=== PATIENT | male | born 1960 | race Caucasian/White ===

== ENCOUNTER → 2016-09-07 | Outpatient (CLI) | payer OTHER ==
[~2016-09-07] MED LIST: /TAMS4CA PO; AMBI10TA PO; AMBIEN PO; ASPI1TAB PO; ATOR1TAB18 PO; BACT2CRE TOP; BUSP10TA PO; CETI10CH PO; CETI10TA PO; CIPR500T3 PO; CYMB60CA3 PO; EFFE150C PO; FLAG500T PO; FLOM5CAP PO; GABA300C3 PO; HYDR1TAB97 PO; LEVS0.123 PO; LIDO1DIS2 TD; LISI-538 PO; LISI20TA PO; LYRI200C PO; MELO7.5T3 PO; MORP15TA2 PO; MORP30SU PO; ONDA1TAB15 PO; ROPI3TAB PO; SYNT25TA PO; TRAZ10TA PO; ULTR50TA PO; VITA200015 PO; VITMTA PO; ZANA4CAP PO; ZOCO20TA PO; [UNRECOGNIZED DRUG - CODE] TOP; ropinirole PO
--- NOTE | 2016-09-07 15:10 | REP ---
CHEST, TWO VIEWS: HISTORY: Shortness of breath. COMPARISON: 04/28/2016 Curvilinear density is present in the left lower lobe consistent with scar. The right lung is clear. The heart is normal in size. The pulmonary vasculature is normal in appearance. Degenerative change is present in the thoracic spine. IMPRESSION: Left lower lobe scar. Signed by Konrad Baker MD 09/07/2016 03:17 P
== END ==
LOC: M WUC 14:17
PROVIDERS: ATTEND Nurse Practitioner Family
DX: R06.02 Shortness of breath (principal)

== ENCOUNTER → 2016-09-20 | Outpatient (CLI) | payer OTHER ==
[~2016-09-20] MED LIST changes: +HYDR-3713 PO; -HYDR1TAB97 PO
== END ==
LOC: M CARPUL 15:25
PROVIDERS: ATTEND Nurse Practitioner Family
DX: R06.09 Other forms of dyspnea (principal)

== ENCOUNTER → 2016-10-12 | Outpatient (CLI) | payer OTHER ==
--- NOTE | 2016-10-12 13:15 | REP ---
Clinical: Lung cancer screening. Technique: Axial low-dose noncontrast images from the thoracic inlet to the upper abdomen. Comparison: Chest CT dated 09/03/2012. Findings: Linear plate-like atelectasis in the lingula and left lower lobe are essentially unchanged when compared to 2013. The lung kauffman are otherwise well aerated and without further consolidation, nodule or mass lesion. No pleural effusion/reaction. Tracheobronchial tree appears patent. Mediastinum is grossly unremarkable. Impression: Linear plate-like atelectasis similar to 2013. No significant consolidation, nodule or mass lesion. Signed by Marvin Oliva MD 10/12/2016 01:06 P
== END ==
LOC: M RAD 12:43
PROVIDERS: ATTEND Nurse Practitioner Family
DX: Z13.83 Encounter for screening for respiratory disorder NEC (principal); Z87.891 Personal history of nicotine dependence; J98.11 Atelectasis

== ENCOUNTER → 2016-10-18 | Outpatient (CLI) | payer OTHER ==
--- NOTE | 2016-10-18 14:32 | REP ---
Clinical: Degenerative pain. Technique: AP, lateral, swimmers views of the cervical spine. Comparison: 04/08/2016. Findings: Alignment is maintained. Moderate multilevel degenerative disc osteophyte complexes are noted. Evidence for prior anterior fusion at the C3 - C5 and C6 - C7 levels. Findings remain stable compared to 04/08/2016. Impression: Evidence for prior anterior fusion and multilevel degenerative changes similar to prior examination. No acute fracture or subluxation. Signed by Marvin Oliva MD 10/18/2016 02:23 P
== END ==
LOC: M WUC 13:45
PROVIDERS: ATTEND Neurological Surgery
DX: M47.22 Other spondylosis with radiculopathy, cervical region (principal); Z98.1 Arthrodesis status

== ENCOUNTER → 2016-11-02 | Outpatient (CLI) | payer OTHER ==
--- NOTE | 2016-11-02 13:47 | REP ---
CT CERVICAL SPINE WITHOUT CONTRAST: HISTORY: Osteoarthritis. COMPARISON: 12/18/2012. The patient is status post C3-5 and C6-7 anterior spinal fusion. Fixation plates and bony graft material are present. There is no acute fracture or subluxation. Posterior osteophytes are present at the C3-4 level. There is minimal narrowing of the spinal canal. There is no disc bulge or herniation. Uncinate process hypertrophy is present at the C3-4 level. This produces mild narrowing of the C3 neural foramina. The remaining neural foramina are patent. The vertebral bodies are normal in height. IMPRESSION: 1. The patient is status post C3-5 and C6-7 anterior spinal fusion. There is anatomic alignment of the cervical spine. 2. There is cervical spondylosis at the C3-4 level. Signed by Konrad Baker MD 11/02/2016 01:50 P
== END ==
LOC: M RAD 13:04
PROVIDERS: ATTEND Neurological Surgery
DX: M47.812 Spondylosis without myelopathy or radiculopathy, cervical region (principal); Z98.1 Arthrodesis status

== ENCOUNTER → 2017-02-02 | Outpatient (CLI) | payer OTHER ==
[~2017-02-02] MED LIST changes: +GABA-282 PO; -GABA300C3 PO
--- NOTE | 2017-02-03 08:34 | REP ---
MRI CERVICAL SPINE WITHOUT CONTRAST: HISTORY: Osteoarthritis. COMPARISON: MRI 04/26/[address] 11/02/2016. The patient is status post C3-5 and C6-7 anterior spinal fusion. Fixation plates and bone graft material are present. Facet hypertrophy is present on the left at the C2-3 level. The C2 neural foramina are patent. Posterior osteophytes are present at the C3-4 level. There is minimal effacement of the thecal sac without spinal cord compression. Bilateral uncinate process hypertrophy is present. This produces mild and moderate narrowing of the right and left C3 neural foramina respectively. The spinal canal and neural foramina are patent at the C4-5 through C6-7 levels. Facet hypertrophy is present at the C7-T1 level. The C7 neural foramina are patent. There is no disc bulge or herniation. The spinal cord is normal in signal intensity. Normal signal intensity is present in the cervical vertebral bodies. There is no subluxation. IMPRESSION: 1. The patient is status post C3-5 and C6-7 anterior spinal fusion. There is anatomic alignment of the cervical spine. 2. There is cervical spondylosis at the C2-3 , C3-4 and C7-T1 levels without spinal cord compression. Signed by Konrad Baker MD 02/03/2017 08:42 A
== END ==
LOC: M RAD 16:48
PROVIDERS: ATTEND Neurological Surgery
DX: M47.812 Spondylosis without myelopathy or radiculopathy, cervical region (principal); Z98.1 Arthrodesis status

== ENCOUNTER 2017-02-23 09:34 | Emergency (ER) | payer OTHER ==
[~2017-02-23 09:34] MED LIST changes: -ATOR1TAB18 PO; +ATOR80TA59 PO; -ONDA1TAB15 PO; +ONDA4TAB5 PO
[2017-02-23] MEDS ORDERED: NS 1,000 ML IV SCH (10:26)
[2017-02-23 11:18] LABS: BASO # 0.1 K/mm3 (0.0-0.2); BASO % 1.1 % (0.0-1.0); EOS # 0.1 K/mm3 (0.0-0.50); EOS % 1.1 % (0.0-3.0); LARGE UNSTAINED CELL # 0.1 K/mm3 (0.0-0.4); LARGE UNSTAINED CELL % 1.6 % (0.0-4.0); LYMPH # 1.8 K/mm3 (1.5-4.5); LYMPH % 29.4 % (24.0-44.0); MEAN CORPUSCULAR HEMOGLOBIN 31.5 pg (27.0-33.0); MEAN CORPUSCULAR HGB CONC 33.9 g/dl (32.0-36.5); MEAN CORPUSCULAR VOLUME 93.1 fl (80.0-96.0); MONO # 0.3 K/mm3 (0.0-0.8); NEUTROPHILS # 3.5 K/mm3 (1.8-7.7); NEUTROPHILS % 60.7 % (36.0-66.0); PLATELET COUNT, AUTOMATED 202 k/mm3 (150-450); RED CELL DISTRIBUTION WIDTH 13.9 % (11.5-14.5); WHITE BLOOD COUNT 5.7 K/mm3 (4.0-10.0)
--- NOTE | 2017-02-23 11:18 | REP ---
Clinical: Left lower quadrant abdominal pain. Technique: Upright view of the chest with supine and upright views of the abdomen and pelvis. Findings: Frontal upright view of the chest demonstrates linear scarring in the left base and no acute cardiopulmonary process or free air below the diaphragm to suspect pneumoperitoneum. Supine and upright views of the abdomen and pelvis demonstrate nonspecific bowel gas pattern without obstruction or perforation. No organomegaly. Right renal calcifications are suggested up to 7 mm. Impression: Nonspecific bowel gas pattern. Nephrolithiasis. Signed by Marvin Oliva MD 02/23/2017 11:10 A
[2017-02-23] MEDS ORDERED: MORPHINE 2 MG/ML 1ML SYRINGE IV ONE (11:30)
[2017-02-23 11:45] LABS: ALBUMIN 3.9 GM/DL (3.2-5.2); ALBUMIN/GLOBULIN RATIO 1.22 (1.00-1.93); ALKALINE PHOSPHATASE 104 U/L (45-117); ALT/SGPT 34 U/L (12-78); ANION GAP 8 MEQ/L (8-16); AST/SGOT 10 U/L (15-37); BILIRUBIN,DIRECT < 0.1 MG/DL (0.0-0.2); BILIRUBIN,TOTAL 0.4 MG/DL (0.2-1.0); BLOOD UREA NITROGEN 13 MG/DL (7-18); CALCIUM LEVEL 8.7 MG/DL (8.5-10.1); CARBON DIOXIDE LEVEL 21 MEQ/L (21-32); CHLORIDE LEVEL 111 MEQ/L (98-107); CREATININE FOR GFR 0.95 MG/DL (0.70-1.30); GLOMERULAR FILTRATION RATE > 60.0 (>56); GLUCOSE, FASTING 100 MG/DL (70-105); POTASSIUM SERUM 4.4 MEQ/L (3.5-5.1); SODIUM LEVEL 140 MEQ/L (136-145); TOTAL PROTEIN 7.1 GM/DL (6.4-8.2)
[2017-02-23] MEDS ORDERED: ONDANSETRON 4MG/2ML VIAL (J2405) IV ONE (11:45)
[2017-02-23] MEDS ORDERED: ISOVUE-370 76% 100ML VIAL (Q9967) As Ordered ONE (11:52)
--- NOTE | 2017-02-23 12:30 | REP ---
Clinical: Lower abdominal pain. Diverticulitis. Technique: Axial contrast enhanced images from the lung bases to the pubic symphysis using 100 ml Isovue 370 intravenous contrast material with coronal and sagittal re-formations. Comparison: 07/27/2016. Findings: Lung bases demonstrate minimal left basilar and lingular fibroatelectatic changes. Visualized heart and pericardium normal. Fatty infiltration to the liver without focal hepatic lesion. Spleen, pancreas, gallbladder, bilateral adrenal glands are normal. Kidneys demonstrate few small subcentimeter hypodensities compatible with cysts with 1 mm and 13 mm nonobstructing right renal calculi. The enteric system is without obstruction or acute inflammatory process. Normal terminal ileum and appendix identified in the right lower quadrant. Colonic and sigmoid diverticula noted without acute diverticulitis. Pelvis demonstrates normal bladder and age appropriate prostate/seminal vesicles. No ascites. No free air. No obvious intraperitoneal or retroperitoneal adenopathy. Abdominal aorta and vasculature demonstrates minimal atherosclerotic changes without aneurysm or dissection. Surrounding musculoskeletal structures without focal osseous abnormality. Impression: 1. Small bilateral renal cysts and nonobstructing right renal calculi up to 13 mm. 2. Diverticulosis without evidence for acute diverticulitis. 3. Fatty infiltration to the liver without focal hepatic lesion identified. 4. No ascites, adenopathy or obvious acute abdominopelvic pathology appreciated. Signed by Marvin Oliva MD 02/23/2017 12:22 P
[2017-02-23 13:31] VITALS: BP 111/75
[2017-02-23] MEDS ORDERED: BENT10CA PO (13:34)
== END 2017-02-23 14:01 | disposition home or self-care (01) ==
LOC: EDBD 09:34 → M ED 09:34
DX: N20.0 Calculus of kidney (principal); K76.0 Fatty (change of) liver, not elsewhere classified; K57.90 Diverticulosis of intestine, part unspecified, without perforation or abscess without bleeding; N28.1 Cyst of kidney, acquired; G89.29 Other chronic pain; R10.9 Unspecified abdominal pain; M35.00 Sjogren syndrome, unspecified; I10 Essential (primary) hypertension; F32.9 Major depressive disorder, single episode, unspecified; F41.9 Anxiety disorder, unspecified; E03.9 Hypothyroidism, unspecified; F17.200 Nicotine dependence, unspecified, uncomplicated; Z79.82 Long term (current) use of aspirin; Z79.899 Other long term (current) drug therapy; Z88.6 Allergy status to analgesic agent

== ENCOUNTER → 2017-05-18 | Outpatient (CLI) | payer OTHER ==
[~2017-05-18] MED LIST changes: +BENT10CA PO
--- NOTE | 2017-06-14 01:38 | ECWPNPC ---
PATIENT NAME: JAKOB ARGUELLES : 1960 GENDER: MALE VISIT DATE: 05/18/2017 DISCHARGE DATE: 05/18/17 1318 VISIT LOCKED DATE TIME: PHYSICIAN: JAZZY MYERS RESOURCE: JAZZY MYERS REASON FOR APPOINTMENT 1. LOW BACK HISTORY OF PRESENT ILLNESS HISTORY OF PRESENT ILLNESS: PAIN THE PATIENT DESCRIBES THE PAIN... FALL RISK SCREENING: SCREENING :NO FALLS IN THE PAST YEAR TODAY'S VISIT: NOTES: REFERRED BY CASANDRA HIGH SEATING CAPTAIN FOR LOW BACK PAIN. REPORTS IS HAVING SIGNIFICANT PAIN IN NECK AND LEFT SHOULDER. IS S/P RECENT CERVICAL FUSION WITH DR VALARIE FALL 03/20/17. HE HAS HAS FOLLOWUP SCHEDULED IN THIS MONTH. PRIOR TO MOVE TO [place] WAS TREATED AT [facility] AND WAS ON MORPHINE FOR PAIN CONTROL. WHILE IN [place] WAS TREATED AT A PAIN CENTER AND WAS ALSO ON MORPHINE 60 MG BID AND 30 MG PRN AND LYRICA 250 BID. HE RETURNED TO THE [place] 2 YEARS AGO AND HAS HAD NO MORPHINE SINCE THEN. NOTES THAT THE LEFT SHOULDER IS THE WORST AND THAT THE BACK LEFT SIDE. NO INJECTION TREATMENT IN LAST 2 YEARS. IS ATTENDING PT AT [facility] FOR NECK AND BACK RIGHT NOW. . CURRENT MEDICATIONS TAKING ARNUITY ELLIPTA 100 MCG/ACT AEROSOL POWDER BREATH ACTIVATED 1 PUFF INHALATION ONCE A DAY TAKING VENTOLIN HFA 108 (90 BASE) MCG/ACT AEROSOL SOLUTION 2 PUFFS NEEDED INHALATION EVERY 4 HRS TAKING LIPITOR 80 MG TABLET 1 TABLET ORALLY ONCE A DAY TAKING SPACER/AERO CHAMBER MOUTHPIECE - MISCELLANEOUS DIRECTED - - TAKING ASPIR-81 81 MG TABLET DELAYED RELEASE 1 TABLET ORALLY ONCE A DAY TAKING BETAMETHASONE VALERATE 0.1 % OINTMENT 1 APPLICATION TO AFFECTED AREA EXTERNALLY BID TAKING LISINOPRIL 20 MG TABLET 1 TABLET ORALLY ONCE A DAY TAKING ROPINIROLE HCL 3 MG TABLET 1 TAB ORALLY TWICE DAILY, NOTES: NEUROLOGY TAKING PRIMIDONE 250 MG TABLET 1 TAB ORALLY DAILY NEEDED, NOTES: NEUROLOGY TAKING CLARITIN 10 MG TABLET 1 TABLET ORALLY ONCE A DAY TAKING GABAPENTIN 400 MG CAPSULE 1 CAPSULE ORALLY THREE TIMES A DAY TAKING TRAZODONE HCL 100 MG TABLET 2 TABLET AT BEDTIME ORALLY ONCE A DAY NOT-TAKING FLOMAX 0.4 MG CAPSULE 1 CAPSULE 30 MINUTES AFTER THE SAME MEAL EACH DAY ORALLY ONCE A DAY NOT-TAKING LEVOTHYROXINE SODIUM 25 MCG TABLET 1 TABLET ORALLY ONCE A DAY NOT-TAKING CENTRUM SILVER - TABLET ORALLY NOT-TAKING PROTONIX 40 MG TABLET DELAYED RELEASE 1 TABLET ORALLY ONCE A DAY NOT-TAKING SINGULAIR 10 MG TABLET 1 TABLET IN THE EVENING ORALLY ONCE A DAY NOT-TAKING METAXALONE 800 MG TABLET 1 TABLET ORALLY TWICE DAILY NEEDED NOT-TAKING ROBAXIN 500 MG TABLET 1 TAB ORALLY EVERY 4 HRS NOT-TAKING ELIMITE 5% CREAM DIRECTED TO AFFECTED AREAS APPLIED TOPICALLY ONCE NOT-TAKING [facility] FLUTICASONE PROPIONATE 50 MCG/ACT SUSPENSION 1 SPRAY IN EACH NOSTRIL NASALLY BID NOT-TAKING VITAMIN D 2000 UNIT TABLET 1 TABLET ORALLY ONCE A DAY NOT-TAKING CYCLOBENZAPRINE HCL 10 MG TABLET 1 TABLET NEEDED ORALLY THREE TIMES A DAY NOT-TAKING AUGMENTIN 875-125 MG TABLET 1 TABLET ORALLY EVERY 12 HRS NOT-TAKING EC-NAPROSYN 500 MG TABLET DELAYED RELEASE 1 TABLET ORALLY TWICE A DAY NOT-TAKING REQUIP 4 MG TABLET 1 TABLET 1 TO 3 HOURS BEFORE BEDTIME ORALLY ONCE A DAY NOT-TAKING ZYBAN 150 MG TABLET EXTENDED RELEASE 12 HOUR 1 TABLET ORALLY TWICE A DAY NOT-TAKING NICOTINE 21 MG/24HR PATCH 24 HOUR 1 PATCH TO SKIN TRANSDERMAL ONCE A DAY NOT-TAKING EFFEXOR XR 150 MG CAPSULE EXTENDED RELEASE 24 HOUR 1 CAPSULE WITH FOOD ORALLY ONCE A DAY NOT-TAKING FLOMAX 0.4 MG CAPSULE 1 CAPSULE ORALLY ONCE A DAY NOT-TAKING BUSPAR 10 MG TABLET 1 TABLET ORALLY TWICE A DAY, NOTES: FROM [place] NOT-TAKING VOLTAREN 1 % GEL DIRECTED TRANSDERMAL BID NOT-TAKING TRAMADOL HCL 50 MG TABLET 1 TAB ORALLY EVERY 8 HOURS NEEDED/MMD#4 NOT-TAKING FLAGYL 500 MG TABLET 1 TABLET ORALLY EVERY 8 HRS NOT-TAKING CIPRO 500 MG TABLET 1 TABLET ORALLY DIRECTED NOT-TAKING NEURONTIN 300 MG CAPSULE TAKE ONE CAPSULE BY MOUTH THREE TIMES A DAY DIRECTED NOT-TAKING KEFLEX 500 MG CAPSULE 1 CAPSULE ORALLY TWICE A DAY NOT-TAKING ZANAFLEX 4 MG TABLET 1 TABLET NEEDED ORALLY THREE TIMES A DAY NOT-TAKING ELIMITE 5 % CREAM 1 APPLICATION FROM THE NAPE OF THE NECK TO THE FEET EXTERNALLY ONCE, MAY REPEAT IN 7 DAYS NOT-TAKING NORCO 5-325 MG TABLET 1 TABLET NEEDED ORALLY EVERY 6 HRS NOT-TAKING VALIUM 2 MG TABLET 1 TABLET NEEDED ORALLY THREE TIMES DAILY NOT-TAKING LISINOPRIL/HCTZ 20/12.5MG TABLET DIRECTED ORAL DAILY NOT-TAKING MOBIC 7.5 MG TABLET 1 TABLET ORALLY ONCE A DAY NOT-TAKING MORPHINE SULFATE 30 MG TABLET 1 TABLET NEEDED ORALLY EVERY 4 HRS NOT-TAKING LOVAZA 2 GM CAPSULE 1 CAPSULES ORALLY TWICE A DAY NOT-TAKING ZOCOR 20 MG TABLET 1 TABLET IN THE EVENING ORALLY ONCE A DAY NOT-TAKING CLOBETASOL PROPIONATE 0.05 % CREAM 1 APPLICATION TO AFFECTED AREA EXTERNALLY TWICE A DAY NOT-TAKING SIMVASTATIN 20 20MG TABLET DIRECTED ORAL MEDICATION LIST REVIEWED AND RECONCILED WITH THE PATIENT PAST MEDICAL HISTORY HTN CERVICAL RADICULOPOTHY SHOULDER PAIN NEPHROLITHIASIS RESTLESS LEG SYNDROME HYPERCHOLESTEROLEMIA CHRONIC SINUSITIS ALLERGIES MOTRIN: HIVES, VOMIT: SIDE EFFECTS SURGICAL HISTORY HERNIA X4 SCHEDULED FOR HERNIA 12/16/2011 CERVICAL LAMINECTOMY CERVICAL NECK-[address] LEFT SEBACEOUS CYST REMOVAL DR. PUCKETT, ENT 03/2016 FUSION OF NECK 03/20/17 FAMILY HISTORY FATHER: , HTN,DM MOTHER: , HTN,DM SIBLINGS: ALIVE, 1 BROTHER HAS PROSTATE CA SON(S): ALIVE DAUGHTER(S): 31 YRS, AT AGE 31 YO DUE TO HEART FAILURE 4 BROTHER(S) , 2 SISTER(S) - HEALTHY. 1 SON(S) , 2 DAUGHTER(S) - HEALTHY. BROTHER AFTER RECENT REPAIR OF PUD AGE 53. SOCIAL HISTORY GENERAL: TOBACCO USE ARE YOU A:CURRENT SMOKER HOW MANY CIGARETTES A DAY DO YOU SMOKE?5 OR LESS HOW SOON AFTER YOU WAKE UP DO YOU SMOKE YOUR FIRST CIGARETTE?6-30 MIN HOW OFTEN DO YOU SMOKE CIGARETTES?EVERY DAY PATIENT COUNSELED ON THE DANGERS OF TOBACCO USE AND URGED TO QUIT:05/18/2017 ARE YOU INTERESTED IN QUITTING?THINKING ABOUT QUITTING PREVIOUS QUIT ATTEMPTS?YES, WITHIN THE LAST 6 MONTHS. COUNSELED THE PATIENT ON SMOKING CESSATION, EDUCATION [id number]/2017 LUNG CANCER SCREENING SMOKING STATUS:CURRENT SMOKER IS THE PATIENT BETWEEN THE AGE OF 55 AND 77?YES HAS THE PATIENT EVER BEEN DIAGNOSED WITH LUNG CANCER?NO PACK YEARS = NUMBER OF PACKS PER DAY SMOKED X NUMBER OF YEARS SMOKED:40 CREATE REFERRAL:CREATED REFERRAL TO ONCOLOGY NURSE NAVIGTOR FOR LDCT SCAN BMI CARE GOAL FOLLOW-UP ABOVE NORMAL BMI FOLLOW-UPLIFESTYLE EDUCATION REGARDING DIET ALCOHOL SCREENING DID YOU HAVE A DRINK CONTAINING ALCOHOL IN THE PAST YEAR?YES HOW OFTEN DID YOU HAVE SIX OR MORE DRINKS ON ONE OCCASION IN THE PAST YEAR?NEVER (0 POINTS) HOW MANY DRINKS DID YOU HAVE ON A TYPICAL DAY WHEN YOU WERE DRINKING IN THE PAST YEAR?1 OR 2 (0 POINTS) HOW OFTEN DID YOU HAVE A DRINK CONTAINING ALCOHOL IN THE PAST YEAR?MONTHLY OR LESS (1 POINT) POINTS1 INTERPRETATIONNEGATIVE RECREATIONAL DRUG USE DENIES. CAFFEINE CAFFEINE USE?YES HOW OFTEN AND HOW MUCH? 2-3/DAY SEXUAL HX HAD SEX IN THE LAST 12 MONTHS (VAGINAL, ORAL, OR ANAL)?: YES, WITH: WOMEN ONLY, USE PROTECTION?: NO, PREVENTION STRATEGIES DISCUSSED:: OTHER, HAVE YOU EVER HAD AN STD?: NO. HIV / HEP-C SCREENING HIV TEST OFFERED TO PATIENT:NO HEP-C TEST OFFERED TO PATIENT:NO OCCUPATION: DISABLED. DIET: REGULAR. EXERCISE: NO REGULAR EXERCISE. MARITAL STATUS: . ADVENTISM NO ORTHODOX BELIEFS THAT WOULD IMPACT HEALTH CARE. LANGUAGE PALAUAN. LEARNING BARRIERS / SPECIAL NEEDS CHANGE FROM LAST VISIT?NO PAIN CLINIC PFS, CLERGY, PUBLIC HEALTH REFERRALS HAS THE PATIENT BEEN EDUCATED REGARDING HIS/HER PLAN OF CARE?YES HAS THE PATIENT BEEN EDUCATED REGARDING PAIN, THE RISK FOR PAIN, THE IMPORTANCE OF EFFECTIVE PAIN MANAGEMENT, AND THE PAIN ASSESSMENT PROCESS?YES ADVANCE DIRECTIVES HEALTH CARE PROXY?YES NAME OF HCP RONY JIMENAPONCE DO YOU HAVE A DNR?NO WOULD YOU LIKE MORE INFORMATION?NO LIVING WILL?NO WOULD YOU LIKE MORE INFORMATION?NO POWER OF SALES DESIGNER?NO WOULD YOU LIKE MORE INFORMATION?NO TRAVEL OUTSIDE US: DENIES. DOMESTIC VIOLENCE NONE. HOSPITALIZATION/MAJOR DIAGNOSTIC PROCEDURE SURGERY RELATED CELLULITIS [facility] ER- STRAIN OF MUSCLE, FASCIA AND TENDON AT NECK LEVEL- LEFT RHOMBOID MUSCLE SPASM 04/08/2016 [facility]: INTRACTABLE BACK PAIN 03/2017 REVIEW OF SYSTEMS REVIEWED BY: PROVIDER: JAZZY MCWILLIAMS . CONSTITUTIONAL: ANY CHANGE IN YOUR MEDICAL CONDITION? NO . CHILLS NO . FEVER NO . INFECTION: DO YOU HAVE NEW INFECTIONS? NO . DO YOU HAVE HISTORY OF MRSA? NO . MUSCULOSKELETAL: ANY NEW PATTERNS OF PAIN OR NUMBNESS? N/T 3RD, 4TH FINGERS LEFT HAND . GASTROENTEROLOGY: ANY NEW CHANGE IN BOWEL CONTROL? NO . ACID REFLUX INTERMITTANT . GENITOURINARY: ANY NEW CHANGE IN BLADDER CONTROL? NO . IS THERE A CHANCE YOU COULD BE ? NO . HEMATOLOGY/LYMPH: DO YOU TAKE ANY BLOOD THINNERS? (FOR EXAMPLE- COUMADIN, PLAVIX, AGGRENOX, PLATEL, PRADAXA, OR XARELTO) NO . WHEN WAS YOUR LAST DOSE? DATE: TIME: . NEUROLOGY: HAVE YOU FALLEN IN THE PAST 6 MONTHS? NO . ANY NEW EXTREMITY NUMBNESS OR WEAKNESS? NO . BURNING PAIN IN FEET BILATERAL . BURNING PAIN IN HANDS LEFT . RESTLESS LEG SYMPTOMS SYMPTOMS OCCUR EVERY NIGHT . TREMOR DX WITH ESSENTIAL TREMOR . CARDIOLOGY: DO YOU HAVE A PACEMAKER OR DEFIBRILLATOR? NO . CHEST PAIN DULL, INTERMITTANT . RESPIRATORY: TROUBLE SLEEPING DUE TO PAIN . HAVE YOU BEEN SICK IN THE PAST WEEK? NO . FEVER NO . FLU LIKE SYMPTOMS? NO . ASTHMA USES RESCUE INHALER . DO YOU USE ANY TYPE OF TOBACCO (SMOKE, SMOKELESS, CHEW)? WORKING ON SMOKING CESSATION . COUGH NO . INTEGUMENTARY: DO YOU HAVE ANY RASHES OR OPEN SORES? NO . ALLERGIC/IMMUNO: ARE YOU ALLERGIC TO SHELLFISH OR IV DYE? NO . ANY NEW ALLERGIES? NO . PSYCHIATRIC: DO YOU HAVE THOUGHTS OF HURTING YOURSELF OR SOMEONE ELSE? NO . ARE YOU ABUSED, NEGLECTED, OR IN AN UNSAFE ENVIRONMENT? NO . ENDOCRINOLOGY: ARE YOU DIABETIC? NO . OTHER: DO YOU NEED ANY PRESCRIPTIONS? NO . IF YES, PLEASE LIST: ____ . ANY NEW PROBLEMS WITH YOUR MEDICATIONS? NO . WHEN DID YOU LAST EAT? ____ . WHEN DID YOU LAST DRINK? ____ . WHAT DID YOU LAST DRINK? ____ . NAME OF PERSON DRIVING YOU HOME? ____ . DO YOU HAVE ANY OTHER QUESTIONS OR CONCERNS NO . PSYCHOLOGY: ARE YOU RECEIVING COUNSELING? 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 BECKS DEPRESSION INVENTORY DID NOT COMPLETE. STATES IS QUITE DEPRESSED BUT DENIES SUICIDAL IDEATION . VITAL SIGNS WT 224.6 LBS, HT 6'2", BMI 28.83 INDEX, BP 147/99 MM HG, HR 94 /MIN, RR 18 /MIN, TEMP 98.1 F, OXYGEN SAT % 95%, NA INITIALS SC 11:53, REVIEWED BY: EM. EXAMINATION GENERAL EXAMINATION: GENERAL APPEARANCE:ANXIOUS AND FREQUENTLY WEEPY. PSYCHALERT , ORIENTED X 3 , SAD. HEENT:NORMOCEPHALIC, NO LYMPHADENOPATHY, NO THYROMEGLY. LUNGS:BILATERAL WHEEZES. HEART:HEART RATE REGULAR, NORMAL S1S2, NO MURMURS, CLICK OR RUBS. MUSCULOSKELETAL:MUSCLE STRENGTH TESTING 5/5 BILATERAL LOWER EXTREMITIES. POINT TENDERNESS OVER THE LUMBAR SPINOUS PROCESSES. , TRIGGER POINTS AND TIGHT FIBROUS BANDS OVER LUMBOSACRAL AXIS. POSITIVE EVELYN SIGN. LIMITS FLEXION AND EXTENSION NOTING PAIN. NEUROLOGIC EXAM:DTRS TRACE TO 1+ BILATERAL LOWER EXTREMITES. MIN SENSORY CHANGES NOTED OVER LOWER EXTREMITIES. ASSESSMENTS MYALGIA - M79.1 (PRIMARY) CERVICAL POST-LAMINECTOMY SYNDROME - M96.1 LUMBAR FACET ARTHROPATHY - M12.88 TREATMENT MYALGIA REFILL GABAPENTIN TABLET, 600 MG, 1 CAPSULE, ORALLY, THREE TIMES A DAY, 30 DAY(S), 90, REFILLS 2 START MELOXICAM TABLET, 15 MG, 1 TABLET, ORALLY, ONCE A DAY, 30 DAY(S), 30, REFILLS 1 TRIGGER POINT 3 + JAZZY ROBINS 05/18/2017 1:02:06 PM > LOW BACK - WILL NEED SEDATION NOTES: DISCUSSED WITH PATIENT THAT WE WOULD NOT BE LOOKING TO RESTART OPIAOD MEDICATIONS. PROCEDURE CODES FA211 ESTABILISHED PATIENT [facility] CHARGE DISPOSITION & COMMUNICATION FOLLOW UP AFTER INJECTION (REASON: [place] - NEED OFFICE REPORTS FROM [place] [facility] (I HAVE NUMBER) AND DR VALARIE URBINA FOR NEC) ELECTRONICALLY SIGNED BY PRISCILLA RAYO ON 06/13/2017 AT 09:59 PM EDT DISCLAIMER : THIS IS A VISIT SUMMARY EXTRACTED FROM THE [employer] CHART. IT IS NOT A COPY OF THE [employer] PROGRESS NOTE. DEISI
== END ==
LOC: M PAIN 11:15
PROVIDERS: ATTEND Nurse Practitioner Family
DX: M96.1 Postlaminectomy syndrome, not elsewhere classified (principal); M12.88 Other specific arthropathies, not elsewhere classified, other specified site; M79.1 Myalgia; I10 Essential (primary) hypertension; F41.8 Other specified anxiety disorders; E78.5 Hyperlipidemia, unspecified; F51.04 Psychophysiologic insomnia; F17.210 Nicotine dependence, cigarettes, uncomplicated; G25.81 Restless legs syndrome; G25.0 Essential tremor; J30.9 Allergic rhinitis, unspecified; K21.9 Gastro-esophageal reflux disease without esophagitis; Z88.6 Allergy status to analgesic agent; Z79.51 Long term (current) use of inhaled steroids; Z79.82 Long term (current) use of aspirin; Z79.899 Other long term (current) drug therapy

== ENCOUNTER → 2017-05-22 | Outpatient (CLI) | payer OTHER ==
--- NOTE | 2017-05-23 02:56 | REP ---
Clinical: Myelopathy. Technique: AP, lateral, swimmers views of the cervical spine. Comparison: 10/18/2016. Findings: The patient is status post anterior fusion at the C3 - C7 levels. Alignment is maintained. Prevertebral soft tissues are normal. There has been interval surgery at the C5-6 level. Prevertebral soft tissues are normal. Impression: Stable postsurgical changes. Normal alignment. Signed by Marvin Oliva MD 05/23/2017 02:47 A
== END ==
LOC: M RAD 09:43
PROVIDERS: ATTEND Neurological Surgery
DX: M47.12 Other spondylosis with myelopathy, cervical region (principal)

== ENCOUNTER → 2017-05-31 | Outpatient (CLI) | payer OTHER ==
[~2017-05-31] MED LIST changes: +BUPIVACAINE HCL 0.25% 10 ML VIAL As Ordered ONE; +BUPIVACAINE HCL 0.25% 30 ML VIAL As Ordered ONE; +TRIAMCINOLONE ACETONIDE SUSP 40 MG/ML VIAL (J3301) As Ordered ONE; +diazePAM 5 MG TAB As Ordered ONE; +oxyCODONE 5MG TAB As Ordered ONE
--- NOTE | 2017-06-06 00:06 | ECWPNPC ---
PATIENT NAME: JAKOB ARGUELLES : 1960 GENDER: MALE VISIT DATE: 05/31/2017 DISCHARGE DATE: 05/31/17 1304 VISIT LOCKED DATE TIME: PHYSICIAN: RUBY DECKER RESOURCE: RUBY DECKER REASON FOR APPOINTMENT 1. TPI WITH A HIGHER DOSE OF ORAL SED. HISTORY OF PRESENT ILLNESS HISTORY OF PRESENT ILLNESS: PAIN THE PATIENT DESCRIBES THE PAIN... FALL RISK SCREENING: SCREENING :NO FALLS IN THE PAST YEAR CURRENT MEDICATIONS TAKING ARNUITY ELLIPTA 100 MCG/ACT AEROSOL POWDER BREATH ACTIVATED 1 PUFF INHALATION ONCE A DAY, NOTES: 05/31/17 0700 TAKING VENTOLIN HFA 108 (90 BASE) MCG/ACT AEROSOL SOLUTION 2 PUFFS NEEDED INHALATION EVERY 4 HRS, NOTES: 05/31/17 0700 TAKING LIPITOR 80 MG TABLET 1 TABLET ORALLY ONCE A DAY, NOTES: 05/30/17 PM TAKING SPACER/AERO CHAMBER MOUTHPIECE - MISCELLANEOUS DIRECTED - -, NOTES: 05/31/17 TAKING ASPIR-81 81 MG TABLET DELAYED RELEASE 1 TABLET ORALLY ONCE A DAY, NOTES: NONE LATELY TAKING BETAMETHASONE VALERATE 0.1 % OINTMENT 1 APPLICATION TO AFFECTED AREA EXTERNALLY BID, NOTES: NONE LATELY TAKING LISINOPRIL 20 MG TABLET 1 TABLET ORALLY ONCE A DAY, NOTES: NONE LATELY TAKING ROPINIROLE HCL 3 MG TABLET 1 TAB ORALLY TWICE DAILY, NOTES: 05/30/17 PM TAKING PRIMIDONE 250 MG TABLET 1 TAB ORALLY DAILY NEEDED, NOTES: NONE LATELY TAKING CLARITIN 10 MG TABLET 1 TABLET ORALLY ONCE A DAY, NOTES: 05/30/17 AM TAKING TRAZODONE HCL 100 MG TABLET 2 TABLET AT BEDTIME ORALLY ONCE A DAY, NOTES: 05/30/172099 TAKING GABAPENTIN 600 MG TABLET 1 CAPSULE ORALLY THREE TIMES A DAY, NOTES: 05/30/172099 TAKING MELOXICAM 15 MG TABLET 1 TABLET ORALLY ONCE A DAY, NOTES: 05/30/172099 UNKNOWN FLOMAX 0.4 MG CAPSULE 1 CAPSULE 30 MINUTES AFTER THE SAME MEAL EACH DAY ORALLY ONCE A DAY UNKNOWN LEVOTHYROXINE SODIUM 25 MCG TABLET 1 TABLET ORALLY ONCE A DAY UNKNOWN CENTRUM SILVER - TABLET ORALLY UNKNOWN PROTONIX 40 MG TABLET DELAYED RELEASE 1 TABLET ORALLY ONCE A DAY UNKNOWN SINGULAIR 10 MG TABLET 1 TABLET IN THE EVENING ORALLY ONCE A DAY UNKNOWN METAXALONE 800 MG TABLET 1 TABLET ORALLY TWICE DAILY NEEDED UNKNOWN ROBAXIN 500 MG TABLET 1 TAB ORALLY EVERY 4 HRS UNKNOWN ELIMITE 5% CREAM DIRECTED TO AFFECTED AREAS APPLIED TOPICALLY ONCE UNKNOWN [facility] FLUTICASONE PROPIONATE 50 MCG/ACT SUSPENSION 1 SPRAY IN EACH NOSTRIL NASALLY BID UNKNOWN VITAMIN D 2000 UNIT TABLET 1 TABLET ORALLY ONCE A DAY UNKNOWN CYCLOBENZAPRINE HCL 10 MG TABLET 1 TABLET NEEDED ORALLY THREE TIMES A DAY UNKNOWN AUGMENTIN 875-125 MG TABLET 1 TABLET ORALLY EVERY 12 HRS UNKNOWN EC-NAPROSYN 500 MG TABLET DELAYED RELEASE 1 TABLET ORALLY TWICE A DAY UNKNOWN REQUIP 4 MG TABLET 1 TABLET 1 TO 3 HOURS BEFORE BEDTIME ORALLY ONCE A DAY UNKNOWN ZYBAN 150 MG TABLET EXTENDED RELEASE 12 HOUR 1 TABLET ORALLY TWICE A DAY UNKNOWN NICOTINE 21 MG/24HR PATCH 24 HOUR 1 PATCH TO SKIN TRANSDERMAL ONCE A DAY UNKNOWN EFFEXOR XR 150 MG CAPSULE EXTENDED RELEASE 24 HOUR 1 CAPSULE WITH FOOD ORALLY ONCE A DAY UNKNOWN FLOMAX 0.4 MG CAPSULE 1 CAPSULE ORALLY ONCE A DAY UNKNOWN BUSPAR 10 MG TABLET 1 TABLET ORALLY TWICE A DAY, NOTES: FROM [place] UNKNOWN VOLTAREN 1 % GEL DIRECTED TRANSDERMAL BID UNKNOWN TRAMADOL HCL 50 MG TABLET 1 TAB ORALLY EVERY 8 HOURS NEEDED/MMD#4 UNKNOWN FLAGYL 500 MG TABLET 1 TABLET ORALLY EVERY 8 HRS UNKNOWN CIPRO 500 MG TABLET 1 TABLET ORALLY DIRECTED UNKNOWN NEURONTIN 300 MG CAPSULE TAKE ONE CAPSULE BY MOUTH THREE TIMES A DAY DIRECTED UNKNOWN KEFLEX 500 MG CAPSULE 1 CAPSULE ORALLY TWICE A DAY UNKNOWN ZANAFLEX 4 MG TABLET 1 TABLET NEEDED ORALLY THREE TIMES A DAY UNKNOWN ELIMITE 5 % CREAM 1 APPLICATION FROM THE NAPE OF THE NECK TO THE FEET EXTERNALLY ONCE, MAY REPEAT IN 7 DAYS UNKNOWN NORCO 5-325 MG TABLET 1 TABLET NEEDED ORALLY EVERY 6 HRS UNKNOWN VALIUM 2 MG TABLET 1 TABLET NEEDED ORALLY THREE TIMES DAILY UNKNOWN LISINOPRIL/HCTZ 20/12.5MG TABLET DIRECTED ORAL DAILY UNKNOWN MOBIC 7.5 MG TABLET 1 TABLET ORALLY ONCE A DAY UNKNOWN MORPHINE SULFATE 30 MG TABLET 1 TABLET NEEDED ORALLY EVERY 4 HRS UNKNOWN LOVAZA 2 GM CAPSULE 1 CAPSULES ORALLY TWICE A DAY UNKNOWN ZOCOR 20 MG TABLET 1 TABLET IN THE EVENING ORALLY ONCE A DAY UNKNOWN CLOBETASOL PROPIONATE 0.05 % CREAM 1 APPLICATION TO AFFECTED AREA EXTERNALLY TWICE A DAY UNKNOWN SIMVASTATIN 20 20MG TABLET DIRECTED ORAL MEDICATION LIST REVIEWED AND RECONCILED WITH THE PATIENT PAST MEDICAL HISTORY HTN CERVICAL RADICULOPOTHY SHOULDER PAIN NEPHROLITHIASIS RESTLESS LEG SYNDROME HYPERCHOLESTEROLEMIA CHRONIC SINUSITIS ALLERGIES MOTRIN: HIVES, VOMIT: SIDE EFFECTS SURGICAL HISTORY HERNIA X4 SCHEDULED FOR HERNIA 12/16/2011 CERVICAL LAMINECTOMY CERVICAL NECK-[address] LEFT SEBACEOUS CYST REMOVAL DR. PUCKETT, ENT 03/2016 FUSION OF NECK 03/20/17 SOCIAL HISTORY GENERAL: TOBACCO USE ARE YOU A:CURRENT SMOKER HOW MANY CIGARETTES A DAY DO YOU SMOKE?5 OR LESS HOW SOON AFTER YOU WAKE UP DO YOU SMOKE YOUR FIRST CIGARETTE?6-30 MIN HOW OFTEN DO YOU SMOKE CIGARETTES?EVERY DAY PATIENT COUNSELED ON THE DANGERS OF TOBACCO USE AND URGED TO QUIT:05/18/2017 ARE YOU INTERESTED IN QUITTING?THINKING ABOUT QUITTING PREVIOUS QUIT ATTEMPTS?YES, WITHIN THE LAST 6 MONTHS. COUNSELED THE PATIENT ON SMOKING CESSATION, EDUCATION [id number]/21/2017 LUNG CANCER SCREENING SMOKING STATUS:CURRENT SMOKER IS THE PATIENT BETWEEN THE AGE OF 55 AND 77?YES HAS THE PATIENT EVER BEEN DIAGNOSED WITH LUNG CANCER?NO PACK YEARS = NUMBER OF PACKS PER DAY SMOKED X NUMBER OF YEARS SMOKED:40 CREATE REFERRAL:CREATED REFERRAL TO ONCOLOGY NURSE NAVIGTOR FOR LDCT SCAN BMI CARE GOAL FOLLOW-UP ABOVE NORMAL BMI FOLLOW-UPLIFESTYLE EDUCATION REGARDING DIET ALCOHOL SCREENING DID YOU HAVE A DRINK CONTAINING ALCOHOL IN THE PAST YEAR?YES HOW OFTEN DID YOU HAVE SIX OR MORE DRINKS ON ONE OCCASION IN THE PAST YEAR?NEVER (0 POINTS) HOW MANY DRINKS DID YOU HAVE ON A TYPICAL DAY WHEN YOU WERE DRINKING IN THE PAST YEAR?1 OR 2 (0 POINTS) HOW OFTEN DID YOU HAVE A DRINK CONTAINING ALCOHOL IN THE PAST YEAR?MONTHLY OR LESS (1 POINT) POINTS1 INTERPRETATIONNEGATIVE RECREATIONAL DRUG USE DENIES. CAFFEINE CAFFEINE USE?YES HOW OFTEN AND HOW MUCH? 2-3/DAY SEXUAL HX HAD SEX IN THE LAST 12 MONTHS (VAGINAL, ORAL, OR ANAL)?: YES, WITH: WOMEN ONLY, USE PROTECTION?: NO, PREVENTION STRATEGIES DISCUSSED:: OTHER, HAVE YOU EVER HAD AN STD?: NO. HIV / HEP-C SCREENING HIV TEST OFFERED TO PATIENT:NO HEP-C TEST OFFERED TO PATIENT:NO OCCUPATION: DISABLED. DIET: REGULAR. EXERCISE: NO REGULAR EXERCISE. MARITAL STATUS: . CHRISTIAN NO JAIN BELIEFS THAT WOULD IMPACT HEALTH CARE. LANGUAGE DUTCH. LEARNING BARRIERS / SPECIAL NEEDS CHANGE FROM LAST VISIT?NO PAIN CLINIC PFS, CLERGY, PUBLIC HEALTH REFERRALS HAS THE PATIENT BEEN EDUCATED REGARDING HIS/HER PLAN OF CARE?YES HAS THE PATIENT BEEN EDUCATED REGARDING PAIN, THE RISK FOR PAIN, THE IMPORTANCE OF EFFECTIVE PAIN MANAGEMENT, AND THE PAIN ASSESSMENT PROCESS?YES [facility] DIRECTIVES HEALTH CARE PROXY?YES NAME OF HCP RONY ARGUELLES DO YOU HAVE A DNR?NO WOULD YOU LIKE MORE INFORMATION?NO LIVING WILL?NO WOULD YOU LIKE MORE INFORMATION?NO POWER OF CRISIS INTERVENTION COUNSELOR?NO WOULD YOU LIKE MORE INFORMATION?NO TRAVEL OUTSIDE US: DENIES. DOMESTIC VIOLENCE NONE. HOSPITALIZATION/MAJOR DIAGNOSTIC PROCEDURE SURGERY RELATED CELLULITIS [facility]- STRAIN OF MUSCLE, FASCIA AND TENDON AT NECK LEVEL- LEFT RHOMBOID MUSCLE SPASM 04/08/2016 [facility]: INTRACTABLE BACK PAIN 03/2017 REVIEW OF SYSTEMS REVIEWED BY: PROVIDER: . CONSTITUTIONAL: ANY CHANGE IN YOUR MEDICAL CONDITION? NO . CHILLS NO . FEVER NO . INFECTION: DO YOU HAVE NEW INFECTIONS? NO . DO YOU HAVE HISTORY OF MRSA? NO . MUSCULOSKELETAL: ANY NEW PATTERNS OF PAIN OR NUMBNESS? NO . GASTROENTEROLOGY: ANY NEW CHANGE IN BOWEL CONTROL? NO . GENITOURINARY: ANY NEW CHANGE IN BLADDER CONTROL? NO . IS THERE A CHANCE YOU COULD BE ? NO . HEMATOLOGY/LYMPH: DO YOU TAKE ANY BLOOD THINNERS? (FOR EXAMPLE- COUMADIN, PLAVIX, AGGRENOX, PLATEL, PRADAXA, OR XARELTO) NO . WHEN WAS YOUR LAST DOSE? DATE: TIME: . NEUROLOGY: HAVE YOU FALLEN IN THE PAST 6 MONTHS? NO . ANY NEW EXTREMITY NUMBNESS OR WEAKNESS? NO . CARDIOLOGY: DO YOU HAVE A PACEMAKER OR DEFIBRILLATOR? NO . RESPIRATORY: HAVE YOU BEEN SICK IN THE PAST WEEK? NO . FEVER NO . FLU LIKE SYMPTOMS? NO . COUGH NO . INTEGUMENTARY: DO YOU HAVE ANY RASHES OR OPEN SORES? NO . ALLERGIC/IMMUNO: ARE YOU ALLERGIC TO SHELLFISH OR IV DYE? NO . ANY NEW ALLERGIES? NO . PSYCHIATRIC: DO YOU HAVE THOUGHTS OF HURTING YOURSELF OR SOMEONE ELSE? NO . ARE YOU ABUSED, NEGLECTED, OR IN AN UNSAFE ENVIRONMENT? NO . ENDOCRINOLOGY: ARE YOU DIABETIC? NO . OTHER: DO YOU NEED ANY PRESCRIPTIONS? NO . IF YES, PLEASE LIST: ____ . ANY NEW PROBLEMS WITH YOUR MEDICATIONS? NO . WHEN DID YOU LAST EAT? 05/30/17 . WHAT DID YOU LAST DRINK? WATER . NAME OF PERSON DRIVING YOU HOME? DARIAN . DO YOU HAVE ANY OTHER QUESTIONS OR CONCERNS NO . VITAL SIGNS WT 220 LBS, HT 6'2", BMI 28.24 INDEX, BP 148/94 MM HG, HR 83 /MIN, RR 18 /MIN, TEMP 98.3 F, OXYGEN SAT % 96%, NA INITIALS AW 1116. ASSESSMENTS MYALGIA - M79.1 (PRIMARY) PROCEDURES PN TRIGGER POINT INJECTION WITH STEROIDS PRE PROCEDURE DIAGNOSIS 1. MYALGIA 2. PAIN AT LEFT SHOULDER AREA AND BILATERAL LOWER BACK POST PROCEDURE DIAGNOSIS 1. MYALGIA 2. PAIN AT LEFT SHOULDER AREA AND BILATERAL LOWER BACK AREA PROCEDURE TRIGGER POINT INJECTION AT LEFT SHOULDER AREA AND BILATERAL LOWER BACK AREA SURGEON DR. RUBY DECKER LEAD NITRATE PROCESSOR NONE ANESTHESIA LOCAL PRE PROCEDURE NOTE THE PATIENT HAS A HISTORY OF CHRONIC PAIN AT THE LEFT SHOULDER AREA AND RIGHT AND LEFT LOWER BACK AREA. I EVALUATE THE PATIENT AND REVIEWED THE CHART. THERE IS EVIDENCE OF BANDS OF TISSUE WITH RESTRICTION OF MOVEMENT AND PRESENCE OF TRIGGER POINT AT THE AFFECTED AREA. I WENT OVER THE RISKS, ALTERNATIVES, AND BENEFITS ASSOCIATED WITH THIS PROCEDURE. THE PATIENT WOULD LIKE TO PROCEED AND GIVE CONSENT TO PERFORMED THE PROCEDURE. THE PATIENT DENIES UNEXPLAINABLE WEIGHT LOSS, FEVER, CHILLS, OR NEW CHANGES IN URINARY OR BOWEL CONTROL DESCRIPTION OF PROCEDURE THE PATIENT WAS BROUGHT TO THE PROCEDURE ROOM AND PLACED IN THE SITTING POSITION. THE AREA WAS CLEANED WITH ALCOHOL. THE PROCEDURE WAS DONE USING ASEPTIC STERILE TECHNIQUE. I CHECKED LATERALITY AND THE LEVEL WHERE THE PROCEDURE WAS GOING TO BE PERFORMED WITH THE PATIENT AND THE SUPPORTING STAFF AT THE MOMENT OF THE TIME OUT IN THE PROCEDURE ROOM. USING A 25-GAUGE NEEDLE, TRIGGER POINTS WERE INJECTED AT THE LEFT SHOULDER AREA AND RIGHT AND LEFT LOWER BACK AREA WITH A TOTAL OF 40 ML OF BUPIVACAINE 0.25% AND KENALOG 40 MG. THERE WAS NO EVIDENCE OF BLOOD, PARESTHESIA OR CEREBROSPINAL FLUID DURING THE PROCEDURE. THE PATIENT WAS SENT TO THE RECOVERY ROOM. THE PATIENT WAS MOVING THE EXTREMITIES AND DOING WELL. THERE WAS NO COMPLICATION DURING THE PROCEDURE POST PROCEDURE NOTE THE PATIENT WILL BE SEEN IN A FOLLOW UP IN THE NEXT FEW WEEKS. INSTRUCTIONS WERE GIVEN, QUESTIONS WERE ANSWERED, AND THE PATIENT EXPRESSED UNDERSTANDING AND AGREES WITH THE PLAN. I, [place] RUFFIN, DOCUMENTED THE ABOVE INFORMATION ACTING A SCRIBE FOR DR. DECKER. I HAVE REVIEWED THE ABOVE DOCUMENT, WRITTEN BY [place] OLEARY AND I VERIFY THAT IT IS ACCURATE PROCEDURE CODES 68300 INJECT TRIGGER POINTS 3/> DISPOSITION & COMMUNICATION FOLLOW UP 3 WEEKS ELECTRONICALLY SIGNED BY RUBY DECKER MD ON 06/05/2017 AT 03:38 PM EDT DISCLAIMER : THIS IS A VISIT SUMMARY EXTRACTED FROM THE [email or web address] CHART. IT IS NOT A COPY OF THE [email or web address] PROGRESS NOTE. DEISI
== END ==
LOC: M PAIN 11:30
PROVIDERS: ATTEND Anesthesiology
DX: G89.29 Other chronic pain (principal); M25.512 Pain in left shoulder; M54.5 Low back pain; M79.1 Myalgia; I10 Essential (primary) hypertension; G25.81 Restless legs syndrome; F41.8 Other specified anxiety disorders; E78.5 Hyperlipidemia, unspecified; E03.9 Hypothyroidism, unspecified; F51.04 Psychophysiologic insomnia; F17.210 Nicotine dependence, cigarettes, uncomplicated; Z88.6 Allergy status to analgesic agent; Z79.82 Long term (current) use of aspirin; Z79.899 Other long term (current) drug therapy
CPT/HCPCS: 20553; J3301

== ENCOUNTER → 2017-06-16 | Outpatient (CLI) | payer OTHER ==
[~2017-06-16] MED LIST changes: -BUPIVACAINE HCL 0.25% 10 ML VIAL As Ordered ONE; -BUPIVACAINE HCL 0.25% 30 ML VIAL As Ordered ONE; -TRIAMCINOLONE ACETONIDE SUSP 40 MG/ML VIAL (J3301) As Ordered ONE; -diazePAM 5 MG TAB As Ordered ONE; -oxyCODONE 5MG TAB As Ordered ONE
--- NOTE | 2017-06-16 12:19 | REP ---
Chest two views HISTORY: Preop Comparison: 02/23/2017 Linear density is present in the left lower lobe consistent with scar. The right lung is clear. The heart is normal in size. The pulmonary vasculature is normal in appearance. Degenerative change is present in the thoracic spine. IMPRESSION: Left lower lobe scar. Signed by Konrad Baker MD 06/16/2017 12:10 P
[2017-06-16 13:10] LABS: BASO # 0.1 10^3/uL (0.0-0.2); BASO % 1.3 % (0.0-1.0); EOS # 0.1 10^3/uL (0.0-0.50); EOS % 1.1 % (0.0-3.0); IMMATURE GRANULOCYTE % 0.8 % (0-0); LYMPH # 2.3 10^3/uL (1.5-4.5); LYMPH % 36.6 % (24.0-44.0); MEAN CORPUSCULAR HEMOGLOBIN 30.9 pg (27.0-33.0); MEAN CORPUSCULAR HGB CONC 33.3 g/dl (32.0-36.5); MEAN CORPUSCULAR VOLUME 92.7 fl (80.0-96.0); MONO # 0.5 10^3/uL (0.0-0.8); MONO % 7.4 % (0.0-5.0); NEUTROPHILS # 3.4 10^3/uL (1.8-7.7); NEUTROPHILS % 52.8 % (36.0-66.0); PLATELET COUNT, AUTOMATED 222 10^3/uL (150-450); RED CELL DISTRIBUTION WIDTH 15.3 % (11.5-14.5); WHITE BLOOD COUNT 6.4 10^3/uL (4.0-10.0)
[2017-06-16 13:19] LABS: INR 1.01
[2017-06-16 14:51] LABS: ALBUMIN/GLOBULIN RATIO 1.29 (1.00-1.93); ALKALINE PHOSPHATASE 112 U/L (45-117); ALT/SGPT 46 U/L (12-78); ANION GAP 12 MEQ/L (8-16); AST/SGOT 16 U/L (15-37); BLOOD UREA NITROGEN 15 MG/DL (7-18); CALCIUM LEVEL 8.8 MG/DL (8.5-10.1); CARBON DIOXIDE LEVEL 20 MEQ/L (21-32); CHLORIDE LEVEL 108 MEQ/L (98-107); CHOLESTEROL LEVEL 266 MG/DL (<200); CREATININE FOR GFR 0.96 MG/DL (0.70-1.30); GLOMERULAR FILTRATION RATE > 60.0 (>56); GLUCOSE, FASTING 85 MG/DL (70-105); POTASSIUM SERUM 4.3 MEQ/L (3.5-5.1); SODIUM LEVEL 140 MEQ/L (136-145); THYROXINE (T4) 9.2 UG/DL (4.5-12.0); TOTAL PROTEIN 7.1 GM/DL (6.4-8.2); TRIGLYCERIDES LEVEL 209 MG/DL (<150)
== END ==
LOC: M WUC 11:16
PROVIDERS: ATTEND Physician Assistant
DX: Z01.818 Encounter for other preprocedural examination (principal)

== ENCOUNTER → 2017-07-07 | Outpatient (REF) | payer OTHER | LOC: M SMT 16:50 | PROVIDERS: ATTEND Nurse Practitioner Family | DX: R31.0 Gross hematuria (principal); N20.0 Calculus of kidney ==

== ENCOUNTER → 2017-07-28 | Outpatient (CLI) | payer OTHER ==
[~2017-07-28] MED LIST changes: +CRES10TA32 PO; +GABA600T PO
--- NOTE | 2017-08-26 01:51 | ECWPNPC ---
PATIENT NAME: JAKOB ARGUELLES : 1960 GENDER: MALE VISIT DATE: 07/28/2017 DISCHARGE DATE: 07/28/17 1319 VISIT LOCKED DATE TIME: PHYSICIAN: JAZZY MYERS RESOURCE: JAZZY MYERS REASON FOR APPOINTMENT 1. MEDS HISTORY OF PRESENT ILLNESS HISTORY OF PRESENT ILLNESS: PAIN THE PATIENT DESCRIBES THE PAIN... FALL RISK SCREENING: SCREENING :NO FALLS IN THE PAST YEAR TODAY'S VISIT: NOTES: RATES PAIN TODAY 05/07. REPORTS HE HAS BEEN FOUND TO HAVE MULTIPLE VERY LARGE KIDNEY STONES AND IS SCHEDULED FOR SURGERY NEXT WEEK. HAS NOT YET MET THE SURGEON. STATES HAD 3 VERY UNCOMFORTABLE DAYS AND NOT SO MUCH RELIEF BUT THE KIDNEY STONE PAIN HAD MADE IT VERY UNCOMFORTABLE. HAD PAIN OVER THE LEFT SHOULDER BLADE AND ACROSS THE BACK. . CURRENT MEDICATIONS TAKING SPACER/AERO CHAMBER MOUTHPIECE - MISCELLANEOUS DIRECTED - - TAKING ASPIR-81 81 MG TABLET DELAYED RELEASE 1 TABLET ORALLY ONCE A DAY TAKING CLARITIN 10 MG TABLET 1 TABLET ORALLY ONCE A DAY TAKING REQUIP 4 MG TABLET 1 TABLET 1 TO 3 HOURS BEFORE BEDTIME ORALLY ONCE A DAY TAKING VOLTAREN 1 % GEL DIRECTED TRANSDERMAL BID TAKING NEURONTIN 300 MG CAPSULE TAKE ONE CAPSULE BY MOUTH THREE TIMES A DAY DIRECTED TAKING NORCO 5-325 MG TABLET 1 TABLET NEEDED ORALLY EVERY 6 HRS TAKING LISINOPRIL/HCTZ 20/12.5MG TABLET DIRECTED ORAL DAILY TAKING SIMVASTATIN 20 20MG TABLET DIRECTED ORAL TAKING GABAPENTIN 600 MG TABLET 1 CAPSULE ORALLY THREE TIMES A DAY, NOTES: 05/30/172099 TAKING MELOXICAM 15 MG TABLET 1 TABLET ORALLY ONCE A DAY, NOTES: 05/30/172099 TAKING TRAZODONE HCL 100 MG TABLET 2 TABLET AT BEDTIME ORALLY ONCE A DAY TAKING VENTOLIN HFA 108 (90 BASE) MCG/ACT AEROSOL SOLUTION 2 PUFFS NEEDED INHALATION EVERY 4 HRS TAKING PROTONIX 40 MG TABLET DELAYED RELEASE 1 TABLET ORALLY ONCE A DAY NOT-TAKING AUGMENTIN 875-125 MG TABLET 1 TABLET ORALLY EVERY 12 HRS NOT-TAKING EC-NAPROSYN 500 MG TABLET DELAYED RELEASE 1 TABLET ORALLY TWICE A DAY NOT-TAKING ZYBAN 150 MG TABLET EXTENDED RELEASE 12 HOUR 1 TABLET ORALLY TWICE A DAY NOT-TAKING NICOTINE 21 MG/24HR PATCH 24 HOUR 1 PATCH TO SKIN TRANSDERMAL ONCE A DAY NOT-TAKING EFFEXOR XR 150 MG CAPSULE EXTENDED RELEASE 24 HOUR 1 CAPSULE WITH FOOD ORALLY ONCE A DAY NOT-TAKING FLOMAX 0.4 MG CAPSULE 1 CAPSULE ORALLY ONCE A DAY NOT-TAKING BUSPAR 10 MG TABLET 1 TABLET ORALLY TWICE A DAY, NOTES: FROM [place] NOT-TAKING TRAMADOL HCL 50 MG TABLET 1 TAB ORALLY EVERY 8 HOURS NEEDED/MMD#4 NOT-TAKING FLAGYL 500 MG TABLET 1 TABLET ORALLY EVERY 8 HRS NOT-TAKING CIPRO 500 MG TABLET 1 TABLET ORALLY DIRECTED NOT-TAKING KEFLEX 500 MG CAPSULE 1 CAPSULE ORALLY TWICE A DAY NOT-TAKING ZANAFLEX 4 MG TABLET 1 TABLET NEEDED ORALLY THREE TIMES A DAY NOT-TAKING ELIMITE 5 % CREAM 1 APPLICATION FROM THE NAPE OF THE NECK TO THE FEET EXTERNALLY ONCE, MAY REPEAT IN 7 DAYS NOT-TAKING VALIUM 2 MG TABLET 1 TABLET NEEDED ORALLY THREE TIMES DAILY NOT-TAKING MOBIC 7.5 MG TABLET 1 TABLET ORALLY ONCE A DAY NOT-TAKING MORPHINE SULFATE 30 MG TABLET 1 TABLET NEEDED ORALLY EVERY 4 HRS NOT-TAKING LOVAZA 2 GM CAPSULE 1 CAPSULES ORALLY TWICE A DAY NOT-TAKING ZOCOR 20 MG TABLET 1 TABLET IN THE EVENING ORALLY ONCE A DAY NOT-TAKING CLOBETASOL PROPIONATE 0.05 % CREAM 1 APPLICATION TO AFFECTED AREA EXTERNALLY TWICE A DAY NOT-TAKING LISINOPRIL 20 MG TABLET 1 TABLET ORALLY ONCE A DAY, NOTES: NONE LATELY NOT-TAKING ROPINIROLE HCL 3 MG TABLET 1 TAB ORALLY ONCE A DAY, NOTES: 05/30/17 PM NOT-TAKING ARNUITY ELLIPTA 100 MCG/ACT AEROSOL POWDER BREATH ACTIVATED 1 PUFF INHALATION ONCE A DAY NOT-TAKING LORATADINE 10 MG TABLET 1 TABLET ORALLY ONCE A DAY NOT-TAKING LIPITOR 80 MG TABLET 1 TABLET ORALLY ONCE A DAY, NOTES: 05/30/17 PM NOT-TAKING BETAMETHASONE VALERATE 0.1 % OINTMENT 1 APPLICATION TO AFFECTED AREA EXTERNALLY BID, NOTES: NONE LATELY NOT-TAKING PRIMIDONE 250 MG TABLET 1 TAB ORALLY DAILY NEEDED, NOTES: NONE LATELY NOT-TAKING FLOMAX 0.4 MG CAPSULE 1 CAPSULE 30 MINUTES AFTER THE SAME MEAL EACH DAY ORALLY ONCE A DAY NOT-TAKING LEVOTHYROXINE SODIUM 25 MCG TABLET 1 TABLET ORALLY ONCE A DAY NOT-TAKING CENTRUM SILVER - TABLET ORALLY NOT-TAKING SINGULAIR 10 MG TABLET 1 TABLET IN THE EVENING ORALLY ONCE A DAY NOT-TAKING METAXALONE 800 MG TABLET 1 TABLET ORALLY TWICE DAILY NEEDED NOT-TAKING ROBAXIN 500 MG TABLET 1 TAB ORALLY EVERY 4 HRS NOT-TAKING ELIMITE 5% CREAM DIRECTED TO AFFECTED AREAS APPLIED TOPICALLY ONCE NOT-TAKING [facility] FLUTICASONE PROPIONATE 50 MCG/ACT SUSPENSION 1 SPRAY IN EACH NOSTRIL NASALLY BID NOT-TAKING VITAMIN D 2000 UNIT TABLET 1 TABLET ORALLY ONCE A DAY NOT-TAKING CYCLOBENZAPRINE HCL 10 MG TABLET 1 TABLET NEEDED ORALLY THREE TIMES A DAY MEDICATION LIST REVIEWED AND RECONCILED WITH THE PATIENT PAST MEDICAL HISTORY HTN CERVICAL RADICULOPOTHY SHOULDER PAIN NEPHROLITHIASIS RESTLESS LEG SYNDROME HYPERCHOLESTEROLEMIA CHRONIC SINUSITIS ALLERGIES MOTRIN: HIVES, VOMIT: SIDE EFFECTS REVIEW OF SYSTEMS REVIEWED BY: PROVIDER: . CONSTITUTIONAL: ANY CHANGE IN YOUR MEDICAL CONDITION? 6 KIDNEY STONES . CHILLS NO . FEVER NO . INFECTION: DO YOU HAVE NEW INFECTIONS? NO . DO YOU HAVE HISTORY OF MRSA? NO . MUSCULOSKELETAL: ANY NEW PATTERNS OF PAIN OR NUMBNESS? KIDNEYPAIN . GASTROENTEROLOGY: ANY NEW CHANGE IN BOWEL CONTROL? NO . GENITOURINARY: ANY NEW CHANGE IN BLADDER CONTROL? NO . IS THERE A CHANCE YOU COULD BE ? NO . HEMATOLOGY/LYMPH: DO YOU TAKE ANY BLOOD THINNERS? (FOR EXAMPLE- COUMADIN, PLAVIX, AGGRENOX, PLATEL, PRADAXA, OR XARELTO) NO . WHEN WAS YOUR LAST DOSE? DATE: TIME: . NEUROLOGY: HAVE YOU FALLEN IN THE PAST 6 MONTHS? NO . ANY NEW EXTREMITY NUMBNESS OR WEAKNESS? NO . CARDIOLOGY: DO YOU HAVE A PACEMAKER OR DEFIBRILLATOR? NO . RESPIRATORY: HAVE YOU BEEN SICK IN THE PAST WEEK? NO . FEVER NO . FLU LIKE SYMPTOMS? NO . COUGH NO . INTEGUMENTARY: DO YOU HAVE ANY RASHES OR OPEN SORES? NO . ALLERGIC/IMMUNO: ARE YOU ALLERGIC TO SHELLFISH OR IV DYE? NO . ANY NEW ALLERGIES? NO . PSYCHIATRIC: DO YOU HAVE THOUGHTS OF HURTING YOURSELF OR SOMEONE ELSE? NO . ARE YOU ABUSED, NEGLECTED, OR IN AN UNSAFE ENVIRONMENT? NO . ENDOCRINOLOGY: ARE YOU DIABETIC? NO . OTHER: DO YOU NEED ANY PRESCRIPTIONS? NO . IF YES, PLEASE LIST: ____ . ANY NEW PROBLEMS WITH YOUR MEDICATIONS? NO . WHEN DID YOU LAST EAT? ____ . WHEN DID YOU LAST DRINK? ____ . WHAT DID YOU LAST DRINK? ____ . NAME OF PERSON DRIVING YOU HOME? ____ . DO YOU HAVE ANY OTHER QUESTIONS OR CONCERNS NO . VITAL SIGNS WT 224.0 LBS, HT 6'2", BMI 28.76 INDEX, BP 141/96 MM HG, HR 85 /MIN, RR 18 /MIN, TEMP 96.1 F, OXYGEN SAT % 96%, NA INITIALS SC 12:48, REVIEWED BY: NL. EXAMINATION GENERAL EXAMINATION: GENERAL APPEARANCE:ANXIOUS AND FREQUENTLY WEEPY. PSYCHALERT , ORIENTED X 3 , SAD. HEENT:NORMOCEPHALIC, NO LYMPHADENOPATHY, NO THYROMEGLY. LUNGS:SCATTERED WHEEZES. HEART:HEART RATE REGULAR, NORMAL S1S2, NO MURMURS, CLICK OR RUBS. MUSCULOSKELETAL:MUSCLE STRENGTH TESTING 5/5 BILATERAL LOWER EXTREMITIES. POINT TENDERNESS OVER THE LUMBAR SPINOUS PROCESSES. , TRIGGER POINTS AND TIGHT FIBROUS BANDS OVER LUMBOSACRAL AXIS. . ASSESSMENTS MYALGIA - M79.1 (PRIMARY) CERVICAL POST-LAMINECTOMY SYNDROME - M96.1 LUMBAR FACET ARTHROPATHY - M12.88 TREATMENT MYALGIA START CARISOPRODOL TABLET, 350 MG, 1 TABLET NEEDED, ORALLY, BID, 30 DAY(S), 60 TABLET, REFILLS 1 NOTES: ASK MR FELIPE ABOUT THYRIOD MEDICATION - RECENTLY STOPPED MEDSOPIATES THROUGH PRIMARY [facility]ARE FOR KIDNEY STONES. PROCEDURE CODES FA211 ESTABILISHED PATIENT [facility] FACILITY CHARGE DISPOSITION & COMMUNICATION FOLLOW UP MID AUG (REASON: NECK/BACK PAIN) ELECTRONICALLY SIGNED BY PRISCILLA RAYO ON 08/24/2017 AT 08:43 AM EST DISCLAIMER : THIS IS A VISIT SUMMARY EXTRACTED FROM THE [employer] CHART. IT IS NOT A COPY OF THE [employer] PROGRESS NOTE. DEISI
== END ==
LOC: M PAIN 13:30
PROVIDERS: ATTEND Nurse Practitioner Family
DX: M79.1 Myalgia (principal); M96.1 Postlaminectomy syndrome, not elsewhere classified; M12.88 Other specific arthropathies, not elsewhere classified, other specified site; I10 Essential (primary) hypertension; G25.81 Restless legs syndrome; E87.5 Hyperkalemia; Z79.899 Other long term (current) drug therapy; Z79.82 Long term (current) use of aspirin; Z79.891 Long term (current) use of opiate analgesic; Z88.8 Allergy status to other drugs, medicaments and biological substances

== ENCOUNTER 2017-08-04 07:09 | Day surgery (SDC) | payer OTHER ==
[~2017-08-04] VITALS: Ht 188 cm; Wt 104.3 kg
[~2017-08-04 07:09] MED LIST changes: +LIDOCAINE 1% MDV 20ML VIAL SQ PRN; +LR 1,000 ML IV ONE
[2017-08-04] MEDS ORDERED: PROPOFOL 200 MG/20 ML VIAL As Ordered ONE (07:59)
[2017-08-04] MEDS ORDERED: ONDANSETRON 4MG/2ML VIAL (J2405) As Ordered ONE ×2 (07:59→10:48)
[2017-08-04] MEDS ORDERED: ROCURONIUM BROMIDE 50 MG/5 ML VIAL As Ordered ONE (07:59)
[2017-08-04] MEDS ORDERED: LIDOCAINE 2% INJ 100 MG/5 ML SDV (FOR ANES.) As Ordered ONE (07:59)
[2017-08-04] MEDS ORDERED: MIDAZOLAM INJ 2 MG/2 ML VIAL (J2250) As Ordered ONE (08:00)
[2017-08-04] MEDS ORDERED: fentaNYL 100 MCG/2 ML INJECTION (J3010) As Ordered ONE ×3 (08:00→10:48)
[2017-08-04] MEDS ORDERED: CONRAY-60 60% 50ML VIAL (Q9961) As Ordered ONE (08:51)
[2017-08-04] MEDS ORDERED: PHENYLephrine HCL 500 MCG/5 ML (100MCG/ML) SYRINGE (J2370) As Ordered ONE (09:05)
[2017-08-04] MEDS: fentaNYL 100 MCG/2 ML INJECTION (J3010) IV PRN ×8 (10:45→12:12)
[2017-08-04] MEDS ORDERED: PERCOCET 5MG/325MG TAB As Ordered ONE (10:48)
[2017-08-04] MEDS: PERCOCET 5MG/325MG TAB PO PRN ×2 (11:04→11:37)
[2017-08-04] MEDS: HYDROmorphone HCL 1 MG/ML SYRINGE (J1170) IV PRN ×10 (11:07→11:52)
--- NOTE | 2017-08-04 11:14 | REP ---
Retrograde pyelogram: 08/04/2017. Clinical history: Right nephrolithiasis. Comparison CT abdomen and pelvis 07/03/2017. Findings: Two images from C-arm fluoroscopy provided to Dr. Zuñiga of the urology division are reviewed. Initial image shows a catheter to the proximal ureter and a wire into an upper pole calyx on the right side through that ureter. The second image shows a double pigtail stent coiled proximally in the renal pelvis and distally in the bladder. Fluoroscopy time 25 seconds. Signed by Ace Aly MD 08/04/2017 06:46 P
[2017-08-04] MEDS ORDERED: ONDANSETRON 4MG/2ML VIAL (J2405) IV PRN (11:15)
[2017-08-04] MEDS ORDERED: LR 1,000 ML IV SCH (11:15)
[2017-08-04] MEDS ORDERED: PERCOCET 5MG/325MG TAB PO PRN ×2 (11:15)
[2017-08-04] MEDS ORDERED: oxyBUTYnin 5 MG TAB PO ONE (11:30)
[2017-08-04] MEDS ORDERED: PROMETHAZINE INJ 25 MG/ML VIAL (J2550) As Ordered ONE (12:38)
[2017-08-04] MEDS ORDERED: PROMETHAZINE INJ 25 MG/ML VIAL (J2550) IV PRN (13:45)
[2017-08-04 16:25] VITALS: BP 128/83
--- NOTE | 2017-08-05 12:07 | RO ---
DATE OF PROCEDURE: 08/04/2017 PREPROCEDURE DIAGNOSIS: Right kidney stone. POSTPROCEDURE DIAGNOSIS: Right kidney stone. PROCEDURE: Cystoscopy, right ureteroscopy with laser lithotripsy and basket extraction of stones, right retrograde pyelogram with intraoperative interpretation of images, right ureteral stent placement. SURGEON: Dr. Levon Zuñiga PUBLIC RELATIONS SUPERVISOR: None. ANESTHESIA: General. OPERATIVE INDICATIONS: This is a 56-year-old male who was found to have a 1.5 cm nonobstructing right kidney stone as well as a 3 mm stone. He was brought to the operating room today for treatment. DESCRIPTION OF PROCEDURE: The patient was brought to the operating room where general anesthesia was induced. Prophylactic antibiotics were infused. He was then placed in dorsal lithotomy position and prepped and draped in the usual sterile fashion. A rigid cystoscope was inserted into the urethral meatus and advanced to the bladder. Once within the bladder, a wire was advanced up the right collecting system. The wire was then utilized to advance a ureteral access sheath up the collecting system. The stylet was removed and the wire was secured to the drapes to serve as a safety wire. I then went up the access sheath with the flexible ureteroscope and within the right kidney the 3 mm stone as well as the 1.5 cm stone were seen. The 1.5 cm stone was lasered into smaller pieces using a 200 micron laser fiber. All of the larger fragments were removed with a basket. Once done, I examined the remainder of the kidney and no additional large stone fragments were seen. The only stone fragments seen were small enough to pass. At this point, a retrograde pyelogram was performed and notable for mild right hydronephrosis with no extravasation. I then withdrew the ureteral access sheath along with the scope and no additional stones were seen behind the access sheath. At this point, I utilized the wire to advance a 6 Maltese x 22-32 cm JJ ureteral stent up into the right collecting system. The wire was then removed and there were adequate curls of the stent in the right renal pelvis and in the bladder. The bladder was emptied of all fluid and this marked the conclusion of the procedure. The patient was then taken out of the dorsal lithotomy position, awakened from anesthesia and transported to the recovery room in stable condition. Estimated blood loss: Minimal. Complications: None. Specimen: Kidney stone fragments. Plan: The patient will followup in the clinic in a week or two for stent removal. NID
== END 2017-08-04 16:45 | disposition home or self-care (01) ==
LOC: M SDC 07:09
PROVIDERS: ATTEND Urology
DX: N20.0 Calculus of kidney (principal); I11.9 Hypertensive heart disease without heart failure; E78.5 Hyperlipidemia, unspecified; G25.81 Restless legs syndrome; M54.12 Radiculopathy, cervical region; F41.9 Anxiety disorder, unspecified; J44.9 Chronic obstructive pulmonary disease, unspecified; F32.9 Major depressive disorder, single episode, unspecified; R22.42 Localized swelling, mass and lump, left lower limb; I51.9 Heart disease, unspecified; G89.4 Chronic pain syndrome; M19.049 Primary osteoarthritis, unspecified hand; M25.519 Pain in unspecified shoulder; Z79.899 Other long term (current) drug therapy; Z79.51 Long term (current) use of inhaled steroids; J32.9 Chronic sinusitis, unspecified; N40.1 Benign prostatic hyperplasia with lower urinary tract symptoms; R39.12 Poor urinary stream; R31.0 Gross hematuria; F17.210 Nicotine dependence, cigarettes, uncomplicated; Z88.6 Allergy status to analgesic agent
CPT/HCPCS: 52356; 74420; 82360; 88300; C1769; C1894

== ENCOUNTER → 2017-08-05 | Outpatient (CLI) | payer OTHER ==
[~2017-08-05] MED LIST changes: -LIDOCAINE 1% MDV 20ML VIAL SQ PRN; -LR 1,000 ML IV ONE
--- NOTE | 2017-08-05 12:07 | REP ---
LEFT HAND: COMPARISON: Left hand 06/28/2016. REASON: Swelling. FINDINGS: The joint spaces are symmetric and relatively well maintained. There is no evidence of acute fracture or destructive osseous lesion. IMPRESSION: Negative hand. No change from the prior exam. See the report on the second digit. It appears the same. See the recommendations as per the prior report on the second digit made today. Signed by Landen Taveras DO 08/05/2017 11:18 A
--- NOTE | 2017-08-05 12:07 | REP ---
REASON: Swelling. COMPARISON: Left hand of 06/28/2006. Four views of the second digit of the left hand were obtained. There is no acute fracture or destructive osseous lesion. Soft tissue linear densities are again seen medially adjacent to the distal phalanx of the second digit, unchanged. There is slight swelling at the level of the distal aspect of the middle phalanx of the second digit laterally which appears to have developed since last plain film exam. Etiology is uncertain. IMPRESSION: Findings as described above. No acute fracture, however, other findings as described above. If a soft tissue mass is of clinical concern, then an MRI is recommended. Signed by Landen Taveras DO 08/05/2017 11:18 A
== END ==
LOC: M WUC 10:06
PROVIDERS: ATTEND Physician Assistant
DX: R22.42 Localized swelling, mass and lump, left lower limb (principal)

== ENCOUNTER → 2017-08-14 | Outpatient (CLI) | payer OTHER ==
[~2017-08-14] MED LIST changes: +PROHANCE 279.3MG/ML 15ML VIAL (A9576) As Ordered ONE; +PROHANCE 279.3MG/ML 5ML VIAL (A9576) As Ordered ONE
--- NOTE | 2017-08-15 09:19 | REP ---
MRI LEFT HAND WITH AND WITHOUT CONTRAST: TECHNIQUE: Multiple sequences obtained in the axial, coronal, and sagittal planes prior to and following the intravenous administration of 20 mL or ProHance. There is a palpable lump in the left second digit. There is a bilobed nodule in the soft tissues of the left second digit along the lateral margin of the distal aspect of the proximal phalanx. It measures approximately 12 x 8 x 9 mm. There is a larger component which is mildly hyperintense on T1 and is hypointense on T2, with a smaller adjacent more proximal purely cystic appearing component, hypointense on T1 and hyperintense on T2. There is a thin rim enhancement at the margin of the nodule. There is no internal enhancement. Findings are compatible with a complex cyst. The larger component probably contains blood produces or less likely proteinaceous contents. No other soft tissue nodule is seen. The adjacent phalanges of the second digit demonstrate no abnormal marrow signal or enhancement. IMPRESSION: The palpable lump corresponds to a bilobed cystic structure with a larger component demonstrating signal characteristics most consistent with hemorrhagic contents or less likely proteinaceous contents. There is a smaller more proximal purely cystic component. There is thin rim enhancement of this complex cyst. Signed by Jeremy Mcgraw MD 08/15/2017 05:21 P
== END ==
LOC: M RAD 17:27
PROVIDERS: ATTEND Physician Assistant
DX: R22.32 Localized swelling, mass and lump, left upper limb (principal)
CPT/HCPCS: 73220; A9576

== ENCOUNTER → 2017-08-30 | Outpatient (CLI) | payer OTHER ==
[2017-08-30 12:27] LABS: BASO # 0.1 10^3/uL (0.0-0.2); BASO % 0.8 % (0.0-1.0); EOS # 0.1 10^3/uL (0.0-0.50); EOS % 1.4 % (0.0-3.0); HEMATOCRIT 52.7 % (42.0-52.0); HEMOGLOBIN 17.8 g/dl (14.0-18.0); IMMATURE GRANULOCYTE # 0.1 10^3/uL (0-0); IMMATURE GRANULOCYTE % 0.9 % (0-0); LYMPH # 2.6 10^3/uL (1.5-4.5); LYMPH % 40.9 % (24.0-44.0); MEAN CORPUSCULAR HEMOGLOBIN 30.5 pg (27.0-33.0); MEAN CORPUSCULAR HGB CONC 33.8 g/dl (32.0-36.5); MEAN CORPUSCULAR VOLUME 90.4 fl (80.0-96.0); MONO # 0.6 10^3/uL (0.0-0.8); PLATELET COUNT, AUTOMATED 246 10^3/uL (150-450); RED BLOOD COUNT 5.83 10^6/uL (4.30-6.10); RED CELL DISTRIBUTION WIDTH 14.5 % (11.5-14.5); WHITE BLOOD COUNT 6.4 10^3/uL (4.0-10.0)
[2017-08-30 12:47] LABS: ALBUMIN 4.1 GM/DL (3.2-5.2); ALBUMIN/GLOBULIN RATIO 1.46 (1.00-1.93); ALKALINE PHOSPHATASE 107 U/L (45-117); ALT/SGPT 34 U/L (12-78); ANION GAP 7 MEQ/L (8-16); AST/SGOT 16 U/L (7-37); BILIRUBIN,TOTAL 0.5 MG/DL (0.2-1.0); BLOOD UREA NITROGEN 12 MG/DL (7-18); C REACTIVE PROTEIN QUANTITATIV < 0.30 MG/DL (0.00-0.30); CALCIUM LEVEL 8.8 MG/DL (8.5-10.1); CARBON DIOXIDE LEVEL 25 MEQ/L (21-32); CHLORIDE LEVEL 110 MEQ/L (98-107); CREATININE FOR GFR 0.94 MG/DL (0.70-1.30); GLOMERULAR FILTRATION RATE > 60.0 (>56); GLUCOSE, FASTING 82 MG/DL (70-105); POTASSIUM SERUM 4.1 MEQ/L (3.5-5.1); RHEUMATOID FACTOR QUANT < 10.0 IU/ML (0-15.0); SODIUM LEVEL 142 MEQ/L (136-145); TOTAL PROTEIN 6.9 GM/DL (6.4-8.2)
[2017-08-30 13:03] LABS: ERYTHROCYTE SEDIMENTATION RATE 2 mm/hr (0-20)
[2017-09-04 14:11] LABS: CYCLIC CITRULLINATED PEPTIDE 4 units (0-19)
[2017-09-04 14:11] LABS: ANTINUCLEAR ANTIBODIES DIRECT Negative (Negative); HLA-B27 Negative (.); Lyme Disease IgG/IgM Antibodie <0.91 ISR (0.00-0.90); Lyme Disease IgM Ab Quantitati <0.80 index (0.00-0.79)
== END ==
LOC: M LAB 10:50
DX: M54.5 Low back pain (principal)
CPT/HCPCS: 76870

== ENCOUNTER 2017-09-06 10:38 | Outpatient (CLI) | payer OTHER ==
[2017-09-06] MEDS ORDERED: METHACHOLINE KIT (J7674) INH (11:00)
[2017-09-12] MEDS ORDERED: METHACHOLINE KIT (J7674) INH (11:00)
== END 2017-09-12 ==
LOC: M CARPUL 10:38
DX: R06.00 Dyspnea, unspecified (principal)
CPT/HCPCS: J7674

== ENCOUNTER → 2017-09-14 | Outpatient (CLI) | payer OTHER | LOC: M RAD 16:06 | DX: R22.2 Localized swelling, mass and lump, trunk (principal); M48.061 Spinal stenosis, lumbar region without neurogenic claudication; M51.27 Other intervertebral disc displacement, lumbosacral region | CPT/HCPCS: 72148 ==

== ENCOUNTER → 2017-09-22 | Outpatient (CLI) | payer OTHER | LOC: M WUC 13:04 | DX: R05 Cough (principal); R06.02 Shortness of breath | CPT/HCPCS: 71046 ==

== ENCOUNTER → 2017-09-28 | Outpatient (CLI) | payer OTHER | LOC: M RAD 15:33 | DX: M47.22 Other spondylosis with radiculopathy, cervical region (principal) | CPT/HCPCS: 72040 ==

== ENCOUNTER → 2017-10-12 | Outpatient (CLI) | payer OTHER | LOC: M PAIN 13:30 | DX: M79.1 Myalgia (principal); M54.40 Lumbago with sciatica, unspecified side; M46.96 Unspecified inflammatory spondylopathy, lumbar region; M25.572 Pain in left ankle and joints of left foot; M25.571 Pain in right ankle and joints of right foot; I10 Essential (primary) hypertension; E03.9 Hypothyroidism, unspecified; N40.1 Benign prostatic hyperplasia with lower urinary tract symptoms; F17.210 Nicotine dependence, cigarettes, uncomplicated; Z79.899 Other long term (current) drug therapy; Z88.8 Allergy status to other drugs, medicaments and biological substances | CPT/HCPCS: G0463 ==

== ENCOUNTER → 2017-10-26 | Outpatient (CLI) | payer OTHER | LOC: M RAD 12:06 | DX: M79.1 Myalgia (principal); M25.572 Pain in left ankle and joints of left foot; M25.571 Pain in right ankle and joints of right foot | CPT/HCPCS: 73600 ==

== ENCOUNTER → 2017-10-26 | Outpatient (CLI) | payer OTHER | LOC: M SLEEP HO 11:36 | DX: G47.30 Sleep apnea, unspecified (principal) | CPT/HCPCS: G0399 ==

== ENCOUNTER → 2017-10-31 | Outpatient (CLI) | payer OTHER | LOC: M RAD 13:47 | DX: M75.42 Impingement syndrome of left shoulder (principal) | CPT/HCPCS: 73221 ==

== ENCOUNTER → 2017-11-13 | Outpatient (CLI) | payer OTHER | LOC: M RAD 11:02 | DX: N20.0 Calculus of kidney (principal) | CPT/HCPCS: 76775 ==

== ENCOUNTER → 2017-12-11 | Outpatient (CLI) | payer OTHER | LOC: M RAD 13:19 | DX: R42 Dizziness and giddiness (principal) | CPT/HCPCS: 70551 ==

== ENCOUNTER → 2017-12-13 | Outpatient (CLI) | payer OTHER | LOC: M SLEEP 19:39 | DX: G47.33 Obstructive sleep apnea (adult) (pediatric) (principal) | CPT/HCPCS: 95811 ==

== ENCOUNTER → 2017-12-27 | Outpatient (CLI) | payer OTHER | LOC: M PAIN 11:00 | DX: M79.1 Myalgia (principal); M54.40 Lumbago with sciatica, unspecified side; M46.96 Unspecified inflammatory spondylopathy, lumbar region; M25.572 Pain in left ankle and joints of left foot; M25.571 Pain in right ankle and joints of right foot; I10 Essential (primary) hypertension; G25.81 Restless legs syndrome; E78.00 Pure hypercholesterolemia, unspecified; F17.210 Nicotine dependence, cigarettes, uncomplicated; Z79.899 Other long term (current) drug therapy; Z88.6 Allergy status to analgesic agent | CPT/HCPCS: G0463 ==

== ENCOUNTER → 2018-01-16 | Outpatient (CLI) | payer OTHER ==
[2018-01-16 17:23] LABS: ALBUMIN 3.8 GM/DL (3.2-5.2); ALBUMIN/GLOBULIN RATIO 1.36 (1.00-1.93); ALKALINE PHOSPHATASE 105 U/L (45-117); ALT/SGPT 36 U/L (12-78); ANION GAP 8 MEQ/L (8-16); AST/SGOT 22 U/L (7-37); BILIRUBIN,TOTAL 0.5 MG/DL (0.2-1.0); BLOOD UREA NITROGEN 11 MG/DL (7-18); CALCIUM LEVEL 8.5 MG/DL (8.5-10.1); CARBON DIOXIDE LEVEL 24 MEQ/L (21-32); CHLORIDE LEVEL 114 MEQ/L (98-107); CREATININE FOR GFR 1.15 MG/DL (0.70-1.30); GLOMERULAR FILTRATION RATE > 60.0 (>56); GLUCOSE, FASTING 102 MG/DL (70-100); POTASSIUM SERUM 4.1 MEQ/L (3.5-5.1); SODIUM LEVEL 146 MEQ/L (136-145); TOTAL PROTEIN 6.6 GM/DL (6.4-8.2)
[2018-01-16 17:34] LABS: INR 1.07
[2018-01-16 17:35] LABS: PARTIAL THROMBOPLASTIN TIME 31.9 SECONDS (26.8-37.9)
[2018-01-16 17:41] LABS: APPEARANCE, URINE CLEAR (CLEAR); BACTERIA, URINE AUTO NEGATIVE (NEGATIVE); BILIRUBIN, URINE AUTO NEGATIVE (NEGATIVE); BLOOD, URINE BLOOD NEGATIVE (NEGATIVE); COLOR, URINE YELLOW (YELLOW); GLUCOSE, URINE (UA) AUTO 2+ mg/dL (NEGATIVE); KETONE, URINE AUTO NEGATIVE (NEGATIVE); LEUKOCYTE ESTERASE, URINE AUTO NEGATIVE (NEGATIVE); NITRITE, URINE AUTO NEGATIVE (NEGATIVE); PROTEIN, URINE AUTO NEGATIVE (NEGATIVE); RBC, URINE AUTO 3 /HPF (0-3); SPECIFIC GRAVITY URINE AUTO 1.012 (1.002-1.035); SQUAMOUS EPITHELIAL CELL UR AU 0 /HPF (0-6); UROBILINOGEN, URINE AUTO 0.2 mg/dL (0.0-2.0); WBC, URINE AUTO 0 /HPF (0-3)
[2018-01-16 18:17] LABS: BASO # 0.1 10^3/uL (0.0-0.2); BASO % 1.1 % (0.0-1.0); EOS # 0.1 10^3/uL (0.0-0.50); EOS % 2.4 % (0.0-3.0); HEMATOCRIT 54.6 % (42.0-52.0); IMMATURE GRANULOCYTE % 0.4 % (0-3.0); LYMPH # 2.1 10^3/uL (1.5-4.5); LYMPH % 38.2 % (24.0-44.0); MEAN CORPUSCULAR HEMOGLOBIN 30.5 pg (27.0-33.0); MEAN CORPUSCULAR VOLUME 92.5 fl (80.0-96.0); MONO # 0.5 10^3/uL (0.0-0.8); MONO % 9.2 % (0.0-5.0); NEUTROPHILS # 2.6 10^3/uL (1.8-7.7); NEUTROPHILS % 48.7 % (36.0-66.0); PLATELET COUNT, AUTOMATED 180 10^3/uL (150-450); RED CELL DISTRIBUTION WIDTH 14.4 % (11.5-14.5); WHITE BLOOD COUNT 5.4 10^3/uL (4.0-10.0)
== END ==
LOC: M WUC 13:59
DX: Z01.818 Encounter for other preprocedural examination (principal)
CPT/HCPCS: 80053

== ENCOUNTER → 2018-03-13 | Outpatient (CLI) | payer OTHER | LOC: M PAIN 13:15 | DX: M79.1 Myalgia (principal); M54.40 Lumbago with sciatica, unspecified side; G89.29 Other chronic pain; M25.512 Pain in left shoulder; I10 Essential (primary) hypertension; G25.81 Restless legs syndrome; E78.00 Pure hypercholesterolemia, unspecified; F17.210 Nicotine dependence, cigarettes, uncomplicated; Z79.899 Other long term (current) drug therapy; Z88.6 Allergy status to analgesic agent | CPT/HCPCS: G0463 ==

== ENCOUNTER 2018-04-18 14:22 | Emergency (ER) | payer OTHER ==
[2018-04-18] MEDS: NORCO, ANEXSIA 5/325MG TABLET (HYDROcodone/ACETAMINOPHEN) PO (17:15)
== END 2018-04-18 18:52 | disposition home or self-care (01) ==
LOC: M ED 14:22
DX: M51.36 Other intervertebral disc degeneration, lumbar region (principal); M51.26 Other intervertebral disc displacement, lumbar region; M54.16 Radiculopathy, lumbar region; I10 Essential (primary) hypertension; K27.9 Peptic ulcer, site unspecified, unspecified as acute or chronic, without hemorrhage or perforation; F41.9 Anxiety disorder, unspecified; F33.9 Major depressive disorder, recurrent, unspecified; N40.0 Benign prostatic hyperplasia without lower urinary tract symptoms; E03.9 Hypothyroidism, unspecified; Z79.899 Other long term (current) drug therapy; Z88.8 Allergy status to other drugs, medicaments and biological substances; F17.210 Nicotine dependence, cigarettes, uncomplicated
CPT/HCPCS: 93971

== ENCOUNTER → 2018-04-18 | Outpatient (CLI) | payer OTHER | LOC: M PAIN 13:15 | DX: M79.652 Pain in left thigh (principal); M79.1 Myalgia; M54.40 Lumbago with sciatica, unspecified side; M25.512 Pain in left shoulder; I10 Essential (primary) hypertension; G25.81 Restless legs syndrome; E78.00 Pure hypercholesterolemia, unspecified; F17.210 Nicotine dependence, cigarettes, uncomplicated; Z79.51 Long term (current) use of inhaled steroids; Z79.899 Other long term (current) drug therapy; Z88.6 Allergy status to analgesic agent | CPT/HCPCS: G0463 ==

== ENCOUNTER → 2018-05-01 | Outpatient (CLI) | payer OTHER | LOC: M PAIN 11:45 | DX: M79.652 Pain in left thigh (principal); M79.1 Myalgia; M54.40 Lumbago with sciatica, unspecified side; M25.512 Pain in left shoulder; I10 Essential (primary) hypertension; G25.81 Restless legs syndrome; E78.00 Pure hypercholesterolemia, unspecified; F17.210 Nicotine dependence, cigarettes, uncomplicated; Z79.51 Long term (current) use of inhaled steroids; Z79.899 Other long term (current) drug therapy; Z88.6 Allergy status to analgesic agent | CPT/HCPCS: G0463 ==

== ENCOUNTER → 2018-06-13 | Outpatient (CLI) | payer OTHER | LOC: M PAIN 11:00 | DX: M79.652 Pain in left thigh (principal); M79.18 Myalgia, other site; M54.40 Lumbago with sciatica, unspecified side; M25.512 Pain in left shoulder; I10 Essential (primary) hypertension; G25.81 Restless legs syndrome; E78.00 Pure hypercholesterolemia, unspecified; F17.210 Nicotine dependence, cigarettes, uncomplicated; Z79.51 Long term (current) use of inhaled steroids; Z79.891 Long term (current) use of opiate analgesic; Z79.899 Other long term (current) drug therapy; Z88.6 Allergy status to analgesic agent | CPT/HCPCS: G0463 ==

== ENCOUNTER → 2018-07-11 | Outpatient (CLI) | payer OTHER ==
[2018-07-16 09:28] LABS: JAK2 MUTATIONS FOR PATH SENDOU See Pathology Report
== END ==
LOC: M WUC 10:13
DX: D45 Polycythemia vera (principal)
CPT/HCPCS: 88300

== ENCOUNTER → 2018-07-23 | Outpatient (CLI) | payer OTHER | LOC: M RAD 12:06 | DX: R91.8 Other nonspecific abnormal finding of lung field (principal) | CPT/HCPCS: 71046 ==

== ENCOUNTER → 2018-09-13 | Outpatient (CLI) | payer OTHER ==
[~2018-09-13] MED LIST changes: +ALL10TAB28 PO; +AMOX500C PO; +ASPI81TA85 PO; +CARI1TAB7 PO; +DULO1CAP3 PO; -EFFE150C PO; +EFFE150C2 PO; +FLOM0.4C39 PO; -FLOM5CAP PO; -GABA-282 PO; +GABA-843 PO; -GABA600T PO; +GABA600T4 PO; +HYDR12.55 PO; +LOSA50TA88 PO; +PERC7.5T11 PO; -PROHANCE 279.3MG/ML 15ML VIAL (A9576) As Ordered ONE; -PROHANCE 279.3MG/ML 5ML VIAL (A9576) As Ordered ONE; -ROPI3TAB PO; +ROPI3TAB3 PO; +ROSU10TA5 PO; +TIZANIDINE PO; +TRAZ-189 PO; +[UNRECOGNIZED DRUG - CODE] PO
--- NOTE | 2018-09-28 01:45 | ECWPNPC ---
PATIENT NAME: JAKOB ARGUELLES : 1960 GENDER: MALE VISIT DATE: 09/13/2018 DISCHARGE DATE: 09/13/18 1501 VISIT LOCKED DATE TIME: PHYSICIAN: SEAMUS PARKER RESOURCE: SEAMUS PARKER REASON FOR APPOINTMENT 1. SW PT,LEG PAIN HISTORY OF PRESENT ILLNESS HISTORY OF PRESENT ILLNESS: HERE FOR F/U AND MEDICINE MANAGEMENT OF CHRONIC LOW BACK PAIN.RATING PAIN VAS 7/10.DESCRIBES PAIN CONSTANT,STABBING AND BURNING. PAIN THE PATIENT DESCRIBES THE PAIN... FALL RISK SCREENING: SCREENING :NO FALLS IN THE PAST YEAR CURRENT MEDICATIONS TAKING SPACER/AERO CHAMBER MOUTHPIECE - MISCELLANEOUS DIRECTED - - TAKING TRAZODONE HCL 100 MG TABLET 2 TABLET AT BEDTIME ORALLY ONCE A DAY TAKING VENTOLIN HFA 108 (90 BASE) MCG/ACT AEROSOL SOLUTION 2 PUFFS NEEDED INHALATION EVERY 4 HRS TAKING ROPINIROLE HCL 3 MG TABLET 1 TAB ORALLY ONCE A DAY TAKING ARNUITY ELLIPTA 100 MCG/ACT AEROSOL POWDER BREATH ACTIVATED 1 PUFF INHALATION ONCE A DAY TAKING LORATADINE 10 MG TABLET 1 TABLET ORALLY ONCE A DAY TAKING HYDROXYZINE HCL 25 MG TABLET 1-2 TABLET ORALLY EVERY 8 HRS PRN TAKING ROSUVASTATIN CALCIUM 10 MG TABLET 1 TABLET ORALLY ONCE A DAY TAKING NYSTATIN 761408 UNIT/ML SUSPENSION 4 ML MOUTH/THROAT FOUR TIMES A DAY TAKING MELOXICAM 7.5 MG TABLET 1 TABLET ORALLY ONCE A DAY TAKING LISINOPRIL 20 MG TABLET 1 TABLET ORALLY ONCE A DAY TAKING CARISOPRODOL 350 MG TABLET 1 TABLET NEEDED ORALLY THREE TIMES DAILY PRN SPASM MDD=3 TAKING TIZANIDINE HCL 4 MG TABLET 1/2-1 TABLET ORALLY THREE TIMES DAILY TAKING GABAPENTIN 600 MG TABLET 1 CAPSULE ORALLY THREE TIMES A DAY TAKING DULOXETINE HCL 60 MG CAPSULE DELAYED RELEASE PARTICLES 1 CAPSULE ORALLY DAILY TAKING OXYCODONE-ACETAMINOPHEN 7.5-325 MG TABLET 1 TABLET NEEDED ORALLY Q 8 HRS PRN PAIN MDD=3 TAKING HYDROCHLOROTHIAZIDE 12.5 MG CAPSULE 1 CAP ORALLY DAILY TAKING LOSARTAN POTASSIUM 50 MG TABLET 1 CAP ORALLY DAILY TAKING FLOMAX 0.4 MG CAPSULE 1 CAP ORALLY DAILY TAKING CETIRIZINE HCL 10 MG TABLET 1 TABLET ORALLY DAILY TAKING ASPIR-81 MEDICATION LIST REVIEWED AND RECONCILED WITH THE PATIENT PAST MEDICAL HISTORY HTN CERVICAL RADICULOPOTHY SHOULDER PAIN NEPHROLITHIASIS RESTLESS LEG SYNDROME HYPERCHOLESTEROLEMIA CHRONIC SINUSITIS KIDNEY STONES BULGING DISC LOW BACK ALLERGIES MOTRIN: HIVES, VOMIT: SIDE EFFECTS SURGICAL HISTORY HERNIA X4 SCHEDULED FOR HERNIA 12/16/2011 CERVICAL LAMINECTOMY CERVICAL NECK-[address] LEFT SEBACEOUS CYST REMOVAL DR. PUCKETT, ENT 03/2016 FUSION OF NECK 03/20/17 LEFT SHOULDER SURGERY 01/2018 HERNIA SURGERY 2017 FAMILY HISTORY FATHER: , HTN,DM MOTHER: , HTN,DM SIBLINGS: ALIVE, 1 BROTHER HAS PROSTATE CA SON(S): ALIVE DAUGHTER(S): 31 YRS, AT AGE 31 YO DUE TO HEART FAILURE 4 BROTHER(S) , 2 SISTER(S) - HEALTHY. 1 SON(S) , 2 DAUGHTER(S) - HEALTHY. BROTHER AFTER RECENT REPAIR OF PUD AGE 53. SOCIAL HISTORY GENERAL: TOBACCO USE ARE YOU A:CURRENT SMOKER ARE YOU INTERESTED IN QUITTING?NOT READY TO QUIT COUNSELED THE PATIENT ON SMOKING EFFECTS, EDUCATION [id number]/2019 HOW MANY CIGARETTES A DAY DO YOU SMOKE?6-10 HOW SOON AFTER YOU WAKE UP DO YOU SMOKE YOUR FIRST CIGARETTE?6-30 MIN HOW OFTEN DO YOU SMOKE CIGARETTES?EVERY DAY PATIENT COUNSELED ON THE DANGERS OF TOBACCO USE AND URGED TO QUIT:09/13/2018 SMOKING CESSATION INFORMATION GIVEN DECLINED LUNG CANCER SCREENING SMOKING STATUS:CURRENT SMOKER IS THE PATIENT BETWEEN THE AGE OF 55 AND 77?YES HAS THE PATIENT EVER BEEN DIAGNOSED WITH LUNG CANCER?NO PACK YEARS = NUMBER OF PACKS PER DAY SMOKED X NUMBER OF YEARS SMOKED:40 CREATE REFERRAL:CREATED REFERRAL TO ONCOLOGY NURSE [employer] FOR LDCT SCAN BMI CARE GOAL FOLLOW-UP ABOVE NORMAL BMI FOLLOW-UPLIFESTYLE EDUCATION REGARDING DIET ALCOHOL SCREENING DID YOU HAVE A DRINK CONTAINING ALCOHOL IN THE PAST YEAR?YES HOW OFTEN DID YOU HAVE A DRINK CONTAINING ALCOHOL IN THE PAST YEAR?MONTHLY OR LESS (1 POINT) HOW MANY DRINKS DID YOU HAVE ON A TYPICAL DAY WHEN YOU WERE DRINKING IN THE PAST YEAR?1 OR 2 (0 POINTS) HOW OFTEN DID YOU HAVE SIX OR MORE DRINKS ON ONE OCCASION IN THE PAST YEAR?NEVER (0 POINTS) POINTS1 INTERPRETATIONNEGATIVE RECREATIONAL DRUG USE DRUG USE?NO CAFFEINE CAFFEINE USE?YES HOW OFTEN AND HOW MUCH? 2-3/DAY SEXUAL HX HAD SEX IN THE LAST 12 MONTHS (VAGINAL, ORAL, OR ANAL)?: YES, WITH: WOMEN ONLY, USE PROTECTION?: NO, PREVENTION STRATEGIES DISCUSSED:: OTHER, HAVE YOU EVER HAD AN STD?: NO. HIV / HEP-C SCREENING HIV TEST OFFERED TO PATIENT:NO HEP-C TEST OFFERED TO PATIENT:NO CAODAISM [id number] OTHER LANGUAGE [place]IAN. EDUCATION LEVEL OF EDUCATION:HIGH SCHOOL LEARNING BARRIERS / SPECIAL NEEDS CHANGE FROM LAST VISIT?NO BARRIERS TO LEARNING?YES COMMENTS STATES HE CAN'T READ WELL HEARING IMPAIRED?YES : NO HEARING AIDS VISION IMPAIRED?YES : NEEDS TO GET NEW GLASSES--LOST HIS 3 YRS AGO COGNITIVELY IMPAIRED?YES STATES SOMETIMES HE DOESN'T COMPREHEND WHAT PEOPLE ARE TELLING HIM READINESS TO LEARN?YES LEARNING PREFERENCES?YES :DEMONSTRATION/VERBAL INSTRUCTION LEARNING CAPABILITIES PRESENT?YES EMOTIONAL BARRIERS?NO SPECIAL DEVICES?YES :[employer] INS[employer] MARKETING REP NEEDED?NO DOMESTIC VIOLENCE DO YOU FEEL SAFE IN YOUR ENVIRONMENT?YES OCCUPATION: DISABLED. DIET: REGULAR. EXERCISE: NO REGULAR EXERCISE. MARITAL STATUS: . PAIN CLINIC PFS, CLERGY, PUBLIC HEALTH REFERRALS PFS REFERRAL NEEDED?NO CLERGY REFERRAL NEEDED?NO PUBLIC HEALTH REFERRAL NEEDED?NO HAS THE PATIENT BEEN EDUCATED REGARDING HIS/HER PLAN OF CARE?YES HAS THE PATIENT BEEN EDUCATED REGARDING PAIN, THE RISK FOR PAIN, THE IMPORTANCE OF EFFECTIVE PAIN MANAGEMENT, AND THE PAIN ASSESSMENT PROCESS?YES ADVANCE DIRECTIVE ADVANCE DIRECTIVE DISCUSSED WITH PATIENT:YES HCP - RONY () REVIEWED WITH PATIENT 06/13/18 1135 JS. HOSPITALIZATION/MAJOR DIAGNOSTIC PROCEDURE SURGERY RELATED CELLULITIS [facility]- STRAIN OF MUSCLE, FASCIA AND TENDON AT NECK LEVEL- LEFT RHOMBOID MUSCLE SPASM 04/08/2016 [facility]: INTRACTABLE BACK PAIN 03/2017 REVIEW OF SYSTEMS REVIEWED BY: PROVIDER: SEAMUS MCWILLIAMS . CONSTITUTIONAL: ANY CHANGE IN YOUR MEDICAL CONDITION? NO . CHILLS NO . FEVER NO . INFECTION: DO YOU HAVE NEW INFECTIONS? NO . DO YOU HAVE HISTORY OF MRSA? NO . MUSCULOSKELETAL: ANY NEW PATTERNS OF PAIN OR NUMBNESS? YES, LEFT SHOULDER PAIN AND NUMBNESS S/P SURGERY, GOING TO SEE SURGEON IN [place] 09/23/18 . GASTROENTEROLOGY: ANY NEW CHANGE IN BOWEL CONTROL? NO . GENITOURINARY: ANY NEW CHANGE IN BLADDER CONTROL? NO . IS THERE A CHANCE YOU COULD BE ? NO . HEMATOLOGY/LYMPH: DO YOU TAKE ANY BLOOD THINNERS? (FOR EXAMPLE- COUMADIN, PLAVIX, AGGRENOX, PLATEL, PRADAXA, OR XARELTO) NO . WHEN WAS YOUR LAST DOSE? DATE: TIME: . NEUROLOGY: HAVE YOU FALLEN IN THE PAST 12 MONTHS? NO . ANY NEW EXTREMITY NUMBNESS OR WEAKNESS? YES, LEFT SHOULDER . CARDIOLOGY: DO YOU HAVE A PACEMAKER OR DEFIBRILLATOR? NO . RESPIRATORY: HAVE YOU BEEN SICK IN THE PAST WEEK? NO . FEVER NO . FLU LIKE SYMPTOMS? NO . COUGH NO . INTEGUMENTARY: DO YOU HAVE ANY RASHES OR OPEN SORES? NO . ALLERGIC/IMMUNO: ARE YOU ALLERGIC TO IV DYE? NO . ANY NEW ALLERGIES? NO . PSYCHIATRIC: DO YOU HAVE THOUGHTS OF HURTING YOURSELF OR SOMEONE ELSE? NO . ARE YOU ABUSED, NEGLECTED, OR IN AN UNSAFE ENVIRONMENT? NO . ENDOCRINOLOGY: ARE YOU DIABETIC? NO . OTHER: DO YOU NEED ANY PRESCRIPTIONS? NO . IF YES, PLEASE LIST: ____ . ANY NEW PROBLEMS WITH YOUR MEDICATIONS? NO . WHEN DID YOU LAST EAT? ____ . WHEN DID YOU LAST DRINK? ____ . WHAT DID YOU LAST DRINK? ____ . NAME OF PERSON DRIVING YOU HOME? ____ . DO YOU HAVE ANY OTHER QUESTIONS OR CONCERNS NO . VITAL SIGNS WT 233.4 LBS, HT 6'2", BMI 29.96 INDEX, BP 145/94 MM HG, HR 83 /MIN, RR 16 /MIN, TEMP 97.8 F, OXYGEN SAT % 96%, NA INITIALS SC 14:20, REVIEWED BY: RIOS. EXAMINATION GENERAL EXAMINATION: GENERAL APPEARANCE:AWAKE,ALERT ,PLEAASANT . PSYCHAFFECT NORMAL . LUNGS:LUNG DARBY ARE CLEAR TO AUSCULTATION BILATERALLY. GOOD MOVEMENT OF AIR . HEART:S1, S2 IN A REGULAR RATE AND RHYTHM. NO SIGNIFICANT MURMURS, RUBS OR GALLOPS NOTED . ASSESSMENTS CHRONIC PAIN ASSOCIATED WITH SIGNIFICANT PSYCHOSOCIAL DYSFUNCTION - G89.4 CERVICAL POST-LAMINECTOMY SYNDROME - M96.1 TREATMENT CHRONIC PAIN ASSOCIATED WITH SIGNIFICANT PSYCHOSOCIAL DYSFUNCTION CONTINUE MELOXICAM TABLET, 7.5 MG, 1 TABLET, ORALLY, ONCE A DAY CONTINUE CARISOPRODOL TABLET, 350 MG, 1 TABLET NEEDED, ORALLY, THREE TIMES DAILY PRN SPASM MDD=3, 28 DAY(S), 84, REFILLS 4 CONTINUE TIZANIDINE HCL TABLET, 4 MG, 1/2-1 TABLET, ORALLY, THREE TIMES DAILY CONTINUE GABAPENTIN TABLET, 600 MG, 1 CAPSULE, ORALLY, THREE TIMES A DAY CONTINUE DULOXETINE HCL CAPSULE DELAYED RELEASE PARTICLES, 60 MG, 1 CAPSULE, ORALLY, DAILY REFILL OXYCODONE-ACETAMINOPHEN TABLET, 7.5-325 MG, 1 TABLET NEEDED, ORALLY, Q 8 HRS PRN PAIN MDD=3, 30 DAY(S), 70, REFILLS 0 NOTES: ISTOP REGISTRY REVIEWED AND DEMONSTRATES COMPLLIANCE. (REF #[id number] ) BRINGS IN MEDICATIONS WHICH IS APPROPRIATE FOR WHAT WAS DISPENSED. RECENT URINE TOXICOLOGY REVIEWED. NO UNAUTHORIZED MEDICATIONS. NO ILLICIT SUBSTANCES AND PRESCRIBED MEDICATIONS WERE PRESENT. , RISKS AND BENEFITS OF NARCOTIC/OPIOD MEDICATIONS WERE REVIEWED WITH PATIENT - THIS INCLUDES BUT IS NOT LIMITED TO RISK OF DEPENDANCE/DEVELOPMENT OF ADDICTION, MOOD DISTURBANCE AND DEPRESSION, OSTEOPOROSIS, HORMONAL AND LABIDAL CHANGES, RESPIRATORY DEPRESSION AND . PATIENT IS ADVISED NOT TO DRIVE OR DRINK ALCOHOL WHILE ON THESE MEDICATIONS. PROCEDURE CODES FA211 ESTABILISHED PATIENT [facility] CHARGE DISPOSITION & COMMUNICATION FOLLOW UP 2 MONTHS ELECTRONICALLY SIGNED BY OJ BHAT ON 09/27/2018 AT 03:54 PM EST DISCLAIMER : THIS IS A VISIT SUMMARY EXTRACTED FROM THE [employer] CHART. IT IS NOT A COPY OF THE [employer] PROGRESS NOTE. DEISI
== END ==
LOC: M PAIN 14:30
PROVIDERS: ATTEND Nurse Practitioner Family
DX: G89.4 Chronic pain syndrome (principal); M96.1 Postlaminectomy syndrome, not elsewhere classified; I10 Essential (primary) hypertension; G25.81 Restless legs syndrome; E78.00 Pure hypercholesterolemia, unspecified; F17.210 Nicotine dependence, cigarettes, uncomplicated; Z79.51 Long term (current) use of inhaled steroids; Z79.82 Long term (current) use of aspirin; Z79.899 Other long term (current) drug therapy; Z88.6 Allergy status to analgesic agent

== ENCOUNTER → 2018-11-13 | Outpatient (CLI) | payer OTHER ==
[~2018-11-13] MED LIST changes: +BACT800T5 PO; +FOLBTAB3 PO
--- NOTE | 2018-11-28 01:58 | ECWPNPC ---
PATIENT NAME: JAKOB ARGUELLES : 1960 GENDER: MALE VISIT DATE: 11/13/2018 DISCHARGE DATE: 11/13/18 1415 VISIT LOCKED DATE TIME: PHYSICIAN: SEAMUS PARKER RESOURCE: SEAMUS PARKER REASON FOR APPOINTMENT 1. 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 PAIN THE PATIENT DESCRIBES THE PAIN... FALL RISK SCREENING: SCREENING : NO FALLS IN THE PAST YEAR. CURRENT MEDICATIONS TAKING SPACER/AERO CHAMBER MOUTHPIECE - MISCELLANEOUS DIRECTED - - TAKING TRAZODONE HCL 100 MG TABLET 2 TABLET AT BEDTIME ORALLY ONCE A DAY TAKING VENTOLIN HFA 108 (90 BASE) MCG/ACT AEROSOL SOLUTION 2 PUFFS NEEDED INHALATION EVERY 4 HRS TAKING ROPINIROLE HCL 3 MG TABLET 1 TAB ORALLY ONCE A DAY TAKING ARNUITY ELLIPTA 100 MCG/ACT AEROSOL POWDER BREATH ACTIVATED 1 PUFF INHALATION ONCE A DAY TAKING LORATADINE 10 MG TABLET 1 TABLET ORALLY ONCE A DAY TAKING HYDROXYZINE HCL 25 MG TABLET 1-2 TABLET ORALLY EVERY 8 HRS PRN TAKING ROSUVASTATIN CALCIUM 10 MG TABLET 1 TABLET ORALLY ONCE A DAY TAKING NYSTATIN 807938 UNIT/ML SUSPENSION 4 ML MOUTH/THROAT FOUR TIMES A DAY TAKING LISINOPRIL 20 MG TABLET 1 TABLET ORALLY ONCE A DAY TAKING HYDROCHLOROTHIAZIDE 12.5 MG CAPSULE 1 CAP ORALLY DAILY TAKING LOSARTAN POTASSIUM 50 MG TABLET 1 CAP ORALLY DAILY TAKING FLOMAX 0.4 MG CAPSULE 1 CAP ORALLY DAILY TAKING CETIRIZINE HCL 10 MG TABLET 1 TABLET ORALLY DAILY TAKING ASPIR-81 TAKING MELOXICAM 7.5 MG TABLET 1 TABLET ORALLY ONCE A DAY TAKING CARISOPRODOL 350 MG TABLET 1 TABLET NEEDED ORALLY THREE TIMES DAILY PRN SPASM MDD=3 TAKING GABAPENTIN 600 MG TABLET 1 CAPSULE ORALLY THREE TIMES A DAY TAKING DULOXETINE HCL 60 MG CAPSULE DELAYED RELEASE PARTICLES 1 CAPSULE ORALLY DAILY TAKING OXYCODONE-ACETAMINOPHEN 7.5-325 MG TABLET 1 TABLET NEEDED ORALLY Q 8 HRS PRN PAIN MDD=3 TAKING TIZANIDINE HCL 4 MG TABLET 1/2-1 TABLET ORALLY THREE TIMES DAILY MEDICATION LIST REVIEWED AND RECONCILED WITH THE PATIENT PAST MEDICAL HISTORY HTN CERVICAL RADICULOPOTHY SHOULDER PAIN NEPHROLITHIASIS RESTLESS LEG SYNDROME HYPERCHOLESTEROLEMIA CHRONIC SINUSITIS KIDNEY STONES BULGING DISC LOW BACK ALLERGIES MOTRIN: HIVES, VOMIT - SIDE EFFECTS SURGICAL HISTORY HERNIA X4 SCHEDULED FOR HERNIA 12/16/2011 CERVICAL LAMINECTOMY CERVICAL NECK-[address] LEFT SEBACEOUS CYST REMOVAL DR. PUCKETT, ENT 03/2016 FUSION OF NECK 03/20/17 LEFT SHOULDER SURGERY 01/2018 HERNIA SURGERY 2017 FAMILY HISTORY FATHER: , HTN,DM MOTHER: , HTN,DM SIBLINGS: ALIVE, 1 BROTHER HAS PROSTATE CA SON(S): ALIVE DAUGHTER(S): 31 YRS, AT AGE 31 YO DUE TO HEART FAILURE 4 BROTHER(S) , 2 SISTER(S) - HEALTHY. 1 SON(S) , 2 DAUGHTER(S) - HEALTHY. BROTHER AFTER RECENT REPAIR OF PUD AGE 53. SOCIAL HISTORY GENERAL: TOBACCO USE ARE YOU A:CURRENT SMOKER ARE YOU INTERESTED IN QUITTING?NOT READY TO QUIT COUNSELED THE PATIENT ON SMOKING EFFECTS, EDUCATION [id number]/17/2019 HOW MANY CIGARETTES A DAY DO YOU SMOKE?6-10 HOW SOON AFTER YOU WAKE UP DO YOU SMOKE YOUR FIRST CIGARETTE?6-30 MIN HOW OFTEN DO YOU SMOKE CIGARETTES?EVERY DAY PATIENT COUNSELED ON THE DANGERS OF TOBACCO USE AND URGED TO QUIT:09/13/2018 SMOKING CESSATION INFORMATION GIVEN DECLINED LUNG CANCER SCREENING SMOKING STATUS:CURRENT SMOKER IS THE PATIENT BETWEEN THE AGE OF 55 AND 77?YES HAS THE PATIENT EVER BEEN DIAGNOSED WITH LUNG CANCER?NO PACK YEARS = NUMBER OF PACKS PER DAY SMOKED X NUMBER OF YEARS SMOKED:40 CREATE REFERRAL:CREATED REFERRAL TO ONCOLOGY NURSE NAVIGTOR FOR LDCT SCAN BMI CARE GOAL FOLLOW-UP ABOVE NORMAL BMI FOLLOW-UPLIFESTYLE EDUCATION REGARDING DIET ALCOHOL SCREENING DID YOU HAVE A DRINK CONTAINING ALCOHOL IN THE PAST YEAR?YES HOW OFTEN DID YOU HAVE A DRINK CONTAINING ALCOHOL IN THE PAST YEAR?MONTHLY OR LESS (1 POINT) HOW MANY DRINKS DID YOU HAVE ON A TYPICAL DAY WHEN YOU WERE DRINKING IN THE PAST YEAR?1 OR 2 (0 POINTS) HOW OFTEN DID YOU HAVE SIX OR MORE DRINKS ON ONE OCCASION IN THE PAST YEAR?NEVER (0 POINTS) POINTS1 INTERPRETATIONNEGATIVE RECREATIONAL DRUG USE DRUG USE?NO CAFFEINE CAFFEINE USE?YES HOW OFTEN AND HOW MUCH? 2-3/DAY SEXUAL HX HAD SEX IN THE LAST 12 MONTHS (VAGINAL, ORAL, OR ANAL)?: YES, WITH: WOMEN ONLY, USE PROTECTION?: NO, PREVENTION STRATEGIES DISCUSSED:: OTHER, HAVE YOU EVER HAD AN STD?: NO. HIV / HEP-C SCREENING HIV TEST OFFERED TO PATIENT:NO HEP-C TEST OFFERED TO PATIENT:NO RESTORATION [id number] OTHER LANGUAGE MACANESE. EDUCATION LEVEL OF EDUCATION:HIGH SCHOOL LEARNING BARRIERS / SPECIAL NEEDS CHANGE FROM LAST VISIT?NO BARRIERS TO LEARNING?YES COMMENTS STATES HE CAN'T READ WELL HEARING IMPAIRED?YES : NO HEARING AIDS VISION IMPAIRED?YES : NEEDS TO GET NEW GLASSES--LOST HIS 3 YRS AGO COGNITIVELY IMPAIRED?YES STATES SOMETIMES HE DOESN'T COMPREHEND WHAT PEOPLE ARE TELLING HIM READINESS TO LEARN?YES LEARNING PREFERENCES?YES :DEMONSTRATION/VERBAL INSTRUCTION LEARNING CAPABILITIES PRESENT?YES EMOTIONAL BARRIERS?NO SPECIAL DEVICES?YES :CANE MEDICAL LAB DIRECTOR NEEDED?NO DOMESTIC VIOLENCE DO YOU FEEL SAFE IN YOUR ENVIRONMENT?YES OCCUPATION: DISABLED. DIET: REGULAR. EXERCISE: NO REGULAR EXERCISE. MARITAL STATUS: . PAIN CLINIC PFS, CLERGY, PUBLIC HEALTH REFERRALS PFS REFERRAL NEEDED?NO CLERGY REFERRAL NEEDED?NO PUBLIC HEALTH REFERRAL NEEDED?NO HAS THE PATIENT BEEN EDUCATED REGARDING HIS/HER PLAN OF CARE?YES HAS THE PATIENT BEEN EDUCATED REGARDING PAIN, THE RISK FOR PAIN, THE IMPORTANCE OF EFFECTIVE PAIN MANAGEMENT, AND THE PAIN ASSESSMENT PROCESS?YES ADVANCE DIRECTIVE ADVANCE DIRECTIVE DISCUSSED WITH PATIENT:YES HCP - RONY () REVIEWED WITH PATIENT 06/13/18 1135 JS. HOSPITALIZATION/MAJOR DIAGNOSTIC PROCEDURE SURGERY RELATED CELLULITIS [facility] ER- STRAIN OF MUSCLE, FASCIA AND TENDON AT NECK LEVEL- LEFT RHOMBOID MUSCLE SPASM 04/08/2016 [facility]: INTRACTABLE BACK PAIN 03/2017 REVIEW OF SYSTEMS REVIEWED BY: PROVIDER: SEAMUS MCWILLIAMS . CONSTITUTIONAL: ANY CHANGE IN YOUR MEDICAL CONDITION? NO . CHILLS NO . FEVER NO . INFECTION: DO YOU HAVE NEW INFECTIONS? NO . DO YOU HAVE HISTORY OF MRSA? NO . MUSCULOSKELETAL: ANY NEW PATTERNS OF PAIN OR NUMBNESS? INCREASED PAIN IN BOTH LEGS . GASTROENTEROLOGY: ANY NEW CHANGE IN BOWEL CONTROL? NO . GENITOURINARY: ANY NEW CHANGE IN BLADDER CONTROL? NO . IS THERE A CHANCE YOU COULD BE ? NO . HEMATOLOGY/LYMPH: DO YOU TAKE ANY BLOOD THINNERS? (FOR EXAMPLE- COUMADIN, PLAVIX, AGGRENOX, PLATEL, PRADAXA, OR XARELTO) NO . WHEN WAS YOUR LAST DOSE? DATE: TIME: . NEUROLOGY: HAVE YOU FALLEN IN THE PAST 12 MONTHS? HAD A FALL AND FELL HARD ON ICE DID NOYT GO TO [facility] . ANY NEW EXTREMITY NUMBNESS OR WEAKNESS? NO . CARDIOLOGY: DO YOU HAVE A PACEMAKER OR DEFIBRILLATOR? NO . RESPIRATORY: HAVE YOU BEEN SICK IN THE PAST WEEK? NO . FEVER NO . FLU LIKE SYMPTOMS? NO . COUGH NO . INTEGUMENTARY: DO YOU HAVE ANY RASHES OR OPEN SORES? NO . ALLERGIC/IMMUNO: ARE YOU ALLERGIC TO IV DYE? NO . ANY NEW ALLERGIES? NO . PSYCHIATRIC: DO YOU HAVE THOUGHTS OF HURTING YOURSELF OR SOMEONE ELSE? NO . ARE YOU ABUSED, NEGLECTED, OR IN AN UNSAFE ENVIRONMENT? NO . ENDOCRINOLOGY: ARE YOU DIABETIC? NO . OTHER: DO YOU NEED ANY PRESCRIPTIONS? NO . IF YES, PLEASE LIST: ____ . ANY NEW PROBLEMS WITH YOUR MEDICATIONS? NO . WHEN DID YOU LAST EAT? ____ . WHEN DID YOU LAST DRINK? ____ . WHAT DID YOU LAST DRINK? ____ . NAME OF PERSON DRIVING YOU HOME? ____ . DO YOU HAVE ANY OTHER QUESTIONS OR CONCERNS NO . VITAL SIGNS WT 234.0 LBS, HT 6'2", BMI 30.04 INDEX, BP 141/93 MM HG, HR 98 /MIN, RR 16 /MIN, TEMP 98.6 F, OXYGEN SAT % 94%, NA INITIALS AW 1312, REVIEWED BY: KG. EXAMINATION GENERAL EXAMINATION: GENERAL APPEARANCE:AWAKE,ALERT ,PLEAASANT . PSYCHAFFECT NORMAL . LUNGS:LUNG DARBY ARE CLEAR TO AUSCULTATION BILATERALLY. GOOD MOVEMENT OF AIR . HEART:S1, S2 IN A REGULAR RATE AND RHYTHM. NO SIGNIFICANT MURMURS, RUBS OR GALLOPS NOTED . ASSESSMENTS CHRONIC PAIN ASSOCIATED WITH SIGNIFICANT PSYCHOSOCIAL DYSFUNCTION - G89.4 (PRIMARY) CERVICAL POST-LAMINECTOMY SYNDROME - M96.1 TREATMENT CHRONIC PAIN ASSOCIATED WITH SIGNIFICANT PSYCHOSOCIAL DYSFUNCTION CONTINUE MELOXICAM TABLET, 7.5 MG, 1 TABLET, ORALLY, ONCE A DAY, 30 DAY(S), 30 TABLET, REFILLS 5 CONTINUE CARISOPRODOL TABLET, 350 MG, 1 TABLET NEEDED, ORALLY, THREE TIMES DAILY PRN SPASM MDD=3, 28 DAY(S), 84, REFILLS 1 REFILL GABAPENTIN TABLET, 600 MG, 1 CAPSULE, ORALLY, THREE TIMES A DAY, 30 DAY(S), 90 CAPSULE, REFILLS 5 REFILL DULOXETINE HCL CAPSULE DELAYED RELEASE PARTICLES, 60 MG, 1 CAPSULE, ORALLY, DAILY, 30 DAY(S), 30 CAPSULE, REFILLS 5 REFILL OXYCODONE-ACETAMINOPHEN TABLET, 7.5-325 MG, 1 TABLET NEEDED, ORALLY, Q 8 HRS PRN PAIN MDD=3, 30 DAY(S), 70, REFILLS 0 REFILL TIZANIDINE HCL TABLET, 4 MG, 1/2-1 TABLET, ORALLY, THREE TIMES DAILY, 30 DAY(S), 45, REFILLS 5 NOTES: HAVE EVALUATION AT [facility], ISTOP REGISTRY REVIEWED AND DEMONSTRATES COMPLLIANCE. (REF #[id number] ) BRINGS IN MEDICATIONS WHICH IS APPROPRIATE FOR WHAT WAS DISPENSED. FORMAL PILL COUNT AND IDENTIFICATION WAS DONE., RISKS AND BENEFITS OF NARCOTIC/OPIOD MEDICATIONS WERE REVIEWED WITH PATIENT - THIS INCLUDES BUT IS NOT LIMITED TO RISK OF DEPENDANCE/DEVELOPMENT OF ADDICTION, MOOD DISTURBANCE AND DEPRESSION, OSTEOPOROSIS, HORMONAL AND LABIDAL CHANGES, RESPIRATORY DEPRESSION AND . PATIENT IS ADVISED NOT TO DRIVE OR DRINK ALCOHOL WHILE ON THESE MEDICATIONS. PROCEDURE CODES FA211 ESTABILISHED PATIENT [facility] CHARGE DISPOSITION & COMMUNICATION FOLLOW UP 2 MONTHS ELECTRONICALLY SIGNED BY OJ BHAT ON 11/27/2018 AT 01:56 PM EDT DISCLAIMER : THIS IS A VISIT SUMMARY EXTRACTED FROM THE [employer] CHART. IT IS NOT A COPY OF THE [facility]ICAL [facility] PROGRESS NOTE. NID
== END ==
LOC: M PAIN 13:15
PROVIDERS: ATTEND Nurse Practitioner Family
DX: G89.4 Chronic pain syndrome (principal); M96.1 Postlaminectomy syndrome, not elsewhere classified; I10 Essential (primary) hypertension; G25.81 Restless legs syndrome; E78.00 Pure hypercholesterolemia, unspecified; F17.210 Nicotine dependence, cigarettes, uncomplicated; Z79.51 Long term (current) use of inhaled steroids; Z79.82 Long term (current) use of aspirin; Z79.899 Other long term (current) drug therapy; Z88.6 Allergy status to analgesic agent

== ENCOUNTER 2018-11-20 10:33 | Emergency (ER) | payer OTHER ==
[~2018-11-20] VITALS: Ht 185.4 cm; Wt 105.6 kg
[~2018-11-20 10:33] MED LIST changes: -/TAMS4CA PO; -ASPI1TAB PO; +ASPI81TA26 PO; -BACT800T5 PO; +CRES10TA PO; -CRES10TA32 PO
[2018-11-20 10:34] VITALS: BP 128/82
[2018-11-20] MEDS ORDERED: BACT800T5 PO (12:10)
== END 2018-11-20 12:14 | disposition home or self-care (01) ==
LOC: M ED 10:33
DX: L03.311 Cellulitis of abdominal wall (principal); I10 Essential (primary) hypertension; E78.00 Pure hypercholesterolemia, unspecified; F32.9 Major depressive disorder, single episode, unspecified; F41.9 Anxiety disorder, unspecified; F17.210 Nicotine dependence, cigarettes, uncomplicated; Z79.899 Other long term (current) drug therapy; Z79.82 Long term (current) use of aspirin; Z88.8 Allergy status to other drugs, medicaments and biological substances

== ENCOUNTER → 2019-01-11 | Outpatient (CLI) | payer OTHER ==
[~2019-01-11] MED LIST changes: +BACT800T5 PO
--- NOTE | 2019-01-30 01:55 | ECWPNPC ---
PATIENT NAME: JAKOB ARGUELLES : 1960 GENDER: MALE VISIT DATE: 01/11/2019 DISCHARGE DATE: 01/11/19 1324 VISIT LOCKED DATE TIME: PHYSICIAN: SEAMUS PARKER RESOURCE: SEAMUS PARKER REASON FOR APPOINTMENT 1. 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 PAIN THE PATIENT DESCRIBES THE PAIN... THE PATIENT DESCRIBES THE PAIN... FALL RISK SCREENING: SCREENING :NO FALLS REPORTED IN THE LAST YEAR CURRENT MEDICATIONS TAKING SPACER/AERO CHAMBER MOUTHPIECE - MISCELLANEOUS DIRECTED - - TAKING TRAZODONE HCL 100 MG TABLET 2 TABLET AT BEDTIME ORALLY ONCE A DAY TAKING VENTOLIN HFA 108 (90 BASE) MCG/ACT AEROSOL SOLUTION 2 PUFFS NEEDED INHALATION EVERY 4 HRS TAKING ROPINIROLE HCL 3 MG TABLET 1 TAB ORALLY ONCE A DAY TAKING ARNUITY ELLIPTA 100 MCG/ACT AEROSOL POWDER BREATH ACTIVATED 1 PUFF INHALATION ONCE A DAY TAKING ROSUVASTATIN CALCIUM 10 MG TABLET 1 TABLET ORALLY ONCE A DAY TAKING NYSTATIN [id number] UNIT/ML SUSPENSION 4 ML MOUTH/THROAT FOUR TIMES A DAY TAKING LISINOPRIL 20 MG TABLET 1 TABLET ORALLY ONCE A DAY TAKING HYDROCHLOROTHIAZIDE 12.5 MG CAPSULE 1 CAP ORALLY DAILY TAKING LOSARTAN POTASSIUM 50 MG TABLET 1 CAP ORALLY DAILY TAKING FLOMAX 0.4 MG CAPSULE 1 CAP ORALLY DAILY TAKING CETIRIZINE HCL 10 MG TABLET 1 TABLET ORALLY DAILY TAKING ASPIR-81 TAKING GABAPENTIN 600 MG TABLET 1 CAPSULE ORALLY THREE TIMES A DAY TAKING DULOXETINE HCL 60 MG CAPSULE DELAYED RELEASE PARTICLES 1 CAPSULE ORALLY DAILY TAKING TIZANIDINE HCL 4 MG TABLET 1/2-1 TABLET ORALLY THREE TIMES DAILY TAKING OXYCODONE-ACETAMINOPHEN 7.5-325 MG TABLET 1 TABLET NEEDED ORALLY Q 8 HRS PRN PAIN MDD=3 TAKING CARISOPRODOL 350 MG TABLET 1 TABLET NEEDED ORALLY THREE TIMES DAILY PRN SPASM MDD=3 UNKNOWN LORATADINE 10 MG TABLET 1 TABLET ORALLY ONCE A DAY UNKNOWN HYDROXYZINE HCL 25 MG TABLET 1-2 TABLET ORALLY EVERY 8 HRS PRN, NOTES: NOT SURE IF HE IS TAKING UNKNOWN MELOXICAM 7.5 MG TABLET 1 TABLET ORALLY ONCE A DAY MEDICATION LIST REVIEWED AND RECONCILED WITH THE PATIENT PAST MEDICAL HISTORY CERVICAL RADICULOPOTHY SHOULDER PAIN NEPHROLITHIASIS RESTLESS LEG SYNDROME HYPERCHOLESTEROLEMIA CHRONIC SINUSITIS KIDNEY STONES HTN BULGING DISC LOW BACK ALLERGIES MOTRIN: HIVES, VOMIT - SIDE EFFECTS SURGICAL HISTORY HERNIA X4 SCHEDULED FOR HERNIA 12/16/2011 CERVICAL LAMINECTOMY CERVICAL NECK-[address] LEFT SEBACEOUS CYST REMOVAL DR. PUCKETT, ENT 03/2016 FUSION OF NECK 03/20/17 LEFT SHOULDER SURGERY 01/2018 HERNIA SURGERY 2017 FAMILY HISTORY FATHER: , HTN,DM MOTHER: , HTN,DM SIBLINGS: ALIVE, 1 BROTHER HAS PROSTATE CA SON(S): ALIVE DAUGHTER(S): 31 YRS, AT AGE 31 YO DUE TO HEART FAILURE 4 BROTHER(S) , 2 SISTER(S) - HEALTHY. 1 SON(S) , 2 DAUGHTER(S) - HEALTHY. BROTHER AFTER RECENT REPAIR OF PUD AGE 53. SOCIAL HISTORY GENERAL: TOBACCO USE ARE YOU A:CURRENT SMOKER ARE YOU INTERESTED IN QUITTING?NOT READY TO QUIT COUNSELED THE PATIENT ON SMOKING EFFECTS, EDUCATION [id number]/17/2019 HOW MANY CIGARETTES A DAY DO YOU SMOKE?6-10 HOW SOON AFTER YOU WAKE UP DO YOU SMOKE YOUR FIRST CIGARETTE?6-30 MIN HOW OFTEN DO YOU SMOKE CIGARETTES?EVERY DAY PATIENT COUNSELED ON THE DANGERS OF TOBACCO USE AND URGED TO QUIT:01/11/2019 SMOKING CESSATION INFORMATION GIVEN DECLINED HIV / HEP-C SCREENING HIV TEST OFFERED TO PATIENT:NO HEP-C TEST OFFERED TO PATIENT:NO EDUCATION LEVEL OF EDUCATION:HIGH SCHOOL DIET: REGULAR. LANGUAGE TURKS AND [place]ER. DOMESTIC VIOLENCE DO YOU FEEL SAFE IN YOUR ENVIRONMENT?YES BMI CARE GOAL FOLLOW-UP ABOVE NORMAL BMI FOLLOW-UPLIFESTYLE EDUCATION REGARDING DIET RECREATIONAL DRUG USE DRUG USE?NO EXERCISE: NO REGULAR EXERCISE. LEARNING BARRIERS / SPECIAL NEEDS CHANGE FROM LAST VISIT?NO BARRIERS TO LEARNING?YES COMMENTS STATES HE CAN'T READ WELL HEARING IMPAIRED?YES : NO HEARING AIDS VISION IMPAIRED?YES : NEEDS TO GET NEW GLASSES--LOST HIS 3 YRS AGO COGNITIVELY IMPAIRED?YES STATES SOMETIMES HE DOESN'T COMPREHEND WHAT PEOPLE ARE TELLING HIM READINESS TO LEARN?YES LEARNING PREFERENCES?YES :DEMONSTRATION/VERBAL INSTRUCTION LEARNING CAPABILITIES PRESENT?YES EMOTIONAL BARRIERS?NO SPECIAL DEVICES?YES :CANE NATIONAL BUSINESS DIRECTOR NEEDED?NO LUNG CANCER SCREENING SMOKING STATUS:CURRENT SMOKER IS THE PATIENT BETWEEN THE AGE OF 55 AND 77?YES HAS THE PATIENT EVER BEEN DIAGNOSED WITH LUNG CANCER?NO PACK YEARS = NUMBER OF PACKS PER DAY SMOKED X NUMBER OF YEARS SMOKED:40 CREATE REFERRAL:CREATED REFERRAL TO ONCOLOGY NURSE NAVIGTOR FOR LDCT SCAN PAIN CLINIC PFS, CLERGY, PUBLIC HEALTH REFERRALS PFS REFERRAL NEEDED?NO CLERGY REFERRAL NEEDED?NO PUBLIC HEALTH REFERRAL NEEDED?NO HAS THE PATIENT BEEN EDUCATED REGARDING HIS/HER PLAN OF CARE?YES HAS THE PATIENT BEEN EDUCATED REGARDING PAIN, THE RISK FOR PAIN, THE IMPORTANCE OF EFFECTIVE PAIN MANAGEMENT, AND THE PAIN ASSESSMENT PROCESS?YES CAFFEINE CAFFEINE USE?YES HOW OFTEN AND HOW MUCH? 2-3/DAY ADVANCE DIRECTIVE ADVANCE DIRECTIVE DISCUSSED WITH PATIENT:YES HCP - RONY () CONFUCIANISM [id number] OTHER MARITAL STATUS: . ALCOHOL SCREENING DID YOU HAVE A DRINK CONTAINING ALCOHOL IN THE PAST YEAR?YES HOW OFTEN DID YOU HAVE A DRINK CONTAINING ALCOHOL IN THE PAST YEAR?MONTHLY OR LESS (1 POINT) HOW MANY DRINKS DID YOU HAVE ON A TYPICAL DAY WHEN YOU WERE DRINKING IN THE PAST YEAR?1 OR 2 (0 POINTS) HOW OFTEN DID YOU HAVE SIX OR MORE DRINKS ON ONE OCCASION IN THE PAST YEAR?NEVER (0 POINTS) POINTS1 INTERPRETATIONNEGATIVE OCCUPATION: DISABLED. SEXUAL HX HAD SEX IN THE LAST 12 MONTHS (VAGINAL, ORAL, OR ANAL)?: YES, WITH: WOMEN ONLY, USE PROTECTION?: NO, PREVENTION STRATEGIES DISCUSSED:: OTHER, HAVE YOU EVER HAD AN STD?: NO. REVIEWED WITH PATIENT 06/13/18 1135 JS. HOSPITALIZATION/MAJOR DIAGNOSTIC PROCEDURE SURGERY RELATED CELLULITIS [facility] ER- STRAIN OF MUSCLE, FASCIA AND TENDON AT NECK LEVEL- LEFT RHOMBOID MUSCLE SPASM 04/08/2016 [facility]: INTRACTABLE BACK PAIN 03/2017 REVIEW OF SYSTEMS REVIEWED BY: PROVIDER: SEAMUS MCWILLIAMS . CONSTITUTIONAL: ANY CHANGE IN YOUR MEDICAL CONDITION? NO . CHILLS NO . FEVER NO . INFECTION: DO YOU HAVE NEW INFECTIONS? YES . DO YOU HAVE HISTORY OF MRSA? YES HAD A BOWHICH AN I & D IN [place] IN NOVEMBER . MUSCULOSKELETAL: ANY NEW PATTERNS OF PAIN OR NUMBNESS? YES LEFT SHOULDER WHICH HE IS HAVING SURGERY DONE ON 01-25-19 . GASTROENTEROLOGY: ANY NEW CHANGE IN BOWEL CONTROL? NO . GENITOURINARY: ANY NEW CHANGE IN BLADDER CONTROL? URGENCY AND GOING OFTEN AND NOT GETTING MUCH WILL BE HAVING EXPLORATORY DONE ON 02-01 . IS THERE A CHANCE YOU COULD BE ? NO . HEMATOLOGY/LYMPH: DO YOU TAKE ANY BLOOD THINNERS? (FOR EXAMPLE- COUMADIN, PLAVIX, AGGRENOX, PLATEL, PRADAXA, OR XARELTO) NO . WHEN WAS YOUR LAST DOSE? DATE: TIME: . NEUROLOGY: HAVE YOU FALLEN IN THE PAST 12 MONTHS? NO . ANY NEW EXTREMITY NUMBNESS OR WEAKNESS? NO . CARDIOLOGY: DO YOU HAVE A PACEMAKER OR DEFIBRILLATOR? NO . RESPIRATORY: HAVE YOU BEEN SICK IN THE PAST WEEK? NO . FEVER NO . FLU LIKE SYMPTOMS? NO . COUGH NO . INTEGUMENTARY: DO YOU HAVE ANY RASHES OR OPEN SORES? NO . ALLERGIC/IMMUNO: ARE YOU ALLERGIC TO IV DYE? NO . ANY NEW ALLERGIES? NO . PSYCHIATRIC: DO YOU HAVE THOUGHTS OF HURTING YOURSELF OR SOMEONE ELSE? NO . ARE YOU ABUSED, NEGLECTED, OR IN AN UNSAFE ENVIRONMENT? NO . ENDOCRINOLOGY: ARE YOU DIABETIC? NO . OTHER: DO YOU NEED ANY PRESCRIPTIONS? NO . IF YES, PLEASE LIST: ____ . ANY NEW PROBLEMS WITH YOUR MEDICATIONS? NO . WHEN DID YOU LAST EAT? ____ . WHEN DID YOU LAST DRINK? ____ . WHAT DID YOU LAST DRINK? ____ . NAME OF PERSON DRIVING YOU HOME? ____ . DO YOU HAVE ANY OTHER QUESTIONS OR CONCERNS NO . VITAL SIGNS WT 233.2 LBS, HT 6'2", BMI 29.94 INDEX, BP 140/87 MM HG, HR 76 /MIN, RR 18 /MIN, TEMP 98.5 F, OXYGEN SAT % 96%, NA INITIALS SC 12:18. EXAMINATION GENERAL EXAMINATION: GENERAL APPEARANCE:AWAKE,ALERT ,PLEAASANT . PSYCHAFFECT NORMAL . LUNGS:LUNG DARBY ARE CLEAR TO AUSCULTATION BILATERALLY. GOOD MOVEMENT OF AIR . HEART:S1, S2 IN A REGULAR RATE AND RHYTHM. NO SIGNIFICANT MURMURS, RUBS OR GALLOPS NOTED . ASSESSMENTS LUMBAR FACET ARTHROPATHY - M12.88 (PRIMARY) TREATMENT LUMBAR FACET ARTHROPATHY REFILL OXYCODONE-ACETAMINOPHEN TABLET, 7.5-325 MG, 1 TABLET NEEDED, ORALLY, Q 8 HRS PRN PAIN MDD=3, 30 DAY(S), 70, REFILLS 0 CONTINUE TIZANIDINE HCL TABLET, 4 MG, 1/2-1 TABLET, ORALLY, THREE TIMES DAILY REFILL CARISOPRODOL TABLET, 350 MG, 1 TABLET NEEDED, ORALLY, THREE TIMES DAILY PRN SPASM MDD=3, 28 DAYS, 84 CONTINUE GABAPENTIN TABLET, 600 MG, 1 CAPSULE, ORALLY, THREE TIMES A DAY CONTINUE DULOXETINE HCL CAPSULE DELAYED RELEASE PARTICLES, 60 MG, 1 CAPSULE, ORALLY, DAILY NOTES: ISTOP REGISTRY REVIEWED AND DEMONSTRATES COMPLLIANCE. (REF # ) BRINGS IN MEDICATIONS WHICH IS APPROPRIATE FOR WHAT WAS DISPENSED. RECENT URINE TOXICOLOGY REVIEWED. NO UNAUTHORIZED MEDICATIONS. NO ILLICIT SUBSTANCES AND PRESCRIBED MEDICATIONS WERE PRESENT. URINE TOX TODAY, RISKS AND BENEFITS OF NARCOTIC/OPIOD MEDICATIONS WERE REVIEWED WITH PATIENT - THIS INCLUDES BUT IS NOT LIMITED TO RISK OF DEPENDANCE/DEVELOPMENT OF ADDICTION, MOOD DISTURBANCE AND DEPRESSION, OSTEOPOROSIS, HORMONAL AND LABIDAL CHANGES, RESPIRATORY DEPRESSION AND . PATIENT IS ADVISED NOT TO DRIVE OR DRINK ALCOHOL WHILE ON THESE MEDICATIONS. PROCEDURE CODES FA211 ESTABILISHED PATIENT [facility] CHARGE DISPOSITION & COMMUNICATION FOLLOW UP 2 MONTHS ELECTRONICALLY SIGNED BY OJ BHAT ON 01/29/2019 AT 01:14 PM EDT DISCLAIMER : THIS IS A VISIT SUMMARY EXTRACTED FROM THE [employer] CHART. IT IS NOT A COPY OF THE [employer] PROGRESS NOTE. DEISI
== END ==
LOC: M PAIN 11:30
PROVIDERS: ATTEND Nurse Practitioner Family
DX: M12.88 Other specific arthropathies, not elsewhere classified, other specified site (principal); G89.29 Other chronic pain; I10 Essential (primary) hypertension; E78.00 Pure hypercholesterolemia, unspecified; G25.81 Restless legs syndrome; F17.210 Nicotine dependence, cigarettes, uncomplicated; Z79.51 Long term (current) use of inhaled steroids; Z79.82 Long term (current) use of aspirin; Z79.899 Other long term (current) drug therapy; Z88.6 Allergy status to analgesic agent

== ENCOUNTER → 2019-04-09 | Outpatient (CLI) | payer OTHER ==
[~2019-04-09] MED LIST changes: -ALL10TAB28 PO; +ALL10TAB29 PO; +AMLO5TAB6 PO; +ARNU1INH; +BUPR150T5 PO; -DULO1CAP3 PO; +DULO1CAP6 PO; +METO1TAB87 PO; +NORC1TAB7 PO; +ONDA-83 PO; -ONDA4TAB5 PO; +ONDA4TAB6 PO; +OXYC10TA3 OR; -ROSU10TA5 PO; +ROSU10TA6 PO; +TIZA4CAP PO; +TIZA4TAB4 PO; -TRAZ10TA PO; +TRAZ1TAB12 PO
--- NOTE | 2019-04-26 00:34 | ECWPNPC ---
PATIENT NAME: JAKOB ARGUELLES : 1960 GENDER: MALE VISIT DATE: 04/09/2019 DISCHARGE DATE: 04/09/19 1354 VISIT LOCKED DATE TIME: PHYSICIAN: SEAMUS PARKER RESOURCE: SEAMUS PARKER REASON FOR APPOINTMENT 1. LEGS/BACK HISTORY OF PRESENT ILLNESS HISTORY OF PRESENT ILLNESS: HERE FOR F/U OF CHRONIC LBP AND GENERALIZED PAIN .RATING PAIN VAS 8/10.HAD RIGHT SCROTAL SURGERY ON 03/20/19.FINDING CURRENT MEDICATION:PERCOCET 7.5/325 #84 FOR 1 MONTH SUPPLY AND SOMA 350MG #84 SOMEWHAT EFFECTIVE.DENIES SIDE EFFECTS.HE IS ASKING FOR STRONGER MEDICATION. PAIN THE PATIENT DESCRIBES THE PAIN... FALL RISK SCREENING: SCREENING :NO FALLS REPORTED IN THE LAST YEAR CURRENT MEDICATIONS TAKING SPACER/AERO CHAMBER MOUTHPIECE - MISCELLANEOUS DIRECTED - - TAKING TRAZODONE HCL 100 MG TABLET 2 TABLET AT BEDTIME ORALLY ONCE A DAY TAKING VENTOLIN HFA 108 (90 BASE) MCG/ACT AEROSOL SOLUTION 2 PUFFS NEEDED INHALATION EVERY 4 HRS TAKING ROPINIROLE HCL 3 MG TABLET 1 TAB ORALLY ONCE A DAY TAKING ARNUITY ELLIPTA 100 MCG/ACT AEROSOL POWDER BREATH ACTIVATED 1 PUFF INHALATION ONCE A DAY TAKING ROSUVASTATIN CALCIUM 10 MG TABLET 1 TABLET ORALLY ONCE A DAY TAKING LISINOPRIL 20 MG TABLET 1 TABLET ORALLY ONCE A DAY TAKING HYDROCHLOROTHIAZIDE 12.5 MG CAPSULE 1 CAP ORALLY DAILY TAKING LOSARTAN POTASSIUM 50 MG TABLET 1 CAP ORALLY DAILY TAKING FLOMAX 0.4 MG CAPSULE 1 CAP ORALLY DAILY TAKING CETIRIZINE HCL 10 MG TABLET 1 TABLET ORALLY DAILY TAKING ASPIR-81 TAKING TIZANIDINE HCL 4 MG TABLET 1/2-1 TABLET ORALLY THREE TIMES DAILY TAKING GABAPENTIN 600 MG TABLET 1 CAPSULE ORALLY THREE TIMES A DAY TAKING DULOXETINE HCL 60 MG CAPSULE DELAYED RELEASE PARTICLES 1 CAPSULE ORALLY DAILY TAKING CARISOPRODOL 350 MG TABLET 1 TABLET NEEDED ORALLY THREE TIMES DAILY PRN SPASM MDD=3 TAKING OXYCODONE-ACETAMINOPHEN 7.5-325 MG TABLET 1 TABLET NEEDED ORALLY Q 8 HRS PRN PAIN MDD=3 NOT-TAKING LORATADINE 10 MG TABLET 1 TABLET ORALLY ONCE A DAY NOT-TAKING HYDROXYZINE HCL 25 MG TABLET 1-2 TABLET ORALLY EVERY 8 HRS PRN, NOTES: NOT SURE IF HE IS TAKING NOT-TAKING MELOXICAM 7.5 MG TABLET 1 TABLET ORALLY ONCE A DAY DISCONTINUED NYSTATIN 296266 UNIT/ML SUSPENSION 4 ML MOUTH/THROAT FOUR TIMES A DAY MEDICATION LIST REVIEWED AND RECONCILED WITH THE PATIENT PAST MEDICAL HISTORY CERVICAL RADICULOPOTHY SHOULDER PAIN NEPHROLITHIASIS RESTLESS LEG SYNDROME HYPERCHOLESTEROLEMIA CHRONIC SINUSITIS KIDNEY STONES HTN BULGING DISC LOW BACK ALLERGIES MOTRIN: HIVES, VOMIT - SIDE EFFECTS SURGICAL HISTORY HERNIA X4 SCHEDULED FOR HERNIA 12/16/2011 CERVICAL LAMINECTOMY CERVICAL NECK-[address] LEFT SEBACEOUS CYST REMOVAL DR. PUCKETT, ENT 03/2016 FUSION OF NECK 03/20/17 LEFT SHOULDER SURGERY 01/2018 HERNIA SURGERY 2017 RIGHT TESTICULAR CYST REMOVED 02/2019 FAMILY HISTORY FATHER: , HTN,DM MOTHER: , HTN,DM SIBLINGS: ALIVE, 1 BROTHER HAS PROSTATE CA SON(S): ALIVE DAUGHTER(S): 31 YRS, AT AGE 31 YO DUE TO HEART FAILURE 4 BROTHER(S) , 2 SISTER(S) - HEALTHY. 1 SON(S) , 2 DAUGHTER(S) - HEALTHY. BROTHER AFTER RECENT REPAIR OF PUD AGE 53. SOCIAL HISTORY GENERAL: TOBACCO USE ARE YOU A:CURRENT SMOKER ARE YOU INTERESTED IN QUITTING?NOT READY TO QUIT COUNSELED THE PATIENT ON SMOKING EFFECTS, EDUCATION [id number]/13/2019 HOW MANY CIGARETTES A DAY DO YOU SMOKE?6-10 HOW SOON AFTER YOU WAKE UP DO YOU SMOKE YOUR FIRST CIGARETTE?6-30 MIN HOW OFTEN DO YOU SMOKE CIGARETTES?EVERY DAY PATIENT COUNSELED ON THE DANGERS OF TOBACCO USE AND URGED TO QUIT:01/11/2019 SMOKING CESSATION INFORMATION GIVEN DECLINED HIV / HEP-C SCREENING HIV TEST OFFERED TO PATIENT:NO HEP-C TEST OFFERED TO PATIENT:NO EDUCATION LEVEL OF EDUCATION:HIGH SCHOOL DIET: REGULAR. LANGUAGE ZAMBIAN. DOMESTIC VIOLENCE DO YOU FEEL SAFE IN YOUR ENVIRONMENT?YES BMI CARE GOAL FOLLOW-UP ABOVE NORMAL BMI FOLLOW-UPLIFESTYLE EDUCATION REGARDING DIET RECREATIONAL DRUG USE DRUG USE?NO EXERCISE: NO REGULAR EXERCISE. 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?NO LUNG CANCER SCREENING SMOKING STATUS:CURRENT SMOKER IS THE PATIENT BETWEEN THE AGE OF 55 AND 77?YES HAS THE PATIENT EVER BEEN DIAGNOSED WITH LUNG CANCER?NO PACK YEARS = NUMBER OF PACKS PER DAY SMOKED X NUMBER OF YEARS SMOKED:40 CREATE REFERRAL:CREATED REFERRAL TO ONCOLOGY NURSE NAVIGTOR FOR LDCT SCAN PAIN CLINIC PFS, CLERGY, PUBLIC HEALTH REFERRALS PFS REFERRAL NEEDED?NO CLERGY REFERRAL NEEDED?NO PUBLIC HEALTH REFERRAL NEEDED?NO HAS THE PATIENT BEEN EDUCATED REGARDING HIS/HER PLAN OF CARE?YES HAS THE PATIENT BEEN EDUCATED REGARDING PAIN, THE RISK FOR PAIN, THE IMPORTANCE OF EFFECTIVE PAIN MANAGEMENT, AND THE PAIN ASSESSMENT PROCESS?YES CAFFEINE CAFFEINE USE?YES HOW OFTEN AND HOW MUCH? 2-3/DAY ADVANCE DIRECTIVE ADVANCE DIRECTIVE DISCUSSED WITH PATIENT:YES HCP - RONY () BUDDHIST [id number] OTHER MARITAL STATUS: . ALCOHOL SCREENING DID YOU HAVE A DRINK CONTAINING ALCOHOL IN THE PAST YEAR?YES HOW OFTEN DID YOU HAVE A DRINK CONTAINING ALCOHOL IN THE PAST YEAR?MONTHLY OR LESS (1 POINT) HOW MANY DRINKS DID YOU HAVE ON A TYPICAL DAY WHEN YOU WERE DRINKING IN THE PAST YEAR?1 OR 2 (0 POINTS) HOW OFTEN DID YOU HAVE SIX OR MORE DRINKS ON ONE OCCASION IN THE PAST YEAR?NEVER (0 POINTS) POINTS1 INTERPRETATIONNEGATIVE OCCUPATION: DISABLED. SEXUAL HX HAD SEX IN THE LAST 12 MONTHS (VAGINAL, ORAL, OR ANAL)?: YES, WITH: WOMEN ONLY, USE PROTECTION?: NO, PREVENTION STRATEGIES DISCUSSED:: OTHER, HAVE YOU EVER HAD AN STD?: NO. REVIEWED WITH PATIENT 06/13/18 1135 JS. HOSPITALIZATION/MAJOR DIAGNOSTIC PROCEDURE SURGERY RELATED CELLULITIS [facility]- STRAIN OF MUSCLE, FASCIA AND TENDON AT NECK LEVEL- LEFT RHOMBOID MUSCLE SPASM 04/08/2016 [facility]: INTRACTABLE BACK PAIN 03/2017 REVIEW OF SYSTEMS REVIEWED BY: PROVIDER: SEAMUS MCWILLIAMS . CONSTITUTIONAL: ANY CHANGE IN YOUR MEDICAL CONDITION? NO . CHILLS NO . FEVER NO . INFECTION: DO YOU HAVE NEW INFECTIONS? YES, RIGHT TESTICULAR INCISION GOT INFECTED, PT WAS TX'D W ABX . DO YOU HAVE HISTORY OF MRSA? YES, UMBILICUS AND RIGHT ABD . MUSCULOSKELETAL: ANY NEW PATTERNS OF PAIN OR NUMBNESS? YES, BILAT LEG WEAKNESS AND PAIN HIPS AND LOW BACK . GASTROENTEROLOGY: ANY NEW CHANGE IN BOWEL CONTROL? NO . GENITOURINARY: ANY NEW CHANGE IN BLADDER CONTROL? NO . IS THERE A CHANCE YOU COULD BE ? NO . HEMATOLOGY/LYMPH: DO YOU TAKE ANY BLOOD THINNERS? (FOR EXAMPLE- COUMADIN, PLAVIX, AGGRENOX, PLATEL, PRADAXA, OR XARELTO) NO . WHEN WAS YOUR LAST DOSE? DATE: TIME: . NEUROLOGY: HAVE YOU FALLEN IN THE PAST 12 MONTHS? NO . ANY NEW EXTREMITY NUMBNESS OR WEAKNESS? YES, BILAT LEG WEAKNESS AND PAIN . CARDIOLOGY: DO YOU HAVE A PACEMAKER OR DEFIBRILLATOR? NO . RESPIRATORY: HAVE YOU BEEN SICK IN THE PAST WEEK? NO . FEVER NO . FLU LIKE SYMPTOMS? NO . COUGH NO . INTEGUMENTARY: DO YOU HAVE ANY RASHES OR OPEN SORES? YES, RIGHT TESTICLE LACERATION . ALLERGIC/IMMUNO: ARE YOU ALLERGIC TO IV DYE? NO . ANY NEW ALLERGIES? NO . PSYCHIATRIC: DO YOU HAVE THOUGHTS OF HURTING YOURSELF OR SOMEONE ELSE? NO . ARE YOU ABUSED, NEGLECTED, OR IN AN UNSAFE ENVIRONMENT? NO . ENDOCRINOLOGY: ARE YOU DIABETIC? NO . OTHER: DO YOU NEED ANY PRESCRIPTIONS? NO . IF YES, PLEASE LIST: ____ . ANY NEW PROBLEMS WITH YOUR MEDICATIONS? NO . WHEN DID YOU LAST EAT? ____ . WHEN DID YOU LAST DRINK? ____ . WHAT DID YOU LAST DRINK? ____ . NAME OF PERSON DRIVING YOU HOME? ____ . DO YOU HAVE ANY OTHER QUESTIONS OR CONCERNS NO . VITAL SIGNS WT 222 LBS, HT 6'2", BMI 28.50 INDEX, BP 113/78 MM HG, HR 74 /MIN, RR 16 /MIN, TEMP 98.3 F, OXYGEN SAT % 96, REVIEWED BY: EM. EXAMINATION GENERAL EXAMINATION: GENERAL AWAKE,ALERT ,PLEAASANT AFFECT IS CONSTRICTED AND SOMEWHAT ANXIOUS. PSYCH AFFECT NORMAL . LUNGS: LUNG DARBY ARE CLEAR TO AUSCULTATION BILATERALLY. GOOD MOVEMENT OF AIR . HEART: S1, S2 IN A REGULAR RATE AND RHYTHM. NO SIGNIFICANT MURMURS, RUBS OR GALLOPS NOTED . MUSCULOSKELETAL: MUSCLE STRENGTH TESTING 5/5 BILATERAL LOWER EXTREMITIES. NEUROLOGIC EXAM: NORMAL SENSATION TO LIGHT TOUCH LOWER EXTREMITIES. ASSESSMENTS LUMBAR FACET ARTHROPATHY - M12.88 (PRIMARY) TREATMENT LUMBAR FACET ARTHROPATHY CONTINUE TIZANIDINE HCL TABLET, 4 MG, 1/2-1 TABLET, ORALLY, THREE TIMES DAILY CONTINUE GABAPENTIN TABLET, 600 MG, 1 CAPSULE, ORALLY, THREE TIMES A DAY CONTINUE DULOXETINE HCL CAPSULE DELAYED RELEASE PARTICLES, 60 MG, 1 CAPSULE, ORALLY, DAILY REFILL CARISOPRODOL TABLET, 350 MG, 1 TABLET NEEDED, ORALLY, THREE TIMES DAILY PRN SPASM MDD=3, 28 DAYS, 84 INCREASE OXYCODONE-ACETAMINOPHEN TABLET, 10-325 MG, 1 TABLET NEEDED, ORALLY, Q 8 HRS PRN PAIN MDD=3, 30 DAYS, 90, REFILLS 0 NOTES: ISTOP REGISTRY REVIEWED AND DEMONSTRATES COMPLLIANCE. (REF # ) BRINGS IN MEDICATIONS WHICH IS APPROPRIATE FOR WHAT WAS DISPENSED. RECENT URINE TOXICOLOGY REVIEWED. NO UNAUTHORIZED MEDICATIONS. NO ILLICIT SUBSTANCES AND PRESCRIBED MEDICATIONS WERE PRESENT. , RISKS AND BENEFITS OF NARCOTIC/OPIOD MEDICATIONS WERE REVIEWED WITH PATIENT - THIS INCLUDES BUT IS NOT LIMITED TO RISK OF DEPENDANCE/DEVELOPMENT OF ADDICTION, MOOD DISTURBANCE AND DEPRESSION, OSTEOPOROSIS, HORMONAL AND LABIDAL CHANGES, RESPIRATORY DEPRESSION AND . PATIENT IS ADVISED NOT TO DRIVE OR DRINK ALCOHOL WHILE ON THESE MEDICATIONS. REFERRAL TO:[facility] REASON:NIGHTTIME LEG JERKING/PAIN WEAKNESS LOWER EXTREMITIES PROCEDURE CODES FA211 ESTABILISHED PATIENT [facility] CHARGE DISPOSITION & COMMUNICATION FOLLOW UP 2 MONTHS (REASON: MED MDMNT) ELECTRONICALLY SIGNED BY OJ BHAT ON 04/25/2019 AT 09:02 AM EDT DISCLAIMER : THIS IS A VISIT SUMMARY EXTRACTED FROM THE ECLINICALWORKS CHART. IT IS NOT A COPY OF THE ECL[employer]ICALWORKS PROGRESS NOTE. DEISI
== END ==
LOC: M PAIN 13:15
PROVIDERS: ATTEND Nurse Practitioner Family
DX: M12.88 Other specific arthropathies, not elsewhere classified, other specified site (principal); Z79.82 Long term (current) use of aspirin; Z79.891 Long term (current) use of opiate analgesic; Z79.899 Other long term (current) drug therapy; F17.210 Nicotine dependence, cigarettes, uncomplicated; Z88.8 Allergy status to other drugs, medicaments and biological substances

== ENCOUNTER 2019-04-14 11:22 | Emergency (ER) | payer OTHER ==
[~2019-04-14] VITALS: Ht 193 cm; Wt 107.7 kg
[~2019-04-14 11:22] MED LIST changes: -AMLO5TAB6 PO; -ARNU1INH; -BUPR150T5 PO; -METO1TAB87 PO; -NORC1TAB7 PO; -ONDA4TAB6 PO; -OXYC10TA3 OR; -TIZA4CAP PO; -TIZA4TAB4 PO
[2019-04-14] MEDS ORDERED: TIZA4CAP PO (11:34)
[2019-04-14] MEDS ORDERED: METO1TAB87 PO (11:34)
[2019-04-14] MEDS ORDERED: FOLBTAB3 PO (11:34)
[2019-04-14] MEDS ORDERED: ONDANSETRON 4MG/2ML VIAL (J2405) IV ONE (13:30)
[2019-04-14] MEDS ORDERED: NS 1,000 ML IV ONE (13:30)
[2019-04-14] MEDS ORDERED: MORPHINE 4 MG/ML 1ML VIAL/SYRINGE (J2270) IV ONE (13:30)
[2019-04-14 13:36] LABS: BASO # 0.1 10^3/uL (0.0-0.2); BASO % 0.7 % (0.0-1.0); EOS # 0.1 10^3/uL (0.0-0.50); HEMATOCRIT 48.5 % (42.0-52.0); HEMOGLOBIN 16.7 g/dl (13.5-17.5); LYMPH # 2.6 10^3/uL (1.5-4.5); LYMPH % 25.2 % (24.0-44.0); MEAN CORPUSCULAR HEMOGLOBIN 31.3 pg (27.0-33.0); MEAN CORPUSCULAR HGB CONC 34.4 g/dl (32.0-36.5); MEAN CORPUSCULAR VOLUME 90.8 fl (80.0-96.0); MONO # 0.9 10^3/uL (0.0-0.8); NEUTROPHILS # 6.5 10^3/uL (1.8-7.7); NEUTROPHILS % 63.6 % (36.0-66.0); PLATELET COUNT, AUTOMATED 151 10^3/uL (150-450); RED BLOOD COUNT 5.34 10^6/uL (4.30-6.10); WHITE BLOOD COUNT 10.2 10^3/uL (4.0-10.0)
--- NOTE | 2019-04-14 13:36 | REP ---
RIGHT LOWER EXTREMITY DOPPLER VENOUS ULTRASOUND: 04/14/2019. Clinical history: Right calf pain and swelling, evaluate for DVT. Technique: The deep venous system of the right lower extremity is evaluated with bobby scale imaging, compression ultrasound, color imaging and duplex Doppler interrogation. Examination from the groin through the popliteal fossa into the proximal calf. Findings: No prior study. There is full compressibility from the common femoral vein in the inguinal region through the popliteal vein. Color imaging confirms patency throughout the course of the deep venous system. There is respiratory variation and augmented flow at all levels. In the zone of erythema and swelling in the proximal right calf. There is a 1.9 x 1.2 x 0.2 cm hypoechoic curvilinear hypoechoic focus. May be a small fluid collection. It is about 4 mm deep to the skin. Impression: 1. No Doppler venous ultrasound evidence of DVT in the right lower extremity. 2. In the subcutaneous proximal right lateral calf posteriorly where erythema and swelling noted, subcutaneous curvilinear 1.9 x 1.2 x 0.2 cm hypoechoic possible small fluid collection noted. This has a different appearance than the infiltrating edema in the skin in this region. Electronically Signed by Ace Aly MD 04/14/2019 01:27 P
[2019-04-14 13:47] LABS: INR 1.1; PROTHROMBIN TIME 13.9 SECONDS (11.8-14.0)
[2019-04-14 14:01] LABS: ERYTHROCYTE SEDIMENTATION RATE 2 mm/hr (0-20)
[2019-04-14 14:08] LABS: ALBUMIN 3.7 GM/DL (3.2-5.2); ALT/SGPT 31 U/L (12-78); BILIRUBIN,TOTAL 0.9 MG/DL (0.2-1.0); BLOOD UREA NITROGEN 13 MG/DL (7-18); C REACTIVE PROTEIN QUANTITATIV 4.15 MG/DL (0.00-0.30); CALCIUM LEVEL 8.6 MG/DL (8.5-10.1); CARBON DIOXIDE LEVEL 24 MEQ/L (21-32); CHLORIDE LEVEL 110 MEQ/L (98-107); CREATININE FOR GFR 0.97 MG/DL (0.70-1.30); GLOMERULAR FILTRATION RATE > 60.0 (>56); GLUCOSE, FASTING 90 MG/DL (70-100); POTASSIUM SERUM 3.8 MEQ/L (3.5-5.1); SODIUM LEVEL 142 MEQ/L (136-145); TOTAL PROTEIN 6.4 GM/DL (6.4-8.2)
[2019-04-14] MEDS ORDERED: BACTRIM 160MG/800MG DS TAB PO ONE (15:00)
[2019-04-14] MEDS ORDERED: BACT800T5 PO (15:01)
[2019-04-14 15:24] VITALS: BP 156/94
--- NOTE | 2019-04-14 21:38 | ED PDOC ---
Post-Departure Follow-Up dr mcdonald faxed formal report of us of lower extremity for fu Chase Jade MD Apr 14, 2019 21:38
[2019-07-08] MEDS ORDERED: BUPR150T5 PO (14:16)
[2019-07-08] MEDS ORDERED: ARNU1INH (14:16)
== END 2019-04-14 15:37 | disposition home or self-care (01) ==
LOC: M ED 11:22
DX: L03.115 Cellulitis of right lower limb (principal); I10 Essential (primary) hypertension; J44.9 Chronic obstructive pulmonary disease, unspecified; E78.00 Pure hypercholesterolemia, unspecified; N40.0 Benign prostatic hyperplasia without lower urinary tract symptoms; E03.9 Hypothyroidism, unspecified; F33.9 Major depressive disorder, recurrent, unspecified; F41.9 Anxiety disorder, unspecified; Z79.899 Other long term (current) drug therapy; Z79.82 Long term (current) use of aspirin; Z88.8 Allergy status to other drugs, medicaments and biological substances; F17.210 Nicotine dependence, cigarettes, uncomplicated
CPT/HCPCS: 36415; 80053; 85025; 85610; 85652; 85730; 86140; 87040; 93971; 96361; 96374; 96375; 99284; J2270; J2405

== ENCOUNTER → 2019-05-29 | Outpatient (REF) | payer OTHER ==
[~2019-05-29] MED LIST changes: +METO1TAB87 PO; -ONDA-83 PO; +ONDA4TAB5 PO; +TIZA4CAP PO; +TRAZ10TA PO; -TRAZ1TAB12 PO
[2019-05-29 13:17] LABS: HEMOGLOBIN 18.9 g/dl (13.5-17.5); MEAN CORPUSCULAR HGB CONC 33.2 g/dl (32.0-36.5); MEAN CORPUSCULAR VOLUME 93.6 fl (80.0-96.0); PLATELET COUNT, AUTOMATED 186 10^3/uL (150-450); RED BLOOD COUNT 6.09 10^6/uL (4.30-6.10); WHITE BLOOD COUNT 6.8 10^3/uL (4.0-10.0)
[2019-05-29 13:21] LABS: ALBUMIN 4.2 GM/DL (3.2-5.2); ALT/SGPT 38 U/L (12-78); BILIRUBIN,TOTAL 0.7 MG/DL (0.2-1.0); BLOOD UREA NITROGEN 16 MG/DL (7-18); CALCIUM LEVEL 9.6 MG/DL (8.5-10.1); CARBON DIOXIDE LEVEL 25 MEQ/L (21-32); CHLORIDE LEVEL 110 MEQ/L (98-107); CREATININE FOR GFR 1.17 MG/DL (0.70-1.30); GLOMERULAR FILTRATION RATE > 60.0 (>56); GLUCOSE, FASTING 106 MG/DL (70-100); POTASSIUM SERUM 4.1 MEQ/L (3.5-5.1); SODIUM LEVEL 143 MEQ/L (136-145); TOTAL PROTEIN 7.6 GM/DL (6.4-8.2)
[2019-05-29 13:23] LABS: VITAMIN B12 LEVEL 727 PG/ML
[2019-06-04 08:06] LABS: CERULOPLASMIN 19.3 mg/dL (16.0-31.0); VITAMIN B1 LEVEL WHOLE BLOOD 168.9 nmol/L (66.5-200.0); VITAMIN B6,PYRIDOXAL PHOSPHATE 5.8 ug/L (5.3-46.7); VITAMIN E(ALPHA TOCOPHEROL) 14.9 mg/L (7.0-25.1); VITAMIN E(GAMMA TOCOPHEROL) 2.8 mg/L (0.5-5.5)
== END ==
LOC: M LABNEURO 10:32
PROVIDERS: ATTEND Psychiatry & Neurology Neurology
DX: R25.1 Tremor, unspecified (principal)

== ENCOUNTER 2019-06-27 21:30 | Inpatient (IN) | payer OTHER ==
[~2019-06-27] VITALS: Ht 185.4 cm; Wt 104.6 kg
[2019-06-27 22:06] LABS: VENOUS BASE EXCESS -4.3 (-2.0-2.0); VENOUS HCO3 21.1 MEQ/L (23.0-27.0); VENOUS O2 SATURATION 84.1 % (60.0-80.0); VENOUS PARTIAL PRESSURE CO2 40.1 mmHg (38.0-50.0); VENOUS PARTIAL PRESSURE O2 48.9 mmHg (30.0-50.0); VENOUS PH 7.339 UNITS (7.330-7.430); VENOUS STANDARD HCO3 20.6 MEQ/L; VENOUS TOTAL CO2 22.3 MEQ/L (24.0-28.0)
[2019-06-27 22:10] LABS: BASO # 0.1 10^3/uL (0.0-0.2); BASO % 1.2 % (0.0-1.0); EOS # 0.1 10^3/uL (0.0-0.5); EOS % 2.1 % (0.0-3.0); HEMOGLOBIN 16.7 g/dl (13.5-17.5); LYMPH # 2.9 10^3/uL (1.5-5.0); LYMPH % 47.2 % (24.0-44.0); MEAN CORPUSCULAR HEMOGLOBIN 30.4 pg (27.0-33.0); MEAN CORPUSCULAR HGB CONC 32.7 g/dl (32.0-36.5); MEAN CORPUSCULAR VOLUME 92.9 fl (80.0-96.0); MONO # 0.5 10^3/uL (0.0-0.8); MONO % 7.9 % (0.0-5.0); NEUTROPHILS # 2.5 10^3/uL (1.5-8.5); NEUTROPHILS % 41.3 % (36.0-66.0); PLATELET COUNT, AUTOMATED 163 10^3/uL (150-450); RED BLOOD COUNT 5.49 10^6/uL (4.30-6.10); WHITE BLOOD COUNT 6.1 10^3/uL (4.0-10.0)
[2019-06-27] MEDS ORDERED: NS 1,000 ML IV ONE ×2 (22:15→23:45)
[2019-06-27] MEDS ORDERED: TIZA4TAB4 PO (22:25)
[2019-06-27] MEDS ORDERED: AMLO5TAB6 PO (22:25)
[2019-06-27 22:37] LABS: ALT/SGPT 27 U/L (12-78); BILIRUBIN,DIRECT < 0.1 MG/DL (0.0-0.2); BILIRUBIN,TOTAL 0.3 MG/DL (0.2-1.0); BLOOD UREA NITROGEN 20 MG/DL (7-18); CALCIUM LEVEL 8.6 MG/DL (8.5-10.1); CARBON DIOXIDE LEVEL 26 MEQ/L (21-32); CHLORIDE LEVEL 108 MEQ/L (98-107); CK-MB VALUE MASS < 1.0 NG/ML (<3.6); CPK CREATINE PHOSPHOKINASE 60 U/L (39-308); FREE T4 1.11 NG/DL (0.76-1.46); GLOMERULAR FILTRATION RATE > 60.0 (>56); GLUCOSE, FASTING 105 MG/DL (70-100); LIPASE 430 U/L (73-393); MB/CK RELATIVE INDEX 1.67 (< OR =4); POTASSIUM SERUM 3.7 MEQ/L (3.5-5.1); SODIUM LEVEL 140 MEQ/L (136-145); TOTAL PROTEIN 6.7 GM/DL (6.4-8.2); TROPONIN I < 0.02 NG/ML (< 0.10)
[2019-06-27] MEDS ORDERED: ISOVUE-370 76% 100ML VIAL (Q9967) As Ordered ONE (22:53)
--- NOTE | 2019-06-27 23:30 | REPVR ---
PROCEDURE INFORMATION: Exam: CT Head Without Contrast Exam date and time: 06/27/2019 10:43 PM Clinical history: 58 years old, male; Dizziness; Additional info: Syncope TECHNIQUE: Imaging protocol: Computed tomography of the head without contrast. Radiation optimization: All CT scans at this facility use at least one of these dose optimization techniques: automated exposure control; mA and/or kV adjustment per patient size (includes targeted exams where dose is matched to clinical indication); or iterative reconstruction. COMPARISON: MRI-Brain without Contrast 12/11/2017 3:52 PM FINDINGS: Brain: Normal. No hemorrhage. Unremarkable white matter. No mass effect. Ventricles: Normal. No ventriculomegaly. Bones/joints: Unremarkable. No acute fracture. Sinuses: Visualized sinuses are unremarkable. No fluid levels. Mastoid air cells: Visualized mastoid air cells are well aerated. Soft tissues: Unremarkable. IMPRESSION: No acute intracranial abnormality. Electronically signed by: Jean Claude Arambula On 06/27/2019 23:29:43 PM
--- NOTE | 2019-06-27 23:37 | REPVR ---
PROCEDURE INFORMATION: Exam: CT Abdomen And Pelvis With Contrast Exam date and time: 06/27/2019 10:43 PM Clinical history: 58 years old, male; Abdominal pain; Localized; Left upper quadrant (luq); Additional info: Luq pain, elev lipase, eval for pancreatitis, syncope TECHNIQUE: Imaging protocol: Computed tomography of the abdomen and pelvis with intravenous contrast. Radiation optimization: All CT scans at this facility use at least one of these dose optimization techniques: automated exposure control; mA and/or kV adjustment per patient size (includes targeted exams where dose is matched to clinical indication); or iterative reconstruction. Contrast material: ISO; Contrast volume: 100 ml; Contrast route: AC; COMPARISON: CT ABD PELVIS WITH CONTRAST 07/03/2017 4:51 PM FINDINGS: Lungs: There are bibasilar dependent changes. Liver: Hepatic steatosis. Gallbladder and bile ducts: Normal. No calcified stones. No ductal dilation. Pancreas: Normal. No ductal dilation. Spleen: Normal. No splenomegaly. Adrenals: Normal. No mass. Kidneys and ureters: 1.3 cm right renal cyst. 2 mm nonobstructing right renal calculus. Small left renal hypodensity is too small to characterize. There is symmetric bilateral perinephric infiltration, nonspecific however typically chronic. The appearance is similar from prior examination. Stomach and bowel: Mild diverticulosis without diverticulitis. Appendix: Normal appendix. Intraperitoneal space: Unremarkable. No free air. No significant fluid collection. Vasculature: Vascular calcification. Lymph nodes: Unremarkable. No enlarged lymph nodes. Bladder: Unremarkable as visualized. Reproductive: Unremarkable as visualized. Bones/joints: There are degenerative changes involving the spine. Soft tissues: Previous pelvic hernia repair. IMPRESSION: No acute abnormality. The pancreas appears within normal limits. COMMENT: Consistent with the [employer]'s Incidental Findings Committee Report (J Am Naresh Radiol 2010): Unless the patient's specific circumstances suggest otherwise, any liver lesion 0.5 cm or less, any cystic kidney lesion less than 1.0 cm, and/or any adrenal lesion 1.0 cm or less not otherwise characterized in this report as possessing suspicious or indeterminate imaging features is/are highly likely to be benign and do not require follow-up imaging or biopsy. Electronically signed by: Jean Claude Arambula On 06/27/2019 23:37:08 PM
[2019-06-28] MEDS: NS 1,000 ML IV SCH ×2 (00:39→13:33)
[2019-06-28] MEDS ORDERED: KETOROLAC 30 MG/ML VIAL (J1885) IV ONE (00:45)
[2019-06-28] MEDS ORDERED: tiZANidine 4 MG TAB PO PRN (00:45)
[2019-06-28] MEDS ORDERED: LIDOCAINE 5% (LIDODERM) PATCH TD ONE ×2 (00:45)
[2019-06-28] MEDS ORDERED: oxyCODONE 5MG TAB PO ONE (00:45)
[2019-06-28] MEDS ORDERED: ACETAMINOPHEN 500 MG TAB PO ONE (00:45)
[2019-06-28] MEDS ORDERED: CARISOPRODOL 350 MG TAB PO PRN (00:45)
--- NOTE | 2019-06-28 01:16 | REPVR ---
PROCEDURE INFORMATION: Exam: CT Cervical Spine Without Contrast Exam date and time: 06/28/2019 12:34 AM Clinical history: 58 years old, male; Neck pain; Prior surgery; Surgery date: 6+ months; Additional info: Syncope collapse from standing pain TECHNIQUE: Imaging protocol: Computed tomography images of the cervical spine without contrast. Radiation optimization: All CT scans at this facility use at least one of these dose optimization techniques: automated exposure control; mA and/or kV adjustment per patient size (includes targeted exams where dose is matched to clinical indication); or iterative reconstruction. COMPARISON: CT Spine,cervical w/o contrast 11/02/2016 1:14 PM FINDINGS: Vertebrae: Nonspecific straightening of the cervical lordosis. Vertebral body height and AP alignment is preserved. Previous fusion involving C3-C7. Moderate degenerative change about the dens. No acute cervical spine fracture. Discs/Spinal canal/Neural foramina: No definite significant central canal stenosis. Multilevel cervical foraminal stenoses. Soft tissues: Unremarkable. Lungs: Lung apices are normal. Pleural space: No visible pneumothorax. IMPRESSION: No acute osseous abnormality. Electronically signed by: Jean Claude Arambula On 06/28/2019 01:16:34 AM
[2019-06-28] MEDS: GABAPENTIN 300 MG CAP PO SCH ×4 (01:19→20:39)
--- NOTE | 2019-06-28 01:19 | REPVR ---
PROCEDURE INFORMATION: Exam: CT Lumbar Spine Without Contrast Exam date and time: 06/28/2019 12:34 AM Clinical history: 58 years old, male; Injury or trauma; Fall; Initial encounter; Blunt trauma (contusions or hematomas); Additional info: Syncope collapse from standing pain TECHNIQUE: Imaging protocol: Computed tomography images of the lumbar spine without contrast. Radiation optimization: All CT scans at this facility use at least one of these dose optimization techniques: automated exposure control; mA and/or kV adjustment per patient size (includes targeted exams where dose is matched to clinical indication); or iterative reconstruction. COMPARISON: CT Spine, lumbar w/o contrast 04/18/2018 5:24 PM FINDINGS: Vertebrae: Vertebral body height and AP alignment is preserved. Mild prevertebral osteophytosis. No acute lumbar spine fracture. 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 Kidneys and ureters: There is bilateral renal excretion of contrast. Soft tissues: See Vertebrae Finding. IMPRESSION: No acute osseous abnormality. Electronically signed by: Jean Claude Arambual On 06/28/2019 01:18:44 AM
[2019-06-28 01:56] VITALS: BP 130/79
[2019-06-28] MEDS: rOPINIRole 1MG TAB PO SCH ×3 (03:02→20:39)
[2019-06-28 03:51] LABS: AMPHETAMINES LEVEL URINE NEGATIVE (NEGATIVE); BARBITURATES URINE NEGATIVE (NEGATIVE); BENZODIAZEPINES URINE NEGATIVE (NEGATIVE); CANNABINOIDS URINE NEGATIVE (NEGATIVE); COCAINE METABOLITE URINE NEGATIVE (NEGATIVE); METHADONE URINE NEGATIVE (NEGATIVE); OPIATES URINE POSITIVE (NEGATIVE); PHENCYCLIDINE URINE NEGATIVE (NEGATIVE)
[2019-06-28 05:38] LABS: HEMATOCRIT 48.3 % (42.0-52.0); HEMOGLOBIN 15.3 g/dl (13.5-17.5); MEAN CORPUSCULAR HEMOGLOBIN 29.8 pg (27.0-33.0); MEAN CORPUSCULAR HGB CONC 31.7 g/dl (32.0-36.5); MEAN CORPUSCULAR VOLUME 94.2 fl (80.0-96.0); PLATELET COUNT, AUTOMATED 148 10^3/uL (150-450); RED BLOOD COUNT 5.13 10^6/uL (4.30-6.10); WHITE BLOOD COUNT 6.8 10^3/uL (4.0-10.0)
--- NOTE | 2019-06-28 05:52 | ECGEPIP ---
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
[2019-06-28 05:58] LABS: BLOOD UREA NITROGEN 18 MG/DL (7-18); CALCIUM LEVEL 7.7 MG/DL (8.5-10.1); CARBON DIOXIDE LEVEL 25 MEQ/L (21-32); CHLORIDE LEVEL 110 MEQ/L (98-107); CREATININE FOR GFR 1.04 MG/DL (0.70-1.30); GLOMERULAR FILTRATION RATE > 60.0 (>56); GLUCOSE, FASTING 95 MG/DL (70-100); SODIUM LEVEL 140 MEQ/L (136-145)
[2019-06-28 06:00] VITALS: BP 137/81
--- NOTE | 2019-06-28 07:56 | REP ---
Clinical: Syncope/near-syncopal episode . Comparison: 07/23/2018 . Findings: The mediastinum and cardiac silhouette are stable and within normal limits for portable technique. Chronic changes at the left base including linear fibroatelectatic change noted. No focal consolidation, effusion, or pneumothorax. Skeletal structures are intact. Impression: No acute cardiopulmonary process appreciated. Electronically Signed by Marvin Oliva MD 06/28/2019 07:48 A
--- NOTE | 2019-06-28 08:32 | HPE ---
DATE OF ADMISSION: 06/27/2019 PRIMARY CARE PHYSICIAN: melissa Riggins. CHIEF COMPLAINT: Passed out. HISTORY OF PRESENT ILLNESS: This is a 58-year-old male past medical history significant for hypertension, chronic back and neck pain followed by the pain clinic, depression, hyperlipidemia, hypothyroidism, anxiety, season allergies, and obesity, body mass index (BMI) of 32.4, presents to the emergency room with acute onset of a syncopal episode at home. The patient took his medications as usual this morning, went to the kitchen to get [place] muffins, ate them with his with coffee in the living room and then "got dizzy and fell," got up to the kitchen to get something and passed out from a standing position, collapsed on the ground, heard by the in the living room with a large thump. The patient was down for a few minutes. When he came to he recognized his , knew where he was, there was no tonic-clonic activity, urine or bowel incontinence. The said that he looked pale. EMS was called. Glucose was 105, blood pressure ws 96/63 with a heart rate of 52. According to the patient, he had a similar episode on [birth year]2019 during his 's birthday when he was vacuuming the floor to remove the birdseed. He fell forward and landed on his face on the carpet. At the time, 3-4 days later, his left arm felt like it was numb and tingly. It felt like it was swollen, like it was very big, did not having any feeling to it for a few minutes, about 5-6 minutes, he had to wake it up and returned back to normal without intervention. The patient did not seek any medical attention in April. He also complains of increasing intentional tremors with his right hand, difficulty with fine motor activities, especially with holding his coffee, often uses his left hand to steady the right hand. This has worsened over the past few years and he has been referred to a neurologist in [place] with an appointment on July 14. In the ER, the patient was not hypoglycemic with glucose level of 107, blood pressure was low at 98 systolic, was given an IV bolus of normal saline with resultant improvement in blood pressure to 127 systolic. He did complain of significant dizziness, lightheadedness without shortness of breath, pressure or tightness, chest pressure. He did not have any diaphoresis, changes in vision or headache. He continues to complain of significant pain in the cervical spine and lumbar spine, which is chronic worsened after the fall today. The patient was afebrile. He otherwise denies any dysuria, urgency or frequency, fever, chills, flank pain. Denied any shortness of breath or cough, diarrhea, nausea or vomiting, bright red blood per rectum, melena or black tarry stools. The patient's medications have recently been changed in the past 4-5 months due to uncontrolled blood pressure with increased dose of metoprolol to 25 mg twice a day as well as starting on a new medication, Norvasc, hydrochlorothiazide, and chronically on losartan 50 mg daily. He does not check his blood pressure or pulse prior to taking his medications and says that he was running high at the doctors office when medications were titrated to a higher dose. He does use Flomax 0.4 mg for benign prostatic hypertrophy (BPH), did not want to be moved in the ER to check for orthostatics due to severe pain in his neck and back. CT of the head showed no acute intracranial pathology. Due to complaints of pain in the left flank, CT of the abdomen and pelvis was obtained, which was negative. The hospitalist was called to admit for syncopal episode. PAST MEDICAL HISTORY: Hypertension. Hypothyroidism. Obesity. Hyperlipidemia. Depression. Anxiety. Seasonal allergies. Chronic neck and back pain. Hernia. Left shoulder surgeries in the past. Restless leg syndrome. PAST SURGICAL HISTORY: Inguinal umbilical hernia repair. Sees an orthopedic surgeon in [place] with cervical neck spine surgeries and left shoulder surgery with Dr. Parham in 2014 and 2016. ALLERGIES: 1. IBUPROFEN. HOME MEDICATIONS: - Norvasc 5 mg daily - hydrochlorothiazide 12.5 mg daily - losartan 50 mg daily - metoprolol 25 mg twice a day - Flomax 0.4 mg daily - trazodone 200 mg at bedtime - multivitamin one tablet daily - Percocet 7.5-325 one tablet three times a day as needed for pain - aspirin 81 mg daily - carisoprodol 350 mg three times a day as needed for spasms - cetirizine 10 mg daily - duloxetine 50 mg daily - gabapentin 600 mg three times a day - ropinirole 3 mg by mouth twice a day - rosuvastatin 10 mg daily - tizanidine 4 mg three times a day as needed for spasms FAMILY HISTORY: Diabetes in his brothers and sisters. Mother age 70 with coronary artery disease (CAD), coronary artery bypass grafting (CABG) times four vessels. The patient's brother had prostate cancer, older brother. Father with Parkinson's disease, age 70. SOCIAL HISTORY: : Patient previously smoked less than half a pack a day since the age of 18. 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 The patient used to be a heavy drinker and has stopped drinking since his brother . He currently lives with his at home, has five steps into the home. REVIEW OF SYSTEMS: Per HPI. 12 point system is otherwise negative. PHYSICAL EXAMINATION: Temperature 96.4, pulse 53, respiratory rate 20, blood pressure 98/63, 90% on room air. Generally, patient is awake, alert and oriented times three, able to answer questions appropriately. He is anicteric with no jaundice. No pallor. No icterus. No cyanosis. No use of respiratory accessory muscles. Speaks in full sentences. Face is symmetric. Tongue is midline. Trachea is midline. The patient has no stridor. No cervical lymphadenopathy, thyromegaly or jugular venous distention (JVD). The patient has an old well healed surgical in the cervical spine from C2 to C4 with point tenderness. Lungs are clear to auscultation. There is no wheezing, rales or rhonchi. Air entry is equal bilaterally. No other adventitious breath sounds. Heart S1, S2, sinus bradycardia. No murmurs, rubs or gallops. Abdomen is obese, soft, nontender, nondistended. Positive bowel sounds. No rebound or guarding. No hepatosplenomegaly. No abdominal bruits noted. The patient does have point tenderness around the paraspinal area around the L3 region with no pitting edema in the bilateral lower extremities. EKG is sinus rhythm, ventricular rate of 53, bradycardia. Nonspecific STT wave changes. LABORATORY DATA: White count 6.1, hemoglobin 16, hematocrit 51, platelet count 163, sodium 140, potassium 3.7, chloride 108, bicarb 26, BUN 20, creatinine 1.3, glucose of 105, lactic acid 1.8, calcium 8.6, total bilirubin 0.3, direct bilirubin less than 0.1, AST 11, ALT 27, alkaline phosphatase 96, total CK 60, MB fraction less than 1, relative index1.67, troponin less than 0.02, total protein 6.7, albumin 4, lipase 430, TSH 2.72, free T4 1.11. D-Dimer is less than 270. Venous blood gas pH of 7.339, venous pO2 40, 02 48.9. Urinalysis is pending. IMAGING STUDIES: CT of the head 06/27/2019 no acute intracranial pathology. Chest x-ray has no official reading. CT abdomen and pelvis shows no acute abnormalities. Pancreas appears to be within normal limits. ASSESSMENT/PLAN: This is a 58-year-old male with history of hypothyroidism, depression, obesity, hyperlipidemia, anxiety, season allergies, chronic neck and back pain, prior surgery on the left shoulder, cervical spine, sees Josh Nguyen at the pain management clinic at [facility], who presents to the emergency room with a syncopal episode this morning. The patient's blood pressure medications have recently been titrated with additional medications given in the past six months. He also takes Flomax as an outpatient, does not check his blood pressure prior to taking his medications. He was found to be hypotensive, systolic pressure of 98 and with sinus bradycardia, ventricular rate of 47-51 on the monitor in the emergency room. The patient will be admitted as an inpatient for two midnights for evaluation of the patient's syncopal episode. IMPRESSION: 1. Syncope. Differential diagnosis includes vasovagal syncope due to recent worsening for the past 3-4 days of neck and back pain, as well as medication induced from metoprolol, hydrochlorothiazide, Norvasc and losartan use without check his blood pressure. Exacerbated most likely by orthostasis from taking Flomax. At this time the patient's blood pressure medications will be held until systolic pressure is greater than 120. He has been given 1 liter of IV fluids and will be maintained on maintenance therapy of 150 mL per hour. There appears to be no signs of acute infection. Denies any dysuria, urgency or frequency. Urinalysis has been ordered but has no sample available as yet. Denies any diarrhea or any kind of GI bleed. Patient admitted to telemetry rule out possible cause of his syncopal episode. No immediate need to give glucagon as his heart rate has improved from 47 to 51 and currently asymptomatic. At this time there is no need for a pacer lead as he appears to not have any heart blocks and blood pressure is improved significantly. 2. Cervical neck pain and chronic low back pain. Due to recent fall from a standing position will obtain x-rays of both cervical and lumbar spine to see if there better definition since this is significantly different from his chronic pain. 3. Hypertension. Due to low blood pressure all blood pressure medications will be held at this time. 4. Sinus bradycardia. His metoprolol has been held temporarily for now. 5. Anxiety/depression. May resume his home medications. 6. Seasonal allergies. May be resumed on his home Zyrtec. 7. Depression. Continue on Cymbalta. 8. Dyslipidemia. Continue on Crestor. 9. Restless leg syndrome. Continue Requip. 10. Deep vein thrombosis (DVT) prophylaxis with compression stockings. 11. Cervical neck pain due to recent history of prior surgery and recent complaints of paresthesias. May benefit from MRI of the cervical spine in the morning. The patient is a FULL CODE. MTDD
[2019-06-28] MEDS ORDERED: FLUBLOK(EGG FREE)(QUAD)INFLUENZA VACC 0.5ML SYRINGE (90682)18YRS&OLDER IM ONE (09:00)
[2019-06-28] MEDS: **NOTE PATIENT COMMENT** MISC XX SCH (09:00)
[2019-06-28] MEDS ORDERED: KETOROLAC 30 MG/ML VIAL (J1885) IV PRN (10:15)
[2019-06-28] MEDS: ASPIRIN 81 MG ENTERIC TAB PO SCH (10:44)
[2019-06-28] MEDS: CETIRIZINE (ZyrTEC) 10 MG TAB PO SCH (10:45)
[2019-06-28] MEDS: DULoxetine 30 MG CAP (CYMBALTA) PO SCH (10:45)
[2019-06-28] MEDS: ROSUVASTATIN 10 MG TAB (CRESTOR) PO SCH (10:45)
[2019-06-28 14:00] VITALS: BP 132/66
[2019-06-28] MEDS: oxyCODONE 5MG TAB PO PRN ×2 (16:04→21:59)
--- NOTE | 2019-06-28 16:09 | CR ---
DATE OF CONSULTATION: 06/28/2019 REFERRING PHYSICIAN: Dr. Naif Marcus CHIEF COMPLAINT: Neck pain, low back pain. HISTORY OF PRESENT ILLNESS: Yosef is a 58-year-old gentleman known to the pain center and followed on a regular basis for chronic neck and low back pain. He has been at the pain center for a few years and proves to be very compliant with regimen and urine toxicologies as of recent are normal. Admitted yesterday for syncopal episode. Syncopal episode ended in a fall. Reporting increase in low back pain since fall. Attending has been holding pain medications except for Toradol since admission due to hypotension. He has since become normotensive. History of recent blood pressure medication increases as well as initiation of Flomax. He admits that he does not drink a lot of water on a regular basis and drinks a lot of Pepsi product. Yosef mentions today that they are also concerned with possible carotid artery occlusion. He is weeping during our visit. States his pain is not well controlled with current Toradol IV. PAST MEDICAL HISTORY: Hypertension, hypothyroidism, obesity, hyperlipidemia, depression, anxiety, seasonal allergies, chronic neck and back pain, hernia, left shoulder surgery, restless leg syndrome. SURGICAL HISTORY: Inguinal, umbilical hernia repair. Cervical neck spine surgery. Left shoulder surgery. ALLERGIES: IBUPROFEN. FAMILY HISTORY: Noncontributory. SOCIAL HISTORY: He lives with his . Previous smoker. A remote history of heavy ethyl alcohol (EtOH) use. Denies illicit drug use and has not drank alcohol in several years. PHYSICAL EXAMINATION: Awake, alert. Affect is flat and weepy. Cooperative. Cardiac: S1, S2, normal rate and rhythm. Respiratory: Lung sounds are clear. Respirations are nonlabored. Inspection of spine: Tenderness in the lumbar paraspinals. Trigger points elicited lumbar paraspinal region. Extremities: Able to move freely in bed. Normal sensation upper and lower extremities. Muscle strength testing 5/5 upper and lower extremities. Normal sensation to light touch. ASSESSMENT: Acute on chronic low back pain. PLAN: Recommend starting oxycodone 10 mg every 6 hours as needed for pain. Recommend starting Soma 350 mg one to three times daily or every 8 hours. It should be noted that these are his current chronic pain medication he has been receiving over the past year from the pain center. He should have these at home according to I-STOP for discharge already.
[2019-06-28] MEDS: CARISOPRODOL 350 MG TAB PO SCH ×2 (18:20→20:39)
--- NOTE | 2019-06-28 18:26 | IPNPDOC ---
Date Seen The patient was seen on 06/28/19. Progress Note SUBJECTIVE: Patient seen and examined at the bedside this morning. He is very tearful stating that his lower back is in excruciating pain. He cannot get into a comfortable position. He recounts a story of how he fell at home and states that he is very fearful that it will happen again. He has no other complaints at this time. He denies any abdominal pain, shortness of breath, nausea, vomiting or diarrhea. OBJECTIVE PHYSICAL EXAMINATION: VITAL SIGNS: Please see below. GENERAL APPEARANCE: Laying in bed, appears stated age, tearful, anxious HEENT: EOMI, PERRLA, neck is supple with no thyromegaly or lymphadenopathy RESPIRATORY: Lungs are clear to auscultation bilaterally with no adventitious breath sounds appreciated CARDIOVASCULAR: no JVD, RRR,no murmurs/rubs/gallops ABDOMEN: Soft, nontender to palpation in all four quadrants, no masses/organomegaly EXTREMITIES: no clubbing, cyanosis or edema noted NEUROLOGICAL: No obvious focal deficits PSYCHIATRIC: normal mood/affect Skin: No rashes or ulcers. LN: No significant cervical or inguinal lymphadenopathy LABORATORY DATA, IMAGING STUDIES, MICROBIOLOGY: Please see below. Echocardiogram: Ordered and pending DVT prophylaxis ordered?: None ordered ASSESSMENT AND PLAN: This is a 88-year-old male with history of chronic neck and back pain, currently being seen by pain clinic, who presented after syncope and collapse at home, likely secondary to medication, oversedation. PROBLEMS: 1. Syncope: The patient reports having just taken his nighttime doses of all his medication including new pain medications prior to his fall. On arrival in the ED he was found to be bradycardic at 47. He had stents responded to fluid therapy. Blood pressure and heart rate are within normal limits. -Echocardiogram ordered for further workup of valvular disease -Continuous telemetry -Orthostatic vital signs -Patient does not appear to be hypovolemic and is not anemic 2. Chronic neck and back pain acutely worsened: The patient sees the pain [facility] and reportedly has been taking his pain medications as prescribed -Pain management consult in place. Recommend oxycodone 10 mg every 6 hours as needed for pain. Also Soma 350 mg one to 3 times daily or every 8 hours. -Continue gabapentin 600 mg 3 times a day -Patient is currently wearing 2 lidocaine patches, which he reports only gives him minimal pain relief. 3. History of hypertension: -All blood pressure medications are being held at this time. Due to bradycardia - 4. History of depression: -Continue home dose of Cymbalta 5. Restless leg syndrome: -Continue ropinirole 6. , Hypercholesterolemia -Continue rosuvastatin DISPOSITION: Pending improvement of pain and syncope workup I saw and evaluated the patient. I agree with the findings and plan of care as documented in the above note VS, I&O, 24H, Fishbone Vital Signs/I&O Vital Signs Date Time Temp Pulse Resp B/P (MAP) Pulse Ox O2 Delivery O2 Flow Rate FiO2 06/28/19 16:04 20 06/28/19 14:00 97.8 76 132/66 (88) 97 Room Air 06/28/19 02:51 1.0 I&O- Last 24 Hours up to 6 AM 06/28/19 06:00 Intake Total 1480 ml Output Total 700 ml Balance 780 ml Laboratory Data 24H LABS Laboratory Tests 2 06/27/19 21:58: Immature Granulocyte % (Auto) 0.3, Neutrophils (%) (Auto) 41.3, Lymphocytes (%) (Auto) 47.2H, Monocytes (%) (Auto) 7.9H, Eosinophils (%) (Auto) 2.1, Basophils (%) (Auto) 1.2H, Neutrophils # (Auto) 2.5, Lymphocytes # (Auto) 2.9, Monocytes # (Auto) 0.5, Eosinophils # (Auto) 0.1, Basophils # (Auto) 0.1, Nucleated Red Blood Cells % (auto) 0.0, D-Dimer, Quantitative < 270, Blood Gas Bicarbonate Standard 20.6, Venous Blood pH 7.339, Venous Blood Partial Pressure CO2 40.1, Venous Blood Partial Pressure O2 48.9, Venous Blood Total Carbon Dioxide 22.3L, Venous Blood HCO3 21.1L, Venous Blood Oxygen Saturation 84.1H, Venous Blood Base Excess -4.3L, Anion Gap 6L, Glomerular Filtration Rate > 60.0, Lactic Acid Level 1.8, Calcium Level 8.6, Total Bilirubin 0.3, Direct Bilirubin < 0.1, Aspartate Amino Transf (AST/SGOT) 11, Alanine Aminotransferase (ALT/SGPT) 27, Alkaline Phosphatase 96, Total Creatine Kinase 60, Creatine Kinase MB < 1.0, Creatine Kinase MB Relative Index 1.67, Troponin I < 0.02, Total Protein 6.7, Albumin 4.0, Albumin/Globulin Ratio 1.48, Lipase 430H, Thyroid Stimulating Hormone (TSH) 2.720, Free Thyroxine 1.11 06/28/19 03:11: Urine Color YELLOW, Urine Appearance CLEAR, Urine pH 6.0, Urine Specific Stewart 1.038, Urine Protein NEGATIVE, Urine Glucose (UA) NEGATIVE, Urine Ketones NEGATIVE, Urine Blood NEGATIVE, Urine Nitrite NEGATIVE, Urine Bilirubin NEGATIVE, Urine Urobilinogen 0.2, Urine Leukocyte Esterase NEGATIVE, Urine WBC (Auto) 1, Urine RBC (Auto) 1, Urine Hyaline Casts (Auto) 0, Urine Bacteria (Auto) NEGATIVE, Urine Squamous Epithelial Cells 0, Urine Sperm (Auto) , Urine Opiates Screen POSITIVEH, Urine Methadone Screen NEGATIVE, Urine Barbiturates Screen NEGATIVE, Urine Phencyclidine Screen NEGATIVE, Urine Amphetamines Screen NEGATIVE, Urine Benzodiazepines Screen NEGATIVE, Urine Cocaine Metabolite Screen NEGATIVE, Urine Cannabinoids Screen NEGATIVE 06/28/19 05:21: Nucleated Red Blood Cells % (auto) 0.0, Anion Gap 5L, Glomerular Filtration Rate > 60.0, Lactic Acid Level 1.3, Calcium Level 7.7L CBC/BMP Laboratory Tests 06/27/19 21:58 06/28/19 05:21 BINTA GORMAN MD Jun 28, 2019 18:26 AFUA ROSARIO MD Jun 29, 2019 10:55
[2019-06-28] MEDS: KETOROLAC 30 MG/ML VIAL (J1885) IV SCH (19:38)
[2019-06-28] MEDS ORDERED: traZODone 100 MG TAB PO SCH (21:00)
[2019-06-28] MEDS ORDERED: LIDOCAINE 5% (LIDODERM) PATCH TD SCH ×2 (21:00)
[2019-06-28] MEDS ORDERED: **NOTE PATIENT COMMENT** MISC XX SCH (21:00)
[2019-06-28 22:00] VITALS: BP 131/79
[2019-06-29] MEDS: KETOROLAC 30 MG/ML VIAL (J1885) IV SCH ×2 (01:00→06:38)
[2019-06-29] MEDS: oxyCODONE 5MG TAB PO PRN ×2 (03:43→11:18)
[2019-06-29 05:59] LABS: HEMATOCRIT 49.4 % (42.0-52.0); HEMOGLOBIN 16.3 g/dl (13.5-17.5); MEAN CORPUSCULAR HEMOGLOBIN 30.4 pg (27.0-33.0); PLATELET COUNT, AUTOMATED 159 10^3/uL (150-450); RED BLOOD COUNT 5.37 10^6/uL (4.30-6.10); WHITE BLOOD COUNT 5.5 10^3/uL (4.0-10.0)
[2019-06-29 06:00] VITALS: BP 130/81
[2019-06-29 06:27] LABS: BLOOD UREA NITROGEN 13 MG/DL (7-18); CALCIUM LEVEL 8.1 MG/DL (8.5-10.1); CARBON DIOXIDE LEVEL 24 MEQ/L (21-32); CHLORIDE LEVEL 114 MEQ/L (98-107); CHOLESTEROL LEVEL 177 MG/DL (<200); CHOLESTEROL RISK RATIO 4.916 (<5); GLOMERULAR FILTRATION RATE > 60.0 (>56); GLUCOSE, FASTING 99 MG/DL (70-100); HDL CHOLESTEROL 36 MG/DL (>40); LDL CHOLESTEROL 96 MG/DL (<100); NON-HDL-C 141 MG/DL; SODIUM LEVEL 142 MEQ/L (136-145); TRIGLYCERIDES LEVEL 223 MG/DL (<150)
[2019-06-29] MEDS: CARISOPRODOL 350 MG TAB PO SCH (06:38)
[2019-06-29] MEDS: ASPIRIN 81 MG ENTERIC TAB PO SCH (08:34)
[2019-06-29] MEDS: CETIRIZINE (ZyrTEC) 10 MG TAB PO SCH (08:34)
[2019-06-29] MEDS: DULoxetine 30 MG CAP (CYMBALTA) PO SCH (08:34)
[2019-06-29] MEDS: rOPINIRole 1MG TAB PO SCH (08:34)
[2019-06-29] MEDS: GABAPENTIN 300 MG CAP PO SCH (08:34)
[2019-06-29] MEDS: ROSUVASTATIN 10 MG TAB (CRESTOR) PO SCH (08:34)
[2019-06-29] MEDS: **NOTE PATIENT COMMENT** MISC XX SCH (08:35)
--- NOTE | 2019-06-29 10:51 | DS.PDOC ---
Discharge Summary General Date of Admission Jun 27, 2019 at 23:33 Date of Discharge 06/29/2019 Primary Care Physician: Charity Melton PA-C ER Attending Physician: AFUA ROSARIO MD Specialist/Consultants Involve: Lilli Londono Discharge Summary PROCEDURES PERFORMED DURING STAY: None. ADMITTING DIAGNOSES: 1.. Syncope and collapse. 2. Bradycardia. 3. Intractable back pain DISCHARGE DIAGNOSES: 1. Intractable back pain. 2. Medication-induced bradycardia COMPLICATIONS/CHIEF COMPLAINT: Syncope And Collapse. HISTORY OF PRESENT ILLNESS: This is a 58-year-old male past medical history significant for hypertension, chronic back and neck pain followed by the pain clinic, depression, hyperlipidemia, hypothyroidism, anxiety, season allergies, and obesity, body mass index (BMI) of 32.4, presents to the emergency room with acute onset of a syncopal episode at home. The patient took his medications as usual this morning, went to the kitchen to get Urdu muffins, ate them with his with coffee in the living room and then "got dizzy and fell," got up to the kitchen to get something and passed out from a standing position, collapsed on the ground, heard by the in the living room with a large thump. The patient was down for a few minutes. When he came to he recognized his , knew where he was, there was no tonic-clonic activity, urine or bowel incontinence. The said that he looked pale. EMS was called. Glucose was 105, blood pressure ws 96/63 with a heart rate of 52. According to the patient, he had a similar episode on [birth year]2019 during his 's birthday when he was vacuuming the floor to remove the birdseed. He fell forward and landed on his face on the carpet. At the time, 3-4 days later, his left arm felt like it was numb and tingly. It felt like it was swollen, like it was very big, did not having any feeling to it for a few minutes, about 5-6 minutes, he had to wake it up and returned back to normal without intervention. The patient did not seek any medical attention in April. He also complains of increasing intentional tremors with his right hand, difficulty with fine motor activities, especially with holding his coffee, often uses his left hand to steady the right hand. This has worsened over the past few years and he has been referred to a neurologist in [place] with an appointment on July 14. In the ER, the patient was not hypoglycemic with glucose level of 107, blood pressure was low at 98 systolic, was given an IV bolus of normal saline with resultant improvement in blood pressure to 127 systolic. He did complain of significant dizziness, lightheadedness without shortness of breath, pressure or tightness, chest pressure. He did not have any diaphoresis, changes in vision or headache. He continues to complain of significant pain in the cervical spine a nd lumbar spine, which is chronic worsened after the fall today. The patient was afebrile. He otherwise denies any dysuria, urgency or frequency, fever, chills, flank pain. Denied any shortness of breath or cough, diarrhea, nausea or vomiting, bright red blood per rectum, melena or black tarry stools. The patient's medications have recently been changed in the past 4-5 months due to uncontrolled blood pressure with increased dose of metoprolol to 25 mg twice a day as well as starting on a new medication, Norvasc, hydrochlorothiazide, and chronically on losartan 50 mg daily. He does not check his blood pressure or pulse prior to taking his medications and says that he was running high at the doctors office when medications were titrated to a higher dose. He does use Flomax 0.4 mg for benign prostatic hypertrophy (BPH), did not want to be moved in the ER to check for orthostatics due to severe pain in his neck and back. CT of the head showed no acute intracranial pathology. Due to complaints of pain in the left flank, CT of the abdomen and pelvis was obtained, which was negati ve. HOSPITAL COURSE: Patient was admitted with and was monitored on continuous telemetry. All of his blood pressure medications were held as he was found to be bradycardic with hypertension. He was reporting at 10 lower back pain and was given Toradol for pain management. He was started on IV fluids. He was complaining of left upper quadrant pain and was found to have mildly elevated lipase, concerning for pancreatitis. There was no clear history for etiology of pancreatitis. Nonetheless, he was treated with IV fluid resuscitation and pain management. On hospital day 2, the patient complained of continued back pain with minimal left upper quadrant pain, however, he was tolerating meals. A pain management consult was placed and it was recommended that his home pain management regimen was continued. On hospital day 3, the patient's blood pressure was appropriately high. He was cleared by physical therapy and a home safety evaluation was ordered. He was discharged home without restarting blood pressure medications at this time. He was told to follow-up with his PCP within 7 days for blood pressure check and determination whether one of those blood pressure medication should be continued. It is advised that if only one is continued that losartan would be the most appropriate. DISCHARGE MEDICATIONS: Please see below. ALLERGIES: Please see below. PHYSICAL EXAMINATION ON DISCHARGE: VITAL SIGNS: Please see below. GENERAL APPEARANCE: Laying in bed, appears stated age, tearful, anxious HEENT: EOMI, PERRLA, neck is supple with no thyromegaly or lymphadenopathy RESPIRATORY: Lungs are clear to auscultation bilaterally with no adventitious breath sounds appreciated CARDIOVASCULAR: no JVD, RRR,no murmurs/rubs/gallops ABDOMEN: Soft, nontender to palpation in all four quadrants, no masses/organomegaly MUSCULOSKELETAL: Point tenderness in lower lumbar region. EXTREMITIES: no clubbing, cyanosis or edema noted NEUROLOGICAL: No obvious focal deficits PSYCHIATRIC: normal mood/affect Skin: No rashes or ulcers. LN: No significant cervical or inguinal lymphadenopathy LABORATORY DATA: Please see below. IMAGING: LUMBAR SPINE CT: FINDINGS: Vertebrae: Vertebral body height and AP alignment is preserved. Mild prevertebral osteophytosis. No acute lumbar spine fracture. 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 Kidneys and ureters: There is bilateral renal excretion of contrast. Soft tissues: See Vertebrae Finding. IMPRESSION: No acute osseous abnormality. CERVICAL SPINE CT: FINDINGS: Vertebrae: Nonspecific straightening of the cervical lordosis. Vertebral body height and AP alignment is preserved. Previous fusion involving C3-C7. Moderate degenerative change about the dens. No acute cervical spine fracture. Discs/Spinal canal/Neural foramina: No definite significant central canal stenosis. Multilevel cervical foraminal stenoses. Soft tissues: Unremarkable. Lungs: Lung apices are normal. Pleural space: No visible pneumothorax. IMPRESSION: No acute osseous abnormality. CT ABDOMEN/PELVIS: FINDINGS: Lungs: There are bibasilar dependent changes. Liver: Hepatic steatosis. Gallbladder and bile ducts: Normal. No calcified stones. No ductal dilation. Pancreas: Normal. No ductal dilation. Spleen: Normal. No splenomegaly. Adrenals: Normal. No mass. Kidneys and ureters: 1.3 cm right renal cyst. 2 mm nonobstructing right renal calculus. Small left renal hypodensity is too small to characterize. There is symmetric bilateral perinephric infiltration, nonspecific however typically chronic. The appearance is similar from prior examination. Stomach and bowel: Mild diverticulosis without diverticulitis. Appendix: Normal appendix. Intraperitoneal space: Unremarkable. No free air. No significant fluid collection. Vasculature: Vascular calcification. Lymph nodes: Unremarkable. No enlarged lymph nodes. Bladder: Unremarkable as visualized. Reproductive: Unremarkable as visualized. Bones/joints: There are degenerative changes involving the spine. Soft tissues: Previous pelvic hernia repair. IMPRESSION: No acute abnormality. The pancreas appears within normal limits. PROGNOSIS: Fair ACTIVITY: As tolerated. DIET: As tolerated DISCHARGE PLAN: Home DISPOSITION: . DISCHARGE INSTRUCTIONS: 1. Please follow-up with your primary care physician within 7 days for blood pressure check. 2. Please follow-up with pain management clinic within 7 days. ITEMS TO FOLLOWUP ON ON OUTPATIENT: 1. None DISCHARGE CONDITION: Stable. Vital Signs/I&Os Vital Signs Date Time Temp Pulse Resp B/P (MAP) Pulse Ox O2 Delivery O2 Flow Rate FiO2 06/29/19 06:00 97.9 62 18 130/81 (97) 95 Room Air 06/28/19 02:51 1.0 I&O- Last 24 Hours up to 6 AM 06/29/19 06:00 Intake Total 1560 ml Output Total 1175 ml Balance 385 ml Laboratory Data Labs 24H Laboratory Tests 2 06/29/19 05:36: Nucleated Red Blood Cells % (auto) 0.0, Anion Gap 4L, Glomerular Filtration Rate > 60.0, Calcium Level 8.1L, Triglycerides Level 223H, Total Cholesterol 177, LDL Cholesterol 96, Non-HDL Cholesterol (LDL + VLDL) 141, Total HDL Cholesterol 36L, Cholesterol/HDL Ratio 4.916 CBC/BMP Laboratory Tests 06/29/19 05:36 Discharge Medications Scheduled Aspirin (Aspir 81) 81 Mg Tab, 81 MG PO DAILY, (Reported) Cetirizine HCl (Cetirizine HCl) 10 Mg Tab, 10 MG PO DAILY, (Reported) Cyanocobalamin/Folic AC/Vit B6 (Folbic Tablet) 1 Each Tablet, 1 TAB PO DAILY, (Reported) Duloxetine Hcl (Duloxetine HCl) 60 Mg Cap, 60 MG PO DAILY, (Reported) Gabapentin (Gabapentin) 600 Mg Tab, 600 MG PO TID, (Reported) Ropinirole HCl (Ropinirole HCl) 3 Mg Tab, 3 MG PO BID, (Reported) Rosuvastatin Calcium (Rosuvastatin Calcium) 10 Mg Tab, 10 MG PO DAILY, (Reported) Tamsulosin HCl (Flomax) 0.4 Mg Cap, 0.4 CAP PO DAILY, (Reported) Trazodone HCl (Trazodone HCl) 100 Mg Tab, 200 MG PO QHS, (Reported) Scheduled PRN Carisoprodol (Carisoprodol) 350 Mg Tab, 350 MG PO TID PRN for SPASMS, (Reported) Oxycodone HCl/Acetaminophen (Percocet 7.5-325 mg Tablet) 1 Tab Tab, 1 TAB PO TID PRN for PAIN, (Reported) Tizanidine HCl (Tizanidine HCl) 4 Mg Tablet, 4 MG PO TID PRN for SPASMS, (Reported) Allergies Coded Allergies: ibuprofen (Verified Allergy, Intermediate, hives, 06/27/19) GME ATTESTATION GME ATTESTATION I saw and evaluated the patient. I agree with the findings and plan of care as documented in the documenters note. I spent 45 minutes coordinating this patient's discharge. BINTA GORMAN MD Jun 29, 2019 10:51 AFUA ROSARIO MD Jun 29, 2019 10:58
--- NOTE | 2019-06-29 14:23 | ECHO ---
DATE OF PROCEDURE: 06/28/2019 REFERRING PHYSICIAN: Dr. Nazia Liao. REASON FOR THE STUDY: Syncope. 2D MEASUREMENT: IVS - 1.2 cm LV - 4.2 cm LVPW - 1.2 cm LA - 3.8 cm Aorta - 3.1 cm IVC - 1.74 cm DOPPLER MEASUREMENTS: Peak velocity across the aortic valve - 1.3 meters per second. Peak velocity across the LVOT - 0.98 meters per second. Mitral E - 0.84, Mitral A - 0.53 with a ratio of 1.4 2D COMMENTS: 1. Normal left ventricular size, wall thickness, and normal global left ventricular systolic function. The estimated left ventricular systolic ejection fraction is 65-70%. 2. Normal left atrium. The right atrium appeared to be mildly enlarged as well as the right ventricle in limited views but may be off axis. 3. The atrial septum appeared to be normal without evidence of defect or shunt. 4. Normal aortic root. 5. Trace pericardial effusion noted, no evidence of cardiac tamponade. 6. Aortic valve, the tricuspid valve appeared to be normal. The proximal pulmonary artery branches were not well visualized. Mildly calcified mitral annulus was noted with normal anterior mitral valve leaflet motion. 7. The inferior vena cava was normal in size, central venous pressure is most likely normal. Doppler detects trace mitral regurgitation, trace tricuspid regurgitation in limited views. Abnormal relaxation pattern was noted across the mitral valve annulus consistent with features of grade 2 left ventricular diastolic dysfunction, left ventricular end-diastolic pressure might be elevated. IMPRESSION: 1. Normal global left ventricular systolic function. There are some features of left ventricular diastolic dysfunction, grade 2. 2. Trace mitral regurgitation with mitral annulus calcification. 3. Trace pericardial effusion was noted, no evidence or cardiac tamponade. 4. The right heart chambers appeared to be mildly enlarged in limited views but was thought to be artifactual related to be off axis. 5. Not mentioned above, the study was technically limited due to poor acoustic window.
== END 2019-06-29 11:53 | disposition home or self-care (01) | DRG 201 ==
LOC: M ED 21:30 → M ED INP 23:33 → M MSPAV 06-28 01:57
PROVIDERS: ADMIT General Practice; ATTEND Internal Medicine
DX: R00.1 Bradycardia, unspecified (principal); Z68.42 Body mass index [BMI] 45.0-49.9, adult; I10 Essential (primary) hypertension; R55 Syncope and collapse; E03.9 Hypothyroidism, unspecified; M54.2 Cervicalgia; M54.5 Low back pain; E78.5 Hyperlipidemia, unspecified; F41.9 Anxiety disorder, unspecified; E66.9 Obesity, unspecified; G25.81 Restless legs syndrome; F32.9 Major depressive disorder, single episode, unspecified

== ENCOUNTER 2019-07-24 11:32 | Emergency (ER) | payer OTHER ==
[~2019-07-24] VITALS: Ht 185.4 cm; Wt 103.8 kg
[~2019-07-24 11:32] MED LIST changes: +AMLO5TAB6 PO; +ARNU1INH; +BUPR150T5 PO; +TIZA4TAB4 PO
[2019-07-24] MEDS ORDERED: OXYC10TA3 OR (12:04)
[2019-07-24] MEDS ORDERED: MORPHINE 4 MG/ML 1ML VIAL/SYRINGE (J2270) IV ONE (12:15)
[2019-07-24] MEDS ORDERED: NS 1,000 ML IV ONE (12:15)
[2019-07-24 12:25] LABS: BASO % 0.8 % (0.0-1.0); EOS # 0.1 10^3/uL (0.0-0.5); EOS % 1.4 % (0.0-3.0); HEMATOCRIT 58.6 % (42.0-52.0); LYMPH % 39.5 % (24.0-44.0); MEAN CORPUSCULAR HEMOGLOBIN 30.8 pg (27.0-33.0); MEAN CORPUSCULAR HGB CONC 32.4 g/dl (32.0-36.5); MONO # 0.4 10^3/uL (0.0-0.8); MONO % 7.4 % (0.0-5.0); NEUTROPHILS # 2.5 10^3/uL (1.5-8.5); NEUTROPHILS % 50.5 % (36.0-66.0); PLATELET COUNT, AUTOMATED 165 10^3/uL (150-450); RED BLOOD COUNT 6.17 10^6/uL (4.30-6.10)
[2019-07-24 12:48] LABS: ALBUMIN 4.4 GM/DL (3.2-5.2); ALT/SGPT 36 U/L (12-78); BILIRUBIN,DIRECT 0.1 MG/DL (0.0-0.2); BILIRUBIN,TOTAL 0.6 MG/DL (0.2-1.0); BLOOD UREA NITROGEN 13 MG/DL (7-18); CALCIUM LEVEL 9.1 MG/DL (8.5-10.1); CARBON DIOXIDE LEVEL 26 MEQ/L (21-32); CHLORIDE LEVEL 109 MEQ/L (98-107); GLOMERULAR FILTRATION RATE > 60.0 (>56); GLUCOSE, FASTING 92 MG/DL (70-100); LIPASE 748 U/L (73-393); POTASSIUM SERUM 4.5 MEQ/L (3.5-5.1); SODIUM LEVEL 140 MEQ/L (136-145); TOTAL PROTEIN 7.5 GM/DL (6.4-8.2)
[2019-07-24] MEDS ORDERED: ISOVUE-370 76% 100ML VIAL (Q9967) As Ordered ONE (12:53)
--- NOTE | 2019-07-24 13:48 | REP ---
CT ABDOMEN AND PELVIS WITH IV CONTRAST: TECHNIQUE: Axial contrast enhanced images from the lung bases to the pubic symphysis using 100 mL Isovue 370 intravenous contrast material with multiplanar reformations. COMPARISON: 06/27/2019 Visualized lung bases demonstrate stable fibroatelectatic change. There is diffuse fatty infiltration of the liver. No liver mass is seen. The spleen is normal in size with no intrinsic abnormality. The adrenal glands are normal. The pancreas demonstrates no mass or pancreatic duct dilatation. Once again, there is a small cyst and two tiny calculi in the lower pole of the right kidney. A couple of tiny subcentimeter cysts are seen in the anterior left kidney. There is no hydroureteronephrosis bilaterally. There is atherosclerotic calcification of the abdominal aorta without aneurysm. There is no adenopathy. There is no free air or free fluid. The appendix is normal. Along the anterior abdominal wall and region of umbilicus, there is ill-defined soft tissue density at the site of the previously noted small umbilical hernia on the exam of 07/03/2017. This could represent focal postsurgical scarring. It measures 3.1 x 4.0 cm. No pelvic mass is seen. Urinary bladder is mildly distended and grossly unremarkable. There are degenerative changes of the spine. IMPRESSION: No acute abnormality. No evidence of appendicitis, free air or free fluid. No bowel wall insulation. Diffuse fatty infiltration of the liver. Ill-defined soft tissue in the region of the umbilicus, at the site of the previously noted small umbilical hernia, which was surgically repaired. This could represent focal postsurgical scarring. However, there is somewhat mass-like appearance. I would recommend either ultrasound guided biopsy or followup CT in 3-6 months. Electronically Signed by Jeremy Mcgraw MD 07/24/2019 02:06 P
[2019-07-24] MEDS ORDERED: fentaNYL 100 MCG/2 ML INJECTION (J3010) IV ONE (14:15)
[2019-07-24] MEDS ORDERED: NORC1TAB7 PO (15:42)
[2019-07-24] MEDS ORDERED: ONDA4TAB6 PO (15:42)
[2019-07-24 15:57] VITALS: BP 138/97
--- NOTE | 2019-07-25 00:02 | ECGEPIP ---
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
--- NOTE | 2019-07-29 13:27 | ED PDOC ---
Post-Departure Follow-Up john lott faxed formal report of ct abd/p for fu Chase Jade MD Jul 29, 2019 13:27
== END 2019-07-24 16:05 | disposition home or self-care (01) ==
LOC: M ED 11:32
DX: K85.90 Acute pancreatitis without necrosis or infection, unspecified (principal); G89.29 Other chronic pain; M54.5 Low back pain; G25.81 Restless legs syndrome; J30.2 Other seasonal allergic rhinitis; N39.9 Disorder of urinary system, unspecified; F17.210 Nicotine dependence, cigarettes, uncomplicated; Z88.6 Allergy status to analgesic agent; Z88.8 Allergy status to other drugs, medicaments and biological substances; Z79.82 Long term (current) use of aspirin; Z79.83 Long term (current) use of bisphosphonates; Z79.891 Long term (current) use of opiate analgesic; Z79.899 Other long term (current) drug therapy
CPT/HCPCS: 36415; 74177; 80048; 80076; 81001; 83690; 85025; 93005; 96361; 96374; 99284; J2270; J3010; Q9967

== ENCOUNTER 2019-07-30 09:31 | Emergency (ER) | payer OTHER ==
[~2019-07-30] VITALS: Ht 185.4 cm; Wt 105.5 kg
[~2019-07-30 09:31] MED LIST changes: +NORC1TAB7 PO; +ONDA4TAB6 PO; +OXYC10TA3 OR
[2019-07-30] MEDS ORDERED: NS 1,000 ML IV ONE (10:15)
[2019-07-30] MEDS ORDERED: MORPHINE 4 MG/ML 1ML VIAL/SYRINGE (J2270) IV ONE (10:15)
[2019-07-30] MEDS ORDERED: ONDANSETRON 4MG/2ML VIAL (J2405) IV ONE (10:15)
[2019-07-30 11:18] LABS: ALBUMIN 4.2 GM/DL (3.2-5.2); ALT/SGPT 41 U/L (12-78); BILIRUBIN,DIRECT < 0.1 MG/DL (0.0-0.2); BILIRUBIN,TOTAL 0.4 MG/DL (0.2-1.0); BLOOD UREA NITROGEN 12 MG/DL (7-18); CALCIUM LEVEL 9.1 MG/DL (8.5-10.1); CARBON DIOXIDE LEVEL 22 MEQ/L (21-32); CHLORIDE LEVEL 111 MEQ/L (98-107); CREATININE FOR GFR 1.01 MG/DL (0.70-1.30); GLOMERULAR FILTRATION RATE > 60.0 (>56); GLUCOSE, FASTING 97 MG/DL (70-100); LIPASE 19 U/L (73-393); POTASSIUM SERUM 5.9 MEQ/L (3.5-5.1); SODIUM LEVEL 138 MEQ/L (136-145); TOTAL PROTEIN 7.2 GM/DL (6.4-8.2)
[2019-07-30 11:26] LABS: BASO # 0.1 10^3/uL (0.0-0.2); BASO % 1.2 % (0.0-1.0); EOS # 0.1 10^3/uL (0.0-0.5); EOS % 1.4 % (0.0-3.0); HEMATOCRIT 57.9 % (42.0-52.0); HEMOGLOBIN 18.9 g/dl (13.5-17.5); LYMPH # 2.3 10^3/uL (1.5-5.0); LYMPH % 38.9 % (24.0-44.0); MEAN CORPUSCULAR HEMOGLOBIN 30.3 pg (27.0-33.0); MEAN CORPUSCULAR HGB CONC 32.6 g/dl (32.0-36.5); MEAN CORPUSCULAR VOLUME 92.8 fl (80.0-96.0); MONO # 0.5 10^3/uL (0.0-0.8); MONO % 7.7 % (0.0-5.0); NEUTROPHILS % 50.3 % (36.0-66.0); PLATELET COUNT, AUTOMATED 163 10^3/uL (150-450); RED BLOOD COUNT 6.24 10^6/uL (4.30-6.10); WHITE BLOOD COUNT 5.9 10^3/uL (4.0-10.0)
[2019-07-30] MEDS ORDERED: HYDROMORPHONE HCL 0.5 MG/ 0.5 ML SYRINGE (J1170 PER 1) IV ONE (11:30)
[2019-07-30 12:18] LABS: BLOOD UREA NITROGEN 11 MG/DL (7-18); CARBON DIOXIDE LEVEL 24 MEQ/L (21-32); CHLORIDE LEVEL 111 MEQ/L (98-107); CREATININE FOR GFR 0.84 MG/DL (0.70-1.30); GLOMERULAR FILTRATION RATE > 60.0 (>56); GLUCOSE, FASTING 88 MG/DL (70-100); LIPASE 489 U/L (73-393); POTASSIUM SERUM 4.4 MEQ/L (3.5-5.1); SODIUM LEVEL 142 MEQ/L (136-145)
[2019-07-30] MEDS ORDERED: NORC1TAB7 PO (15:05)
[2019-07-30 15:19] VITALS: BP 138/93
--- NOTE | 2019-07-30 17:17 | ECGEPIP ---
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
== END 2019-07-30 15:28 | disposition home or self-care (01) ==
LOC: M ED 09:31
DX: R10.9 Unspecified abdominal pain (principal); G25.81 Restless legs syndrome; G89.29 Other chronic pain; F17.210 Nicotine dependence, cigarettes, uncomplicated; Z88.6 Allergy status to analgesic agent; Z88.8 Allergy status to other drugs, medicaments and biological substances; Z79.891 Long term (current) use of opiate analgesic; Z79.82 Long term (current) use of aspirin; Z79.83 Long term (current) use of bisphosphonates; Z79.899 Other long term (current) drug therapy
CPT/HCPCS: 80048; 80076; 83690; 85025; 93005; 96361; 96374; 96375; 99284; J1170; J2270; J2405

== ENCOUNTER → 2019-09-06 | Outpatient (CLI) | payer OTHER ==
[~2019-09-06] MED LIST changes: +ONDA-83 PO; -ONDA4TAB5 PO; -TRAZ10TA PO; +TRAZ1TAB12 PO
--- NOTE | 2019-09-06 14:31 | REP ---
LEFT 2ND DIGIT: Four views left 2nd digit performed. No fracture or dislocation is seen of the visualized osseous structures. Soft tissue nodule lateral to the distal interphalangeal joint measures approximately 1.1 cm in maximum diameter. This could represent a ganglion cyst. Further evaluation could be made with ultrasound or MRI if desired. There are multiple tiny metallic densities in or on the soft tissues of the distal 2nd digit medially. There is one also seen in the distal aspect of the 1st digit. Electronically Signed by Jeremy Mcgraw MD 09/07/2019 03:22 P
== END ==
LOC: M LAB 12:21
PROVIDERS: ATTEND Physician Assistant
DX: R22.32 Localized swelling, mass and lump, left upper limb (principal)

== ENCOUNTER → 2019-09-06 | Outpatient (CLI) | payer OTHER ==
--- NOTE | 2019-09-10 03:59 | ECWPNPC ---
PATIENT NAME: JAKOB ARGUELLES : 1960 GENDER: MALE VISIT DATE: 09/06/2019 DISCHARGE DATE: 09/06/19 1209 VISIT LOCKED DATE TIME: PHYSICIAN: KIKE BRITO RESOURCE: KIKE BRITO REASON FOR APPOINTMENT 1. BACK/LEGS HISTORY OF PRESENT ILLNESS HISTORY OF PRESENT ILLNESS: PAIN THE PATIENT DESCRIBES THE PAIN... 59-YEAR-OLD MALE IN FOR CHRONIC PAIN FOLLOW-UP. HE RATES HIS PAIN CURRENTLY AT AN 8 OUT OF 10 AND DESCRIBES IT SHARP, BURNING, STABBING, AND TENDER. HE FEELS MEDICATIONS ARE WORKING WELL AND DENIES MED SIDE EFFECTS AT THIS TIME. HE DOES ADMIT TO A RECENT FALL AND INCREASED SHOULDER PAIN A RESULT. HE DOES REPORT THAT HE HAS NOT BEEN SEEN BY URGENT CARE FOR THIS. FALL RISK SCREENING: SCREENING :NO FALLS REPORTED IN THE LAST YEAR CURRENT MEDICATIONS TAKING SPACER/AERO CHAMBER MOUTHPIECE - MISCELLANEOUS DIRECTED - - TAKING TRAZODONE HCL 100 MG TABLET 2 TABLET AT BEDTIME ORALLY ONCE A DAY TAKING ROPINIROLE HCL 3 MG TABLET 1 TAB ORALLY ONCE A DAY TAKING FLOMAX 0.4 MG CAPSULE 1 CAP ORALLY DAILY TAKING CETIRIZINE HCL 10 MG TABLET 1 TABLET ORALLY DAILY TAKING ASPIR-81 1 TABLET ORAL DAILY TAKING TIZANIDINE HCL 4 MG TABLET 1/2-1 TABLET ORALLY THREE TIMES DAILY TAKING DULOXETINE HCL 60 MG CAPSULE DELAYED RELEASE PARTICLES 1 CAPSULE ORALLY DAILY TAKING CYANOCOBALAMIN 100 MCG TABLET DIRECTED ORALLY TAKING VENTOLIN HFA 108 (90 BASE) MCG/ACT AEROSOL SOLUTION 2 PUFFS NEEDED INHALATION EVERY 4 HRS TAKING ARNUITY ELLIPTA 100 MCG/ACT AEROSOL POWDER BREATH ACTIVATED 1 PUFF INHALATION ONCE A DAY TAKING NICODERM CQ 7 MG/24HR PATCH 24 HOUR 1 PATCH TO SKIN TRANSDERMAL ONCE A DAY TAKING NYSTATIN [id number] UNIT/ML SUSPENSION 4 ML MOUTH/THROAT FOUR TIMES A DAY TAKING GABAPENTIN 600 MG TABLET 1 CAPSULE ORALLY THREE TIMES A DAY TAKING WELLBUTRIN SR 150 MG TABLET EXTENDED RELEASE 12 HOUR 1 TABLET IN THE MORNING ORALLY ONCE A DAY TAKING DRISDOL 1.25 MG (11762 UT) CAPSULE 1 CAPSULE ORALLY WEEKLY TAKING ROSUVASTATIN CALCIUM 20 MG TABLET 1 TABLET ORALLY ONCE A DAY TAKING CARISOPRODOL 350 MG TABLET 1 TABLET NEEDED ORALLY THREE TIMES DAILY PRN SPASM MDD=3 TAKING OXYCODONE-ACETAMINOPHEN 10-325 MG TABLET 1 TABLET NEEDED ORALLY Q6H PRN MDD4 TAKING TRAZODONE HCL 100 MG TABLET TAKE TWO TABLETS BY MOUTH @8PM TAKING BACTRIM DS 800-160 MG TABLET 1 TABLET ORALLY TWICE A DAY TAKING NAPROXEN 500 MG TABLET 1 TABLET WITH FOOD OR MILK NEEDED; PT IS NOT ALLERGIC HE TAKES THIS PERIODICALLY. ORALLY EVERY 12 HRS TAKING TAMSULOSIN HCL 0.4 MG CAPSULE 1 CAPSULE ORALLY ONCE A DAY TAKING BUPROPION HCL ER (SMOKING DET) 150 MG TABLET EXTENDED RELEASE 12 HOUR 1 TABLET IN THE MORNING ORALLY ONCE A DAY MEDICATION LIST REVIEWED AND RECONCILED WITH THE PATIENT PAST MEDICAL HISTORY CERVICAL RADICULOPOTHY SHOULDER PAIN NEPHROLITHIASIS RESTLESS LEG SYNDROME HYPERCHOLESTEROLEMIA CHRONIC SINUSITIS KIDNEY STONES HTN BULGING DISC LOW BACK ALLERGIES MOTRIN: HIVES, VOMIT - SIDE EFFECTS PREDNISONE: SYNCOPE, ARM NUMBNESS - SIDE EFFECTS SURGICAL HISTORY HERNIA X4 SCHEDULED FOR HERNIA 12/16/2011 CERVICAL LAMINECTOMY CERVICAL NECK-[address] LEFT SEBACEOUS CYST REMOVAL DR. PUCKETT, ENT 03/2016 FUSION OF NECK 03/20/17 LEFT SHOULDER SURGERY 01/2018 HERNIA SURGERY 2017 RIGHT TESTICULAR CYST REMOVED 02/2019 FAMILY HISTORY FATHER: , HTN,DM MOTHER: , HTN,DM SIBLINGS: ALIVE, 1 BROTHER HAS PROSTATE CA SON(S): ALIVE DAUGHTER(S): 31 YRS, AT AGE 31 YO DUE TO HEART FAILURE 4 BROTHER(S) , 2 SISTER(S) - HEALTHY. 1 SON(S) , 2 DAUGHTER(S) - HEALTHY. BROTHER AFTER RECENT REPAIR OF PUD AGE 53MOTHER/BROTHER/2 SISTERS DIABETIESBROTHER HAS PROSTATE CANCER. SOCIAL HISTORY GENERAL: TOBACCO USE ARE YOU A:CURRENT SMOKER ARE YOU INTERESTED IN QUITTING?READY TO QUIT PREVIOUS QUIT ATTEMPTS?YES, WITHIN THE LAST 6 MONTHS. COUNSELED THE PATIENT ON TOBACCO USE, CESSATION [id number]/10/2020 HOW MANY CIGARETTES A DAY DO YOU SMOKE?6-10 HOW SOON AFTER YOU WAKE UP DO YOU SMOKE YOUR FIRST CIGARETTE?6-30 MIN HOW OFTEN DO YOU SMOKE CIGARETTES?EVERY DAY PATIENT COUNSELED ON THE DANGERS OF TOBACCO USE AND URGED TO QUIT:01/11/2019 SMOKING CESSATION INFORMATION GIVEN DECLINED HIV / HEP-C SCREENING HIV TEST OFFERED TO PATIENT:NO HEP-C TEST OFFERED TO PATIENT:NO EDUCATION LEVEL OF EDUCATION:HIGH SCHOOL DIET: REGULAR. LANGUAGE ZAMBIAN. DOMESTIC VIOLENCE DO YOU FEEL SAFE IN YOUR ENVIRONMENT?YES BMI CARE GOAL FOLLOW-UP ABOVE NORMAL BMI FOLLOW-UPLIFESTYLE EDUCATION REGARDING DIET RECREATIONAL DRUG USE DRUG USE?NO EXERCISE: NO REGULAR EXERCISE. LEARNING BARRIERS / SPECIAL NEEDS CHANGE FROM LAST VISIT?NO BARRIERS TO LEARNING?YES COMMENTS STATES HE CAN'T READ WELL HEARING IMPAIRED?YES VISION IMPAIRED?YES COGNITIVELY IMPAIRED?YES STATES SOMETIMES HE DOESN'T COMPREHEND WHAT PEOPLE ARE TELLING HIM : NO HEARING AIDS : NEEDS TO GET NEW GLASSES--LOST HIS 3 YRS AGO READINESS TO LEARN?YES LEARNING PREFERENCES?YES :DEMONSTRATION/VERBAL INSTRUCTION LEARNING CAPABILITIES PRESENT?YES EMOTIONAL BARRIERS?NO SPECIAL DEVICES?YES :CANE ERP PROJECT MANAGER NEEDED?NO LUNG CANCER SCREENING SMOKING STATUS:CURRENT SMOKER IS THE PATIENT BETWEEN THE AGE OF 55 AND 77?YES HAS THE PATIENT EVER BEEN DIAGNOSED WITH LUNG CANCER?NO PACK YEARS = NUMBER OF PACKS PER DAY SMOKED X NUMBER OF YEARS SMOKED:40 CREATE REFERRAL:CREATED REFERRAL TO ONCOLOGY NURSE NAVIGTOR FOR LDCT SCAN PAIN CLINIC PFS, CLERGY, PUBLIC HEALTH REFERRALS PFS REFERRAL NEEDED?NO CLERGY REFERRAL NEEDED?NO PUBLIC HEALTH REFERRAL NEEDED?NO HAS THE PATIENT BEEN EDUCATED REGARDING HIS/HER PLAN OF CARE?YES HAS THE PATIENT BEEN EDUCATED REGARDING PAIN, THE RISK FOR PAIN, THE IMPORTANCE OF EFFECTIVE PAIN MANAGEMENT, AND THE PAIN ASSESSMENT PROCESS?YES LATEX QUESTIONNAIRE LATEX ALLERGY : HAVE YOU EVER DEVELOPED ANY TYPE OF REACTION AFTER HANDLING LATEX PRODUCTS SUCH RUBBER GLOVES, CONDOMS, DIAPHRAGMS, BALLOONS, SOCKS, OR UNDERWEAR?NO LATEX ALLERGY : HAVE YOU EVER DEVELOPED ANY TYPE OF REACTION DURING OR AFTER DENTAL APPOINTMENT, VAGINAL/RECTAL EXAMINATION, SURGICAL PROCEDURE, OR ANY OTHER EXPOSURE?NO DATE ASKED : 07/05/2019 LATEX RISK : HAVE YOU EVER HAD ANY DIFFICULTY BREATHING OR HIVES AFTER EATING OR HANDLING ANY FRUITS, OR VEGETABLES; SUCH KIWI, BANANAS, STONE FRUITS, OR CHESTNUTSNO LATEX RISK : DO YOU HAVE A PREVIOUS PERSONAL HISTORY OF MORE THAN NINE SURGERIES, SPINA BIFIDA, OR REPEATED CATHERIZATIONS? NO LATEX RISK : ARE YOU FREQUENTLY EXPOSED TO LATEX PRODUCTS IN YOUR OCCUPATION?NO CAFFEINE CAFFEINE USE?YES HOW OFTEN AND HOW MUCH? 2-3/DAY OCCASIONALLY ADVANCE DIRECTIVE ADVANCE DIRECTIVE DISCUSSED WITH PATIENT:YES HCP - RONY () AMISH [id number] OTHER NAZARENE MARITAL STATUS: . ALCOHOL SCREENING DID YOU HAVE A DRINK CONTAINING ALCOHOL IN THE PAST YEAR?YES HOW OFTEN DID YOU HAVE SIX OR MORE DRINKS ON ONE OCCASION IN THE PAST YEAR?NEVER (0 POINTS) HOW MANY DRINKS DID YOU HAVE ON A TYPICAL DAY WHEN YOU WERE DRINKING IN THE PAST YEAR?1 OR 2 (0 POINTS) HOW OFTEN DID YOU HAVE A DRINK CONTAINING ALCOHOL IN THE PAST YEAR?MONTHLY OR LESS (1 POINT) POINTS1 INTERPRETATIONNEGATIVE OCCUPATION: DISABLED. SEXUAL HX HAD SEX IN THE LAST 12 MONTHS (VAGINAL, ORAL, OR ANAL)?YES WITHWOMEN ONLY USE PROTECTION?NO LMP:N/A HAVE YOU EVER HAD AN STD?NO REVIEWED WITH PATIENT 06/13/18 1135 JS. HOSPITALIZATION/MAJOR DIAGNOSTIC PROCEDURE SURGERY RELATED CELLULITIS [facility] ER- STRAIN OF MUSCLE, FASCIA AND TENDON AT NECK LEVEL- LEFT RHOMBOID MUSCLE SPASM 04/08/2016 [facility]: INTRACTABLE BACK PAIN 03/2017 LOSS OF CONCIOUSNESS X 2 2019 REVIEW OF SYSTEMS REVIEWED BY: PROVIDER: MARIELY WELLS . CONSTITUTIONAL: ANY CHANGE IN YOUR MEDICAL CONDITION? YES, BILAT OTITIS MEDIA AND SINUSITIS . CHILLS NO . FEVER NO . INFECTION: DO YOU HAVE NEW INFECTIONS? NO . DO YOU HAVE HISTORY OF MRSA? YES . MUSCULOSKELETAL: ANY NEW PATTERNS OF PAIN OR NUMBNESS? NO . GASTROENTEROLOGY: ANY NEW CHANGE IN BOWEL CONTROL? NO . GENITOURINARY: ANY NEW CHANGE IN BLADDER CONTROL? NO . IS THERE A CHANCE YOU COULD BE ? NO . HEMATOLOGY/LYMPH: DO YOU TAKE ANY BLOOD THINNERS? (FOR EXAMPLE- COUMADIN, PLAVIX, AGGRENOX, PLATEL, PRADAXA, OR XARELTO) NO . WHEN WAS YOUR LAST DOSE? DATE: TIME: . NEUROLOGY: HAVE YOU FALLEN IN THE PAST 12 MONTHS? YES, FELL 5 DAYS AGO ON THE ICE PT DENIES INJURIES . ANY NEW EXTREMITY NUMBNESS OR WEAKNESS? NO . CARDIOLOGY: DO YOU HAVE A PACEMAKER OR DEFIBRILLATOR? NO . RESPIRATORY: HAVE YOU BEEN SICK IN THE PAST WEEK? YES . FEVER NO . FLU LIKE SYMPTOMS? NO . COUGH YES, PRODUCTIVE YELLOW MUCOUS . INTEGUMENTARY: DO YOU HAVE ANY RASHES OR OPEN SORES? NO . ALLERGIC/IMMUNO: ARE YOU ALLERGIC TO IV DYE? NO . ANY NEW ALLERGIES? NO . PSYCHIATRIC: DO YOU HAVE THOUGHTS OF HURTING YOURSELF OR SOMEONE ELSE? NO . ARE YOU ABUSED, NEGLECTED, OR IN AN UNSAFE ENVIRONMENT? NO . ENDOCRINOLOGY: ARE YOU DIABETIC? NO . OTHER: DO YOU NEED ANY PRESCRIPTIONS? NO . IF YES, PLEASE LIST: ____ . ANY NEW PROBLEMS WITH YOUR MEDICATIONS? NO . WHEN DID YOU LAST EAT? ____ . WHEN DID YOU LAST DRINK? ____ . WHAT DID YOU LAST DRINK? ____ . NAME OF PERSON DRIVING YOU HOME? ____ . DO YOU HAVE ANY OTHER QUESTIONS OR CONCERNS NO . VITAL SIGNS WT 229.8 LBS, HT 6'2", BMI 29.50 INDEX, BP 153/94 MM HG, HR 83 /MIN, RR 18 /MIN, TEMP 98.4 F, OXYGEN SAT % 96%, NA INITIALS SC 11:44. EXAMINATION GENERAL EXAMINATION: GENERALNO ACUTE DISTRESS, WELL NOURISHED AND HYDRATED. PSYCHAPPROPRIATE MOOD AND AFFECT . LUNGS:CLEAR TO AUSCULTATION BILATERALLY, NO WHEEZES, RHONCHI, RALES. HEART:NO MURMURS, REGULAR RATE AND RHYTHM. ASSESSMENTS LUMBAR FACET ARTHROPATHY - M12.88 (PRIMARY) TREATMENT LUMBAR FACET ARTHROPATHY REFILL OXYCODONE-ACETAMINOPHEN TABLET, 10-325 MG, 1 TABLET NEEDED, ORALLY, Q6H PRN MDD4, 30 DAYS, 120, REFILLS 0 CLINICAL NOTES: 59-YEAR-OLD MALE IN FOR CHRONIC PAIN FOLLOW-UP. GIVEN PRESENTING SYMPTOMS AND RESULTS OF PHYSICAL EXAMINATION RECOMMENDED CONTINUATION OF CURRENT MEDICATION REGIMEN WITH FOLLOW-UP IN 3 MONTHS. DISCUSSED SHOULDER INJURY WITH PATIENT AND ENCOURAGED HIM TO SEEK TREATMENT AT URGENT CARE. PATIENT HAS EXPRESSED UNDERSTANDING OF AND WAS IN AGREEMENT WITH TREATMENT PLAN. GIVEN TIME TO ASK QUESTIONS AND EXPRESS CONCERNS., ISTOP REGISTRY REVIEWED AND DEMONSTRATES COMPLLIANCE. (REF # [id number] ) BRINGS IN MEDICATIONS WHICH IS APPROPRIATE FOR WHAT WAS DISPENSED. RECENT URINE TOXICOLOGY REVIEWED. NO UNAUTHORIZED MEDICATIONS. NO ILLICIT SUBSTANCES AND PRESCRIBED MEDICATIONS WERE PRESENT. PROCEDURE CODES FA211 ESTABILISHED PATIENT [facility] CHARGE DISPOSITION & COMMUNICATION FOLLOW UP 3 MONTHS (REASON: BACK PAIN) ELECTRONICALLY SIGNED BY OJ CEJA ON 09/09/2019 AT 01:13 PM EST DISCLAIMER : THIS IS A VISIT SUMMARY EXTRACTED FROM THE [employer] CHART. IT IS NOT A COPY OF THE [employer] PROGRESS NOTE. DEISI
== END ==
LOC: M PAIN 11:30
PROVIDERS: ATTEND Family Medicine
DX: M12.88 Other specific arthropathies, not elsewhere classified, other specified site (principal)

== ENCOUNTER → 2019-09-18 | Outpatient (CLI) | payer OTHER ==
[2019-09-18 11:46] LABS: BASO # 0.1 10^3/uL (0.0-0.2); BASO % 0.9 % (0.0-1.0); EOS # 0.1 10^3/uL (0.0-0.5); EOS % 1.3 % (0.0-3.0); HEMATOCRIT 61.6 % (42.0-52.0); HEMOGLOBIN 19.6 g/dl (13.5-17.5); LYMPH # 2.2 10^3/uL (1.5-5.0); LYMPH % 40.6 % (24.0-44.0); MEAN CORPUSCULAR HEMOGLOBIN 30.2 pg (27.0-33.0); MEAN CORPUSCULAR HGB CONC 31.8 g/dl (32.0-36.5); MEAN CORPUSCULAR VOLUME 94.8 fl (80.0-96.0); MONO # 0.4 10^3/uL (0.0-0.8); MONO % 6.4 % (0.0-5.0); NEUTROPHILS # 2.8 10^3/uL (1.5-8.5); NEUTROPHILS % 50.4 % (36.0-66.0); PLATELET COUNT, AUTOMATED 171 10^3/uL (150-450); WHITE BLOOD COUNT 5.5 10^3/uL (4.0-10.0)
[2019-09-18 12:16] LABS: ALBUMIN 4.2 GM/DL (3.2-5.2); ALT/SGPT 35 U/L (12-78); BILIRUBIN,DIRECT 0.2 MG/DL (0.0-0.2); BILIRUBIN,TOTAL 0.7 MG/DL (0.2-1.0); FERRITIN 104 NG/ML (26-388); IRON (FE) 187 UG/DL (65-175); TOTAL IRON BINDING CAPACITY 398 UG/DL (250-450); TOTAL PROTEIN 7.4 GM/DL (6.4-8.2)
[2019-09-19 08:30] LABS: H PYLORI QUALITATIVE IgG NEGATIVE (NEGATIVE)
[2019-09-20 00:07] LABS: IGASUB2 145.1 mg/dL (73.2-301.2); IgA SERUM (part of Subclasses) 190 mg/dL (90-386); TISSUE TRANSGLUTAMINASE IgA <2 U/mL (0-3)
== END ==
LOC: M LAB 11:05
PROVIDERS: ATTEND Internal Medicine Gastroenterology
DX: R10.12 Left upper quadrant pain (principal)

== ENCOUNTER 2019-10-21 09:52 | Emergency (ER) | payer OTHER ==
[~2019-10-21] VITALS: Ht 185.4 cm; Wt 110.0 kg
[2019-10-21 09:52] VITALS: BP 150/105
[2019-10-21] MEDS ORDERED: MORPHINE 4 MG/ML 1ML VIAL/SYRINGE (J2270) IM ONE (12:00)
[2019-10-21] MEDS ORDERED: diazePAM 5 MG TAB PO ONE (12:00)
== END 2019-10-21 14:16 | disposition home or self-care (01) ==
LOC: M ED 09:52
DX: G89.29 Other chronic pain (principal); M54.2 Cervicalgia; M54.5 Low back pain; I10 Essential (primary) hypertension; E78.5 Hyperlipidemia, unspecified; E03.9 Hypothyroidism, unspecified; J44.1 Chronic obstructive pulmonary disease with (acute) exacerbation; G47.33 Obstructive sleep apnea (adult) (pediatric); N40.1 Benign prostatic hyperplasia with lower urinary tract symptoms; F17.210 Nicotine dependence, cigarettes, uncomplicated; Z88.6 Allergy status to analgesic agent; Z88.8 Allergy status to other drugs, medicaments and biological substances; Z79.51 Long term (current) use of inhaled steroids; Z79.82 Long term (current) use of aspirin; Z79.899 Other long term (current) drug therapy
CPT/HCPCS: 96372; 99282; J2270

== ENCOUNTER → 2019-10-21 | Outpatient (CLI) | payer OTHER ==
[~2019-10-21] MED LIST changes: +ALBU8.5H INH; -OXYC10TA3 OR; +OXYC10TA3 PO; +VITA50005 PO
[2019-10-21 08:47] LABS: BASO # 0.1 10^3/uL (0.0-0.2); EOS # 0.1 10^3/uL (0.0-0.5); EOS % 1.9 % (0.0-3.0); HEMATOCRIT 58.8 % (42.0-52.0); HEMOGLOBIN 19.1 g/dl (13.5-17.5); LYMPH % 41.5 % (24.0-44.0); MEAN CORPUSCULAR HEMOGLOBIN 29.6 pg (27.0-33.0); MEAN CORPUSCULAR HGB CONC 32.5 g/dl (32.0-36.5); MEAN CORPUSCULAR VOLUME 91.2 fl (80.0-96.0); MONO # 0.3 10^3/uL (0.0-0.8); MONO % 6.7 % (0.0-5.0); NEUTROPHILS # 2.3 10^3/uL (1.5-8.5); NEUTROPHILS % 48.5 % (36.0-66.0); PLATELET COUNT, AUTOMATED 169 10^3/uL (150-450); RED BLOOD COUNT 6.45 10^6/uL (4.30-6.10); WHITE BLOOD COUNT 4.8 10^3/uL (4.0-10.0)
[2019-10-21 09:13] LABS: PERCENT SATURATION 41.4 % (19.7-50.0)
[2019-10-21 09:37] LABS: FOLATE 11.8 NG/ML
== END ==
LOC: M LAB 07:28
PROVIDERS: ATTEND Internal Medicine Gastroenterology
DX: D75.1 Secondary polycythemia (principal)

== ENCOUNTER → 2019-10-21 | Outpatient (CLI) | payer OTHER ==
[2019-10-21 08:46] LABS: BASO # 0.1 10^3/uL (0.0-0.2); EOS # 0.1 10^3/uL (0.0-0.5); EOS % 2.2 % (0.0-3.0); HEMATOCRIT 57.1 % (42.0-52.0); LYMPH % 40.9 % (24.0-44.0); MEAN CORPUSCULAR HEMOGLOBIN 30.5 pg (27.0-33.0); MEAN CORPUSCULAR HGB CONC 33.3 g/dl (32.0-36.5); MEAN CORPUSCULAR VOLUME 91.8 fl (80.0-96.0); MONO # 0.3 10^3/uL (0.0-0.8); MONO % 6.7 % (0.0-5.0); NEUTROPHILS # 2.4 10^3/uL (1.5-8.5); PLATELET COUNT, AUTOMATED 161 10^3/uL (150-450); RED BLOOD COUNT 6.22 10^6/uL (4.30-6.10); WHITE BLOOD COUNT 4.9 10^3/uL (4.0-10.0)
[2019-10-21 09:18] LABS: ALBUMIN 4.2 GM/DL (3.2-5.2); ALT/SGPT 34 U/L (12-78); AMYLASE 108 U/L (25-115); BILIRUBIN,TOTAL 0.4 MG/DL (0.2-1.0); BLOOD UREA NITROGEN 12 MG/DL (7-18); CALCIUM LEVEL 8.9 MG/DL (8.5-10.1); CARBON DIOXIDE LEVEL 24 MEQ/L (21-32); CHLORIDE LEVEL 113 MEQ/L (98-107); CHOLESTEROL LEVEL 215 MG/DL (<200); CHOLESTEROL RISK RATIO 4.673 (<5); FREE T4 0.93 NG/DL (0.76-1.46); GLOMERULAR FILTRATION RATE > 60.0 (>56); GLUCOSE, FASTING 112 MG/DL (70-100); HDL CHOLESTEROL 46 MG/DL (>40); LDL CHOLESTEROL 135 MG/DL (<100); LIPASE 451 U/L (73-393); NON-HDL-C 169 MG/DL; POTASSIUM SERUM 4.4 MEQ/L (3.5-5.1); SODIUM LEVEL 143 MEQ/L (136-145); TOTAL PROTEIN 7.1 GM/DL (6.4-8.2); TRIGLYCERIDES LEVEL 172 MG/DL (<150)
[2019-10-21 09:23] LABS: TOTAL 25(OH) VITAMIN D 54.4 NG/ML (30.0-100.0)
== END ==
LOC: M LAB 07:31
PROVIDERS: ATTEND Physician Assistant
DX: K85.90 Acute pancreatitis without necrosis or infection, unspecified (principal); E78.2 Mixed hyperlipidemia; E03.9 Hypothyroidism, unspecified; E55.9 Vitamin D deficiency, unspecified

== ENCOUNTER → 2019-10-21 | Outpatient (CLI) | payer OTHER ==
--- NOTE | 2019-10-21 09:54 | REP ---
CERVICAL SPINE SERIES: Four views. HISTORY: Neck pain. Comparison cervical spine radiographs September 28, 2017. FINDINGS: The patient is status post ventral discectomy and fusion plating across the C3 through C5 level. There is a separate fusion device in place across the C5-6 level. There is a ventral discectomy fusion plate across the C6-7 disc. Minimal narrowing of the C2-3 disc space is seen anteriorly. There is straightening of the normal cervical lordosis. No malalignment. There is minimal osteoarthritic facet hypertrophy in the cervical spine on the AP radiograph. Open-mouth odontoid view is unremarkable. IMPRESSION: Status post cervical spine fusion hardware C3-C7. Straightening. Osteoarthritic facet changes as noted on October 17, 2017. Electronically Signed by Fausto Yeung MD 10/21/2019 03:49 P
--- NOTE | 2019-10-21 11:37 | REP ---
MRI LUMBAR SPINE WITHOUT CONTRAST: HISTORY: Low back pain. Comparison CT study lumbar spine April 18, 2018. Comparison MRI study of the lumbar spine is from September 14, 2017. TECHNIQUE: Sagittal and axial T1- and T2-weighted scans are acquired in the usual fashion with and without fat saturation. Sequences include spin echo, turbo spin echo, and STIR imaging sequences. MRI FINDINGS: There is some straightening. Lumbar vertebral body heights are preserved. The tip of the conus medullaris is normal in position and appearance at L1. There are degenerative disc changes as before. Axial and sagittal images at the L1-L2 level demonstrate diffuse disc bulging. The canal is mildly narrowed developmentally at this level. Disc bulging is unchanged from the September 14, 2017 study. L2-L3, there is mild central canal stenosis as well again noted due to developmentally short pedicles in combination with mild ligamentum flavum hypertrophy. At L3-4, there is central canal narrowing due to developmentally short pedicles along with mild ligamentum flavum hypertrophy. There is a right foraminal disc protrusion at L3-4 which is a new finding compared to the September 16, 2017 prior study. At L4-L5, there is mild diffuse disc bulging. There is mild central canal stenosis due to developmentally short pedicles with ligamentum flavum and facet hypertrophy. The L4-5 disc level is unchanged. At L5-S1, there is a left foraminal disc protrusion which is felt to be unchanged from the comparison study September 14, 2017. There is facet hypertrophy and mild ligamentum flavum hypertrophy bilaterally. IMPRESSION: 1. Left foraminal disc protrusion at L5-S1 unchanged from September 14, 2017.2. Right foraminal focal disc protrusion L3-4, new since the prior study. 3. Mild developmental central canal stenosis at the each level in the lumbar spine L1-2 through L4-5. This is unchanged. Electronically Signed by Fausto Yeung MD 10/21/2019 03:52 P
== END ==
LOC: M RAD 08:00
PROVIDERS: ATTEND Physician Assistant
DX: M51.27 Other intervertebral disc displacement, lumbosacral region (principal); M51.26 Other intervertebral disc displacement, lumbar region; M48.061 Spinal stenosis, lumbar region without neurogenic claudication; M43.22 Fusion of spine, cervical region

== ENCOUNTER 2019-10-29 09:29 | Day surgery (SDC) | payer OTHER ==
[~2019-10-29] VITALS: Ht 185.4 cm; Wt 100.7 kg
[~2019-10-29 09:29] MED LIST changes: +LIDOCAINE 2% INJ 100 MG/5 ML SDV (FOR ANES.) As Ordered ONE; +NS 1,000 ML IV ONE; +propofoL 200 MG/20 ML VIAL As Ordered ONE
[2019-10-29] MEDS ORDERED: fentaNYL 100 MCG/2 ML INJECTION (J3010) As Ordered ONE (10:57)
[2019-10-29] MEDS ORDERED: propofoL 200 MG/20 ML VIAL As Ordered ONE (11:23)
--- NOTE | 2019-10-29 11:46 | ROOR ---
Patient Name: Yosef Murray Procedure Date: 10/29/2019 10:52 AM Date of : 1960 Age: 59 Room: [facility] Gender: Male Note Status: Finalized Procedure: Upper GI endoscopy Indications: Abdominal pain in the left upper quadrant, Dyspepsia Providers: Adrian Rodriguez MD Referring MD: BENNY Mckeon Pa-c Requesting Provider: Medicines: Monitored Anesthesia Care Complications: No immediate complications. Procedure: Pre-Anesthesia Assessment: - Prior to the procedure, a History and Physical was performed, and patient medications and allergies were reviewed. The patient is competent. The risks and benefits of the procedure and the sedation options and risks were discussed with the patient. All questions were answered and informed consent was obtained. Patient identification and proposed procedure were verified by the physician, the nurse and the anesthesiologist in the procedure room. Mental Status Examination: alert and oriented. Airway Examination: normal oropharyngeal airway and neck mobility. Respiratory Examination: clear to auscultation. CV Examination: normal. Prophylactic Antibiotics: The patient does not require prophylactic antibiotics. Prior Anticoagulants: The patient has taken no previous anticoagulant or antiplatelet agents. ASA Grade Assessment: II - A patient with mild systemic disease. After reviewing the risks and benefits, the patient was deemed in satisfactory condition to undergo the procedure. The anesthesia plan was to use monitored anesthesia care (MAC). Immediately prior to administration of medications, the patient was re-assessed for adequacy to receive sedatives. The heart rate, respiratory rate, oxygen saturations, blood pressure, adequacy of pulmonary ventilation, and response to care were monitored throughout the procedure. The physical status of the patient was re-assessed after the procedure. The Endoscope was introduced through the mouth, and advanced to the second part of duodenum. The upper GI endoscopy was accomplished without difficulty. The patient tolerated the procedure well. Findings: The Z-line was irregular and was found in the distal esophagus. The examined esophagus was normal. Scattered moderate inflammation characterized by erosions, erythema, friability and granularity was found in the gastric antrum. Biopsies were taken with a cold forceps for Helicobacter pylori testing. Verification of patient identification for the specimen was done by the physician and nurse using the patient's name, date and medical record number. Estimated blood loss was minimal. One 12 mm sessile polyp with no stigmata of recent bleeding was found in the gastric body. Biopsies were taken with a cold forceps for histology. For hemostasis, one hemostatic clip was successfully placed. There was no bleeding at the end of the procedure. Scattered moderate inflammation characterized by congestion (edema), erosions and erythema was found in the duodenal bulb and in the second portion of the duodenum. Biopsies for histology were taken with a cold forceps for evaluation of celiac disease. Impression: - Z-line irregular, in the distal esophagus. - Normal esophagus. - Gastritis. Biopsied. - One gastric polyp. Biopsied. Clip was placed. - Duodenitis. Biopsied. Recommendation: - Patient has a contact number available for emergencies. The signs and symptoms of potential delayed complications were discussed with the patient. Return to normal activities tomorrow. Written discharge instructions were provided to the patient. - Resume previous diet. - Continue present medications. - Use Protonix (pantoprazole) 40 mg PO twice daily - to be taken in morning (1/2 hour before breakfast) and at bedtime ( atleast 3 hours after last meal) for 8 weeks. - Await pathology results. - Telephone GI clinic for pathology results in 1 week. - Return to primary care physician. Adrian Rodriguez MD Adrian Rodriguez MD 10/29/2019 11:46:30 AM Electronically signed by Adrian Rodriguez MD Number of Addenda: 0 Note Initiated On: 10/29/2019 10:52 AM Estimated Blood Loss: Estimated blood loss: none.
[2019-10-29 11:50] VITALS: BP 160/106
--- NOTE | 2019-10-29 12:06 | ROOR ---
Patient Name: Yosef Murray Procedure Date: 10/29/2019 10:53 AM Date of : 1960 Age: 59 Room: [facility] Gender: Male Note Status: Finalized Procedure: Colonoscopy Indications: Screening for colorectal malignant neoplasm Providers: Adrian Rodriguez MD Referring MD: BENNY Mckeon Pa-c Requesting Provider: Medicines: Monitored Anesthesia Care Complications: No immediate complications. Procedure: Pre-Anesthesia Assessment: - Prior to the procedure, a History and Physical was performed, and patient medications and allergies were reviewed. The patient is competent. The risks and benefits of the procedure and the sedation options and risks were discussed with the patient. All questions were answered and informed consent was obtained. Patient identification and proposed procedure were verified by the physician, the nurse and the anesthesiologist in the procedure room. Mental Status Examination: alert and oriented. Airway Examination: normal oropharyngeal airway and neck mobility. Respiratory Examination: clear to auscultation. CV Examination: normal. Prophylactic Antibiotics: The patient does not require prophylactic antibiotics. Prior Anticoagulants: The patient has taken no previous anticoagulant or antiplatelet agents. ASA Grade Assessment: III - A patient with severe systemic disease. After reviewing the risks and benefits, the patient was deemed in satisfactory condition to undergo the procedure. The anesthesia plan was to use monitored anesthesia care (MAC). Immediately prior to administration of medications, the patient was re-assessed for adequacy to receive sedatives. The heart rate, respiratory rate, oxygen saturations, blood pressure, adequacy of pulmonary ventilation, and response to care were monitored throughout the procedure. The physical status of the patient was re-assessed after the procedure. The Colonoscope was introduced through the anus and advanced to the terminal ileum, with identification of the appendiceal orifice and IC valve. The colonoscopy was performed without difficulty. The patient tolerated the procedure well. The quality of the bowel preparation was good. The terminal ileum, ileocecal valve, appendiceal orifice, and rectum were photographed. Scope insertion time was 3 minutes. Scope withdrawal time was 9 minutes. The total duration of the procedure was 12 minutes. Findings: The perianal and digital rectal examinations were normal. The terminal ileum appeared normal. Two sessile polyps were found in the transverse colon and cecum. The polyps were 3 to 4 mm in size. These polyps were removed with a cold biopsy forceps. Resection and retrieval were complete. Verification of patient identification for the specimen was done by the physician and nurse using the patient's name, date and medical record number. Estimated blood loss was minimal. A 8 mm polyp was found in the rectum. The polyp was sessile. The polyp was removed with a cold snare. Resection and retrieval were complete. Multiple small and large-mouthed diverticula were found from sigmoid to descending colon. There was no evidence of diverticular bleeding. Non-bleeding external and internal hemorrhoids were found during retroflexion. The hemorrhoids were medium-sized. Impression: - The examined portion of the ileum was normal. - Two 3 to 4 mm polyps in the transverse colon and in the cecum, removed with a cold biopsy forceps. Resected and retrieved. - One 8 mm polyp in the rectum, removed with a cold snare. Resected and retrieved. - Moderate diverticulosis from sigmoid to descending colon. There was no evidence of diverticular bleeding. - Non-bleeding external and internal hemorrhoids. Recommendation: - Patient has a contact number available for emergencies. The signs and symptoms of potential delayed complications were discussed with the patient. Return to normal activities tomorrow. Written discharge instructions were provided to the patient. - High fiber diet. - Continue present medications. - Recommend an analgesic - resume home medications -Oxycodone, Soma and gabapentin. - Recommend an analgesic - topical capsiacin cream for pain. - Await pathology results. - Repeat colonoscopy in 3 - 5 years for surveillance based on pathology results. - Return to GI clinic 1 - 2 weeks if persistent symptoms. Please call GI clinic @ [phone] for apppointment date and time. - Return to primary care physician. Adrian Rodriguez MD Adrian Rodriguez MD 10/29/2019 12:06:34 PM Electronically signed by Adrian Rodriguez MD Number of Addenda: 0 Note Initiated On: 10/29/2019 10:53 AM Estimated Blood Loss: Estimated blood loss was minimal.
== END 2019-10-29 12:30 | disposition home or self-care (01) ==
LOC: M OPP 09:29
PROVIDERS: ATTEND Internal Medicine Gastroenterology
DX: Z12.11 Encounter for screening for malignant neoplasm of colon (principal); K64.8 Other hemorrhoids; K62.1 Rectal polyp; K57.30 Diverticulosis of large intestine without perforation or abscess without bleeding; D12.3 Benign neoplasm of transverse colon; D12.0 Benign neoplasm of cecum; K22.8 Other specified diseases of esophagus; K29.70 Gastritis, unspecified, without bleeding; K31.7 Polyp of stomach and duodenum; K29.80 Duodenitis without bleeding; R10.12 Left upper quadrant pain; F17.210 Nicotine dependence, cigarettes, uncomplicated; Z79.82 Long term (current) use of aspirin; Z79.891 Long term (current) use of opiate analgesic; Z79.899 Other long term (current) drug therapy; Z88.6 Allergy status to analgesic agent; Z88.8 Allergy status to other drugs, medicaments and biological substances
CPT/HCPCS: 43239; 45380; 45385; 88305; J3010

== ENCOUNTER → 2019-12-27 | Outpatient (CLI) | payer OTHER ==
[~2019-12-27] MED LIST changes: -LIDOCAINE 2% INJ 100 MG/5 ML SDV (FOR ANES.) As Ordered ONE; -NS 1,000 ML IV ONE; -propofoL 200 MG/20 ML VIAL As Ordered ONE
--- NOTE | 2019-12-31 03:44 | ECWPNPC ---
PATIENT NAME: JAKOB ARGUELLES : 1960 GENDER: MALE VISIT DATE: 12/27/2019 DISCHARGE DATE: 12/27/19 1128 VISIT LOCKED DATE TIME: PHYSICIAN: KIKE BRITO RESOURCE: KIKE BRITO REASON FOR APPOINTMENT 1. BACK PAIN HISTORY OF PRESENT ILLNESS HISTORY OF PRESENT ILLNESS: PAIN THE PATIENT DESCRIBES THE PAIN... PERMISSION REQUESTED AND RECEIVED FROM PATIENT TO PERFORM TELEPHONE VISIT. 59-YEAR-OLD MALE PATIENT IN FOR CHRONIC PAIN FOLLOW-UP. HE RATES HIS PAIN CURRENTLY AT AN 8 OUT OF 10 AND DESCRIBES IT THROBBING AND SHOOTING. HE FEELS THE MEDICATIONS ARE HELPFUL AND DENIES MED SIDE EFFECTS AT THIS TIME. HE DOES ADMIT TO INCREASED PAIN AND STATES THE GABAPENTIN HAS BEEN HELPFUL IN DECREASING SYMPTOMS AND IS QUESTIONING IF AN INCREASE IN GABAPENTIN WOULD BE BENEFICIAL. HE ADMITS TO A RECENT MRI AND STATES THEY DISCOVERED PROBLEMS WITH L3 AND L4. PATIENT IS BEING FOLLOWED BY A SPINAL SURGEON IN [place] HOWEVER HE HAS NOT BEEN ABLE TO SEE THIS PERSON FOR A FOLLOW-UP APPOINTMENT GIVEN THE RECENT COVID CRISIS. FALL RISK SCREENING: SCREENING :NO FALLS REPORTED IN THE LAST YEAR CURRENT MEDICATIONS TAKING ROSUVASTATIN CALCIUM 40 MG TABLET 1 TABLET ORALLY ONCE A DAY TAKING SPACER/AERO CHAMBER MOUTHPIECE - MISCELLANEOUS DIRECTED - - TAKING FLOMAX 0.4 MG CAPSULE 1 CAP ORALLY DAILY TAKING ASPIR-81 1 TABLET ORAL DAILY TAKING WELLBUTRIN SR 150 MG TABLET EXTENDED RELEASE 12 HOUR 1 TABLET IN THE MORNING ORALLY ONCE A DAY TAKING DRISDOL 1.25 MG (90390 UT) CAPSULE 1 CAPSULE ORALLY WEEKLY TAKING TRAZODONE HCL 100 MG TABLET TAKE TWO TABLETS BY MOUTH @8PM TAKING CETIRIZINE HCL 10 MG TABLET TAKE ONE TABLET BY MOUTH ONCE DAILY ORALLY DAILY TAKING DULOXETINE HCL 60 MG CAPSULE DELAYED RELEASE PARTICLES 1 BY MOUTH EVERY DAY TAKING GABAPENTIN 600 MG TABLET 1 CAPSULE ORALLY THREE TIMES A DAY TAKING ROPINIROLE HCL 3 MG TABLET TAKE ONE TABLET BY MOUTH @8AM AND TAKE ONE TABLET BY MOUTH @8PM , NOTES: FOR RLS TAKING NAPROXEN 500 MG TABLET 1 TABLET WITH FOOD OR MILK NEEDED; PT IS NOT ALLERGIC HE TAKES THIS PERIODICALLY. ORALLY EVERY 12 HRS TAKING ARNUITY ELLIPTA 100 MCG/ACT AEROSOL POWDER BREATH ACTIVATED 1 PUFF INHALATION ONCE A DAY TAKING NICODERM CQ 14 MG/24HR PATCH 24 HOUR 1 PATCH TO SKIN TRANSDERMAL ONCE A DAY TAKING VENTOLIN HFA 108 (90 BASE) MCG/ACT AEROSOL SOLUTION 2 PUFFS NEEDED INHALATION EVERY 4 HRS TAKING FLUTICASONE PROPIONATE 50 MCG/ACT SUSPENSION 1 SPRAY IN EACH NOSTRIL NASALLY ONCE A DAY TAKING NYSTATIN 455785 UNIT/ML SUSPENSION 4 ML MOUTH/THROAT FOUR TIMES A DAY TAKING OXYCODONE-ACETAMINOPHEN 10-325 MG TABLET 1 TABLET NEEDED ORALLY EVERY 6 HRS MDD 4 TAKING CARISOPRODOL 350 MG TABLET 1 TABLET NEEDED ORALLY THREE TIMES DAILY PRN SPASM MDD=3 NOT-TAKING TIZANIDINE HCL 4 MG TABLET 1/2-1 TABLET ORALLY THREE TIMES DAILY MEDICATION LIST REVIEWED AND RECONCILED WITH THE PATIENT PAST MEDICAL HISTORY CERVICAL RADICULOPOTHY SHOULDER PAIN NEPHROLITHIASIS RESTLESS LEG SYNDROME MIXED HYPERLIPIDEMIA CHRONIC SINUSITIS KIDNEY STONES HTN BULGING DISC LOW BACK RLS ESSENTIAL HYPERTENSION VITAMIN D DEFICIENCY COPD ALLERGIES MOTRIN: HIVES, VOMIT - SIDE EFFECTS PREDNISONE: SYNCOPE, ARM NUMBNESS - SIDE EFFECTS SURGICAL HISTORY HERNIA X4 SCHEDULED FOR HERNIA 12/16/2011 CERVICAL LAMINECTOMY CERVICAL NECK-[address] LEFT SEBACEOUS CYST REMOVAL DR. PUCKETT, ENT 03/2016 FUSION OF NECK 03/20/17 LEFT SHOULDER SURGERY 01/2018 HERNIA SURGERY 2017 RIGHT TESTICULAR CYST REMOVED 02/2019 FAMILY HISTORY FATHER: , HTN,DM MOTHER: , HTN,DM SIBLINGS: ALIVE, 1 BROTHER HAS PROSTATE CA SON(S): ALIVE DAUGHTER(S): 31 YRS, AT AGE 31 YO DUE TO HEART FAILURE 4 BROTHER(S) , 2 SISTER(S) - HEALTHY. 1 SON(S) , 2 DAUGHTER(S) - HEALTHY. BROTHER AFTER RECENT REPAIR OF PUD AGE 53MOTHER/BROTHER/2 SISTERS DIABETIESBROTHER HAS PROSTATE CANCER. SOCIAL HISTORY GENERAL: TOBACCO USE ARE YOU A:CURRENT SMOKER ARE YOU INTERESTED IN QUITTING?READY TO QUIT PREVIOUS QUIT ATTEMPTS?YES, WITHIN THE LAST 6 MONTHS. COUNSELED THE PATIENT ON TOBACCO USE, CESSATION [id number]/30/2020 HOW MANY CIGARETTES A DAY DO YOU SMOKE?6-10 HOW SOON AFTER YOU WAKE UP DO YOU SMOKE YOUR FIRST CIGARETTE?6-30 MIN HOW OFTEN DO YOU SMOKE CIGARETTES?EVERY DAY PATIENT COUNSELED ON THE DANGERS OF TOBACCO USE AND URGED TO QUIT:11/04/2019 SMOKING CESSATION INFORMATION GIVEN DECLINED LATEX QUESTIONNAIRE LATEX ALLERGY : HAVE YOU EVER DEVELOPED ANY TYPE OF REACTION AFTER HANDLING LATEX PRODUCTS SUCH RUBBER GLOVES, CONDOMS, DIAPHRAGMS, BALLOONS, SOCKS, OR UNDERWEAR?NO LATEX ALLERGY : HAVE YOU EVER DEVELOPED ANY TYPE OF REACTION DURING OR AFTER DENTAL APPOINTMENT, VAGINAL/RECTAL EXAMINATION, SURGICAL PROCEDURE, OR ANY OTHER EXPOSURE?NO DATE ASKED : 07/05/2019 LATEX RISK : HAVE YOU EVER HAD ANY DIFFICULTY BREATHING OR HIVES AFTER EATING OR HANDLING ANY FRUITS, OR VEGETABLES; SUCH KIWI, BANANAS, STONE FRUITS, OR CHESTNUTSNO LATEX RISK : DO YOU HAVE A PREVIOUS PERSONAL HISTORY OF MORE THAN NINE SURGERIES, SPINA BIFIDA, OR REPEATED CATHERIZATIONS? NO LATEX RISK : ARE YOU FREQUENTLY EXPOSED TO LATEX PRODUCTS IN YOUR OCCUPATION?NO LUNG CANCER SCREENING SMOKING STATUS:CURRENT SMOKER IS THE PATIENT BETWEEN THE AGE OF 55 AND 77?YES HAS THE PATIENT EVER BEEN DIAGNOSED WITH LUNG CANCER?NO PACK YEARS = NUMBER OF PACKS PER DAY SMOKED X NUMBER OF YEARS SMOKED:40 CREATE REFERRAL:CREATED REFERRAL TO ONCOLOGY NURSE NAVIGTOR FOR LDCT SCAN BMI CARE GOAL FOLLOW-UP ABOVE NORMAL BMI FOLLOW-UPLIFESTYLE EDUCATION REGARDING DIET ALCOHOL SCREENING DID YOU HAVE A DRINK CONTAINING ALCOHOL IN THE PAST YEAR?YES HOW OFTEN DID YOU HAVE SIX OR MORE DRINKS ON ONE OCCASION IN THE PAST YEAR?NEVER (0 POINTS) HOW MANY DRINKS DID YOU HAVE ON A TYPICAL DAY WHEN YOU WERE DRINKING IN THE PAST YEAR?1 OR 2 (0 POINTS) HOW OFTEN DID YOU HAVE A DRINK CONTAINING ALCOHOL IN THE PAST YEAR?MONTHLY OR LESS (1 POINT) POINTS1 INTERPRETATIONNEGATIVE RECREATIONAL DRUG USE DRUG USE?NO CAFFEINE CAFFEINE USE?YES HOW OFTEN AND HOW MUCH? 2-3/DAY OCCASIONALLY SEXUAL HX HAD SEX IN THE LAST 12 MONTHS (VAGINAL, ORAL, OR ANAL)?YES WITHWOMEN ONLY USE PROTECTION?NO LMP:N/A HAVE YOU EVER HAD AN STD?NO HIV / HEP-C SCREENING HIV TEST OFFERED TO PATIENT:NO HEP-C TEST OFFERED TO PATIENT:NO LATTER DAY [id number] OTHER NAZARENE LANGUAGE HUNGARIAN. EDUCATION LEVEL OF EDUCATION:HIGH SCHOOL LEARNING BARRIERS / SPECIAL NEEDS CHANGE FROM LAST VISIT?NO BARRIERS TO LEARNING?YES COMMENTS STATES HE CAN'T READ WELL HEARING IMPAIRED?YES VISION IMPAIRED?YES COGNITIVELY IMPAIRED?YES STATES SOMETIMES HE DOESN'T COMPREHEND WHAT PEOPLE ARE TELLING HIM : NO HEARING AIDS : NEEDS TO GET NEW GLASSES--LOST HIS 3 YRS AGO READINESS TO LEARN?YES LEARNING PREFERENCES?YES :DEMONSTRATION/VERBAL INSTRUCTION LEARNING CAPABILITIES PRESENT?YES EMOTIONAL BARRIERS?NO SPECIAL DEVICES?YES :CANE BIOFUELS TECHNOLOGY MANAGER NEEDED?NO DOMESTIC VIOLENCE DO YOU FEEL SAFE IN YOUR ENVIRONMENT?YES OCCUPATION: DISABLED. DIET: REGULAR. EXERCISE: NO REGULAR EXERCISE. MARITAL STATUS: . NEW PATIENT PAIN DIARY TODAY'S VISIT 12/26/19 PATIENT DESCRIBES PAIN :HAVE IT ALL THE TIME, SHARP, STABBING FROM 0-10, WHAT LEVEL IS YOUR PAIN TODAY?8 PRECIPITATING FACTORS ACTIVITY ALLEVIATING FACTORS MEDS IMPACT ON FUNCTION YES PAIN CLINIC PFS, CLERGY, PUBLIC HEALTH REFERRALS PFS REFERRAL NEEDED?NO CLERGY REFERRAL NEEDED?NO PUBLIC HEALTH REFERRAL NEEDED?NO HAS THE PATIENT BEEN EDUCATED REGARDING HIS/HER PLAN OF CARE?YES HAS THE PATIENT BEEN EDUCATED REGARDING PAIN, THE RISK FOR PAIN, THE IMPORTANCE OF EFFECTIVE PAIN MANAGEMENT, AND THE PAIN ASSESSMENT PROCESS?YES ADVANCE DIRECTIVE ADVANCE DIRECTIVE DISCUSSED WITH PATIENT:YES HCP - RONY () REVIEWED WITH PATIENT 06/13/18 8175 JS. HOSPITALIZATION/MAJOR DIAGNOSTIC PROCEDURE SURGERY RELATED CELLULITIS [facility]- STRAIN OF MUSCLE, FASCIA AND TENDON AT NECK LEVEL- LEFT RHOMBOID MUSCLE SPASM 04/08/2016 [facility]: INTRACTABLE BACK PAIN 03/2017 LOSS OF CONCIOUSNESS X 2 2019 REVIEW OF SYSTEMS REVIEWED BY: PROVIDER: MARIELY MCWILLIAMS-Jai . CONSTITUTIONAL: ANY CHANGE IN YOUR MEDICAL CONDITION? NO . CHILLS NO . FEVER NO . INFECTION: DO YOU HAVE NEW INFECTIONS? NO . DO YOU HAVE HISTORY OF MRSA? NO . MUSCULOSKELETAL: ANY NEW PATTERNS OF PAIN OR NUMBNESS? YES, PT HELPED SON HOLD BOAT ENGINE FOR REPAIR LAST WEEK AND SINCE THEN BACK PAIN IS WORSE . GASTROENTEROLOGY: ANY NEW CHANGE IN BOWEL CONTROL? NO . GENITOURINARY: ANY NEW CHANGE IN BLADDER CONTROL? NO . IS THERE A CHANCE YOU COULD BE ? NO . HEMATOLOGY/LYMPH: DO YOU TAKE ANY BLOOD THINNERS? (FOR EXAMPLE- COUMADIN, PLAVIX, AGGRENOX, PLATEL, PRADAXA, OR XARELTO) NO . WHEN WAS YOUR LAST DOSE? DATE: TIME: . NEUROLOGY: HAVE YOU FALLEN IN THE PAST 12 MONTHS? NO . ANY NEW EXTREMITY NUMBNESS OR WEAKNESS? NO . CARDIOLOGY: DO YOU HAVE A PACEMAKER OR DEFIBRILLATOR? NO . RESPIRATORY: HAVE YOU BEEN SICK IN THE PAST WEEK? YES, PT FELT LIKE HE HAD PNEUMONIA X 2 DAYS, RESOLVED 12/18/19 . FEVER NO . FLU LIKE SYMPTOMS? NO . COUGH NO . INTEGUMENTARY: DO YOU HAVE ANY RASHES OR OPEN SORES? NO . ALLERGIC/IMMUNO: ARE YOU ALLERGIC TO IV DYE? NO . ANY NEW ALLERGIES? NO . PSYCHIATRIC: DO YOU HAVE THOUGHTS OF HURTING YOURSELF OR SOMEONE ELSE? NO . ARE YOU ABUSED, NEGLECTED, OR IN AN UNSAFE ENVIRONMENT? NO . ENDOCRINOLOGY: ARE YOU DIABETIC? NO . OTHER: DO YOU NEED ANY PRESCRIPTIONS? NO . IF YES, PLEASE LIST: ____ . ANY NEW PROBLEMS WITH YOUR MEDICATIONS? NO . WHEN DID YOU LAST EAT? ____ . WHEN DID YOU LAST DRINK? ____ . WHAT DID YOU LAST DRINK? ____ . NAME OF PERSON DRIVING YOU HOME? ____ . DO YOU HAVE ANY OTHER QUESTIONS OR CONCERNS NO . EXAMINATION GENERAL EXAMINATION: PSYCHAPPROPRIATE MOOD AND AFFECT , ORIENTED TO PERSON. ASSESSMENTS LUMBAR FACET ARTHROPATHY - M12.88 (PRIMARY) TREATMENT LUMBAR FACET ARTHROPATHY REFILL CARISOPRODOL TABLET, 350 MG, 1 TABLET NEEDED, ORALLY, THREE TIMES DAILY PRN SPASM MDD=3, 28 DAYS, 84, REFILLS 1 CLINICAL NOTES: 59-YEAR-OLD MALE IN FOR CHRONIC PAIN FOLLOW-UP. GIVEN PRESENTING SYMPTOMS RECOMMEND INCREASING GABAPENTIN TO 800 MG 3 TIMES A DAY. MESSAGE WAS SENT TO PATIENT'S PCP WITH REGARDS TO INCREASING GABAPENTIN AND THEIR THOUGHTS ON IT. PATIENT WAS ENCOURAGED TO CALL THE SPINAL SURGEONS OFFICE TO SEE WHEN HE CAN GET IN GIVEN HIS PAIN EXACERBATION AND RECENT MRI RESULTS. PATIENT HAS EXPRESSED UNDERSTANDING OF AND WAS IN AGREEMENT WITH TREATMENT PLAN. GIVEN TIME TO ASK QUESTIONS AND EXPRESS CONCERNS. ISTOP REGISTRY REVIEWED AND DEMONSTRATES COMPLLIANCE. (REF #[id number] ) BRINGS IN MEDICATIONS WHICH IS APPROPRIATE FOR WHAT WAS DISPENSED. RECENT URINE TOXICOLOGY REVIEWED. NO UNAUTHORIZED MEDICATIONS. NO ILLICIT SUBSTANCES AND PRESCRIBED MEDICATIONS WERE PRESENT. , VISIT TO BE BILLED BASED ON TIME SPENT WITH PATIENT. TIME SPENT WITH PATIENT 11 MINUTES. DISPOSITION & COMMUNICATION FOLLOW UP 3 MONTHS (REASON: BACK PAIN) ELECTRONICALLY SIGNED BY OJ CEJA ON 12/30/2019 AT 02:21 PM EDT DISCLAIMER : THIS IS A VISIT SUMMARY EXTRACTED FROM THE [employer] CHART. IT IS NOT A COPY OF THE [employer] PROGRESS NOTE. DEISI
== END ==
LOC: M PAIN 10:15
PROVIDERS: ATTEND Family Medicine
DX: M12.88 Other specific arthropathies, not elsewhere classified, other specified site (principal); G89.29 Other chronic pain; G25.81 Restless legs syndrome; I10 Essential (primary) hypertension; E55.9 Vitamin D deficiency, unspecified; J44.9 Chronic obstructive pulmonary disease, unspecified; F17.210 Nicotine dependence, cigarettes, uncomplicated; Z88.6 Allergy status to analgesic agent; Z88.8 Allergy status to other drugs, medicaments and biological substances; Z79.82 Long term (current) use of aspirin; Z79.51 Long term (current) use of inhaled steroids; Z79.899 Other long term (current) drug therapy

== ENCOUNTER → 2020-01-09 | Outpatient (CLI) | payer OTHER | LOC: M LAB 12:41 | PROVIDERS: ATTEND Physician Assistant | DX: N40.1 Benign prostatic hyperplasia with lower urinary tract symptoms (principal) ==

== ENCOUNTER → 2020-03-30 | Outpatient (CLI) | payer OTHER ==
[~2020-03-30] MED LIST changes: -ALL10TAB29 PO; +AMLO1TAB24 PO; -AMLO5TAB6 PO; +ASPI81CH33 PO; -ASPI81TA85 PO; +ASPI81TA86 PO; +CETI-24 PO
== END ==
LOC: M PAIN 08:30
PROVIDERS: ATTEND Family Medicine
DX: M12.88 Other specific arthropathies, not elsewhere classified, other specified site (principal)

== ENCOUNTER → 2020-06-02 | Outpatient (CLI) | payer OTHER ==
[2020-06-02 13:44] LABS: ALBUMIN 3.9 GM/DL (3.2-5.2); ALT/SGPT 24 U/L (12-78); BILIRUBIN,TOTAL 0.4 MG/DL (0.2-1.0); BLOOD UREA NITROGEN 11 MG/DL (7-18); CALCIUM LEVEL 9.2 MG/DL (8.5-10.1); CARBON DIOXIDE LEVEL 25 MEQ/L (21-32); CHLORIDE LEVEL 108 MEQ/L (98-107); CHOLESTEROL LEVEL 168 MG/DL (<200); CREATININE FOR GFR 0.87 MG/DL (0.70-1.30); GLOMERULAR FILTRATION RATE > 60.0 (>56); GLUCOSE, FASTING 89 MG/DL (70-100); HDL CHOLESTEROL 50 MG/DL (>40); LDL CHOLESTEROL 92 MG/DL (<100); NON-HDL-C 118 MG/DL; POTASSIUM SERUM 4.8 MEQ/L (3.5-5.1); SODIUM LEVEL 140 MEQ/L (136-145); TOTAL PROTEIN 7.2 GM/DL (6.4-8.2); TRIGLYCERIDES LEVEL 132 MG/DL (<150); URIC ACID 2.9 MG/DL (3.5-7.2)
--- NOTE | 2020-06-08 14:19 | REP ---
RIGHT GREAT TOE SERIES HISTORY: Mixed hyperlipidemia. Soreness right great toe. Remote prior history of trauma. COMPARISON IMAGING: None. FINDINGS: There is mild joint space narrowing and osteophyte formation along the medial aspect of the first metatarsophalangeal (MTP) joint, consistent with osteoarthritis. No erosive change is seen. Overlying soft tissues are radiographically unremarkable. Joint spaces are otherwise preserved. IMPRESSION: [id number] osteoarthritis of the right first metatarsophalangeal (MTP) joint. MTDD
== END ==
LOC: M LAB 09:58
PROVIDERS: ATTEND Physician Assistant Medical
DX: E78.2 Mixed hyperlipidemia (principal); M19.071 Primary osteoarthritis, right ankle and foot

== ENCOUNTER → 2020-06-17 | Outpatient (CLI) | payer OTHER ==
[~2020-06-17] MED LIST changes: -ASPI81CH33 PO
--- NOTE | 2020-06-17 10:41 | REP ---
INDICATION: SMOKER COMPARISON: 10/12/2016 TECHNIQUE: Axial noncontrast images from the thoracic inlet to the upper abdomen using low-dose lung screening technique (LDCT). FINDINGS: Moderate emphysematous changes are again noted along with linear scarring at the lingula which appears more pronounced than prior examination. No consolidation, suspicious nodule or mass lesion. No effusion. No pneumothorax. Tracheobronchial tree is patent. The mediastinum demonstrates atherosclerotic changes to the thoracic aorta and coronary arteries. No cardiomegaly. IMPRESSION: 1. Lung rads category 1. Management recommendations include annual low-dose surveillance. 2. Chronic linear scarring in the lingula along with moderate emphysematous changes. <Electronically signed by Marvin Oliva > 06/17/20 1037
== END ==
LOC: M RAD 10:00
PROVIDERS: ATTEND Internal Medicine Hematology & Oncology
DX: F17.200 Nicotine dependence, unspecified, uncomplicated (principal); Z12.2 Encounter for screening for malignant neoplasm of respiratory organs; R91.8 Other nonspecific abnormal finding of lung field

== ENCOUNTER → 2020-09-01 | Outpatient (CLI) | payer OTHER ==
[~2020-09-01] MED LIST changes: +ASPI81CH33 PO
--- NOTE | 2020-09-03 01:54 | ECWPNPC ---
PATIENT NAME: JAKOB ARGUELLES : 1960 GENDER: MALE VISIT DATE: 09/01/2020 DISCHARGE DATE: 09/01/20 1250 VISIT LOCKED DATE TIME: PHYSICIAN: KIKE BRITO RESOURCE: KIKE BRITO REASON FOR APPOINTMENT 1. BACK PAIN-FEW MINS LATE HISTORY OF PRESENT ILLNESS DEPRESSION SCREENIN-YEAR-OLD MALE IN FOR CHRONIC PAIN FOLLOW-UP. HE RATES HIS PAIN CURRENTLY AT AN 8 OUT OF 10 AND DESCRIBES IT ACHING, CONTINUOUS, SHARP, TENDER, THROBBING, SORE, AND SHOOTING. HE FEELS MEDICATIONS ARE HELPFUL AND DENIES MED SIDE EFFECTS AT THIS TIME. PHQ-2 (2015 EDITION) LITTLE INTEREST OR PLEASURE IN DOING THINGS?NOT AT ALL FEELING DOWN, DEPRESSED, OR HOPELESS?NOT AT ALL TOTAL SCORE0 GENERAL: -. FALL RISK SCREENING: SCREENING :ONE FALL WITH INJURY IN THE PAST YEAR SLIPPED ON ICE ON 08/21 WRENCHING HIS BACK PAIN SCREENING: PATIENT HAS A COMPLAINT OF ACUTE OR CHRONIC PAIN :YES LOCATION OF PAIN:LEFT SHOULDER, LOW BACK INTENSITY OF PAIN (SCALE OF 1 TO 10):8 WHAT DOES YOUR PAIN FEEL LIKE:ACHING, CONTINOUS, SHARP, TENDER, THROBBING, SORE, SHOOTING SHOOTING WHEN HE DOES CERTAIN THINGS DURATION:CONTINOUS, CONSTANT, AWAKENS FROM SLEEP PAIN IS INCREASED BY:ACTIVITIES, PROLONGED STANDING PAIN IS DECREASED BY:USE OF PAIN MEDICATIONS NURSING NOTE: IS BEING TREATED FOR DEPRESSION. PAIN CENTER INTAKE QUESTIONS: DO YOU HAVE A HISTORY OF MRSA? :YES IN RIGHT LEG, ON ABDOMEN AND BELLY BUTTON -AFTER AN UMBILICAL HERNIA REPAIR DO YOU TAKE A BLOOD THINNERS? :NO DO YOU HAVE ANY BLEEDING DISORDERS? :NO ANY NEW NUMBNESS OR WEAKNESS IN YOUR LEGS OR ARMS? :NO ANY PACEMAKER,DEFIBRILLATOR, OR DORSAL COLUMN STIMULATOR? :NO DO YOU HAVE ANY RASHES OR OPEN SORES? :NO ARE YOU ALLERGIC TO IV DYE? :NO ARE YOU DIABETIC? :NO ANY NEW PROBLEMS WITH YOUR MEDICATIONS? :NO HAVE YOU RECEIVED A VACCINE IN THE PAST 30 DAYS? :YES IF SO WHAT VACCINE AND WHEN? FLU SHOT 08/31/20 DO YOU PLAN TO RECEIVE A VACCINE IN THE NEXT 21 DAYS? :NO DO YOU NEED ANY PRESCRIPTION? :NO DO YOU TAKE ANY IMMUNOSUPPRESSIVE MEDICATIONS? :NO IS THERE A CHANCE YOU COULD BE ? :NO ARE YOU BREAST FEEDING? :NO CURRENT MEDICATIONS TAKING ROSUVASTATIN CALCIUM 40 MG TABLET 1 TABLET ORALLY ONCE A DAY TAKING SPACER/AERO CHAMBER MOUTHPIECE - MISCELLANEOUS DIRECTED - - TAKING FLOMAX 0.4 MG CAPSULE 1 CAP ORALLY DAILY TAKING ARNUITY ELLIPTA 100 MCG/ACT AEROSOL POWDER BREATH ACTIVATED 1 PUFF INHALATION ONCE A DAY TAKING VENTOLIN HFA 108 (90 BASE) MCG/ACT AEROSOL SOLUTION 2 PUFFS NEEDED INHALATION EVERY 4 HRS TAKING TRAZODONE HCL 100 MG TABLET 2 TABLETS ORALLY AT 8 PM TAKING ROPINIROLE HCL 3 MG TABLET 1 TABLET 1 TO 3 HOURS BEFORE BEDTIME , NOTES: FOR RLS TAKING DULOXETINE HCL 60 MG CAPSULE DELAYED RELEASE PARTICLES 1 BY MOUTH EVERY DAY ORALLY DAILY TAKING GABAPENTIN 800 MG TABLET 1 CAPSULE ORALLY THREE TIMES A DAY TAKING DRISDOL 1.25 MG (02161 UT) CAPSULE 1 CAPSULE ORALLY WEEKLY TAKING ASPIRIN 81 81 MG TABLET DELAYED RELEASE 1 TABLET ORALLY ONCE A DAY TAKING CARISOPRODOL 350 MG TABLET 1 TABLET NEEDED ORALLY THREE TIMES DAILY PRN SPASM MDD=3 TAKING OXYCODONE-ACETAMINOPHEN 10-325 MG TABLET 1 TABLET NEEDED ORALLY EVERY 6 HRS MDD 4 TAKING BUPROPION HCL ER (XL) 300 MG TABLET EXTENDED RELEASE 24 HOUR 1 TABLET IN THE MORNING ORALLY ONCE A DAY TAKING SERTRALINE HCL 50 MG TABLET 1 TABLET ORALLY ONCE A DAY TAKING OMEPRAZOLE 40 MG CAPSULE DELAYED RELEASE 1 CAPSULE 30 MINUTES BEFORE MORNING MEAL ORALLY ONCE A DAY NOT-TAKING WELLBUTRIN SR 150 MG TABLET EXTENDED RELEASE 12 HOUR 1 TABLET IN THE MORNING ORALLY ONCE A DAY NOT-TAKING CETIRIZINE HCL 10 MG TABLET TAKE ONE TABLET BY MOUTH ONCE DAILY ORALLY DAILY NOT-TAKING NAPROXEN 500 MG TABLET 1 TABLET WITH FOOD OR MILK NEEDED; PT IS NOT ALLERGIC HE TAKES THIS PERIODICALLY. ORALLY EVERY 12 HRS NOT-TAKING NICODERM CQ 14 MG/24HR PATCH 24 HOUR 1 PATCH TO SKIN TRANSDERMAL ONCE A DAY NOT-TAKING FLUTICASONE PROPIONATE 50 MCG/ACT SUSPENSION 1 SPRAY IN EACH NOSTRIL NASALLY ONCE A DAY NOT-TAKING NYSTATIN [id number] UNIT/ML SUSPENSION 4 ML MOUTH/THROAT FOUR TIMES A DAY NOT-TAKING TIZANIDINE HCL 4 MG TABLET 1/2-1 TABLET ORALLY THREE TIMES DAILY NOT-TAKING ASPIRIN 81 MG TABLET DELAYED RELEASE 1 TABLET ORALLY ONCE A DAY NOT-TAKING BUPROPION HCL ER (XL) 300 MG TABLET EXTENDED RELEASE 24 HOUR ORAL , NOTES: HAS NOT STARTED YET MEDICATION LIST REVIEWED AND RECONCILED WITH THE PATIENT PAST MEDICAL HISTORY CERVICAL RADICULOPOTHY SHOULDER PAIN NEPHROLITHIASIS RESTLESS LEG SYNDROME MIXED HYPERLIPIDEMIA CHRONIC SINUSITIS KIDNEY STONES HTN BULGING DISC LOW BACK ESSENTIAL HYPERTENSION VITAMIN D DEFICIENCY COPD ALLERGIES MOTRIN: HIVES, VOMIT - SIDE EFFECTS PREDNISONE: SYNCOPE, ARM NUMBNESS - SIDE EFFECTS SURGICAL HISTORY HERNIA X4 SCHEDULED FOR HERNIA 12/16/2011 CERVICAL LAMINECTOMY CERVICAL NECK-[address] LEFT SEBACEOUS CYST REMOVAL DR. PUCKETT, ENT 03/2016 FUSION OF NECK 03/20/17 LEFT SHOULDER SURGERY 01/2018 HERNIA SURGERY 2017 RIGHT TESTICULAR CYST REMOVED 02/2019 FAMILY HISTORY FATHER: , HTN,DM MOTHER: , HTN,DM SIBLINGS: ALIVE, 1 BROTHER HAS PROSTATE CA SON(S): ALIVE DAUGHTER(S): 31 YRS, AT AGE 31 YO DUE TO HEART FAILURE 4 BROTHER(S) , 2 SISTER(S) - HEALTHY. 1 SON(S) , 2 DAUGHTER(S) - HEALTHY. DENIES FAMILY HX OF MELANOMA AND PANCREATIC CANCERBROTHER AFTER RECENT REPAIR OF PUD AGE 53MOTHER/BROTHER/2 SISTERS DIABETIESBROTHER HAS PROSTATE CANCER. SOCIAL HISTORY GENERAL: TOBACCO USE ARE YOU A:CURRENT SMOKER ARE YOU INTERESTED IN QUITTING?NOT READY TO QUIT HOW MANY CIGARETTES A DAY DO YOU SMOKE?6-10 HOW SOON AFTER YOU WAKE UP DO YOU SMOKE YOUR FIRST CIGARETTE?6-30 MIN HOW OFTEN DO YOU SMOKE CIGARETTES?EVERY DAY PATIENT COUNSELED ON THE DANGERS OF TOBACCO USE AND URGED TO QUIT:09/01/2020 SMOKING CESSATION INFORMATION GIVEN DECLINED LATEX QUESTIONNAIRE LATEX ALLERGY : HAVE YOU EVER DEVELOPED ANY TYPE OF REACTION AFTER HANDLING LATEX PRODUCTS SUCH RUBBER GLOVES, CONDOMS, DIAPHRAGMS, BALLOONS, SOCKS, OR UNDERWEAR?NO LATEX ALLERGY : HAVE YOU EVER DEVELOPED ANY TYPE OF REACTION DURING OR AFTER DENTAL APPOINTMENT, VAGINAL/RECTAL EXAMINATION, SURGICAL PROCEDURE, OR ANY OTHER EXPOSURE?NO LATEX RISK : HAVE YOU EVER HAD ANY DIFFICULTY BREATHING OR HIVES AFTER EATING OR HANDLING ANY FRUITS, OR VEGETABLES; SUCH KIWI, BANANAS, STONE FRUITS, OR CHESTNUTSNO LATEX RISK : DO YOU HAVE A PREVIOUS PERSONAL HISTORY OF MORE THAN NINE SURGERIES, SPINA BIFIDA, OR REPEATED CATHERIZATIONS? NO LATEX RISK : ARE YOU FREQUENTLY EXPOSED TO LATEX PRODUCTS IN YOUR OCCUPATION?NO DATE ASKED : 09/01/2020 LUNG CANCER SCREENING SMOKING STATUS:CURRENT SMOKER IS THE PATIENT BETWEEN THE AGE OF 55 AND 77?YES HAS THE PATIENT EVER BEEN DIAGNOSED WITH LUNG CANCER?NO PACK YEARS = NUMBER OF PACKS PER DAY SMOKED X NUMBER OF YEARS SMOKED:40 CREATE REFERRAL:CREATED REFERRAL TO ONCOLOGY NURSE NAVIGTOR FOR LDCT SCAN BMI CARE GOAL FOLLOW-UP ABOVE NORMAL BMI FOLLOW-UPLIFESTYLE EDUCATION REGARDING DIET ALCOHOL SCREENING DID YOU HAVE A DRINK CONTAINING ALCOHOL IN THE PAST YEAR?NO POINTS0 INTERPRETATIONNEGATIVE RECREATIONAL DRUG USE DRUG USE?NO CAFFEINE CAFFEINE USE?YES 1-2 DAILY SEXUAL HX HAD SEX IN THE LAST 12 MONTHS (VAGINAL, ORAL, OR ANAL)?YES WITHWOMEN ONLY USE PROTECTION?NO LMP:N/A HAVE YOU EVER HAD AN STD?NO HIV / HEP-C SCREENING HIV TEST OFFERED TO PATIENT:NO HEP-C TEST OFFERED TO PATIENT:NO SABIANISM [id number] OTHER NAZARENE LANGUAGE KOREAN. 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 DIET: REGULAR. EXERCISE: NO REGULAR EXERCISE. MARITAL STATUS: . PAIN CLINIC PFS, CLERGY, PUBLIC HEALTH REFERRALS PFS REFERRAL NEEDED?NO CLERGY REFERRAL NEEDED?NO PUBLIC HEALTH REFERRAL NEEDED?NO HAS THE PATIENT BEEN EDUCATED REGARDING HIS/HER PLAN OF CARE?YES HAS THE PATIENT BEEN EDUCATED REGARDING PAIN, THE RISK FOR PAIN, THE IMPORTANCE OF EFFECTIVE PAIN MANAGEMENT, AND THE PAIN ASSESSMENT PROCESS?YES ADVANCE DIRECTIVE ADVANCE DIRECTIVE DISCUSSED WITH PATIENT:YES HCP - RONY () REVIEWED WITH PATIENT 06/13/18 2942 JS. HOSPITALIZATION/MAJOR DIAGNOSTIC PROCEDURE SURGERY RELATED CELLULITIS [facility]- STRAIN OF MUSCLE, FASCIA AND TENDON AT NECK LEVEL- LEFT RHOMBOID MUSCLE SPASM 04/08/2016 [facility]: INTRACTABLE BACK PAIN 03/2017 LOSS OF CONCIOUSNESS X 2 2019 REVIEW OF SYSTEMS CONSTITUTIONAL: ANY RECENT FEVER NO . CHILLS NO . WEIGHT CHANGE OF UNKNOWN REASONS NO . GASTROENTEROLOGY: NEW UNEXPLAINABLE CHANGES IN BOWEL CONTROL NO . CONSTIPATION NO . GENITOURINARY: ANY NEW CHANGE IN BLADDER CONTROL? NO . NEUROLOGY: NEW ONSET DIZZINESS OR NEUROLOGICAL CHANGES NOT MENTIONED NO . NEW NUMBNESS OR PAIN PATTERNS NOT MENTIONED AND PERTINENT TO TODAY'S VISIT NO . CARDIOLOGY: NEW CHEST PRESSURE NO . NEW CHEST PAIN NO . RESPIRATORY: UNEXPLAINABLE COUGH NO . NEW SHORTNESS OF BREATH NO . VITAL SIGNS WT 220.0 LBS, HT 74 IN, BMI 28.24 INDEX, BP 137/93 MM HG, HR 85 /MIN, RR 18 /MIN, TEMP 99.0 F, OXYGEN SAT % 97%, SAFE IN ENV? (Y/N) Y, NA INITIALS AW 1135, REVIEWED BY: Michelle ADAMSON RN. EXAMINATION GENERAL EXAMINATION: GENERALNO ACUTE DISTRESS, WELL NOURISHED AND HYDRATED. PSYCHAPPROPRIATE MOOD AND AFFECT . LUNGS:CLEAR TO AUSCULTATION BILATERALLY, NO WHEEZES, RHONCHI, RALES. HEART:NO MURMURS, REGULAR RATE AND RHYTHM. ASSESSMENTS LUMBAR FACET ARTHROPATHY - M46.96 (PRIMARY) TREATMENT LUMBAR FACET ARTHROPATHY NOTES: 60-YEAR-OLD MALE IN FOR CHRONIC PAIN FOLLOW-UP. GIVEN PRESENTING SYMPTOMS RECOMMENDED CONTINUATION OF CURRENT MEDICATION REGIMEN WITH FOLLOW-UP IN 3 MONTHS. PATIENT HAS EXPRESSED UNDERSTANDING OF AND WAS IN AGREEMENT WITH TREATMENT PLAN. GIVEN TIME TO ASK QUESTIONS AND EXPRESS CONCERNS. , [employer] REGISTRY REVIEWED AND DEMONSTRATES COMPLLIANCE. (REF # [id number] ) BRINGS IN MEDICATIONS WHICH IS APPROPRIATE FOR WHAT WAS DISPENSED. RECENT URINE TOXICOLOGY REVIEWED. NO UNAUTHORIZED MEDICATIONS. NO ILLICIT SUBSTANCES AND PRESCRIBED MEDICATIONS WERE PRESENT. PROCEDURE CODES [id number] ESTABILISHED PATIENT [facility] CHARGE DISPOSITION & COMMUNICATION FOLLOW UP 3 MONTHS (REASON: BACK PAIN) ELECTRONICALLY SIGNED BY OJ CEJA ON 09/02/2020 AT 10:41 AM EST DISCLAIMER : THIS IS A VISIT SUMMARY EXTRACTED FROM THE [employer] CHART. IT IS NOT A COPY OF THE [employer] PROGRESS NOTE. DEISI
== END ==
LOC: M PAIN 11:15
PROVIDERS: ATTEND Family Medicine
DX: M46.96 Unspecified inflammatory spondylopathy, lumbar region (principal); G89.29 Other chronic pain; G25.81 Restless legs syndrome; E55.9 Vitamin D deficiency, unspecified; J44.9 Chronic obstructive pulmonary disease, unspecified; F17.210 Nicotine dependence, cigarettes, uncomplicated; Z88.6 Allergy status to analgesic agent; Z88.8 Allergy status to other drugs, medicaments and biological substances; Z79.51 Long term (current) use of inhaled steroids; Z79.82 Long term (current) use of aspirin; Z79.899 Other long term (current) drug therapy

== ENCOUNTER → 2020-11-30 | Outpatient (CLI) | payer OTHER ==
[~2020-11-30] MED LIST changes: +GABA-282 PO; -GABA-843 PO; -LISI-538 PO; +LISI20TA33 PO
--- NOTE | 2020-12-02 11:55 | ECWPNPC ---
PATIENT NAME: JAKOB ARGUELLES : 1960 GENDER: MALE VISIT DATE: 11/30/2020 DISCHARGE DATE: 11/30/20 1152 VISIT LOCKED DATE TIME: PHYSICIAN: KIKE BRITO RESOURCE: KIKE BRITO REASON FOR APPOINTMENT 1. 3 MONTH BACK PAIN HISTORY OF PRESENT ILLNESS DEPRESSION SCREENING: PHQ-9 LITTLE INTEREST OR PLEASURE IN DOING THINGSMORE THAN HALF THE DAYS FEELING DOWN, DEPRESSED, OR HOPELESSMORE THAN HALF THE DAYS TROUBLE FALLING OR STAYING ASLEEP, OR SLEEPING TOO MUCHNEARLY EVERY DAY FEELING TIRED OR HAVING LITTLE ENERGYSEVERAL DAYS POOR APPETITE OR OVEREATING NOT AT ALL FEELING BAD ABOUT YOURSELF-OR THAT YOU ARE A FAILURE OR HAVE LET YOURSELF OR YOUR FAMILY DOWN NOT AT ALL TROUBLE CONCENTRATING ON THINGS, SUCH READING THE NEWSPAPER OR WATCHING TELEVISION NOT AT ALL MOVING OR SPEAKING SO SLOWLY THAT OTHER PEOPLE COULD HAVE NOTICED. OR THE OPPOSITE- BEING SO FIDGETY OR RESTLESS THAT YOU HAVE BEEN MOVING AROUND A LOT MORE THAN USUALNOT AT ALL THOUGHTS THAT YOU WOULD BE BETTER OFF , OR OF HURTING YOURSELF IN SOME WAY?NOT AT ALL TOTAL SCORE:8 INTERPRETATIONMILD DEPRESSION PHQ-2 (2015 EDITION) LITTLE INTEREST OR PLEASURE IN DOING THINGS?MORE THAN HALF THE DAYS FEELING DOWN, DEPRESSED, OR HOPELESS?MORE THAN HALF THE DAYS TOTAL SCORE4 60-YEAR-OLD MALE IN FOR CHRONIC PAIN FOLLOW-UP. PATIENT DOES ADMITS TO INCREASED PAIN STATUS POST RECENT SHOULDER INJURY THAT HE IS BEING TREATED FOR. HE STATES HE WILL TALK TO HIS PCP THIS AFTERNOON ABOUT MANAGEMENT FOR HIS SYMPTOMS. HE FEELS THE MEDICATIONS ARE HELPFUL AND DENIES MED SIDE EFFECTS AT THIS TIME. GENERAL: -. FALL RISK SCREENING: SCREENING : NO FALLS REPORTED IN THE LAST YEAR. PAIN SCREENING: PATIENT HAS A COMPLAINT OF ACUTE OR CHRONIC PAIN :YES LOCATION OF PAIN:NECK, LEFT SHOULDER, LOW BACK INTENSITY OF PAIN (SCALE OF 1 TO 10):8 WHAT DOES YOUR PAIN FEEL LIKE:CONTINOUS, SHARP, STABBING, THROBBING DURATION:CONTINOUS, CONSTANT, AWAKENS FROM SLEEP PAIN IS INCREASED BY:ACTIVITIES, PROLONGED STANDING PAIN IS DECREASED BY:USE OF PAIN MEDICATIONS, SITTING, OTHERS LAYING DOWN NURSING NOTE: -. PAIN CENTER INTAKE QUESTIONS: DO YOU HAVE A HISTORY OF MRSA? :YES DO YOU TAKE A BLOOD THINNERS? :NO ASPIRIN DO YOU HAVE ANY BLEEDING DISORDERS? :NO ANY NEW NUMBNESS OR WEAKNESS IN YOUR LEGS OR ARMS? :YES NUMBNESS AND WEAKNESS IN LEGS ANY PACEMAKER,DEFIBRILLATOR, OR DORSAL COLUMN STIMULATOR? :NO DO YOU HAVE ANY RASHES OR OPEN SORES? :NO ARE YOU ALLERGIC TO IV DYE? :NO ARE YOU DIABETIC? :NO ANY NEW PROBLEMS WITH YOUR MEDICATIONS? :NO HAVE YOU RECEIVED A VACCINE IN THE PAST 30 DAYS? :NO DO YOU PLAN TO RECEIVE A VACCINE IN THE NEXT 21 DAYS? :NO DO YOU NEED ANY PRESCRIPTION? :NO DO YOU TAKE ANY IMMUNOSUPPRESSIVE MEDICATIONS? :NO DO YOU HAVE ANY KIDNEY OR LIVER DISEASE? :NO IS THERE A CHANCE YOU COULD BE ? :NO ARE YOU BREAST FEEDING? :NO CURRENT MEDICATIONS TAKING ROSUVASTATIN CALCIUM 40 MG TABLET 1 TABLET ORALLY ONCE A DAY TAKING SPACER/AERO CHAMBER MOUTHPIECE - MISCELLANEOUS DIRECTED - - TAKING FLOMAX 0.4 MG CAPSULE 1 CAP ORALLY DAILY TAKING ARNUITY ELLIPTA 100 MCG/ACT AEROSOL POWDER BREATH ACTIVATED 1 PUFF INHALATION ONCE A DAY TAKING VENTOLIN HFA 108 (90 BASE) MCG/ACT AEROSOL SOLUTION 2 PUFFS NEEDED INHALATION EVERY 4 HRS TAKING TRAZODONE HCL 100 MG TABLET 2 TABLETS ORALLY AT 8 PM TAKING ROPINIROLE HCL 3 MG TABLET 1 TABLET 1 TO 3 HOURS BEFORE BEDTIME , NOTES: FOR RLS TAKING DULOXETINE HCL 60 MG CAPSULE DELAYED RELEASE PARTICLES 1 BY MOUTH EVERY DAY ORALLY DAILY TAKING GABAPENTIN 800 MG TABLET 1 CAPSULE ORALLY THREE TIMES A DAY TAKING DRISDOL 1.25 MG (91990 UT) CAPSULE 1 CAPSULE ORALLY WEEKLY TAKING ASPIRIN 81 81 MG TABLET DELAYED RELEASE 1 TABLET ORALLY ONCE A DAY TAKING BUPROPION HCL ER (XL) 300 MG TABLET EXTENDED RELEASE 24 HOUR 1 TABLET IN THE MORNING ORALLY ONCE A DAY TAKING SERTRALINE HCL 50 MG TABLET 1 TABLET ORALLY ONCE A DAY TAKING OMEPRAZOLE 40 MG CAPSULE DELAYED RELEASE 1 CAPSULE 30 MINUTES BEFORE MORNING MEAL ORALLY ONCE A DAY TAKING OXYCODONE-ACETAMINOPHEN 10-325 MG TABLET 1 TABLET NEEDED ORALLY EVERY 6 HRS MDD 4 TAKING CARISOPRODOL 350 MG TABLET 1 TABLET NEEDED ORALLY THREE TIMES DAILY PRN SPASM MDD=3 NOT-TAKING ASPIRIN 81 MG TABLET DELAYED RELEASE TAKE ONE TABLET BY MOUTH @8AM , NOTES: DUPLICATE UNKNOWN WELLBUTRIN SR 150 MG TABLET EXTENDED RELEASE 12 HOUR 1 TABLET IN THE MORNING ORALLY ONCE A DAY UNKNOWN CETIRIZINE HCL 10 MG TABLET TAKE ONE TABLET BY MOUTH ONCE DAILY ORALLY DAILY UNKNOWN NAPROXEN 500 MG TABLET 1 TABLET WITH FOOD OR MILK NEEDED; PT IS NOT ALLERGIC HE TAKES THIS PERIODICALLY. ORALLY EVERY 12 HRS UNKNOWN NICODERM CQ 14 MG/24HR PATCH 24 HOUR 1 PATCH TO SKIN TRANSDERMAL ONCE A DAY UNKNOWN FLUTICASONE PROPIONATE 50 MCG/ACT SUSPENSION 1 SPRAY IN EACH NOSTRIL NASALLY ONCE A DAY UNKNOWN NYSTATIN [id number] UNIT/ML SUSPENSION 4 ML MOUTH/THROAT FOUR TIMES A DAY UNKNOWN TIZANIDINE HCL 4 MG TABLET 1/2-1 TABLET ORALLY THREE TIMES DAILY UNKNOWN BUPROPION HCL ER (XL) 300 MG TABLET EXTENDED RELEASE 24 HOUR ORAL , NOTES: HAS NOT STARTED YET MEDICATION LIST REVIEWED AND RECONCILED WITH THE PATIENT PAST MEDICAL HISTORY CERVICAL RADICULOPOTHY SHOULDER PAIN NEPHROLITHIASIS RESTLESS LEG SYNDROME MIXED HYPERLIPIDEMIA CHRONIC SINUSITIS KIDNEY STONES HTN BULGING DISC LOW BACK ESSENTIAL HYPERTENSION VITAMIN D DEFICIENCY COPD SHOULDER INJURY ALLERGIES MOTRIN: HIVES, VOMIT - SIDE EFFECTS PREDNISONE: SYNCOPE, ARM NUMBNESS - SIDE EFFECTS SOCIAL HISTORY GENERAL: TOBACCO USE ARE YOU A:CURRENT SMOKER HOW OFTEN DO YOU SMOKE CIGARETTES?EVERY DAY HOW SOON AFTER YOU WAKE UP DO YOU SMOKE YOUR FIRST CIGARETTE?6-30 MIN HOW MANY CIGARETTES A DAY DO YOU SMOKE?6-10 ARE YOU INTERESTED IN QUITTING?NOT READY TO QUIT PATIENT COUNSELED ON THE DANGERS OF TOBACCO USE AND URGED TO QUIT:09/01/2020 SMOKING CESSATION INFORMATION GIVEN DECLINED LATEX QUESTIONNAIRE LATEX ALLERGY : HAVE YOU EVER DEVELOPED ANY TYPE OF REACTION AFTER HANDLING LATEX PRODUCTS SUCH RUBBER GLOVES, CONDOMS, DIAPHRAGMS, BALLOONS, SOCKS, OR UNDERWEAR?NO LATEX ALLERGY : HAVE YOU EVER DEVELOPED ANY TYPE OF REACTION DURING OR AFTER DENTAL APPOINTMENT, VAGINAL/RECTAL EXAMINATION, SURGICAL PROCEDURE, OR ANY OTHER EXPOSURE?NO LATEX RISK : HAVE YOU EVER HAD ANY DIFFICULTY BREATHING OR HIVES AFTER EATING OR HANDLING ANY FRUITS, OR VEGETABLES; SUCH KIWI, BANANAS, STONE FRUITS, OR CHESTNUTSNO LATEX RISK : DO YOU HAVE A PREVIOUS PERSONAL HISTORY OF MORE THAN NINE SURGERIES, SPINA BIFIDA, OR REPEATED CATHERIZATIONS? NO LATEX RISK : ARE YOU FREQUENTLY EXPOSED TO LATEX PRODUCTS IN YOUR OCCUPATION?NO DATE ASKED : 11/30/2020 ALCOHOL USE: NO. LUNG CANCER SCREENING SMOKING STATUS:CURRENT SMOKER IS THE PATIENT BETWEEN THE AGE OF 55 AND 77?YES HAS THE PATIENT EVER BEEN DIAGNOSED WITH LUNG CANCER?NO PACK YEARS = NUMBER OF PACKS PER DAY SMOKED X NUMBER OF YEARS SMOKED:40 CREATE REFERRAL:CREATED REFERRAL TO ONCOLOGY NURSE NAVIGTOR FOR LDCT SCAN BMI CARE GOAL FOLLOW-UP ABOVE NORMAL BMI FOLLOW-UPLIFESTYLE EDUCATION REGARDING DIET ALCOHOL SCREENING DID YOU HAVE A DRINK CONTAINING ALCOHOL IN THE PAST YEAR?NO POINTS0 INTERPRETATIONNEGATIVE RECREATIONAL DRUG USE DRUG USE?NO CAFFEINE CAFFEINE USE?YES 1-2 DAILY SEXUAL HX HAD SEX IN THE LAST 12 MONTHS (VAGINAL, ORAL, OR ANAL)?YES WITHWOMEN ONLY USE PROTECTION?NO LMP:N/A HAVE YOU EVER HAD AN STD?NO HIV / HEP-C SCREENING HIV TEST OFFERED TO PATIENT:NO HEP-C TEST OFFERED TO PATIENT:NO DRUZE [id number] OTHER NAZARENE LANGUAGE LAO. EDUCATION LEVEL OF EDUCATION:HIGH SCHOOL LEARNING BARRIERS / SPECIAL NEEDS CHANGE FROM LAST VISIT?NO BARRIERS TO LEARNING?YES COMMENTS STATES HE CAN'T READ WELL HEARING IMPAIRED?YES : NO HEARING AIDS VISION IMPAIRED?YES : NEEDS TO GET NEW GLASSES--LOST HIS 3 YRS AGO COGNITIVELY IMPAIRED?YES STATES SOMETIMES HE DOESN'T COMPREHEND WHAT PEOPLE ARE TELLING HIM LEARNING PREFERENCES?YES :DEMONSTRATION/VERBAL INSTRUCTION LEARNING CAPABILITIES PRESENT?YES EMOTIONAL BARRIERS?NO SPECIAL DEVICES?YES :CANE CHIEF CRUISER NEEDED?NO DOMESTIC VIOLENCE DO YOU FEEL SAFE IN YOUR ENVIRONMENT?YES OCCUPATION: DISABLED. DIET: REGULAR. EXERCISE: NO REGULAR EXERCISE. MARITAL STATUS: . - PFS REFERRAL NEEDED?NO CLERGY REFERRAL NEEDED?NO PUBLIC HEALTH REFERRAL NEEDED?NO HAS THE PATIENT BEEN EDUCATED REGARDING HIS/HER PLAN OF CARE?YES HAS THE PATIENT BEEN EDUCATED REGARDING PAIN, THE RISK FOR PAIN, THE IMPORTANCE OF EFFECTIVE PAIN MANAGEMENT, AND THE PAIN ASSESSMENT PROCESS?YES ADVANCE DIRECTIVE ADVANCE DIRECTIVE DISCUSSED WITH PATIENT:YES HCP - RONY () REVIEWED WITH PATIENT 06/13/18 1135 JS. REVIEW OF SYSTEMS CONSTITUTIONAL: ANY RECENT FEVER NO . CHILLS NO . WEIGHT CHANGE OF UNKNOWN REASONS NO . GASTROENTEROLOGY: NEW UNEXPLAINABLE CHANGES IN BOWEL CONTROL NO . CONSTIPATION NO . GENITOURINARY: ANY NEW CHANGE IN BLADDER CONTROL? NO . NEUROLOGY: NEW ONSET DIZZINESS OR NEUROLOGICAL CHANGES NOT MENTIONED NO . NEW NUMBNESS OR PAIN PATTERNS NOT MENTIONED AND PERTINENT TO TODAY'S VISIT NO . CARDIOLOGY: NEW CHEST PRESSURE NO . PATIENT DENIES NO . RESPIRATORY: UNEXPLAINABLE COUGH NO . NEW SHORTNESS OF BREATH NO . VITAL SIGNS WT 223.6 LBS, HT 74 IN, BMI 28.71 INDEX, HR 74 /MIN, RR 18 /MIN, TEMP 98.6 F, OXYGEN SAT % 95%, SAFE IN ENV? (Y/N) YES, REVIEWED BY: SHEILA PULLIAM MA. EXAMINATION GENERAL EXAMINATION: GENERALNO ACUTE DISTRESS, WELL NOURISHED AND HYDRATED. PSYCHAPPROPRIATE MOOD AND AFFECT . LUNGS:CLEAR TO AUSCULTATION BILATERALLY, NO WHEEZES, RHONCHI, RALES. HEART:NO MURMURS, REGULAR RATE AND RHYTHM. ASSESSMENTS LUMBAR FACET ARTHROPATHY - M12.88 (PRIMARY), RISK: (NULL) TREATMENT LUMBAR FACET ARTHROPATHY NOTES: 60-YEAR-OLD MALE IN FOR CHRONIC PAIN FOLLOW-UP. GIVEN PRESENTING SYMPTOMS RECOMMEND CONTINUATION OF CURRENT MEDICATION REGIMEN WITH FOLLOW-UP IN 3 MONTHS ENCOURAGED PATIENT TO DISCUSS CURRENT SYMPTOMS WITH HIS PCP. PATIENT HAS EXPRESSED UNDERSTANDING OF AND WAS IN AGREEMENT WITH TREATMENT PLAN. GIVEN TIME TO ASK QUESTIONS AND EXPRESS CONCERNS. , ISTOP REGISTRY REVIEWED AND DEMONSTRATES COMPLLIANCE. (REF # [id number] ) BRINGS IN MEDICATIONS WHICH IS APPROPRIATE FOR WHAT WAS DISPENSED. RECENT URINE TOXICOLOGY REVIEWED. NO UNAUTHORIZED MEDICATIONS. NO ILLICIT SUBSTANCES AND PRESCRIBED MEDICATIONS WERE PRESENT. CLINICAL NOTES: PRINTED INFORMATION AND GIVEN TO PROVIDER. PROVIDER NOTIFIED OF PHQ9. SHERRI PULLIAM MA. PROCEDURE CODES FA211 ESTABILISHED PATIENT [facility] CHARGE DISPOSITION & COMMUNICATION FOLLOW UP 3 MONTHS (REASON: BACK PAIN ) ELECTRONICALLY SIGNED BY OJ CEJA ON 12/01/2020 AT 08:53 AM EDT DISCLAIMER : THIS IS A VISIT SUMMARY EXTRACTED FROM THE [employer] software CHART. IT IS NOT A COPY OF THE [employer] software PROGRESS NOTE. DEISI
== END ==
LOC: M PAIN 11:15
PROVIDERS: ATTEND Family Medicine
DX: M12.88 Other specific arthropathies, not elsewhere classified, other specified site (principal); G89.29 Other chronic pain; G25.81 Restless legs syndrome; E55.9 Vitamin D deficiency, unspecified; J44.9 Chronic obstructive pulmonary disease, unspecified; F17.210 Nicotine dependence, cigarettes, uncomplicated; Z86.14 Personal history of Methicillin resistant Staphylococcus aureus infection; Z88.6 Allergy status to analgesic agent; Z88.8 Allergy status to other drugs, medicaments and biological substances; Z79.51 Long term (current) use of inhaled steroids; Z79.82 Long term (current) use of aspirin; Z79.899 Other long term (current) drug therapy

== ENCOUNTER → 2020-12-15 | Outpatient (CLI) | payer OTHER ==
[2020-12-15 13:24] LABS: BASO # 0.1 10^3/uL (0.0-0.2); BASO % 1.5 % (0.0-1.0); EOS # 0.1 10^3/uL (0.0-0.5); EOS % 2.8 % (0.0-3.0); HEMATOCRIT 55.8 % (42.0-52.0); HEMOGLOBIN 18.1 g/dl (13.5-17.5); LYMPH % 43.2 % (24.0-44.0); MEAN CORPUSCULAR HGB CONC 32.4 g/dl (32.0-36.5); MEAN CORPUSCULAR VOLUME 92.4 fl (80.0-96.0); MONO # 0.4 10^3/uL (0.0-0.8); NEUTROPHILS % 43.9 % (36.0-66.0); PLATELET COUNT, AUTOMATED 183 10^3/uL (150-450); RED BLOOD COUNT 6.04 10^6/uL (4.30-6.10); WHITE BLOOD COUNT 4.7 10^3/uL (4.0-10.0)
[2020-12-15 14:01] LABS: ALT/SGPT 25 U/L (12-78); BILIRUBIN,TOTAL 0.5 MG/DL (0.2-1.0); BLOOD UREA NITROGEN 10 MG/DL (7-18); CARBON DIOXIDE LEVEL 29 MEQ/L (21-32); CHLORIDE LEVEL 109 MEQ/L (98-107); CHOLESTEROL LEVEL 180 MG/DL (<200); CREATININE FOR GFR 0.91 MG/DL (0.70-1.30); FREE T4 1.05 NG/DL (0.76-1.46); GLOMERULAR FILTRATION RATE > 60.0 (>49); GLUCOSE, FASTING 92 MG/DL (70-100); HDL CHOLESTEROL 50 MG/DL (>40); LDL CHOLESTEROL 98 MG/DL (<100); NON-HDL-C 130 MG/DL; POTASSIUM SERUM 4.5 MEQ/L (3.5-5.1); SODIUM LEVEL 142 MEQ/L (136-145); TOTAL PROTEIN 7.2 GM/DL (6.4-8.2); TRIGLYCERIDES LEVEL 162 MG/DL (<150)
== END ==
LOC: M LAB 12:54
PROVIDERS: ATTEND Physician Assistant Medical
DX: R53.83 Other fatigue (principal)

== ENCOUNTER 2021-01-06 18:13 | Emergency (ER) | payer OTHER ==
[~2021-01-06] VITALS: Ht 185.4 cm; Wt 100.9 kg
--- NOTE | 2021-01-06 18:47 | REP ---
INDICATION: chicken bone. COMPARISON: Cervical spine radiographs 10/21/2019. TECHNIQUE: AP and lateral views soft tissues neck. FINDINGS: There is evidence of prior anterior cervical discectomy and fusion of C3 through C7. Metallic hardware is unchanged in position and there is good alignment of the cervical spine. The adenoids are not enlarged. There is no prevertebral soft tissue swelling. The epiglottis is normal in size. [place] tonsils do not appear to be significantly enlarged. The airway is widely patent. No radiopaque foreign body is seen. IMPRESSION: Unremarkable exam of the soft tissues of the neck. <Electronically signed by Jeremy Mcgraw > 01/06/21 [id number]
[2021-01-06] MEDS ORDERED: MORPHINE 2 MG/ML 1ML VIAL (J2270) IV ONE (18:50)
[2021-01-06 19:19] LABS: BASO # 0.1 10^3/uL (0.0-0.2); EOS # 0.1 10^3/uL (0.0-0.5); HEMATOCRIT 55.4 % (42.0-52.0); HEMOGLOBIN 18.1 g/dl (13.5-17.5); LYMPH # 2.3 10^3/uL (1.5-5.0); LYMPH % 31.8 % (24.0-44.0); MEAN CORPUSCULAR HEMOGLOBIN 29.9 pg (27.0-33.0); MEAN CORPUSCULAR HGB CONC 32.7 g/dl (32.0-36.5); MEAN CORPUSCULAR VOLUME 91.4 fl (80.0-96.0); MONO # 0.6 10^3/uL (0.0-0.8); NEUTROPHILS # 4.3 10^3/uL (1.5-8.5); NEUTROPHILS % 57.8 % (36.0-66.0); PLATELET COUNT, AUTOMATED 189 10^3/uL (150-450); RED BLOOD COUNT 6.06 10^6/uL (4.30-6.10); WHITE BLOOD COUNT 7.4 10^3/uL (4.0-10.0)
--- NOTE | 2021-01-06 19:36 | REPVR ---
PROCEDURE INFORMATION: Exam: CT Neck Without Contrast Exam date and time: 01/06/2021 7:14 PM Age: 60 years old Clinical indication: Painful swallowing; Additional info: Chicken bone; Right lateral neck/parotid region TECHNIQUE: Imaging protocol: Computed tomography images of the neck without contrast. Radiation optimization: All CT scans at this facility use at least one of these dose optimization techniques: automated exposure control; mA and/or kV adjustment per patient size (includes targeted exams where dose is matched to clinical indication); or iterative reconstruction. COMPARISON: CO Soft Tissue Neck 01/06/2021 6:22 PM FINDINGS: Nasopharynx: Unremarkable. Oropharynx: Unremarkable. No significant tonsillar enlargement. Hypopharynx: Unremarkable. Larynx: Unremarkable. Normal epiglottis. Retropharyngeal space: Unremarkable. Submandibular/Parotid glands: Normal. Glands are normal in size. Thyroid: Normal. No enlarged or calcified nodules. Lymph nodes: Unremarkable. No lymphadenopathy. Trachea: Visualized trachea is unremarkable. Lungs: Unremarkable as visualized. Bones/joints: Status post anterior interbody fusion of C2 through C6. There are degenerative changes demonstrated in the atlantoaxial joint at C1-C2 with osteophytes and joint space narrowing. Moderate degenerative spondylosis cervical spine. Soft tissues: No radiopaque foreign body demonstrated. IMPRESSION: 1. No radiopaque foreign body demonstrated. 2. Status post anterior interbody fusion of C2 through C6. 3. Moderate degenerative spondylosis cervical spine. Electronically signed by: Brant Gold On 01/06/2021 19:35:36 PM
[2021-01-06 19:42] LABS: BLOOD UREA NITROGEN 12 MG/DL (7-18); CALCIUM LEVEL 9.2 MG/DL (8.8-10.2); CARBON DIOXIDE LEVEL 22 MEQ/L (21-32); CHLORIDE LEVEL 110 MEQ/L (98-107); CREATININE FOR GFR 1.07 MG/DL (0.70-1.30); GLOMERULAR FILTRATION RATE > 60.0 (>49); GLUCOSE, FASTING 87 MG/DL (70-100); POTASSIUM SERUM 5.1 MEQ/L (3.5-5.1); SODIUM LEVEL 138 MEQ/L (136-145)
[2021-01-06] MEDS ORDERED: LIDOCAINE VISCOUS 2% SOLN 15ML UDC PO ONE (19:45)
[2021-01-06 21:30] VITALS: BP 157/98
== END 2021-01-06 21:42 | disposition home or self-care (01) ==
LOC: M ED 18:13
DX: R09.89 Other specified symptoms and signs involving the circulatory and respiratory systems (principal); M47.812 Spondylosis without myelopathy or radiculopathy, cervical region; I10 Essential (primary) hypertension; E78.5 Hyperlipidemia, unspecified; G47.33 Obstructive sleep apnea (adult) (pediatric); E03.9 Hypothyroidism, unspecified; J44.1 Chronic obstructive pulmonary disease with (acute) exacerbation; F17.200 Nicotine dependence, unspecified, uncomplicated; Z88.6 Allergy status to analgesic agent; Z79.899 Other long term (current) drug therapy; Z88.2 Allergy status to sulfonamides
CPT/HCPCS: 70360; 70490; 80048; 85025; 96374; 99284; J2270

== ENCOUNTER → 2021-01-13 | Outpatient (CLI) | payer OTHER ==
[~2021-01-13] MED LIST changes: +E-Z-GAS II EFFERVESCENT PACKET (SODIUM BICARB./CITRIC ACID/SIMETHICONE) As Ordered ONE; +E-Z-HD 98% w/w 340GM SUSP BTL As Ordered ONE; +E-Z-PAQUE 96% w/w SUSP 176GM BTL As Ordered ONE
--- NOTE | 2021-01-13 17:57 | REP ---
INDICATION: FOREIGN BODY IN THROAT. COMPARISON: Chest x-ray dated 07/23/2018 TECHNIQUE: This procedure was performed by Briana Abdullahi [facility], under the direct supervision of Dr. Mcgraw. Images were reviewed with Dr. Mcgraw prior to dictation. Liquid barium and gas producing crystals were given in the erect position, as well as liquid barium in the prone oblique position in order to perform a double contrast esophagram examination. FINDINGS: A single view PA chest x-ray is submitted as a boiler coverer helper film. The superior mediastinal structures are midline. The heart size is within normal limits. Again visualized is linear scarring of the left lower lung zone, there is no change when compared to the previous chest x-ray dated 07/23/2018. there are fusion plates extending from C3 to C5, C5 and C6, and C6 and 7. The oral and pharyngeal stages of deglutition were unremarkable. Esophageal transport is prompt and efficient and there is no evidence of esophagitis, stricture, or mucosal ring. There is no evidence of a hiatal hernia. There was no gastroesophageal reflux noted . No radiopaque foreign body was visualized. IMPRESSION: Unremarkable esophagram. No radiopaque foreign body is visualized. 0.3 minutes of fluoroscopy time was utilized for this procedure. Some fluoroscopic images are performed with last image hold technology. These images require no additional radiation. <Electronically signed by Briana Abdullahi > 01/13/21 [id number] <Electronically signed by Jeremy Mcgraw > 01/13/21 [id number]
== END ==
LOC: M RAD 08:22
PROVIDERS: ATTEND Specialist
DX: S10.1 Other and unspecified superficial injuries of throat (principal); X58.XXXD Exposure to other specified factors, subsequent encounter

== ENCOUNTER → 2021-03-16 | Outpatient (CLI) | payer OTHER ==
[~2021-03-16] MED LIST changes: -E-Z-GAS II EFFERVESCENT PACKET (SODIUM BICARB./CITRIC ACID/SIMETHICONE) As Ordered ONE; -E-Z-HD 98% w/w 340GM SUSP BTL As Ordered ONE; -E-Z-PAQUE 96% w/w SUSP 176GM BTL As Ordered ONE; +ERGO500029 PO; -VITA50005 PO
--- NOTE | 2021-03-18 01:22 | ECWPNPC ---
PATIENT NAME: JAKOB ARGUELLES : 1960 GENDER: MALE VISIT DATE: 03/16/2021 DISCHARGE DATE: 03/16/21 1447 VISIT LOCKED DATE TIME: PHYSICIAN: KIKE BRITO RESOURCE: KIKE BRITO REASON FOR APPOINTMENT 1. BACK PAIN HISTORY OF PRESENT ILLNESS GENERAL: HPI 60-YEAR-OLD MALE IN FOR CHRONIC PAIN FOLLOW-UP. HE RATES HIS PAIN CURRENTLY AT AN 8 OUT OF 10 AND DESCRIBES IT ACHING, CONTINUOUS, AND STABBING. PATIENT DOES NOT FEEL HIS MEDICATIONS ARE COMPLETELY COVERING HIS PAIN. HE DENIES MED SIDE EFFECTS AT THIS TIME.. -. FALL RISK SCREENING: SCREENING : NO FALLS REPORTED IN THE LAST YEAR. PAIN SCREENING: PATIENT HAS A COMPLAINT OF ACUTE OR CHRONIC PAIN :YES LOCATION OF PAIN:LEFT SHOULDER, LOW BACK INTENSITY OF PAIN (SCALE OF 1 TO 10):8 WHAT DOES YOUR PAIN FEEL LIKE:ACHING, CONTINOUS, STABBING DURATION:CONTINOUS, CONSTANT, AWAKENS FROM SLEEP PAIN IS INCREASED BY:ACTIVITIES, PROLONGED STANDING PAIN IS DECREASED BY:USE OF PAIN MEDICATIONS, SITTING NURSING NOTE: -. PAIN CENTER INTAKE QUESTIONS: DO YOU HAVE A HISTORY OF MRSA? :YES DO YOU TAKE A BLOOD THINNERS? :NO ASPIRIN DO YOU HAVE ANY BLEEDING DISORDERS? :NO ANY NEW NUMBNESS OR WEAKNESS IN YOUR LEGS OR ARMS? :NO ANY PACEMAKER,DEFIBRILLATOR, OR DORSAL COLUMN STIMULATOR? :NO DO YOU HAVE ANY RASHES OR OPEN SORES? :NO ARE YOU ALLERGIC TO IV DYE? :NO ARE YOU DIABETIC? :NO ANY NEW PROBLEMS WITH YOUR MEDICATIONS? :NO HAVE YOU RECEIVED A VACCINE IN THE PAST 30 DAYS? :NO DO YOU PLAN TO RECEIVE A VACCINE IN THE NEXT 21 DAYS? :NO DO YOU NEED ANY PRESCRIPTION? :YES SOMA DO YOU TAKE ANY IMMUNOSUPPRESSIVE MEDICATIONS? :NO DO YOU HAVE ANY KIDNEY OR LIVER DISEASE? :NO IS THERE A CHANCE YOU COULD BE ? :NO ARE YOU BREAST FEEDING? :NO CURRENT MEDICATIONS TAKING ROSUVASTATIN CALCIUM 40 MG TABLET 1 TABLET ORALLY ONCE A DAY TAKING SPACER/AERO CHAMBER MOUTHPIECE - MISCELLANEOUS DIRECTED - - TAKING FLOMAX 0.4 MG CAPSULE 1 CAP ORALLY DAILY TAKING ARNUITY ELLIPTA 100 MCG/ACT AEROSOL POWDER BREATH ACTIVATED 1 PUFF INHALATION ONCE A DAY TAKING VENTOLIN HFA 108 (90 BASE) MCG/ACT AEROSOL SOLUTION 2 PUFFS NEEDED INHALATION EVERY 4 HRS TAKING TRAZODONE HCL 100 MG TABLET 2 TABLETS ORALLY AT 8 PM TAKING ROPINIROLE HCL 3 MG TABLET 1 TABLET 1 TO 3 HOURS BEFORE BEDTIME , NOTES: FOR RLS TAKING GABAPENTIN 800 MG TABLET 1 CAPSULE ORALLY THREE TIMES A DAY TAKING ASPIRIN 81 81 MG TABLET DELAYED RELEASE 1 TABLET ORALLY ONCE A DAY TAKING BUPROPION HCL ER (XL) 300 MG TABLET EXTENDED RELEASE 24 HOUR 1 TABLET IN THE MORNING ORALLY ONCE A DAY TAKING SERTRALINE HCL 50 MG TABLET 1 TABLET ORALLY ONCE A DAY TAKING OMEPRAZOLE 40 MG CAPSULE DELAYED RELEASE 1 CAPSULE 30 MINUTES BEFORE MORNING MEAL ORALLY ONCE A DAY TAKING OXYCODONE-ACETAMINOPHEN 10-325 MG TABLET 1 TABLET NEEDED ORALLY EVERY 6 HRS MDD 4 TAKING ALLERGY 24-HR 180 MG TABLET 1 TABLET ORALLY ONCE A DAY TAKING LEVOCETIRIZINE DIHYDROCHLORIDE 5 MG TABLET 1 TABLET IN THE EVENING ORALLY ONCE A DAY NOT-TAKING DULOXETINE HCL 60 MG CAPSULE DELAYED RELEASE PARTICLES 1 BY MOUTH EVERY DAY ORALLY DAILY NOT-TAKING DRISDOL 1.25 MG (92784 UT) CAPSULE 1 CAPSULE ORALLY WEEKLY NOT-TAKING CARISOPRODOL 350 MG TABLET 1 TABLET NEEDED ORALLY THREE TIMES DAILY PRN SPASM MDD=3 NOT-TAKING ASPIRIN 81 MG TABLET DELAYED RELEASE TAKE ONE TABLET BY MOUTH @8AM , NOTES: DUPLICATE UNKNOWN WELLBUTRIN SR 150 MG TABLET EXTENDED RELEASE 12 HOUR 1 TABLET IN THE MORNING ORALLY ONCE A DAY UNKNOWN CETIRIZINE HCL 10 MG TABLET TAKE ONE TABLET BY MOUTH ONCE DAILY ORALLY DAILY UNKNOWN NAPROXEN 500 MG TABLET 1 TABLET WITH FOOD OR MILK NEEDED; PT IS NOT ALLERGIC HE TAKES THIS PERIODICALLY. ORALLY EVERY 12 HRS UNKNOWN NICODERM CQ 14 MG/24HR PATCH 24 HOUR 1 PATCH TO SKIN TRANSDERMAL ONCE A DAY UNKNOWN FLUTICASONE PROPIONATE 50 MCG/ACT SUSPENSION 1 SPRAY IN EACH NOSTRIL NASALLY ONCE A DAY UNKNOWN NYSTATIN 135742 UNIT/ML SUSPENSION 4 ML MOUTH/THROAT FOUR TIMES A DAY UNKNOWN TIZANIDINE HCL 4 MG TABLET 1/2-1 TABLET ORALLY THREE TIMES DAILY UNKNOWN BUPROPION HCL ER (XL) 300 MG TABLET EXTENDED RELEASE 24 HOUR ORAL , NOTES: HAS NOT STARTED YET MEDICATION LIST REVIEWED AND RECONCILED WITH THE PATIENT PAST MEDICAL HISTORY CERVICAL RADICULOPOTHY SHOULDER PAIN NEPHROLITHIASIS RESTLESS LEG SYNDROME MIXED HYPERLIPIDEMIA CHRONIC SINUSITIS KIDNEY STONES HTN BULGING DISC LOW BACK ESSENTIAL HYPERTENSION VITAMIN D DEFICIENCY COPD SHOULDER INJURY ALLERGIES MOTRIN: HIVES, VOMIT - SIDE EFFECTS PREDNISONE: SYNCOPE, ARM NUMBNESS - SIDE EFFECTS SOCIAL HISTORY GENERAL: TOBACCO USE ARE YOU A:CURRENT SMOKER ARE YOU INTERESTED IN QUITTING?NOT READY TO QUIT COUNSELED THE PATIENT ON SMOKING EFFECTS, EDUCATION DDEAIAVQ19/20/2021 HOW MANY CIGARETTES A DAY DO YOU SMOKE?6-10 HOW SOON AFTER YOU WAKE UP DO YOU SMOKE YOUR FIRST CIGARETTE?6-30 MIN HOW OFTEN DO YOU SMOKE CIGARETTES?EVERY DAY PATIENT COUNSELED ON THE DANGERS OF TOBACCO USE AND URGED TO QUIT:03/16/2021 SMOKING CESSATION INFORMATION GIVEN DECLINED LATEX QUESTIONNAIRE LATEX ALLERGY : HAVE YOU EVER DEVELOPED ANY TYPE OF REACTION AFTER HANDLING LATEX PRODUCTS SUCH RUBBER GLOVES, CONDOMS, DIAPHRAGMS, BALLOONS, SOCKS, OR UNDERWEAR?NO LATEX ALLERGY : HAVE YOU EVER DEVELOPED ANY TYPE OF REACTION DURING OR AFTER DENTAL APPOINTMENT, VAGINAL/RECTAL EXAMINATION, SURGICAL PROCEDURE, OR ANY OTHER EXPOSURE?NO LATEX RISK : HAVE YOU EVER HAD ANY DIFFICULTY BREATHING OR HIVES AFTER EATING OR HANDLING ANY FRUITS, OR VEGETABLES; SUCH KIWI, BANANAS, STONE FRUITS, OR CHESTNUTSNO LATEX RISK : DO YOU HAVE A PREVIOUS PERSONAL HISTORY OF MORE THAN NINE SURGERIES, SPINA BIFIDA, OR REPEATED CATHERIZATIONS? NO LATEX RISK : ARE YOU FREQUENTLY EXPOSED TO LATEX PRODUCTS IN YOUR OCCUPATION?NO DATE ASKED : 03/16/2021 ALCOHOL USE: NO. LUNG CANCER SCREENING SMOKING STATUS:CURRENT SMOKER IS THE PATIENT BETWEEN THE AGE OF 55 AND 77?YES HAS THE PATIENT EVER BEEN DIAGNOSED WITH LUNG CANCER?NO PACK YEARS = NUMBER OF PACKS PER DAY SMOKED X NUMBER OF YEARS SMOKED:40 CREATE REFERRAL:CREATED REFERRAL TO ONCOLOGY NURSE NAVIGTOR FOR LDCT SCAN BMI CARE GOAL FOLLOW-UP ABOVE NORMAL [facility] DIET ALCOHOL SCREENING DID YOU HAVE A DRINK CONTAINING ALCOHOL IN THE PAST YEAR?NO POINTS0 INTERPRETATIONNEGATIVE RECREATIONAL DRUG USE DRUG USE?NO CAFFEINE CAFFEINE USE?YES 1-2 DAILY SEXUAL HX HAD SEX IN THE LAST 12 MONTHS (VAGINAL, ORAL, OR ANAL)?YES WITHWOMEN ONLY USE PROTECTION?NO LMP:N/A HAVE YOU EVER HAD AN STD?NO HIV / HEP-C SCREENING HIV TEST OFFERED TO PATIENT:NO HEP-C TEST OFFERED TO PATIENT:NO VOODOO [id number] OTHER NAZARENE LANGUAGE GREEK. 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 DIET: REGULAR. EXERCISE: NO REGULAR EXERCISE. MARITAL STATUS: . - PFS REFERRAL NEEDED?NO CLERGY REFERRAL NEEDED?NO PUBLIC HEALTH REFERRAL NEEDED?NO HAS THE PATIENT BEEN EDUCATED REGARDING HIS/HER PLAN OF CARE?YES HAS THE PATIENT BEEN EDUCATED REGARDING PAIN, THE RISK FOR PAIN, THE IMPORTANCE OF EFFECTIVE PAIN MANAGEMENT, AND THE PAIN ASSESSMENT PROCESS?YES ADVANCE DIRECTIVE ADVANCE DIRECTIVE DISCUSSED WITH PATIENT:YES HCP - RONY () REVIEWED WITH PATIENT 06/13/18 1135 JS. REVIEW OF SYSTEMS CONSTITUTIONAL: ANY RECENT FEVER NO . CHILLS NO . WEIGHT CHANGE OF UNKNOWN REASONS NO . GASTROENTEROLOGY: NEW UNEXPLAINABLE CHANGES IN BOWEL CONTROL NO . CONSTIPATION NO . GENITOURINARY: ANY NEW CHANGE IN BLADDER CONTROL? NO . NEUROLOGY: NEW ONSET DIZZINESS OR NEUROLOGICAL CHANGES NOT MENTIONED NO . NEW NUMBNESS OR PAIN PATTERNS NOT MENTIONED AND PERTINENT TO TODAY'S VISIT NO . CARDIOLOGY: NEW CHEST PRESSURE NO . PATIENT DENIES NO . RESPIRATORY: UNEXPLAINABLE COUGH NO . NEW SHORTNESS OF BREATH NO . VITAL SIGNS WT 219.8 LBS, HT 74 IN, BMI 28.22 INDEX, BP 132/81 MM HG, HR 79 /MIN, RR 18 /MIN, TEMP 98.4 F, OXYGEN SAT % 94%, SAFE IN ENV? (Y/N) YES, NA INITIALS AW 1425, REVIEWED BY: SHEILA PULLIAM MA. EXAMINATION GENERAL EXAMINATION: GENERALNO ACUTE DISTRESS, WELL NOURISHED AND HYDRATED. PSYCHAPPROPRIATE MOOD AND AFFECT . LUNGS:CLEAR TO AUSCULTATION BILATERALLY, NO WHEEZES, RHONCHI, RALES. HEART:NO MURMURS, REGULAR RATE AND RHYTHM. 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 GIVEN PRESENTING SYMPTOMS RECOMMEND FOLLOW-UP WITH DR. DECKER TO DISCUSS POTENTIAL MEDICATION ALTERATIONS TO HELP BETTER ALLEVIATE PATIENT'S SYMPTOMS. PATIENT HAS EXPRESSED UNDERSTANDING OF AND WAS IN AGREEMENT WITH TREATMENT PLAN. GIVEN TIME TO ASK QUESTIONS AND EXPRESS CONCERNS. ISTOP REGISTRY REVIEWED AND DEMONSTRATES COMPLLIANCE. (REF #[id number] ) BRINGS IN MEDICATIONS WHICH IS APPROPRIATE FOR WHAT WAS DISPENSED. RECENT URINE TOXICOLOGY REVIEWED. NO UNAUTHORIZED MEDICATIONS. NO ILLICIT SUBSTANCES AND PRESCRIBED MEDICATIONS WERE PRESENT. PROCEDURE CODES FA211 ESTABILISHED PATIENT [facility] CHARGE DISPOSITION & COMMUNICATION FOLLOW UP DR. DECKER (REASON: DISCUSS MEDICATIONS) ELECTRONICALLY SIGNED BY OJ CEJA ON 03/17/2021 AT 02:20 PM EDT DISCLAIMER : THIS IS A VISIT SUMMARY EXTRACTED FROM THE [employer] CHART. IT IS NOT A COPY OF THE [employer] PROGRESS NOTE. DEISI
== END ==
LOC: M PAIN 14:15
PROVIDERS: ATTEND Family Medicine
DX: M51.06 Intervertebral disc disorders with myelopathy, lumbar region (principal); G89.29 Other chronic pain; G25.81 Restless legs syndrome; J44.9 Chronic obstructive pulmonary disease, unspecified; F17.210 Nicotine dependence, cigarettes, uncomplicated; Z86.14 Personal history of Methicillin resistant Staphylococcus aureus infection; Z88.6 Allergy status to analgesic agent; Z88.8 Allergy status to other drugs, medicaments and biological substances; Z79.51 Long term (current) use of inhaled steroids; Z79.82 Long term (current) use of aspirin; Z79.899 Other long term (current) drug therapy

== ENCOUNTER → 2021-06-24 | Outpatient (CLI) | payer OTHER | LOC: M PAIN 11:00 | PROVIDERS: ATTEND Anesthesiology | DX: M96.1 Postlaminectomy syndrome, not elsewhere classified (principal); M54.50 Low back pain, unspecified; M79.18 Myalgia, other site; M48.061 Spinal stenosis, lumbar region without neurogenic claudication; M54.16 Radiculopathy, lumbar region; G25.81 Restless legs syndrome; J44.9 Chronic obstructive pulmonary disease, unspecified; F17.210 Nicotine dependence, cigarettes, uncomplicated; Z88.6 Allergy status to analgesic agent; Z88.8 Allergy status to other drugs, medicaments and biological substances; Z79.51 Long term (current) use of inhaled steroids; Z79.82 Long term (current) use of aspirin; Z79.899 Other long term (current) drug therapy ==

== ENCOUNTER → 2021-06-30 | Outpatient (CLI) | payer OTHER ==
[~2021-06-30] MED LIST changes: +GABA800T4 PO
[2021-06-30 14:47] LABS: BASO # 0.1 10^3/uL (0.0-0.2); BASO % 0.8 % (0.0-1.0); EOS # 0.1 10^3/uL (0.0-0.5); EOS % 1.3 % (0.0-3.0); HEMATOCRIT 59.1 % (42.0-52.0); HEMOGLOBIN 19.1 g/dl (13.5-17.5); LYMPH # 2.4 10^3/uL (1.5-5.0); LYMPH % 39.1 % (24.0-44.0); MEAN CORPUSCULAR HEMOGLOBIN 30.1 pg (27.0-33.0); MEAN CORPUSCULAR HGB CONC 32.3 g/dl (32.0-36.5); MEAN CORPUSCULAR VOLUME 93.1 fl (80.0-96.0); MONO # 0.4 10^3/uL (0.0-0.8); MONO % 6.8 % (2.0-8.0); NEUTROPHILS # 3.2 10^3/uL (1.5-8.5); NEUTROPHILS % 51.7 % (36.0-66.0); PLATELET COUNT, AUTOMATED 189 10^3/uL (150-450); RED BLOOD COUNT 6.35 10^6/uL (4.30-6.10); WHITE BLOOD COUNT 6.1 10^3/uL (4.0-10.0)
[2021-06-30 15:12] LABS: ALBUMIN 4.4 GM/DL (3.2-5.2); ALT/SGPT 33 U/L (12-78); BILIRUBIN,TOTAL 0.6 MG/DL (0.2-1.0); BLOOD UREA NITROGEN 16 MG/DL (7-18); CALCIUM LEVEL 9.9 MG/DL (8.8-10.2); CARBON DIOXIDE LEVEL 27 MEQ/L (21-32); CHLORIDE LEVEL 110 MEQ/L (98-107); CREATININE FOR GFR 1.08 MG/DL (0.70-1.30); GLOMERULAR FILTRATION RATE > 60.0 (>49); GLUCOSE, FASTING 90 MG/DL (70-100); SODIUM LEVEL 141 MEQ/L (136-145); TOTAL PROTEIN 7.8 GM/DL (6.4-8.2)
== END ==
LOC: M LAB 13:36
PROVIDERS: ATTEND Podiatrist
DX: M20.21 Hallux rigidus, right foot (principal)

== ENCOUNTER → 2021-07-05 | Outpatient (CLI) | payer OTHER | LOC: M LABSMTC 10:26 | PROVIDERS: ATTEND Anesthesiology | DX: Z01.812 Encounter for preprocedural laboratory examination (principal); Z20.822 Contact with and (suspected) exposure to COVID-19 ==

== ENCOUNTER 2021-07-09 08:53 | Day surgery (SDC) | payer OTHER ==
[~2021-07-09] VITALS: Ht 185.4 cm; Wt 99.7 kg
[~2021-07-09 08:53] MED LIST changes: +LIDOCAINE 1% MDV 20ML VIAL SQ PRN; +LR 1,000 ML IV ONE; +ceFAZolin SOD 2 GM in IV 1 EA IV ONE
--- OUTSIDE RECORDS SUMMARY | 2021-07-09 08:58 | CCD | Continuity of Care Document ---
Author Yosef Alcantara [facility] Organization Unknown Address [address] [place] [id number] Phone [phone] Care Team Providers Care Anaesthesiologist Name Role Phone Sara Tineo [facility] - [facility] AUTM [phone] [facility] Neurology - Neurology AUTM [facility] - Medical Oncology AUTM [phone] [facility]M [phone] Matthew Modi MD AUTM [phone] [facility] AUTM [phone] Jose E Mccall DPJohanne AUTM [phone] Problems Active Problems Provider Date Financial problem Yamileth Diaz M.D. Onset: 03/09/20 21 Dysphagia Yamileth Diaz M.D. Onset: 03/09/20 21 Chronic obstructive lung disease Yamileth Diaz M.D. On set: 03/09/2021 Essential tremor Michelle Sigala PA Onset: 02/25 Chronic pain Yamileth Diaz M.D. Onset: 03/09/20 21 Tremor Yamileth Diaz M.D. Onset: 03/09/20 21 Social History Type Date Description Comments Sex Unknown Tobacco Use Start: Unknown Never Used Smokeless Tobacco ETOH Use Denies alcohol use Tobacco Use Start: Unknown Patient is a current smoker, smo kes every day less than half a pack Recreational Drug Use Former Drug User marijuana as a kid Smoking Status Reviewed: 07/01/21 Patient is a current smoker, smokes every day less than half a pack Exercise Type/Frequency Does not exercise Tattoo/Piercing Tattoo Sun Exposure Uses sunscreen Sun Exposure Does not use tanning beds Seat Belt/Car Seat Always uses seat belt Bike Helmet Always Smoke Alarms Yes Smoke Alarms Carbon Monoxide Detector: Yes Allergies and adverse reactions Active Allergies Criticality Reaction | Severity Comments Date Motrin Unable to assess criticality hives 04/22/2020 Prednisone Unable to assess criticality 04/22/2020 Medications Active Medications SIG Qnty Indications Ordering Provide r Date Sildenafil Citrate 100mg Tablets 1/2-1 tab by mouth at least 30 minutes prior to intercourse 6tabs N52.9 Brandi Sam FNP 07/01/2021 Azelastine HCL (Nasal) 0.15% Solut ion 1-2 sprays each nostril once daily 30ml J30.9 Brandi Sam FNP 07/01/2021 Sertraline HCL 100mg Tablets take one tablet by mouth @8pm 90tabs F32.9 Brandi Sam FNP [address] 1 by mouth every day 100tabs Yamileth Diaz M.D. 021 Proair HFA 108(90Base) mcg/Act Aer osol 2 puffs every 4 hours as needed 8.500gm J44.9 Yamileth Diaz M.D. 01/15/2021 Jen Allergy 180mg Tablets Take one po daily for allergies 90tabs Michelle Sigala PA 11/30/[address] take one capsule by mouth @8am 90caps Yamileth Diaz M.D. 1 09/19/2019 Sumatriptan Succinate 100mg Tablet s take one tablet by mouth as needed for headache, may repeat once after 1 hour as needed to treat 4 to 6 headaches per month 12tabs G43.009 Yamileth Diaz M.D. 06/05/2020 Bupropion Hydrochloride ER (XL) 300mg Tablets ER 24HR take one tablet by mouth @8am 90taGreg Davalos M.D. 06/05/2020 Gabapentin 800mg Tablets 1 by mouth three times a day Unknown Arnuity Ellipta 100mcg/Act Aerosol 1 puff daily 30units Yamileth Diaz M.D. 000 Oxycodone-Acetaminophen 10-325mg T ablets take 1 tablet by mouth every 6 hours as needed for pain Unknown Carisoprodol 350mg Tablets take one tablet three times a day and at bedtime as needed for pain Unknown Tamsulosin HCL 0.4mg Capsules take one capsule by mouth every day for prostate Unknown Trazodone HCL 100mg Tablets take two tablets by mouth @8pm 180tabs Yamileth Diaz M.D. 0 Rosuvastatin Calcium 40mg Tablets Take One Tablet By Mouth @8PM 90tabs Petrancosta Michelle Mccone, P A Ropinirole HCL 3mg Tablets take one tablet by mouth @8pm 90tabs Yamileth Diaz M.D. 000 History Medications Amoxicillin 500mg Capsules one by mouth three times a day for 10 days 30caps H92.01 Yamileth Diaz M.D. 04/07/2021 - 04/17/2021 Tadalafil 5mg Tablets 1 by mouth every day 30tabs Yamileth Diaz M.D. 021 - 07/01/2021 Immunizations CPT Code Status Date Vaccine Lot # [id number] Given 02/05/2021 Moderna Sars-(Co vid-19) vaccine, mRNA, LNP-S, PF, 100 mcg/ 0.5 mL 71700 Given 01/08/2021 Moderna Sars-(Co vid-19) vaccine, mRNA, LNP-S, PF, 100 mcg/ 0.5 mL [id number] Given 08/31/2020 Influenza Virus Vaccine, Nicolas drivalent,multidose vial [id number] Vital Signs Date Vital Result Comment 07/01/2021 11:00am BP Systolic 129 mmHg BP Diastolic 83 mmHg Heart Rate 81 /min Body Temperature 97.2 F Respiratory Rate 17 /min Height 72 inches 6'0" Weight 220.50 lb O2 % BldC Oximetry 94 % Peak Expiratory Flow Rate 547 Estimated Peak Flow Rate [place] Body Weight 178 lb BMI (Body Mass Index) 29.9 kg/m2 04/07/2021 11:31am BP Systolic 132 mmHg BP Diastolic 89 mmHg Heart Rate 78 /min Body Temperature 98.5 F Respiratory Rate 16 /min Height 72 inches 6'0" Weight 215.25 lb Peak Expiratory Flow Rate 547 Estimated Peak Flow Rate [place] Body Weight 178 lb BMI (Body Mass Index) 29.2 kg/m2 Results Test Acquired Date Facility Test Result H/L Range Note CBC With Differential 06/30/2021 [place] [address] [phone] White Blood Count 6.1 10 Normal 4.0-10.0 Red Blood Count 6.35 10 High 4.30-6.10 Hemoglobin 19.1 g/dL High 13.5-17.5 Hematocrit 59.1 % High 42.0-52.0 Mean Corpuscular Volume 93.1 fl Normal 80.0-96.0 Mean Corpuscular Hemoglobin 30.1 pg Normal 27.0-33.0 Mean Corpuscular HGB Conc 32.3 g/dL Normal 32.0-36.5 Red Cell Distribution Width 14.6 % High 11.5-14.5 Platelet Count, Automated 189 10 Normal 150-450 Neutrophils % 51.7 % Normal 36.0-66.0 Lymph % 39.1 % Normal 24.0-44.0 Dunn % 6.8 % Normal 2.0-8.0 Eos % 1.3 % Normal 0.0-3.0 Baso % 0.8 % Normal 0.0-1.0 Immature Granulocyte % 0.3 % Normal 0-3.0 Nucleated Red Blood Cell % 0.0 % Normal 0-0 Neutrophils # 3.2 10 Normal 1.5-8.5 Lymph # 2.4 10 Normal 1.5-5.0 Dunn # 0.4 10 Normal 0.0-0.8 Eos # 0.1 10 Normal 0.0-0.5 Baso # 0.1 10 Normal 0.0-0.2 Comprehensive Metabolic Profil 06/30/[address] [place] [address] [phone] Glucose, Fasting 90 mg/dL Normal 70-100 Blood Urea Nitrogen 16 mg/dL Normal 7-18 Creatinine For GFR 1.08 mg/dL Normal 0.70-1.30 Glomerular Filtration Rate > 60.0 Normal >49 1 Sodium Level 141 mEq/L Normal 136-145 Potassium Serum 5.0 mEq/L Normal 3.5-5.1 Chloride Level 110 mEq/L High 98-107 Carbon Dioxide Level 27 mEq/L Normal 21-32 Anion Gap 4 mEq/L Low 8-16 Calcium Level 9.9 mg/dL Normal 8.8-10.2 Ast/Sgot 16 U/L Normal 7-37 Alt/SGPT 33 U/L Normal 12-78 Alkaline Phosphatase 129 U/L High 45-117 Bilirubin,Total 0.6 mg/dL Normal 0.2-1.0 Total Protein 7.8 GM/DL Normal 6.4-8.2 Albumin 4.4 GM/DL Normal 3.2-5.2 Albumin/Globulin Ratio 1.3 Normal 1 Units are mL/min/1.73 m2 Chronic Kidney Disease Staging per NKF: Stage I & II GFR >=60 Normal to Mildly Decreased Stage III GFR 30-59 Moderately Decreased Stage IV GFR 15-29 Severely Decreased Stage V GFR <15 Very Little GFR Left ESRD GFR <15 on [employer] Procedures Date Code Description Status 07/01/2021 21800 Office/Outpatient Established Mo d MDM 30-39 Min Completed 07/01/2021 27751 EKG Interpretation & Report Comp leted 04/07/2021 04882 Office/Outpatient Established Mo d MDM 30-39 Min Completed 03/09/2021 43280 Office/Outpatient Established Mo d MDM 30-39 Min Completed 01/15/2021 34946 Office/Outpatient Established Hi gh MDM 40-54 Min Completed Medical Devices Description No Information Available Encounters Type Date Location Provider Dx Diagnosis Office Visit 07/01/2021 11:00a Main Office Brandi Sam FNP Z01.8 18 Encounter for other preprocedural examination M21.611 Bunion of right foot J44.9 Chronic obstructive pulmonar y disease, unspecified F32.9 Major depressive disorder, s vivek episode, unspecified E78.2 Mixed hyperlipidemia G25.0 Essential tremor J30.9 Allergic rhinitis, unspecifi ed K21.9 Gastro-esophageal reflux dis ease without esophagitis N52.9 Male erectile dysfunction, u nspecified Office Visit 04/07/2021 11:45a Main Office Yamileth Diaz M.D. H 92.01 Otalgia, right ear F32.9 Major depressive disorder, s vivek episode, unspecified G89.29 Other chronic pain Office Visit 03/09/2021 1:30p Main Office Yamileth Diaz M.D. L 60.3 Nail dystrophy R25.1 Tremor, unspecified R13.10 Dysphagia, unspecified J44.9 Chronic obstructive pulmonar y disease, unspecified F32.9 Major depressive disorder, s vivek episode, unspecified M21.611 Bunion of right foot Office Visit 01/15/2021 12:30p Main Office Yamileth Diaz M.D. Z 59.9 Problem related to housing and economic circumstances, unsp Z59.6 Low income R13.10 Dysphagia, unspecified M21.611 Bunion of right foot J44.9 Chronic obstructive pulmonar y disease, unspecified L60.3 Nail dystrophy Assessments Date Code Description Provider 07/01/2021 Z01.818 Encounter for other preprocedura l examination Brandi Sam, [facility] 07/01/2021 M21.611 Bunion of right foot Johanne Sam, [facility] 07/01/2021 J44.9 Chronic obstructive pulmonary di sease, unspecified Pleskach Brandi, [facility] 07/01/2021 F32.9 Major depressive disorder, singl e episode, unspecified Pleskach Brandi, [facility] 07/01/2021 E78.2 Mixed hyperlipidemia PleJohanne schultz, [facility] 07/01/2021 G25.0 Essential tremor Pleskach Brandi , [facility] 07/01/2021 J30.9 Allergic rhinitis, unspecified P leskachBrandi, [facility] 07/01/2021 K21.9 Gastro-esophageal reflux disease without esophagitis Brandi Sam, [facility] 07/01/2021 N52.9 Male erectile dysfunction, unspe cified PleBrandi schultz, [facility] 04/07/2021 H92.01 Otalgia, right ear Velasquez Diaz M.D. 04/07/2021 F32.9 Major depressive disorder, singl e episode, unspecified Yamileth Diaz M.D. 04/07/2021 G89.29 Other chronic pain Velasquez Diaz M.D. 03/09/2021 L60.3 Nail dystrophy Yamileth Diaz M.D. 03/09/2021 R25.1 Tremor, unspecified Lamine Diaz M.D. 03/09/2021 R13.10 Dysphagia, unspecified Yamileth Diaz M.D. 03/09/2021 J44.9 Chronic obstructive pulmonary di sease, unspecified Yamileth Diaz M.D. 03/09/2021 F32.9 Major depressive disorder, singl e episode, unspecified Yamileth Diaz M.D. 03/09/2021 M21.611 Bunion of right foot Greg Diaz M.D. 01/15/2021 Z59.9 Problem related to h ousing and economic circumstances, unspecified Yamileth Diaz M.D. 01/15/2021 Z59.6 Low income Yamileth Diaz M.D. 01/15/2021 R13.10 Dysphagia, unspecified Yamileth Diaz M.D. 01/15/2021 M21.611 Bunion of right foot Greg Diaz M.D. 01/15/2021 J44.9 Chronic obstructive pulmonary di sease, Yamileth Thompson M.D. 01/15/2021 L60.3 Nail dystrophy Yamileth Diaz M.D. 01/08/2021 Z59.6 Low income Brandi Sam FNP 01/08/2021 Z59.9 Problem related to h ousing and economic circumstances, unspecified Brandi Sam FNP Plan of Treatment Future Appointment(s):* 09/14/2021 1:15 pm - Yamileth Diaz M.D. at Main Office 07/01/2021 - Brandi Sam FNP* Z01.818 Encounter for other preprocedural examination* Comments:* EKG shows NSR with no acute changeLabs are stablePatient is medically optimized for the planned procedure. * Recommendations:* stop taking multivitamins until after surgery No aspirin, ibuprofen, naproxen or other NSAID for one week prior to surgery * M21.611 Bunion of right foot* Comments:* scheduled for removal * J44.9 Chronic obstructive pulmonary disease, unspecified* Comments:* controlled on arnuity * F32.9 Major depressive disorder, single episode, unspecified* New Medication: * Sertraline HCL 100 mg - take one tablet by mouth @8pm * Comments:* increase sertraline to 100mg daily * E78.2 Mixed hyperlipidemia* Comments:* continue statin * G25.0 Essential tremor* Comments:* continue ropinirole * J30.9 Allergic rhinitis, unspecified* New Medication:* Azelastine HCL (Nasal) 0.15 % - 1-2 sprays each nostril once daily * Comments:* add flonase daily * K21.9 Gastro-esophageal reflux disease without esophagitis* Comments:* controlled on current medications * N52.9 Male erectile dysfunction, unspecified* New Medication:* Sildenafil Citrate 100 mg - 1/2-1 tab by mouth at least 30 minutes prior to intercourse Functional Status Functional Condition Comment Date Status Standard cane is used with the right hand to ambulate Active Difficulty with all IADL's Activ e Glasses Active Difficulty with all ADL's Active Standard cane is used to ambulate Active Mental Status Mental Condition Comment Date Status Cannot Understand Information Ac tive Unable to understand reading 4/5 grade reading level Active Referrals Refer to Reason for Referral Status Appt Date Jose E Mccall DPM Please evaluate for bunion o n right foot and nail dystrophy. Thank you. Scheduled 07/09/2021 [id number] [facility] [address] [facility] [id number] [phone]
--- OUTSIDE RECORDS SUMMARY | 2021-07-09 08:58 | CCD | Continuity of Care Document ---
Author Organization Unknown Address Unknown Phone Unavailable Care Team Providers Care Jowl Trimmer Name Role Phone Sara Tineo [facility] [phone] [facility] Neurology - Neurology AUTM [facility] - Medical Oncology AUTM [phone] [facility] AUTM [phone] Matthew Modi MD AUTM [phone] [facility] [phone] Jose E Mccall DPJohanne AUTM [phone] Problems Active Problems Provider Date Financial problem [...] 24HR take one tablet by mouth @8am 90tabs Greg Diaz M.D. 06/05/2020 Gabapentin 800mg Tablets 1 by mouth three times a day Unknown Arnuity Ellipta 100mcg/Act Aerosol 1 puff daily 30units Yamileth Diaz M.D. 00/00/0 000 Oxycodone-Acetaminophen 10-325mg T ablets take 1 [...] Take One Tablet By Mouth @8PM 90tabs Petrancosta, Michelle Cocke, P A Ropinirole HCL 3mg Tablets take one tablet by mouth @8pm 90tabs Yamileth Diaz M.D. 000 History Medications Amoxicillin 500mg Capsules one by mouth three times a day for 10 days 30caps H92.01 Yamileth Diaz M.D. 04/07/2021 - 04/17/2021 Tadalafil 5mg Tablets 1 by mouth every day 30tabs Yamileth Diaz M.D. 021 - 07/01/2021 Immunizations CPT Code Status Date Vaccine Lot # [id number] Given 02/05/2021 Moderna Sars-(Co vid-19) vaccine, mRNA, LNP-S, PF, 100 mcg/ 0.5 mL 35590 Given 01/08/2021 Moderna Sars-(Co vid-19) vaccine, mRNA, LNP-S, PF, 100 mcg/ 0.5 mL 23428 Given 08/31/2020 Influenza Virus Vaccine, Nicolas drivalent,multidose vial [id number] Vital Signs Date Vital Result Comment 07/01/2021 11:00am BP Systolic 129 mmHg BP Diastolic 83 mmHg Heart Rate 81 /min Body Temperature 97.2 F Respiratory Rate 17 /min Height 72 inches 6'0" Weight 220.50 lb O2 % BldC Oximetry 94 % Peak Expiratory Flow Rate 547 Estimated Peak Flow Rate [place] Body Weight 178 lb BMI (Body Mass Index) 29.9 kg/m2 04/07/2021 11:31am BP Systolic 132 mmHg BP Diastolic 89 mmHg Heart Rate 78 /min Body Temperature 98.5 F Respiratory Rate 16 /min Height 72 inches 6'0" Weight 215.25 lb Peak Expiratory Flow Rate 547 Estimated Peak Flow Rate [place] Body Weight 178 lb BMI (Body Mass Index) 29.2 kg/m2 Results Test Acquired Date Facility Test Result H/L Range Note CBC With Differential 06/30/2021 [place] [address] [phone] White Blood Count 6.1 10 Normal 4.0-10.0 [...] 36.0-66.0 Lymph % 39.1 % Normal 24.0-44.0 [place] % 6.8 % Normal 2.0-8.0 Eos % 1.3 % Normal 0.0-3.0 Baso % 0.8 % Normal 0.0-1.0 Immature Granulocyte % 0.3 % Normal 0-3.0 Nucleated Red Blood Cell % 0.0 % Normal 0-0 Neutrophils # 3.2 10 Normal 1.5-8.5 Lymph # 2.4 10 Normal 1.5-5.0 Pl[place] # 0.4 10 Normal 0.0-0.8 Eos # 0.1 10 Normal 0.0-0.5 Baso # 0.1 10 Normal 0.0-0.2 Comprehensive Metabolic Profil 06/30/[address] [place] [address] [phone] Glucose, Fasting 90 mg/dL Normal 70-100 Blood [...] Little GFR Left ESRD GFR <15 on [employer] Procedures Date Code Description Status 07/01/2021 42761 Office/Outpatient Established Mo d MDM 30-39 Min Completed 07/01/2021 51872 EKG Interpretation & Report Comp leted 04/07/2021 22084 Office/Outpatient Established Mo d MDM 30-39 Min Completed 03/09/2021 72734 Office/Outpatient Established Mo d MDM 30-39 Min Completed 01/15/2021 27056 Office/Outpatient Established Hi gh MDM 40-54 Min [...] for other preprocedura l examination Brandi Sam, [facility] 07/01/2021 M21.611 Bunion of right foot Johanne Sam, [facility] 07/01/2021 J44.9 Chronic obstructive pulmonary di sease, unspecified PleBrandi schultz, [facility] 07/01/2021 F32.9 Major depressive disorder, singl e episode, unspecified PleBrandi schultz, [facility] 07/01/2021 E78.2 Mixed hyperlipidemia PleskJohanne oneill, [facility] 07/01/2021 G25.0 Essential tremor Brandi Sam , [facility] 07/01/2021 J30.9 Allergic rhinitis, unspecified P leskachBrandi, [facility] 07/01/2021 K21.9 Gastro-esophageal reflux disease without esophagitis Brandi Sam, [facility] 07/01/2021 N52.9 Male erectile dysfunction, unspe cified Brandi Sam, [facility] 04/07/2021 H92.01 Otalgia, right ear Velasquez Diaz [...] 01/15/2021 J44.9 Chronic obstructive pulmonary di sease, unspecYamileth Bautista M.D. 01/15/2021 L60.3 Nail dystrophy Yamileth Diaz [...] for Referral Status Appt Date Jose E Mccall, [place] Please evaluate for bunion o n right foot and nail dystrophy. Thank you. Scheduled 07/09/2021 [address] [facility] [address] [facility] [address] [phone]
--- OUTSIDE RECORDS SUMMARY | 2021-07-09 08:58 | CCD | Continuity of Care Document ---
Author Yosef Alcantara [facility] Organization Unknown Address [address] [place] [address] Phone [phone] Care Team Providers Care Post Form Remover Name Role Phone Sara Tineo [facility] [phone] [facility] Neurology - Neurology AUTM [facility] - Medical Oncology AUTM [phone] [facility]M [phone] Matthew Modi MD AUTM [phone] [facility] Jose E Mccall DPJohanne AUTM [phone] Problems Active Problems Provider Date Financial problem [...] Tablet By Mouth @8PM 90tabs Petrancosta Michelle Garza, P A Ropinirole HCL 3mg Tablets take one tablet by mouth @8pm 90tabs Yamileth Diaz M.D. 000 History Medications Amoxicillin 500mg Capsules one by mouth three times a day for 10 days 30caps H92.01 Yamileth Diaz M.D. 04/07/2021 - 04/17/2021 Tadalafil 5mg Tablets 1 by mouth every day 30tabs Yamileth Diaz M.D. 021 - 07/01/2021 Immunizations CPT Code Status Date Vaccine Lot # [id number] Given 02/05/2021 Moderna Sars-(Co vid-19) vaccine, mRNA, LNP-S, PF, 100 mcg/ 0.5 mL 62902 Given 01/08/2021 Moderna Sars-(Co vid-19) vaccine, mRNA, LNP-S, PF, 100 mcg/ 0.5 mL 00845 Given 08/31/2020 Influenza Virus Vaccine, Nicolas drivalent,multidose vial [id number] Vital Signs Date Vital Result Comment 07/01/2021 11:00am BP Systolic 129 mmHg BP Diastolic 83 mmHg Heart Rate 81 /min Body Temperature 97.2 F Respiratory Rate 17 /min Height 72 inches 6'0" Weight 220.50 lb O2 % BldC Oximetry 94 % Peak Expiratory Flow Rate 547 Estimated Peak Flow Rate [place] Body Weight 178 lb BMI (Body Mass Index) 29.9 kg/m2 04/07/2021 11:31am BP Systolic 132 mmHg BP Diastolic 89 mmHg Heart Rate 78 /min Body Temperature 98.5 F Respiratory Rate 16 /min Height 72 inches 6'0" Weight 215.25 lb Peak Expiratory Flow Rate 547 Estimated Peak Flow Rate [place] Body Weight 178 lb BMI (Body Mass Index) 29.2 kg/m2 Results Test Acquired Date Facility Test Result H/L Range Note CBC With Differential 06/30/2021 [place] [address] [phone] White Blood Count 6.1 10 Normal 4.0-10.0 [...] 36.0-66.0 Lymph % 39.1 % Normal 24.0-44.0 [place] % 6.8 % Normal 2.0-8.0 Eos % 1.3 % Normal 0.0-3.0 Baso % 0.8 % Normal 0.0-1.0 Immature Granulocyte % 0.3 % Normal 0-3.0 Nucleated Red Blood Cell % 0.0 % Normal 0-0 Neutrophils # 3.2 10 Normal 1.5-8.5 Lymph # 2.4 10 Normal 1.5-5.0 [place] # 0.4 10 Normal 0.0-0.8 Eos # 0.1 10 Normal 0.0-0.5 Baso # 0.1 10 Normal 0.0-0.2 Comprehensive Metabolic Profil 06/30/2021 [place] [address] [phone] Glucose, Fasting 90 mg/dL Normal 70-100 Blood [...] Little GFR Left ESRD GFR <15 on [employer] Procedures Date Code Description Status 07/01/2021 68715 EKG Interpretation & Report Comp leted 04/07/2021 22045 Office/Outpatient Established Mo d MDM 30-39 Min Completed 03/09/2021 79141 Office/Outpatient Established Mo d MDM 30-39 Min Completed 01/15/2021 94158 Office/Outpatient Established Hi gh MDM 40-54 Min Completed Medical Devices Description No Information Available Encounters Type Date Location Provider Dx Diagnosis Office Visit 04/07/2021 11:45a Main Office Yamileth [...] Problem related to housing and economic circumstances, uns Z59.6 Low income R13.10 Dysphagia, unspecified M21.611 Bunion of right foot J44.9 Chronic obstructive pulmonar y disease, unspecified L60.3 Nail dystrophy Assessments Date Code Description Provider 07/01/2021 Z01.818 Encounter for other preprocedura l examination PleHiral schultzy, [facility] 07/01/2021 M21.611 Bunion of right foot Pleskach, M nia, [facility] 07/01/2021 J44.9 Chronic obstructive pulmonary di sease, unspecified Pleskach, Brandi, [facility] 07/01/2021 F32.9 Major depressive disorder, singl e episode, unspecified Pleskach Brandi, [facility] 07/01/2021 E78.2 Mixed hyperlipidemia Pleskach, M nia, [facility] 07/01/2021 G25.0 Essential tremor Pleskach Brandi , [facility] 07/01/2021 J30.9 Allergic rhinitis, unspecified P leskaBrandi rowe, [facility] 07/01/2021 K21.9 Gastro-esophageal reflux disease without esophagitis Brandi Sam, [facility] 07/01/2021 N52.9 Male erectile dysfunction, unspe cified PleBrandi schultz, [facility] 04/07/2021 H92.01 Otalgia, right ear Velasquez Diaz [...] 01/15/2021 J44.9 Chronic obstructive pulmonary di sease, unspecified Yamileth Diaz M.D. 01/15/2021 L60.3 Nail dystrophy Yamileth Diaz M.D. 01/08/2021 Z59.6 Low income Brandi Sam FNP 01/08/2021 Z59.9 Problem related to h ousing and economic circumstances, unspecified Brandi Sam FNP Plan of Treatment Future Appointment(s):* 09/14/2021 1:15 pm - Yamileth Diaz M.D. at Main Office 07/01/2021 - Brandi Sam FNP* Z01.818 Encounter for other preprocedural examination* Recommendations:* stop taking multivitamins until after surgery No aspirin, ibuprofen, naproxen or other NSAID for one week prior to surgery * M21.611 Bunion of right foot* Comments:* scheduled for removal * J44.9 Chronic obstructive pulmonary disease, unspecified * F32.9 Major depressive disorder, single episode, unspecified* New Medication: * Sertraline HCL 100 mg - take one tablet by mouth @8pm * E78.2 Mixed hyperlipidemia * G25.0 Essential tremor * J30.9 Allergic rhinitis, unspecified* New Medication:* Azelastine HCL (Nasal) 0.15 % - 1-2 sprays each nostril once daily * K21.9 Gastro-esophageal reflux disease without [...] and nail dystrophy. Thank you. Scheduled 07/09/2021 [address] [facility] [address] [facility] [address] [phone]
--- OUTSIDE RECORDS SUMMARY | 2021-07-09 08:58 | CCD | Continuity of Care Document ---
Author Author Yosef DOTSON M.D. Organization Unknown Address [address] [address] Phone [phone] Care Team Providers Care Calculation Clerk Name Role Phone Sara Tineo [facility] [phone] [facility] Neurology - Neurology AUTM [facility] - Medical Oncology AUTM [phone] [facility]M [phone] Matthew Modi MD AUTM [phone] [facility] [phone] Jose E Mccall DPJohanne AUTM [phone] Problems Active Problems Provider Date Financial problem Yamileth Dotson M.D. Onset: 03/09/20 21 Dysphagia Yamileth Dotson M.D. Onset: 03/09/20 21 Chronic obstructive lung disease Yamileth Dotson M.D. On set: 03/09/2021 Essential tremor Michelle Sigala PA Onset: 02/25 Chronic pain Yamileth Dotson M.D. Onset: 03/09/20 21 Tremor Yamileth Dotson M.D. Onset: 03/09/20 21 Social History Type Date Description Comments Sex Unknown Tobacco Use Start: Unknown Never Used Smokeless Tobacco ETOH Use Denies alcohol use Tobacco Use Start: Unknown Patient is a current smoker, smo kes every day less than half a pack Recreational Drug Use Former Drug User marijuana as a kid Smoking Status Reviewed: 04/07/21 Patient is a current smoker, smokes every day less than half a pack Exercise Type/Frequency Does not exercise Tattoo/Piercing Tattoo Sun Exposure Uses sunscreen Sun Exposure Does not use tanning beds Seat Belt/Car Seat Always uses seat belt Bike Helmet Always Smoke Alarms Yes Smoke Alarms Carbon Monoxide Detector: Yes Allergies, Adverse Reactions, Alerts Active Allergies Reaction Severity Comments Date Motrin hives 04/22/2020 Prednisone 04/22/2020 Medications Active Medications SIG Qnty Indications Ordering Provide r Date Amoxicillin 500mg Capsules one by mouth three times a day for 10 days 30caps H92.01 Yamileth Dotson M.D. 04/07/[address] 1 by mouth every day 100tabs Yamileth Dotson M.D. 021 Tadalafil 5mg Tablets 1 by mouth every day 30tabs Yamileth Dotson M.D. 021 Proair HFA 108(90Base) mcg/Act Aer osol 2 puffs every 4 hours as needed 8.500gm J44.9 Yamileth Dotson M.D. 01/15/2021 Jen Allergy 180mg Tablets Take one po daily for allergies 90tabs Michelle Sigala PA 11/30/2020 Sertraline HCL 50mg Tablets take one tablet by mouth @8pm 90tanitish F32.9 Yamileth Dotson M.D. Omeprazole 40mg Capsules DR take one capsule by mouth @8am 90caps Yamileth Dotson M.D. 1 09/19/2019 Bupropion Hydrochloride ER (XL) 300mg Tablets ER 24HR take one tablet by mouth @8am 90taGreg Davalos M.D. 06/05/2020 Sumatriptan Succinate 100mg Tablet s take one tablet by mouth as needed for headache, may repeat once after 1 hour as needed to treat 4 to 6 headaches per month 12tabs G43.009 Yamileth Dotson M.D. 06/05/2020 Gabapentin 800mg Tablets 1 by mouth three times a day Unknown Ropinirole HCL 3mg Tablets take one tablet by mouth @8pm 90tabs Yamileth Dotson M.D. 000 Rosuvastatin Calcium 40mg Tablets Take One Tablet By Mouth @8PM 90tabs PetrMichelle catherine P A Trazodone HCL 100mg Tablets take two tablets by mouth @8pm 180tabs Yamileth Dotson M.D. 0 Tamsulosin HCL 0.4mg Capsules take one capsule by mouth every day for prostate Unknown Carisoprodol 350mg Tablets take one tablet three times a day and at bedtime as needed for pain Unknown Oxycodone-Acetaminophen 10-325mg T ablets take 1 tablet by mouth every 6 hours as needed for pain Unknown Arnuity Ellipta 100mcg/Act Aerosol 1 puff daily 30units Yamileth Dotson M.D. Immunizations CPT Code Status Date Vaccine Lot # [id number] Given 02/05/2021 Moderna Sars-(Co vid-19) vaccine, mRNA, LNP-S, PF, 100 mcg/ 0.5 mL 76958 Given 01/08/2021 Moderna Sars-(Co vid-19) vaccine, mRNA, LNP-S, PF, 100 mcg/ 0.5 mL [id number] Given 08/31/2020 Influenza Virus Vaccine, Quadrivalent,age 3 and up,multidose vial [id number] Vital Signs Date Vital Result Comment 04/07/2021 11:31am BP Systolic 132 mmHg BP Diastolic 89 mmHg Heart Rate 78 /min Body Temperature 98.5 F Respiratory Rate 16 /min Height 72 inches 6'0" Weight 215.25 lb Peak Expiratory Flow Rate 547 Estimated Peak Flow Rate [place] Body Weight 178 lb BMI (Body Mass Index) 29.2 kg/m2 03/09/2021 12:57pm BP Systolic 124 mmHg BP Diastolic 87 mmHg Heart Rate 74 /min Body Temperature 98.7 F Height 72 inches 6'0" Weight 217.38 lb O2 % BldC Oximetry 96 % Peak Expiratory Flow Rate 547 Estimated Peak Flow Rate [place] Body Weight 178 lb BMI (Body Mass Index) 29.5 kg/m2 Results Test Acquired Date Facility Test Result H/L Range Note TSH And T4 Free ([facility]) 12/15/2020 [facility] [phone] Thyroid Stimulating Hormone 3.930 uIU/ML High 0. 358-3.740 1 Free T4 1.05 ng/dL Normal 0.76-1.46 2 Comprehensive Metabolic Profil 12/15/2020 [facility] [phone] Glucose, Fasting 92 mg/dL Normal 70-100 Blood Urea Nitrogen 10 mg/dL Normal 7-18 Creatinine For GFR 0.91 mg/dL Normal 0.70-1.30 Glomerular Filtration Rate > 60.0 Normal >49 3 Sodium Level 142 mEq/L Normal 136-145 Potassium Serum 4.5 mEq/L Normal 3.5-5.1 Chloride Level 109 mEq/L High 98-107 Carbon Dioxide Level 29 mEq/L Normal 21-32 Anion Gap 4 mEq/L Low 8-16 Calcium Level 9.0 mg/dL Normal 8.8-10.2 Ast/Sgot 13 U/L Normal 7-37 Alt/SGPT 25 U/L Normal 12-78 Alkaline Phosphatase 116 U/L Normal 45-117 Bilirubin,Total 0.5 mg/dL Normal 0.2-1.0 Total Protein 7.2 GM/DL Normal 6.4-8.2 Albumin 4.0 GM/DL Normal 3.2-5.2 Albumin/Globulin Ratio 1.3 Normal CBC With Differential 12/15/2020 [facility] [phone] White Blood Count 4.7 10 Normal 4.0-10.0 Red Blood Count 6.04 10 Normal 4.30-6.10 Hemoglobin 18.1 g/dL High 13.5-17.5 Hematocrit 55.8 % High 42.0-52.0 Mean Corpuscular Volume 92.4 fl Normal 80.0-96.0 Mean Corpuscular Hemoglobin 30.0 pg Normal 27.0-33.0 Mean Corpuscular HGB Conc 32.4 g/dL Normal 32.0-36.5 Red Cell Distribution Width 16.1 % High 11.5-14.5 Platelet Count, Automated 183 10 Normal 150-450 Neutrophils % 43.9 % Normal 36.0-66.0 Lymph % 43.2 % Normal 24.0-44.0 [place] % 8.0 % Normal 2.0-8.0 Eos % 2.8 % Normal 0.0-3.0 Baso % 1.5 % High 0.0-1.0 Immature Granulocyte % 0.6 % Normal 0-3.0 Nucleated Red Blood Cell % 0.0 % Normal 0-0 Neutrophils # 2.0 10 Normal 1.5-8.5 Lymph # 2.0 10 Normal 1.5-5.0 [place] # 0.4 10 Normal 0.0-0.8 Eos # 0.1 10 Normal 0.0-0.5 Baso # 0.1 10 Normal 0.0-0.2 Lipid Panel 12/15/2020 [facility] nter [phone] Triglycerides Level 162 mg/dL High <150 Cholesterol Level 180 mg/dL Normal <200 HDL Cholesterol 50 mg/dL Normal >40 LDL Cholesterol 98 mg/dL Normal <100 Non-HDL-C 130 mg/dL Normal Cholesterol Risk Ratio 3.600 Normal <5 1 note:<nlbl:demographic_chang ed> 2 note:<nlbl:demographic_chang ed> 3 Units are mL/min/1.73 m2 Chronic Kidney Disease Staging per NKF: Stage I & II GFR >=60 Normal to Mildly Decreased Stage III GFR 30-59 Moderately Decreased Stage IV GFR 15-29 Severely Decreased Stage V GFR <15 Very Little GFR Left ESRD GFR <15 on [employer] Procedures Date Code Description Status 04/07/2021 15300 Office/Outpatient Established Mo d MDM 30-39 Min Completed 03/09/2021 28351 Office/Outpatient Established Mo d MDM 30-39 Min Completed 01/15/2021 08456 Office/Outpatient Established Hi gh MDM 40-54 Min Completed 11/30/2020 64584 Office/Outpatient Established Mo d MDM 30-39 Min Completed Medical Devices Description No Information Available Encounters Type Date Location Provider Dx Diagnosis Office Visit 04/07/2021 11:45a Main Office Yamileth Dotson M.D. H 92.01 Otalgia, right ear F32.9 Major depressive disorder, s vivek episode, unspecified G89.29 Other chronic pain Office Visit 03/09/2021 1:30p Main Office Yamileth Dotson M.D. L 60.3 Nail dystrophy R25.1 Tremor, unspecified R13.10 Dysphagia, unspecified J44.9 Chronic obstructive pulmonar y disease, unspecified F32.9 Major depressive disorder, s vivek episode, unspecified M21.611 Bunion of right foot Office Visit 01/15/2021 12:30p Main Office Yamileth Dotson M.D. Z 59.9 Problem related to housing and economic circumstances, unsp Z59.6 Low income R13.10 Dysphagia, unspecified M21.611 Bunion of right foot J44.9 Chronic obstructive pulmonar y disease, unspecified L60.3 Nail dystrophy Office Visit 11/30/2020 1:00p Main Office Michlele Sigala PA F32.9 Major depressive disorder, single episode, unspecified J44.9 Chronic obstructive pulmonar y disease, unspecified M25.512 Pain in left shoulder J30.9 Allergic rhinitis, unspecifi ed R53.83 Other fatigue E78.2 Mixed hyperlipidemia Assessments Date Code Description Provider 04/07/2021 H92.01 Otalgia, right ear Velasquez Dotson M.D. 04/07/2021 F32.9 Major depressive disorder, singl e episode, unspecified Yamileth Dotson M.D. 04/07/2021 G89.29 Other chronic pain Velasquez Dotson M.D. 03/09/2021 L60.3 Nail dystrophy Yamileth Dotson M.D. 03/09/2021 R25.1 Tremor, unspecified Lamine Dotson M.D. 03/09/2021 R13.10 Dysphagia, unspecified Yamileth Dotson M.D. 03/09/2021 J44.9 Chronic obstructive pulmonary di sease, unspecified Yamileth Dotson M.D. 03/09/2021 F32.9 Major depressive disorder, singl e episode, unspecified Yamileth Dotson M.D. 03/09/2021 M21.611 Bunion of right foot Greg Dotson M.D. 01/15/2021 Z59.9 Problem related to h ousing and economic circumstances, unspecified Yamileth Dotson M.D. 01/15/2021 Z59.6 Low income Yamileth Dotson M.D. 01/15/2021 R13.10 Dysphagia, unspecified Yamileth Dotson M.D. 01/15/2021 M21.611 Bunion of right foot Greg Dotson M.D. 01/15/2021 J44.9 Chronic obstructive pulmonary di sease, unspecified Yamileth Dotson M.D. 01/15/2021 L60.3 Nail dystrophy Yamileth Dotson M.D. 01/08/2021 Z59.6 Low income Flaco Brandi, [facility] 01/08/2021 Z59.9 Problem related to h ousing and economic circumstances, unspecified Brandi Sam, [employer] 11/30/2020 F32.9 Major depressive disorder, singl e episode, unspecified Petrancosta Michelle Mitch, PA 11/30/2020 J44.9 Chronic obstructive pulmonary di sease, unspecified Petrancosta Michelle Mitch, PA 11/30/2020 M25.512 Shoulder joint pain Jovon Michelle Mitch, PA 11/30/2020 J30.9 Allergic rhinitis, unspecified P etrancosta, Michelle Mitch, PA 11/30/2020 R53.83 Fatigue Petrancosta, Sta edgard Meyer, PA 11/30/2020 E78.2 Mixed hyperlipidemia Jose Cruzosta Michelle Mitch, PA Plan of Treatment Future Appointment(s):* 09/14/2021 1:15 pm - Yamileth Dotson M.D. at Main Office 04/07/2021 - Yamileth Dotson M.D.* H92.01 Otalgia, right ear* New Medication:* Amoxicillin 500 mg - one by mouth three times a day for 10 days * Comments:* anitbiotics, follow up with dentist. Ice, warm compresses and Tylenol/Ibuprofen. * F32.9 Major depressive disorder, single episode, unspecified * G89.29 Other chronic pain* Comments:* Instructed to call pain management to discuss his pain levels and the ineffectiveness of his current medication regimen. I cannot give more medication because he took more than was previously directed and ran out early. Functional Status Functional Condition Comment Date Status [...] right foot and nail dystrophy. Thank you. Created [address] [facility] [address] [phone]
--- OUTSIDE RECORDS SUMMARY | 2021-07-09 08:58 | CCD ---
Author Author [facility] Organization [facility] Address Unknown Phone Unavailable Care Team Providers Care Roundhouse Supervisor Name Role Phone Matthew Modi Unavailable PROBLEMS Type Condition ICD9-CM Code GHR39-SE Code Onset Dates Condition S tatus W/U Status Risk SNOMED Code Notes Problem Hypothyroidism E03.9 Active confirmed 96238 008 Problem Lumbar disc herniation with myelopathy M51.06 A ctive confirmed 210514290 Problem Psychophysiological insomnia F51.04 Active confirme d 201941246 Problem Allergic rhinitis, unspecifi ed allergic rhinitis trigger, unspecified rhinitis seasonality J30.9 Active confirmed 64645013 Problem Smoking greater than 40 pack years F17.210 Activ e confirmed 65561217 Problem Parotitis K11.20 Active confirmed 02437873 Problem Drug-induced erectile dysfunction N52.2 Active confirmed 553436175 Problem Chronic obstructive pulmonary disease, unspecified COPD ty pe J44.9 Active confirmed 63789693 Problem Hyperlipidemia E78.5 Active confirmed 95833 004 Problem Left thigh pain M79.652 Active confirmed 316 780661572580 Problem Chronic pain associated with significant psychos ocial dysfunction G89.4 Active confirmed 074516150 Problem Urinary frequency R35.0 Active confirmed 16 9830520 Problem RLS (restless legs syndrome) G25.81 Active confirme d 96392835 Problem Enlarged prostate with lower urinary tract symptoms (LUTS) N40.1 Active confirmed 48806074647742 Problem Myalgia M79.1 Active confirmed 75907435 Problem Gross hematuria R31.0 Active confirmed 1979 61030 Problem Kidney stone N20.0 Active confirmed 1456966 7 Problem Lumbar facet arthropathy M46.96 Active confirmed 024409317 Problem Back pain of lumbar region with sciatica M54.40 Active confirmed 600617284 Problem Left shoulder pain M25.512 Active confirmed 60078743 Problem Depression with anxiety F41.8 Active confirmed 279405015 Problem Other chronic pain G89.29 Active confirmed 8 4803175 Problem Kidney stone 592.0 Active confirmed 3756514 7 Problem Essential hypertension I10 Active confirmed 92934171 Problem Vitamin D deficiency E55.9 Active confirmed 43029528 Problem Mixed hyperlipidemia E78.2 Active confirmed 944122448 Problem Lumbar degenerative disc disease M51.36 Active conf irmed 50582606 Problem Cervical post-laminectomy syndrome M96.1 Activ e confirmed 413739568 Problem Chronic pain syndrome G89.4 Active confirmed 445725956 Problem BPH loc w/o ur obs/LUTS N40.0 Active confirmed 789482807 Problem Lumbar facet arthropathy M12.88 Active confirmed 720608366 Problem Fatty liver K76.0 Active confirmed 01597723 7 Problem Chronic pancreatitis, unspecified pancreatitis type K86.1 Active confirmed 998633625 Problem 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.49 Active confirmed 630611503 Problem Pain of right great toe M79.674 Active confirmed 934005119 ALLERGIES Allergen (clinical drug ingredient) Drug/Non Drug Allergy do cumented on EMR Reaction Allergy Type Onset Date Status PredniSONE syncope, arm numbness Drug Allergy A ctive Motrin Hives, VOMIT Drug Allergy Active ENCOUNTERS from 1960 to 2021-06-07 Encounter Location Date Provider Diagnosis [facility] [address] [facility] [address] [phone] [place] [address] May, Matthew Modi Lumbar facet arthrop athy M12.88 IMMUNIZATIONS Vaccine Route Administration Date Status Influenza 6mo & up Fluzone Unknown May 03, 2016 Admin istered SOCIAL HISTORY Tobacco Use: Social History Observation Description Date Details (start date - stop date) Current Smoker Sex Assigned At : Social History Observation Description Sex Assigned At Unknown Education: Question Answer Notes Level of Education: High School Audit Question Answer Notes Total Score: 0 Interpretation: Alcohol Education Latter-Day: Question Answer Notes Latter-Day 99 Other Nazarene Sexual Hx: Question Answer Notes Had sex in the last 12 months (vaginal, oral, or anal)? Yes LMP: n/a Have you ever had an STD? No with Women only Use protection? No Drug and Alcohol Question Answer Notes Total Score: 0 Interpretation: No problems reported Alcohol Screening: Question Answer Notes Did you have a drink containing alcohol in the past year? No Points 0 Interpretation Negative BMI Care Goal Follow-Up Question Answer Notes Above Normal BMI Follow-Up Lifestyle education regarding t Tobacco Use: Question Answer Notes Are you a: current smoker Smoking Cessation Information Given Decl aníbald Patient counseled on the dangers of tobacco use and urged to quit: 03/16/2021 How many cigarettes a day do you smoke? 6-10 Are you interested in quitting? Not ready to quit Counseled the patient on smoking effects, education provided 03/16/2021 REASON FOR REFERRAL No Information VITAL SIGNS No information MEDICATIONS Medication SIG (Take, Route, Frequency, Duration) Notes Start Da te End Date Status Nicoderm CQ 14 MG/24HR 1 patch to skin Transdermal Once a day fo r 30 day(s) Nov, Unknown Carisoprodol 350 MG 1 tablet as needed Orally th ree times daily prn spasm MDD=3 for 28 days May, Active Cetirizine HCl 10 MG TAKE ONE TABLET BY MOUTH ONC E DAILY Orally Daily for 90 days Unknown Spacer/Aero Chamber Mouthpiece - as directed - - for 30 day(s) Aug, Active Trazodone HCl 100 MG 2 tablets Orally at 8 pm for 90 day(s) Active Arnuity Ellipta 100 MCG/ACT 1 puff Inhalation Once a day for 30 Active Naproxen 500 MG 1 tablet with food or milk a s needed; pt is not allergic as he takes this periodically. Orally every 12 hrs for 28 Unknown Rosuvastatin Calcium 40 MG 1 tablet Orally Once a day for 90 day (s) Oct, Active Ventolin HFA 108 (90 Base) MCG/ACT 2 puffs as needed I nhalation every 4 hrs for 30 day(s) Aug, Active Flomax 0.4 MG 1 cap Orally Daily Act katalina Fluticasone Propionate 50 MCG/ACT 1 spray in each nost ril Nasally Once a day for 30 day(s) Nov, Unknown Nystatin 592497 UNIT/ML 4 ml Mouth/Throat Four times a day for 3 0 day(s) Jun, Unknown buPROPion HCl ER (XL) 300 MG 1 tablet in the morning O rally Once a day for 30 day(s) Active tiZANidine HCl 4 MG 1/2-1 tablet Orally three times daily for 30 days Aug, Unknown DULoxetine HCl 60 MG 1 by mouth every day orally Daily for 90 days Not-Taking Aspirin 81 81 MG 1 tablet Orally Once a day for 30 day(s) Active buPROPion HCl ER (XL) 300 MG Oral for 15 has not started yet Unknown oxyCODONE-Acetaminophen 10-325 MG 1 tablet as needed O rally every 6 hrs MDD 4 for 30 days May, Active rOPINIRole HCl 3 MG 1 tablet 1 to 3 hours before bedtime for 90 day(s) For RLS Active Omeprazole 40 MG 1 capsule 30 minutes before morning meal Orally Once a day for 30 day(s) Active Drisdol 1.25 MG (62098 UT) 1 capsule Orally weekly for 90 day(s) Jul, Not-Taking Gabapentin 800 MG 1 capsule Orally Three times a day for 30 days Oct, Active Sertraline HCl 50 MG 1 tablet Orally Once a day for 30 day(s) Active Allergy 24-HR 180 MG 1 tablet Orally Once a day for 30 day(s) Active Levocetirizine Dihydrochloride 5 MG 1 tablet in the ev ening Orally Once a day for 30 day(s) Active Wellbutrin SR 150 MG 1 tablet in the morning Orally Once a day or day(s) Unknown Aspirin Low Dose 81 MG TAKE ONE TABLET BY MOUTH @8AM for 28 Active PROCEDURES No Information RESULTS No Results REASON FOR VISIT PERCOCET & SOMA REFILLS MEDICAL (GENERAL) HISTORY Type Description Date Medical History CERVICAL RADICULOPOTHY Medical History SHOULDER PAIN Medical History NEPHROLITHIASIS Medical History RESTLESS LEG SYNDROME Medical History Mixed Hyperlipidemia Medical History CHRONIC SINUSITIS Medical History kidney stones Medical History HTN Medical History Bulging disc low back Medical History Essential Hypertension Medical History Vitamin D Deficiency Medical History COPD Medical History Shoulder injury Surgical History HERNIA X4 SCHEDULED FOR HERNIA 12/16/2011 Surgical History CERVICAL LAMINECTOMY Surgical History cervical neck-[address] Surgical History LEFT sebaceous cyst removal Dr. Catalan, ENT 03/2016 Surgical History fusion of neck 03/20/17 Surgical History left shoulder surgery 01/2018 Surgical History hernia surgery 2017 Surgical History Right testicular cyst removed 02/2019 Hospitalization History SURGERY RELATED Hospitalization History cellulitis Hospitalization History [facility]- Strain of muscle, fa scia and tendon at neck level- left rhomboid muscle spasm 04/08/2016 Hospitalization History [facility] hospital: intractable back pain 03/2017 Hospitalization History Loss of conciousness x 2 2019 Goals Section No Information Health Concerns No Information MEDICAL EQUIPMENT No Information MENTAL STATUS No Information FUNCTIONAL STATUS No Information ASSESSMENTS Encounter Date Diagnosis Assessment Notes Treatment Notes Treatm ent Clinical Notes May, Lumbar facet arthropathy (ICD-10 - M12.88) PLAN OF TREATMENT Medication Medication Name Sig Start Date Stop Date Gabapentin 800 MG 1 capsule Orally Three times a day for 30 days Oct, Aspirin Low Dose 81 MG TAKE ONE TABLET BY MOUTH @8AM for 28 Carisoprodol 350 MG 1 tablet as needed Orally th ree times daily prn spasm MDD=3 for 28 days May, oxyCODONE-Acetaminophen 10-325 MG 1 tablet as needed O rally every 6 hrs MDD 4 for 30 days May, Next Appt Details Provider Name:Matthew Modi, 2021-06-24 11:00:00 AM, [address] [place] [address], , [place], [address], Provider Name:Matthew Modi, 2021-07-15 02:00:00 PM, [address], , [place], [address], Insurance Providers Payer Name Payer Address Payer Phone Insured Name Patient Relati onship to Insured Coverage Start Date Coverage End Date [facility] [facility] [address] [facility] [phone] JAKOB MURRAY self
--- OUTSIDE RECORDS SUMMARY | 2021-07-09 08:58 | CCD ---
Author Author [facility] Organization [facility] Address Unknown Phone Unavailable Care Team Providers Care Photogrammetric Compilation Specialist Name Role Phone Matthew Modi Unavailable PROBLEMS Type Condition ICD9-CM Code [id number] Code Onset Dates Condition S tatus W/U Status Risk SNOMED Code Notes Problem Hypothyroidism E03.9 Active confirmed 60090 008 Problem Lumbar disc herniation with myelopathy M51.06 A ctive confirmed 084165105 Problem Psychophysiological insomnia F51.04 Active confirme d 827483077 Problem Allergic rhinitis, unspecifi ed allergic rhinitis trigger, unspecified rhinitis seasonality J30.9 Active confirmed 75687924 Problem Smoking greater than 40 pack years F17.210 Activ e confirmed 24443235 Problem Parotitis K11.20 Active confirmed 45254855 Problem Drug-induced erectile dysfunction N52.2 Active confirmed 208659527 Problem Chronic obstructive pulmonary disease, unspecified COPD ty pe J44.9 Active confirmed 15040209 Problem Hyperlipidemia E78.5 Active confirmed 90520 004 Problem Left thigh pain M79.652 Active confirmed 316 756942993642 Problem Chronic pain associated with significant psychos ocial dysfunction G89.4 Active confirmed 326920524 Problem Urinary frequency R35.0 Active confirmed 16 9085172 Problem RLS (restless legs syndrome) G25.81 Active confirme d 60445907 Problem Enlarged prostate with lower urinary tract symptoms (LUTS) N40.1 Active confirmed 84709522229618 Problem Myalgia M79.1 Active confirmed 38975107 Problem Gross hematuria R31.0 Active confirmed 1979 97950 Problem Kidney stone N20.0 Active confirmed 1558302 7 Problem Lumbar facet arthropathy M46.96 Active confirmed 451432220 Problem Back pain of lumbar region with sciatica M54.40 Active confirmed 620218049 Problem Left shoulder pain M25.512 Active confirmed 52432849 Problem Depression with anxiety F41.8 Active confirmed 493083556 Problem Other chronic pain G89.29 Active confirmed 8 9598529 Problem Kidney stone 592.0 Active confirmed 1023810 7 Problem Essential hypertension I10 Active confirmed 78735233 Problem Vitamin D deficiency E55.9 Active confirmed 03308028 Problem Mixed hyperlipidemia E78.2 Active confirmed 984812513 Problem Lumbar degenerative disc disease M51.36 Active conf irmed 72428764 Problem Cervical post-laminectomy syndrome M96.1 Activ e confirmed 212163115 Problem Chronic pain syndrome G89.4 Active confirmed 984607019 Problem BPH loc w/o ur obs/LUTS N40.0 Active confirmed 368815956 Problem Lumbar facet arthropathy M12.88 Active confirmed 592894449 Problem Fatty liver K76.0 Active confirmed 06896999 7 Problem Chronic pancreatitis, unspecified pancreatitis type K86.1 Active confirmed 344355315 Problem 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 3rd Floor [phone] [place] [address] 09 Apr, 2021 Matthew Ly Lumbar facet arthrop athy M12.88 IMMUNIZATIONS Vaccine [...] Notes Total Score: 0 Interpretation: Alcohol Education Pentecostal: Question Answer Notes Pentecostal 99 Other Nazarene Sexual Hx: Question Answer [...] current smoker Smoking Cessation Information Given Decl josselyn Patient counseled on the dangers of tobacco use and urged to quit: 03/16/2021 How many cigarettes a day do you smoke? 6-10 Are you interested in quitting? Not ready to quit Counseled the patient on smoking effects, education provided 03/16/2021 REASON FOR REFERRAL No Information VITAL SIGNS No information MEDICATIONS Medication SIG (Take, Route, Frequency, Duration) Notes Start Da te End Date Status Drisdol 1.25 MG (66504 UT) 1 capsule Orally weekly for 90 day(s) Jul, Not-Taking Spacer/Aero Chamber Mouthpiece - as directed - - for 30 day(s) Aug, Active tiZANidine HCl 4 MG 1/2-1 tablet Orally three times daily for 30 days Aug, Unknown rOPINIRole HCl 3 MG 1 tablet 1 to 3 hours before bedtime for 90 day(s) For RLS Active Nicoderm CQ 14 MG/24HR 1 patch to skin Transdermal Once a day fo r 30 day(s) Nov, Unknown Arnuity Ellipta 100 MCG/ACT 1 puff Inhalation Once a day for 30 Active Cetirizine HCl 10 MG TAKE ONE TABLET BY MOUTH ONC E DAILY Orally Daily for 90 days Unknown Rosuvastatin Calcium 40 MG 1 tablet Orally Once a day for 90 day (s) Oct, Active Naproxen 500 MG 1 tablet with food or milk a s needed; pt is not allergic as he takes this periodically. Orally every 12 hrs for 28 Unknown Flomax 0.4 MG 1 cap Orally Daily Act katalina oxyCODONE-Acetaminophen 10-325 MG 1 tablet as needed O rally every 6 hrs MDD 4 for 30 days Mar, Active Carisoprodol 350 MG 1 tablet as needed Orally th ree times daily prn spasm MDD=3 for 28 days Mar, Active buPROPion HCl ER (XL) 300 MG 1 tablet in the morning O rally Once a day for 30 day(s) Active Fluticasone Propionate 50 MCG/ACT 1 spray in each nost ril Nasally Once a day for 30 day(s) Nov, Unknown Ventolin HFA 108 (90 Base) MCG/ACT 2 puffs as needed I nhalation every 4 hrs for 30 day(s) Aug, Active Aspirin 81 81 MG 1 tablet Orally Once a day for 30 day(s) Active Nystatin 558830 UNIT/ML 4 ml Mouth/Throat Four times a day for 3 0 day(s) Jun, Unknown Trazodone HCl 100 MG 2 tablets Orally at 8 pm for 90 day(s) Active DULoxetine HCl 60 MG 1 by mouth every day orally Daily for 90 days Not-Taking Omeprazole 40 MG 1 capsule 30 minutes before morning meal Orally Once a day for 30 day(s) Active buPROPion HCl ER (XL) 300 MG Oral for 15 has not started yet Unknown Gabapentin 800 MG 1 capsule Orally Three [...] Information RESULTS No Results REASON FOR VISIT GABAPENTIN, SOMA, OXY/ACET REFILL MEDICAL (GENERAL) HISTORY Type Description Date Medical [...] left rhomboid muscle spasm 04/08/2016 Hospitalization History [facility]: intractable back pain 03/2017 Hospitalization History Loss of conciousness x 2 2019 Goals Section No Information Health Concerns No Information MEDICAL EQUIPMENT No Information MENTAL STATUS No Information FUNCTIONAL STATUS No Information ASSESSMENTS Encounter Date Diagnosis Assessment Notes Treatment Notes Treatm ent Clinical Notes Apr, Lumbar facet arthropathy (ICD-10 - M12.88) PLAN OF TREATMENT Medication Medication Name Sig Start Date Stop Date Gabapentin 800 MG 1 capsule Orally Three times a day for 30 days Oct, Aspirin Low Dose 81 MG TAKE ONE TABLET BY MOUTH @8AM for 28 oxyCODONE-Acetaminophen 10-325 MG 1 tablet as needed O rally every 6 hrs MDD 4 for 30 days Mar, Carisoprodol 350 MG 1 tablet as needed Orally th ree times daily prn spasm MDD=3 for 28 days Mar, Next Appt Details Provider Name:Matthew Modi, 2021-07-15 02:00:00 PM, [address], , [place], [address], Insurance Providers Payer Name Payer Address Payer Phone Insured Name Patient Relati onship to Insured Coverage Start Date Coverage End Date [facility] [address] [facility] [phone] JAKOB MURRAY self
--- OUTSIDE RECORDS SUMMARY | 2021-07-09 08:58 | CCD ---
Author Author [facility] Organization [facility] Address Unknown Phone Unavailable Care Team Providers Care Engineering Inspector Name Role Phone Matthew Modi Unavailable PROBLEMS Type Condition ICD9-CM Code PSJ07-OG Code Onset Dates Condition S tatus W/U Status Risk SNOMED Code Notes Problem Hypothyroidism E03.9 Active confirmed 80787 008 Problem Lumbar disc herniation with myelopathy M51.06 A ctive confirmed 692725137 Problem Psychophysiological insomnia F51.04 Active confirme d 045956940 Problem Allergic rhinitis, unspecifi ed allergic rhinitis trigger, unspecified rhinitis seasonality J30.9 Active confirmed 13183562 Problem Smoking greater than 40 pack years F17.210 Activ e confirmed 99331924 Problem Parotitis K11.20 Active confirmed 63653232 Problem Drug-induced erectile dysfunction N52.2 Active confirmed 404962641 Problem Chronic obstructive pulmonary disease, unspecified COPD ty pe J44.9 Active confirmed 53617142 Problem Hyperlipidemia E78.5 Active confirmed 85941 004 Problem Left thigh pain M79.652 Active confirmed 316 375468090095 Problem Chronic pain associated with significant psychos ocial dysfunction G89.4 Active confirmed 040475668 Problem Urinary frequency R35.0 Active confirmed 16 3611957 Problem RLS (restless legs syndrome) G25.81 Active confirme d 33055546 Problem Enlarged prostate with lower urinary tract symptoms (LUTS) N40.1 Active confirmed 97472817630313 Problem Myalgia M79.1 Active confirmed 86152661 Problem Gross hematuria R31.0 Active confirmed 1979 91633 Problem Kidney stone N20.0 Active confirmed 9812602 7 Problem Lumbar facet arthropathy M46.96 Active confirmed 134571611 Problem Back pain of lumbar region with sciatica M54.40 Active confirmed 360589760 Problem Left shoulder pain M25.512 Active confirmed 53001680 Problem Depression with anxiety F41.8 Active confirmed 016120100 Problem Other chronic pain G89.29 Active confirmed 8 1135686 Problem Kidney stone 592.0 Active confirmed 1809139 7 Problem Essential hypertension I10 Active confirmed 58205124 Problem Vitamin D deficiency E55.9 Active confirmed 14048282 Problem Mixed hyperlipidemia E78.2 Active confirmed 286029445 Problem Lumbar degenerative disc disease M51.36 Active conf irmed 48575765 Problem Cervical post-laminectomy syndrome M96.1 Activ e confirmed 251949534 Problem Chronic pain syndrome G89.4 Active confirmed 675998807 Problem BPH loc w/o ur obs/LUTS N40.0 Active confirmed 731918564 Problem Lumbar facet arthropathy M12.88 Active confirmed 159956991 Problem Fatty liver K76.0 Active confirmed 88275693 7 Problem Chronic pancreatitis, unspecified pancreatitis type K86.1 Active confirmed 029620830 Problem 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.49 Active confirmed 469215414 Problem Pain of right great toe M79.674 Active confirmed 602827771 ALLERGIES Allergen (clinical drug ingredient) Drug/Non Drug Allergy do cumented on EMR Reaction Allergy Type Onset Date Status PredniSONE syncope, arm numbness Drug Allergy A ctive Motrin Hives, VOMIT Drug Allergy Active ENCOUNTERS from 1960 to 2021-05-06 Encounter Location Date Provider Diagnosis [facility] Pain Clinic [address] [facility] 3rd Floor [phone] [place] [address] 09 Apr, 2021 Matthew Ly Lumbar facet [...] Notes Total Score: 0 Interpretation: Alcohol Education Yazidi: Question Answer Notes Yazidi 99 Other Nazarene Sexual Hx: Question Answer [...] te End Date Status Drisdol 1.25 MG (13801 UT) 1 capsule Orally weekly for 90 [...] a day for 30 day(s) Active Nystatin 138306 UNIT/ML 4 ml Mouth/Throat Four times a [...] Information RESULTS No Results REASON FOR VISIT refill oxycodone and Soma MEDICAL (GENERAL) HISTORY Type Description Date Medical [...] left rhomboid muscle spasm 04/08/2016 Hospitalization History [facility]: intractable back pain 03/2017 Hospitalization History Loss [...] 28 days Mar, Next Appt Details Provider Name:Mathtew Rodriguezvo, 2021-07-15 02:00:00 PM, [address], , [place], [address], Insurance Providers Payer Name Payer Address Payer Phone Insured Name Patient Relati onship to Insured Coverage Start Date Coverage End Date [facility] [address] [facility] [address] JAKOB MURRAY self
--- OUTSIDE RECORDS SUMMARY | 2021-07-09 08:58 | CCD ---
Author Author [facility] Organization [facility] Address Unknown Phone Unavailable Care Team Providers Care Improvement Intern Name Role Phone Matthew Modi Unavailable PROBLEMS Type Condition ICD9-CM Code [id number] Code Onset Dates Condition S tatus W/U Status Risk SNOMED Code Notes Problem Hypothyroidism E03.9 Active confirmed 43455 008 Problem Lumbar disc herniation with myelopathy M51.06 A ctive confirmed 324010184 Problem Psychophysiological insomnia F51.04 Active confirme d 132108262 Problem Allergic rhinitis, unspecifi ed allergic rhinitis trigger, unspecified rhinitis seasonality J30.9 Active confirmed 19885687 Problem Smoking greater than 40 pack years F17.210 Activ e confirmed 51076297 Problem Parotitis K11.20 Active confirmed 41204268 Problem Drug-induced erectile dysfunction N52.2 Active confirmed 071832030 Problem Chronic obstructive pulmonary disease, unspecified COPD ty pe J44.9 Active confirmed 69047860 Problem Hyperlipidemia E78.5 Active confirmed 85674 004 Problem Left thigh pain M79.652 Active confirmed 316 906496847945 Problem Chronic pain associated with significant psychos ocial dysfunction G89.4 Active confirmed 738998434 Problem Urinary frequency R35.0 Active confirmed 16 9256179 Problem RLS (restless legs syndrome) G25.81 Active confirme d 71193173 Problem Enlarged prostate with lower urinary tract symptoms (LUTS) N40.1 Active confirmed [id number] Problem Myalgia M79.1 Active confirmed 91802123 Problem Gross hematuria R31.0 Active confirmed 1979 92100 Problem Kidney stone N20.0 Active confirmed 1736719 7 Problem Lumbar facet arthropathy M46.96 Active confirmed 698337657 Problem Back pain of lumbar region with sciatica M54.40 Active confirmed 870156303 Problem Left shoulder pain M25.512 Active confirmed 71756343 Problem Depression with anxiety F41.8 Active confirmed 553444100 Problem Other chronic pain G89.29 Active confirmed 8 6921985 Problem Kidney stone 592.0 Active confirmed 6266895 7 Problem Essential hypertension I10 Active confirmed 08301334 Problem Vitamin D deficiency E55.9 Active confirmed 21529868 Problem Mixed hyperlipidemia E78.2 Active confirmed 715901542 Problem Lumbar degenerative disc disease M51.36 Active conf irmed 69464849 Problem Cervical post-laminectomy syndrome M96.1 Activ e confirmed 972472837 Problem Chronic pain syndrome G89.4 Active confirmed 943640137 Problem BPH loc w/o ur obs/LUTS N40.0 Active confirmed 454766965 Problem Lumbar facet arthropathy M12.88 Active confirmed 419383687 Problem Fatty liver K76.0 Active confirmed 65897641 7 Problem Chronic pancreatitis, unspecified pancreatitis type K86.1 Active confirmed 816968370 Problem 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.49 Active confirmed 911686988 Problem Pain of right great toe M79.674 Active confirmed 101652483 ALLERGIES Allergen (clinical drug ingredient) Drug/Non Drug Allergy do cumented on EMR Reaction Allergy Type Onset Date Status PredniSONE syncope, arm numbness Drug Allergy A ctive Motrin Hives, VOMIT Drug Allergy Active ENCOUNTERS from 1960 to 2021-05-13 Encounter Location Date Provider Diagnosis [facility] [address] [facility] [address] [phone] [place] [address] Apr, Matthew Modi IMMUNIZATIONS Vaccine Route Administration Date Status Influenza [...] Notes Total Score: 0 Interpretation: Alcohol Education Hindu: Question Answer Notes Hindu 99 Other [facility]e Sexual Hx: Question Answer [...] te End Date Status Drisdol 1.25 MG (66263 UT) 1 capsule Orally weekly for 90 [...] a day for 30 day(s) Active Nystatin 657206 UNIT/ML 4 ml Mouth/Throat Four times a [...] in the morning Orally Once a day f or day(s) Unknown Aspirin Low Dose 81 MG TAKE ONE TABLET BY MOUTH @8AM for 28 Active PROCEDURES No Information RESULTS No Results REASON FOR VISIT PLEASE SCHEDULE FOLLOW UP MEDICAL (GENERAL) HISTORY Type Description Date Medical [...] left rhomboid muscle spasm 04/08/2016 Hospitalization History [facility]: intractable back pain 03/2017 Hospitalization History Loss of conciousness x 2 2019 Goals Section No Information Health Concerns No Information MEDICAL EQUIPMENT No Information MENTAL STATUS No Information FUNCTIONAL STATUS No Information ASSESSMENTS No Information PLAN OF TREATMENT Medication Medication Name Sig [...] Mar, Next Appt Details Provider Name:Matthew Modi, 2021-06-24 11:00:00 AM, [address] [place] [address], , [place], [address], Provider Name:Matthew Modi, 2021-07-15 02:00:00 PM, [address] [place] [address], , [place], [address], Insurance Providers Payer Name Payer Address Payer Phone Insured Name Patient Relati onship to Insured Coverage Start Date Coverage End Date [facility] [employer] [address] [facility] [id number] JAKOB MURRAY self
--- OUTSIDE RECORDS SUMMARY | 2021-07-09 08:59 | CCD ---
Author Author [facility] Organization [facility] Address Unknown Phone Unavailable Care Team Providers Care Principal Research Economist Name Role Phone Alayna B Patrick TORIBIO Unavailable Unavailable Abriss, B Patrick TORIBIO Unavailable Unavailable Abriss, B Patrick TORIBIO Unavailable Unavailable Abriss, B Patrick TORIBIO Unavailable Unavailable Abriss, B Patrick TORIBIO Unavailable Unavailable Abriss, B Patrick TORIBIO Unavailable Unavailable Abriss, B Patrick TORIBIO Unavailable Unavailable Abriss B Patrick TORIBIO Unavailable Unavailable Abriss B Patrick TORIBIO Unavailable Unavailable Abriss, B Patrick TORIBIO Unavailable Unavailable Abriss, B Patrick TORIBIO Unavailable Unavailable Abriss, B Patrick TORIBIO Unavailable Unavailable Abriss, B Patrick TORIBIO Unavailable Unavailable Abriss B Patrick TORIBIO Unavailable Unavailable Abriss B Patrick TORIBIO Unavailable Unavailable Abriss B Patrick TORIBIO Unavailable Unavailable Abriss B Patrick TORIBIO Unavailable Unavailable Abriss B Patrick TORIBIO Unavailable Unavailable Abriss, B Patrick TORIBIO Unavailable Unavailable Petrancosta, Rutherford Michelle PA-C Unavailable Unavailabl e Petrancosta, Rutherford Michelle PA-C Unavailable Unavailabl e Petrancosta, Rutherford Michelle PA-C Unavailable Unavailabl e Petrancosta, Rutherford Michelle PA-C Unavailable Unavailabl e Petrancosta, Rutherford Michelle PA-C Unavailable Unavailabl e Petrancosta, Rutherford Michelle PA-C Unavailable Unavailabl e Petrancosta, Rutherford Michelle PA-C Unavailable Unavailabl e Petrancosta, Rutherford Michelle PA-C Unavailable Unavailabl e Petrancosta, Rutherford Michelle PA-C Unavailable Unavailabl e Petrancosta, Rutherford Michelle PA-C Unavailable Unavailabl e Petrancosta, Rutherford Michelle PA-C Unavailable Unavailabl e Petrancosta, Rutherford Michelle PA-C Unavailable Unavailabl e Petrancosta, Rutherford Michelle PA-C Unavailable Unavailabl e Petrancosta, Rutherford Michelle PA-C Unavailable Unavailabl e Petrancosta, Rutherford Michelle PA-C Unavailable Unavailabl e Petrancosta, Rutherford Michelle PA-C Unavailable Unavailabl e Petrancosta, Rutherford Michelle PA-C Unavailable Unavailabl e Petrancosta, Rutherford Michelle PA-C Unavailable Unavailabl e Petrancosta, Rutherford Michelle PA-C Unavailable Unavailabl e Petrancosta, Rutherford Michelle PA-C Unavailable Unavailabl e Petrancosta, Rutherford Michelle PA-C Unavailable Unavailabl e Petrancosta, Rutherford Michelle PA-C Unavailable Unavailabl e Petrancosta, Rutherford Michelle PA-C Unavailable Unavailabl e Petrancosta, Rutherford Michelle PA-C Unavailable Unavailabl e Petrancosta, Rutherford Michelle PA-C Unavailable Unavailabl e Mandappa, Alicia CASAC Unavailable Unavailable Mandappa, Alicia CASAC Unavailable Unavailable Mandappa, Alicia CASAC Unavailable Unavailable Mandappa, Alicia CASAC Unavailable Unavailable BOBO, R COOPER PIPE FITTER GAS PIPE Unavailable Unavailable BOBO, R COOPER PIPE FITTER GAS PIPE Unavailable Unavailable BOBO, R COOPER PIPE FITTER GAS PIPE Unavailable Unavailable BOBO, R COOPER PIPE FITTER GAS PIPE Unavailable Unavailable BOBO, R COOPER PIPE FITTER GAS PIPE Unavailable Unavailable BOBO, R COOPER PIPE FITTER GAS PIPE Unavailable Unavailable BOBO, R COOPER PIPE FITTER GAS PIPE Unavailable Unavailable BOBO, R COOPER PIPE FITTER GAS PIPE Unavailable Unavailable BOBO, R COOPER PIPE FITTER GAS PIPE Unavailable Unavailable BOBO, R COOPER PIPE FITTER GAS PIPE Unavailable Unavailable BOBO, R COOPER PIPE FITTER GAS PIPE Unavailable Unavailable BOBO, R COOPER PIPE FITTER GAS PIPE Unavailable Unavailable BOBO, R COOPER PIPE FITTER GAS PIPE Unavailable Unavailable BOBO, R COOPER PIPE FITTER GAS PIPE Unavailable Unavailable BOBO, R COOPER PIPE FITTER GAS PIPE Unavailable Unavailable BOBO, R COOPER PIPE FITTER GAS PIPE Unavailable Unavailable BOBO, R COOPER PIPE FITTER GAS PIPE Unavailable Unavailable BOBO, R COOPER PIPE FITTER GAS PIPE Unavailable Unavailable BOBO, R COOPER PIPE FITTER GAS PIPE Unavailable Unavailable BOBO, R COOPER PIPE FITTER GAS PIPE Unavailable Unavailable BOBO, R COOPER PIPE FITTER GAS PIPE Unavailable Unavailable BOBO, R COOPER PIPE FITTER GAS PIPE Unavailable Unavailable BOBO, R COOPER PIPE FITTER GAS PIPE Unavailable Unavailable BOBO, R COOPER PIPE FITTER GAS PIPE Unavailable Unavailable BOBO, R COOPER PIPE FITTER GAS PIPE Unavailable Unavailable BOBO, R COOPER PIPE FITTER GAS PIPE Unavailable Unavailable BOBO, R COOPER PIPE FITTER GAS PIPE Unavailable Unavailable BOBO, R COOPER PIPE FITTER GAS PIPE Unavailable Unavailable BOBO, R COOPER PIPE FITTER GAS PIPE Unavailable Unavailable BOBO, R COOPER PIPE FITTER GAS PIPE Unavailable Unavailable BOBO, R COOPER PIPE FITTER GAS PIPE Unavailable Unavailable BOBO, R COOPER PIPE FITTER GAS PIPE Unavailable Unavailable BOBO, R COOPER PIPE FITTER GAS PIPE Unavailable Unavailable BOBO, R COOPER PIPE FITTER GAS PIPE Unavailable Unavailable BOBO, R COOPER PIPE FITTER GAS PIPE Unavailable Unavailable BOBO, R COOPER PIPE FITTER GAS PIPE Unavailable Unavailable BOBO, R COOPER PIPE FITTER GAS PIPE Unavailable Unavailable BOBO, R COOPER PIPE FITTER GAS PIPE Unavailable Unavailable BOBO, R COOPER PIPE FITTER GAS PIPE Unavailable Unavailable BOBO, R COOPER PIPE FITTER GAS PIPE Unavailable Unavailable BOBO, R COOPER PIPE FITTER GAS PIPE Unavailable Unavailable BOBO, R COOPER PIPE FITTER GAS PIPE Unavailable Unavailable BOBO, R COOPER PIPE FITTER GAS PIPE Unavailable Unavailable BOBO, R COOPER PIPE FITTER GAS PIPE Unavailable Unavailable Pleskach, Brandi FOOD AND DRUG INSPECTOR Unavailable Unavailable Pleskach, Brandi FOOD AND DRUG INSPECTOR Unavailable Unavailable Pleskach, Brandi FOOD AND DRUG INSPECTOR Unavailable Unavailable Pleskach, Brandi FOOD AND DRUG INSPECTOR Unavailable Unavailable Pleskach, Brandi FOOD AND DRUG INSPECTOR Unavailable Unavailable Pleskach, Brandi FOOD AND DRUG INSPECTOR Unavailable Unavailable Pleskach, Brandi FOOD AND DRUG INSPECTOR Unavailable Unavailable Pleskach, Brandi FOOD AND DRUG INSPECTOR Unavailable Unavailable Pleskach, Brandi FOOD AND DRUG INSPECTOR Unavailable Unavailable Pleskach, Brandi FOOD AND DRUG INSPECTOR Unavailable Unavailable Pleskach, Brandi FOOD AND DRUG INSPECTOR Unavailable Unavailable Pleskach, Brandi FOOD AND DRUG INSPECTOR Unavailable Unavailable Pleskach, Brandi FOOD AND DRUG INSPECTOR Unavailable Unavailable Pleskach, Brandi FOOD AND DRUG INSPECTOR Unavailable Unavailable Pleskach, Brandi FOOD AND DRUG INSPECTOR Unavailable Unavailable Pleskach, Brandi FOOD AND DRUG INSPECTOR Unavailable Unavailable Pleskach, Brandi FOOD AND DRUG INSPECTOR Unavailable Unavailable Pleskach, Brandi FOOD AND DRUG INSPECTOR Unavailable Unavailable Pleskach, Brandi FOOD AND DRUG INSPECTOR Unavailable Unavailable Pleskach, Brandi FOOD AND DRUG INSPECTOR Unavailable Unavailable Pleskach, Brandi FOOD AND DRUG INSPECTOR Unavailable Unavailable Pleskach, Brandi FOOD AND DRUG INSPECTOR Unavailable Unavailable Pleskach, Brandi FOOD AND DRUG INSPECTOR Unavailable Unavailable Pleskach, Brandi FOOD AND DRUG INSPECTOR Unavailable Unavailable Pleskach, Brandi FOOD AND DRUG INSPECTOR Unavailable Unavailable Pleskach, Brandi FOOD AND DRUG INSPECTOR Unavailable Unavailable Pleskach, Brandi FOOD AND DRUG INSPECTOR Unavailable Unavailable Pleskach, Brandi FOOD AND DRUG INSPECTOR Unavailable Unavailable Pleskach, Brandi FOOD AND DRUG INSPECTOR Unavailable Unavailable Pleskach, Brandi FOOD AND DRUG INSPECTOR Unavailable Unavailable Pleskach, Brandi FOOD AND DRUG INSPECTOR Unavailable Unavailable Pleskach, Brandi FOOD AND DRUG INSPECTOR Unavailable Unavailable Pleskach, Brandi FOOD AND DRUG INSPECTOR Unavailable Unavailable Pleskach, Brandi FOOD AND DRUG INSPECTOR Unavailable Unavailable Pleskach, Brandi FOOD AND DRUG INSPECTOR Unavailable Unavailable Pleskach, Brandi FOOD AND DRUG INSPECTOR Unavailable Unavailable Pleskach, Brandi FOOD AND DRUG INSPECTOR Unavailable Unavailable Pleskach, Brandi FOOD AND DRUG INSPECTOR Unavailable Unavailable Pleskach, Brandi FOOD AND DRUG INSPECTOR Unavailable Unavailable Pleskach, Brandi FOOD AND DRUG INSPECTOR Unavailable Unavailable Pleskach, Brandi FOOD AND DRUG INSPECTOR Unavailable Unavailable Pleskach, Brandi FOOD AND DRUG INSPECTOR Unavailable Unavailable Pleskach, Brandi FOOD AND DRUG INSPECTOR Unavailable Unavailable Pleskach, Brandi FOOD AND DRUG INSPECTOR Unavailable Unavailable Twila Diaz MD Unavailable Unavailable Twila Diaz MD Unavailable Unavailable Twila Diaz MD Unavailable Unavailable Twila Diaz MD Unavailable Unavailable Twila Diaz MD Unavailable Unavailable Twila Diaz MD Unavailable Unavailable Twila Diaz MD Unavailable Unavailable Twila Diaz MD Unavailable Unavailable Twila Diaz MD Unavailable Unavailable Twila Diaz MD Unavailable Unavailable Twila Diaz MD Unavailable Unavailable Twila Diaz MD Unavailable Unavailable Twila Diaz MD Unavailable Unavailable Twila Diaz MD Unavailable Unavailable Twila Diaz MD Unavailable Unavailable Twila Diaz MD Unavailable Unavailable Twila Diaz MD Unavailable Unavailable Twila Diaz MD Unavailable Unavailable Twila Diaz MD Unavailable Unavailable Twila Diaz MD Unavailable Unavailable Twila Diaz MD Unavailable Unavailable Twila Diaz MD Unavailable Unavailable Twila Diaz MD Unavailable Unavailable Twila Diaz MD Unavailable Unavailable Twila Diaz MD Unavailable Unavailable Twila Diaz MD Unavailable Unavailable Twila Diaz MD Unavailable Unavailable Joe, Twila Carson MD Unavailable Unavailable Joe, Twila Carson MD Unavailable Unavailable Joe, Twila Carson MD Unavailable Unavailable Joe, Twila Carson MD Unavailable Unavailable Joe, Twila Carson MD Unavailable Unavailable Joe, Twila Carson MD Unavailable Unavailable Joe, Twila Carson MD Unavailable Unavailable Joe, Twila Carson MD Unavailable Unavailable Joe, Twila Carson MD Unavailable Unavailable Joe, Twila Carson MD Unavailable Unavailable Joe, Twila Carson MD Unavailable Unavailable Joe, Twila Carson MD Unavailable Unavailable Joe, Twila Carson MD Unavailable Unavailable Joe, Twila Carson MD Unavailable Unavailable Joe, Twila Carson MD Unavailable Unavailable Joe, Twila Carson MD Unavailable Unavailable Joe, Twila Carson MD Unavailable Unavailable Joe, Twila Carson MD Unavailable Unavailable Joe, Twila Carson MD Unavailable Unavailable Joe, A Yamileth TORIBIO Unavailable Unavailable Joe, A Yamileth TORIBIO Unavailable Unavailable Joe, Twila Carson MD Unavailable Unavailable Joe, Twila Carson MD Unavailable Unavailable Joe, Twila Carson MD Unavailable Unavailable Joe, Twila Carson MD Unavailable Unavailable Joe, A Yamileth TORIBIO Unavailable Unavailable Joe, A Yamileth TORIBIO Unavailable Unavailable Joe, A Yamileth TORIBIO Unavailable Unavailable Joe, Twila Carson MD Unavailable Unavailable Joe, Twila Carson MD Unavailable Unavailable Joe, Twila Carson MD Unavailable Unavailable Joe, Twila Carson MD Unavailable Unavailable Joe, Twila Carson MD Unavailable Unavailable Joe, A Yamileth TORIBIO Unavailable Unavailable Joe, A Yamileth TORIBIO Unavailable Unavailable Joe, A Yamileth TORIBIO Unavailable Unavailable Joe, Twila Carson MD Unavailable Unavailable Joe, Twila Carson MD Unavailable Unavailable Joe, Twila Carson MD Unavailable Unavailable Joe, Twila Carson MD Unavailable Unavailable Joe, Twila Carson MD Unavailable Unavailable Joe, Twila Carson MD Unavailable Unavailable Joe, Twila Carson MD Unavailable Unavailable Joe, Twila Carson MD Unavailable Unavailable Joe, Twila Carson MD Unavailable Unavailable Joe, Twila Carson MD Unavailable Unavailable Joe, Twila Carson MD Unavailable Unavailable Joe, Twila Carson MD Unavailable Unavailable Joe, Twila Carson MD Unavailable Unavailable Joe, Twila Carson MD Unavailable Unavailable Joe, Twila Carson MD Unavailable Unavailable Joe, Twila Carson MD Unavailable Unavailable Joe, Twila Carson MD Unavailable Unavailable Joe, Twila Carson MD Unavailable Unavailable Joe, Twila Carson MD Unavailable Unavailable Renu TORIBIO, O David Unavailable Unavailable RENU, Geovanny DAVID Unavailable Unavailable Rinku RAMIREZ MD Unavailable Unavailable iRnku RAMIREZ MD Unavailable Unavailable Rinku RAMIREZ MD Unavailable Unavailable Rinku RAMIREZ MD Unavailable Unavailable SETTERRinku MD Unavailable Unavailable SETTERRinku MD Unavailable Unavailable SETTERRinku MD Unavailable Unavailable SETTERRinku MD Unavailable Unavailable SETTER, Rinku ORR MD Unavailable Unavailable SETTER, Rinku ORR MD Unavailable Unavailable SETTER, Rinku ORR MD Unavailable Unavailable SETTERRinku MD Unavailable Unavailable SETTERRinku MD Unavailable Unavailable SETTER, Rinku ORR MD Unavailable Unavailable SETTER, Rinku ORR MD Unavailable Unavailable SETTER, Rinku ORR MD Unavailable Unavailable SETTER, Rinku ORR MD Unavailable Unavailable SETTER, Rinku ORR MD Unavailable Unavailable SETTER, Rinku ORR MD Unavailable Unavailable SETTER, Rinku ORR MD Unavailable Unavailable SETTER, Rinku ORR MD Unavailable Unavailable SETTER, Rinku ORR MD Unavailable Unavailable SETTER, Rinku ORR MD Unavailable Unavailable SETTER, Rinku ORR MD Unavailable Unavailable SETTERRinku MD Unavailable Unavailable SETTERRinku MD Unavailable Unavailable SETTER, Rinku ORR MD Unavailable Unavailable SETTER, Rinku ORR MD Unavailable Unavailable SETTERRinku MD Unavailable Unavailable SETTERRinku MD Unavailable Unavailable SETTERRinku MD Unavailable Unavailable SETTERRinku MD Unavailable Unavailable SETTERRinku MD Unavailable Unavailable SETTERRinku MD Unavailable Unavailable SETTERRinku MD Unavailable Unavailable SETTERRinku MD Unavailable Unavailable SETTERRinku MD Unavailable Unavailable SETTERRinku MD Unavailable Unavailable SETTERRinku MD Unavailable Unavailable SETTERRinku MD Unavailable Unavailable SETTERRinku MD Unavailable Unavailable SETTERRinku MD Unavailable Unavailable SETTERRinku MD Unavailable Unavailable SETTERRinku MD Unavailable Unavailable SETTERRinku MD Unavailable Unavailable SETTERRinku MD Unavailable Unavailable SETTERRinku MD Unavailable Unavailable SETTERRinku MD Unavailable Unavailable SETTERRinku MD Unavailable Unavailable SETTERRinku MD Unavailable Unavailable SETTERRinku MD Unavailable Unavailable SETTERRinku MD Unavailable Unavailable SETTERRinku MD Unavailable Unavailable SETTERRinku MD Unavailable Unavailable SETTERRinku MD Unavailable Unavailable SETTERRinku MD Unavailable Unavailable SETTERRinku MD Unavailable Unavailable SETTERRinku MD Unavailable Unavailable SETTERRinku MD Unavailable Unavailable SETTERRinku MD Unavailable Unavailable SETTERRinku MD Unavailable Unavailable SETTERRinku MD Unavailable Unavailable SETTERRinku MD Unavailable Unavailable SETTERRinku MD Unavailable Unavailable SETTERRinku MD Unavailable Unavailable SETTERRinku MD Unavailable Unavailable SETTERRinku MD Unavailable Unavailable SETTERRinku MD Unavailable Unavailable SETTERRinku MD Unavailable Unavailable SETTERRinku MD Unavailable Unavailable SETTERRinku MD Unavailable Unavailable SETTERRinku MD Unavailable Unavailable SETTERRinku MD Unavailable Unavailable SETTERRinku MD Unavailable Unavailable SETTERRinku MD Unavailable Unavailable SETTERRinku MD Unavailable Unavailable SETTERRinku MD Unavailable Unavailable SETTERRinku MD Unavailable Unavailable SETTERRinku MD Unavailable Unavailable SETTERRinku MD Unavailable Unavailable SETTERRinku MD Unavailable Unavailable SETTERRinku MD Unavailable Unavailable SETTERRinku MD Unavailable Unavailable SETTERRinku MD Unavailable Unavailable SETTERRinku MD Unavailable Unavailable SETTERRinku MD Unavailable Unavailable SETTERRinku MD Unavailable Unavailable SETTERRinku MD Unavailable Unavailable SETTERRinku MD Unavailable Unavailable SETTERRinku MD Unavailable Unavailable SETTERRinku MD Unavailable Unavailable SETTERRinku MD Unavailable Unavailable SETTERRinku MD Unavailable Unavailable SETTERRinku MD Unavailable Unavailable SETTERRinku MD Unavailable Unavailable Rinku RAMIREZ MD Unavailable Unavailable SETTRinku DILL MD Unavailable Unavailable ANUERRinku MD Unavailable Unavailable SETTERRniku MD Unavailable Unavailable SETTERRinku MD Unavailable Unavailable SETTERRinku MD Unavailable Unavailable SETTERRinku MD Unavailable Unavailable SETTERRinku MD Unavailable Unavailable SETTERRinku MD Unavailable Unavailable SETTERRinku MD Unavailable Unavailable SETTERRinku MD Unavailable Unavailable SETTERRinku MD Unavailable Unavailable SETTERRinku MD Unavailable Unavailable SETTERRinku MD Unavailable Unavailable SETTERRinku MD Unavailable Unavailable Riknu RAMIREZ MD Unavailable Unavailable SETTERRinku MD Unavailable Unavailable Jai WHITAKER MD Unavailable Unavailable Jai WHITAKER MD Unavailable Unavailable Jai WHITAKER MD Unavailable Unavailable Jai WHITAKER MD Unavailable Unavailable Jai WHITAKER MD Unavailable Unavailable Jai WHITAKER MD Unavailable Unavailable Jai WHITAKER MD Unavailable Unavailable Jai WHITAKER MD Unavailable Unavailable Jai WHITAKER MD Unavailable Unavailable Jai WHITAKER MD Unavailable Unavailable HENRY, C NATHALY MD Unavailable Unavailable HENRY, C NATHALY MD Unavailable Unavailable HENRYJai NATHALY MD Unavailable Unavailable HENRYJai MD Unavailable Unavailable HENRYJai WILLS MD Unavailable Unavailable HENRYJai NATHALY Unavailable Unavailable HENRYJai NATHALY Unavailable Unavailable HENRY C NATHALY MD Unavailable Unavailable HENRYJai NATHALY MD Unavailable Unavailable HENRYJai NATHALY Unavailable Unavailable HENRYJai NATHALY MD Unavailable Unavailable Jai WHITAKER MD Unavailable Unavailable Jai WHITAKER NATHALY Unavailable Unavailable Jai WHITAKER MD Unavailable Unavailable Jai WHITAKER NATHALY Unavailable Unavailable Jai WHITAKER NATHALY Unavailable Unavailable Jai WHITAKER MD Unavailable Unavailable Jai WHITAKER MD Unavailable Unavailable Jai WHITAKER MD Unavailable Unavailable Jai WHITAKER MD Unavailable Unavailable Jai WHITAKER MD Unavailable Unavailable Jai WHITAKER MD Unavailable Unavailable Jai WHITAKER MD Unavailable Unavailable Jai WHITAKER MD Unavailable Unavailable Aaron BEAUCHAMP MD Unavailable Unavailable Aaron BEAUCHAMP MD Unavailable Unavailable Aaron BEAUCHAMP MD Unavailable Unavailable Aaron BEAUCHAMP MD Unavailable Unavailable Aaron BEAUCHAMP MD Unavailable Unavailable Aaron BEAUCHAMP MD Unavailable Unavailable Aaron BEAUCHAMP MD Unavailable Unavailable Aaron BEAUCHAMP MD Unavailable Unavailable Aaron BEAUCHAMP MD Unavailable Unavailable Aaron BEAUCHAMP MD Unavailable Unavailable Aaron BEAUCHAMP MD Unavailable Unavailable Aaron BEAUCHAMP MD Unavailable Unavailable Aaron BEAUCHAMP MD Unavailable Unavailable Aaron BEAUCHAMP MD Unavailable Unavailable Aaron BEAUCHAMP MD Unavailable Unavailable Aaron BEAUCHAMP MD Unavailable Unavailable Aaron BEAUCHAMP MD Unavailable Unavailable Aaron BEAUCHAMP MD Unavailable Unavailable Aaron BEAUCHAMP MD Unavailable Unavailable Aaron BEAUCHAMP MD Unavailable Unavailable Aaron BEAUCHAMP MD Unavailable Unavailable Aaron BEAUCHAMP MD Unavailable Unavailable MIHAILA, L TRINH MD Unavailable Unavailable MIHAILA, L TRINH MD Unavailable Unavailable MIHAILA, L TRINH MD Unavailable Unavailable MIHAILA, L TRINH MD Unavailable Unavailable MIHAILA, L TRINH MD Unavailable Unavailable MIHAILA, L TRINH MD Unavailable Unavailable MIHAILA, L TRINH MD Unavailable Unavailable MIHAILA, L TRINH MD Unavailable Unavailable MIHAILA, L TRINH MD Unavailable Unavailable MIHAILA, L TRINH MD Unavailable Unavailable MIHAILA, L TRINH MD Unavailable Unavailable MIHAILA, L TRINH MD Unavailable Unavailable MIHAILA, L TRINH MD Unavailable Unavailable MIHAILA, L TRINH MD Unavailable Unavailable MIHAILA, L TRINH MD Unavailable Unavailable MIHAILA, L TRINH MD Unavailable Unavailable MIHAILA, L TRINH MD Unavailable Unavailable MIHAILA, L TRINH MD Unavailable Unavailable MIHAILA, L TRINH MD Unavailable Unavailable MIHAILA, L TRINH MD Unavailable Unavailable MIHAILA, L TRINH MD Unavailable Unavailable MIHAILA, L TRINH MD Unavailable Unavailable MIHAILA, L TRINH MD Unavailable Unavailable MIHAILA, L TRINH MD Unavailable Unavailable MIHAILA, L TRINH MD Unavailable Unavailable MIHAILA, L TRINH MD Unavailable Unavailable MIHAILA, L TRINH MD Unavailable Unavailable MIHAILA, L TRINH MD Unavailable Unavailable MIHAILA, L TRINH MD Unavailable Unavailable MIHAILA, L TRINH MD Unavailable Unavailable MIHAILA, L TRINH MD Unavailable Unavailable MIHAILA, L TRINH MD Unavailable Unavailable MIHAILA, L TRINH MD Unavailable Unavailable MIHAILA, L TRINH MD Unavailable Unavailable MIHAILA, L TRINH MD Unavailable Unavailable MIHAILA, L TRINH MD Unavailable Unavailable MIHAILA, L TRINH MD Unavailable Unavailable MIHAILA, L TRINH MD Unavailable Unavailable Re-disclosure Warning The records that you are about to access may contain information from federally-assisted alcohol or drug abuse programs. If such information is present, then the following federally mandated warning applies: This information has been disclosed to you from records protected by federal confidentiality rules (42 CFR part 2). The federal rules prohibit you from making any further disclosure of this information unless further disclosure is expressly permitted by the written consent of the person to whom it pertains or as otherwise permitted by 42 CFR part 2. A general authorization for the release of medical or other information is NOT sufficient for this purpose. The Federal rules restrict any use of the information to criminally investigate or prosecute any alcohol or drug abuse patient.The records that you are about to access may contain highly sensitive health information, the redisclosure of which is protected by Article 27-F of the [place] [facility] Public [facility] law. If you continue you may have access to information: Regarding HIV / AIDS; Provided by facilities licensed or operated by the [facility] Office of Mental Health; or Provided by the [facility] Office for People With Developmental Disabilities. If such information is present, then the following [facility] mandated warning applies: This information has been disclosed to you from confidential records which are protected by state law. State law prohibits you from making any further disclosure of this information without the specific written consent of the person to whom it pertains, or as otherwise permitted by law. Any unauthorized further disclosure in violation of state law may result in a fine or snf sentence or both. A general authorization for the release of medical or other information is NOT sufficient authorization for further disc losure. Allergies and Adverse Reactions Type Description Substance Reaction Status Data Source(s ) Propensity to adverse reactions PREDNISONE PREDNISONE [facility] Family History Family Member Name Family Member Gender Family Member Status Date o f Status Description Data Source(s) Unknown Unknown Problem [facility] ([facility]) Unknown Male Problem [facility] ([facility]) Unknown Unknown Problem [facility] ([facility] ) Unknown Unknown Problem [facility] ([facility] ) Unknown Unknown Problem [facility] ) Unknown Unknown Problem [facility] ([facility] ) Unknown Unknown Problem [facility] ([facility] ) Unknown Unknown Problem [facility] ([facility] ) Unknown Female Problem [facility] ([facility] ) Encounters Encounter Providers Location Date Indications Data Source(s ) Outpatient Attender: Brandi Sam [facility] Main Office 07/01/2021 1 1:00:00 AM EDT MED[facility] ([facility] Unknown [address] [facility] [id number] 06/02/2021 12:00:00 AM EDT eCW1 ([facility]) Unknown [address] [facility] [place] [address] 05/06/2021 12:00:00 AM EDT [facility]CW1 ([facility]) Unknown [address] [facility] [place] [address] 05/06/2021 12:00:00 AM EDT eCW1 ([facility]) [place] [address] [facility] [place] [address] 05/06/2021 12:00:00 AM EDT eCW1 ([facility]) Outpatient Attender: Yamileth Diaz MD Main Office 04/07/2021 11:45:0 0 AM EDT MEDENT ([facility] [place] [address] [facility] [place] [address] 04/07/2021 12:00:00 AM EDT eCW1 ([facility]) Unknown [address] [facility] [place] [address] 04/05/2021 12:00:00 AM EDT eCW1 ([facility] Outpatient [address] [facility] [address] 03/16/2021 12:00:00 AM EDT eCW1 ([facility]) Outpatient Attender: Yamileth Diaz MD Main Office 03/09/2021 01:30:0 0 PM EDT MED[facility] ([facility] Unknown [address] [facility] [id number] 03/09/2021 12:00:00 AM EDT eCW1 [facility] Outpatient Attender: Patrick Whitaker/Ronald/Jose E/Re indl 02/22/2021 02:45:00 PM EDT MEDENT ([facility] Outpatient Attender: Patrick Whitaker/Ronald/Jose E/Re indl 02/03/2021 11:15:00 AM EDT MEDENT ([facility]) Outpatient Attender: NATHALY Whitaker/[place]/Jose E/Reind l 01/19/2021 02:15:00 PM EDT MEDENT ([facility]) Outpatient Attender: Yamileth Diaz MD Main Office 01/15/2021 12:30:0 0 PM EDT MED[facility] ([facility] Outpatient Attender: Patrick Whitaker/Ronald/Jose E/Re indl 01/08/2021 09:45:00 AM EDT MEDENT ([facility] Unknown [address] [facility] [place] [address] 01/08/2021 12:00:00 AM EDT eCW1 ([facility]) Unknown [address] [facility] [address] 12/08/2020 12:00:00 AM EDT eCW1 ([facility]) Outpatient Attender: Michelle Sigala PA-C Main Office 11/30/2020 01:00:00 PM EDT MED[facility] ([facility] Outpatient [address] [facility] [place] [address] 11/30/2020 12:00:00 AM EDT eCW1 ([facility]) Unknown [address] [facility] [place] [address] 11/16/2020 12:00:00 AM EDT eCW1 ([facility]) Unknown [address] [facility] [place] [address] 11/09/2020 12:00:00 AM EDT eCW1 ([facility]) Unknown [address] [facility] [place] [address] 10/13/2020 12:00:00 AM EST eCW1 ([facility]) Outpatient Attender: COOPER BOBO NP Attender: KIRBY RAMIREZ MDReferrer: DAVID SEARS [id number] 10/01/2020 12:00:00 AM EST Pain in left [facility] Pain in left shoulder Outpatient Referrer: COOPER BOBO NP 10/01/2020 1 2:00:00 AM EST Impingement syndrome of left shoulder [facility] Impingement syndrome of left shoulder Recurring Patient Referrer: David Sears MD 09/16/2020 03:20:51 PM EST [facility] Recurring Patient Referrer: Alicia CASTILLO 09/16/2020 02:52:20 PM EST [facility] Unknown [address] [facility] [address] 09/14/2020 12:00:00 AM EST eCW1 ([facility]) Outpatient [address] [facility] [address] 09/01/2020 12:00:00 AM EST eCW1 ([facility]) Outpatient Attender: Michelle Sigala PA-C Main Office 08/31/2020 12:15:00 PM EST MED[facility] ([facility] Unknown [address] [facility] [id number] 08/17/2020 12:00:00 AM EST eCW1 ([facility]) Outpatient Attender: TRINH BEAUCHAMP MD [id number] 06/29 12:00:00 AM EST - 07/22/2020 11:15:31 AM EST Essential tremor [facility] Essential tremor Outpatient Attender: Michelle Sigala PA-C Main Office 07/20/2020 12:15:00 PM EST [facility] ([facility] Unknown [address] [facility] [address] 07/17/2020 12:00:00 AM EST eCW1 ([facility]) Outpatient Attender: TRINH BEAUCHAMP MD 07/09/2020 12:00:00 AM EST [facility] Outpatient [address] [facility] [address] 06/22/2020 12:00:00 AM EDT eCW1 ([facility]) Unknown [address] [facility] [address] 06/22/2020 12:00:00 AM EDT eCW1 ([facility]) Outpatient Attender: Michelle Sigala PA-C Main Office 06/05/2020 12:15:00 PM EDT [facility] ([facility] [place] [address] [facility] [address] 06/04/2020 12:00:00 AM EDT eCW1 ([facility]) Immunizations Vaccine Date Status Description Data Source(s) Moderna Sars-(Covid-19) vaccine, mRNA, LNP-S, PF, 100 mcg/ 0.5 mL 02/05/2021 12:00:00 AM EDT completed [facility] ([facility] COVID-19 VACCINE Moderna 02/05/2021 12:00:00 AM EDT completed [facility]IS Vaccine Series Complete: YESThis Data wa s Submitted to [facility] Via [employer]. Moderna Sars-(Covid-19) vaccine, mRNA, LNP-S, PF, 100 mcg/ 0.5 mL 01/08/2021 12:00:00 AM EDT completed [facility] ([facility] COVID-19 VACCINE Moderna 01/08/2021 12:00:00 AM EDT completed NYSIIS Vaccine Series Complete: NOThis Data was Submitted to [facility] Via [employer]. New in 2012. IIV4 08/31/2020 12:14:00 PM EST completed [facility] ([facility] Medications Medication Brand Name Start Date Product Form Dose Route Admi nistrative Instructions Pharmacy Instructions Status Indications Reaction Description Data Source(s) Azelastine HCL (Nasal) Azelastine HCL (Nasal) 07/01/2021 12:00:00 AM E DT active [facility] ([facility] sildenafil 100 MG Oral Tablet Sildenafil Citrate 07/01/2021 12:00:00 AM EDT ORAL active [facility] ([facility] Sertraline 100 MG Oral Tablet Sertraline HCL 07/01/2021 12:00:00 AM E DT ORAL active [facility] ([facility] Acetaminophen 325 MG / Oxycodone Hydroch loride 10 MG Oral Tablet oxyCODONE- Acetaminophen 10-325 MG oxyCODONE-Acetaminophen 10-325 MG 06/02/2021 12:00:00 AM EDT 1.0 {tablet_as_needed} active o xyCODONE-Acetaminophen 10-325 MG eCW1 ([facility]) Carisoprodol 350 MG Oral Tablet Carisoprodol 350 MG 06/02/2021 1 2:00:00 AM EDT 1.0 {tablet_as_needed} active C arisoprodol 350 MG eCW1 ([facility]) Acetaminophen 325 MG / Oxycodone Hydroch loride 10 MG Oral Tablet oxyCODONE- Acetaminophen 10-325 MG oxyCODONE-Acetaminophen 10-325 MG 04/07/2021 12:00:00 AM EDT 1.0 {tablet_as_needed} active o xyCODONE-Acetaminophen 10-325 MG eCW1 ([facility]) Amoxicillin 500 MG Oral Capsule Amoxicillin 04/07/2021 12:00:00 AM EDT ORAL completed [facility] ([facility] Acetaminophen 325 MG / Oxycodone Hydroch loride 10 MG Oral Tablet oxyCODONE- Acetaminophen 10-325 MG oxyCODONE-Acetaminophen 10-325 MG 04/07/2021 12:00:00 AM EDT 1.0 {tablet_as_needed} active o xyCODONE-Acetaminophen 10-325 MG eCW1 ([facility]) Acetaminophen 325 MG / Oxycodone Hydroch loride 10 MG Oral Tablet oxyCODONE- Acetaminophen 10-325 MG oxyCODONE-Acetaminophen 10-325 MG 04/07/2021 12:00:00 AM EDT 1.0 {tablet_as_needed} active o xyCODONE-Acetaminophen 10-325 MG eCW1 ([facility]) Acetaminophen 325 MG / Oxycodone Hydroch loride 10 MG Oral Tablet oxyCODONE- Acetaminophen 10-325 MG oxyCODONE-Acetaminophen 10-325 MG 04/07/2021 12:00:00 AM EDT 1.0 {tablet_as_needed} active o xyCODONE-Acetaminophen 10-325 MG eCW1 ([facility]) Aspirin 81 MG Delayed Release Oral Tablet Aspirin 04/06/2021 1 2:00:00 AM EDT ORAL active [facility] ([facility] Carisoprodol 350 MG Oral Tablet Carisoprodol 350 MG 04/05/2021 1 2:00:00 AM EDT 1.0 {tablet_as_needed} active C arisoprodol 350 MG eCW1 ([facility]) Carisoprodol 350 MG Oral Tablet Carisoprodol 350 MG 04/05/2021 1 2:00:00 AM EDT 1.0 {tablet_as_needed} active C arisoprodol 350 MG eCW1 ([facility]) Carisoprodol 350 MG Oral Tablet Carisoprodol 350 MG 04/05/2021 1 2:00:00 AM EDT 1.0 {tablet_as_needed} active C arisoprodol 350 MG eCW1 ([facility]) Carisoprodol 350 MG Oral Tablet Carisoprodol 350 MG 04/05/2021 1 2:00:00 AM EDT 1.0 {tablet_as_needed} active C arisoprodol 350 MG eCW1 ([facility]) Carisoprodol 350 MG Oral Tablet Carisoprodol 350 MG 04/05/2021 1 2:00:00 AM EDT 1.0 {tablet_as_needed} active C arisoprodol 350 MG eCW1 ([facility]) tadalafil 5 MG Oral Tablet Tadalafil 03/09/2021 12:00:00 AM EDT ORAL completed [facility] ([facility] Acetaminophen 325 MG / Oxycodone Hydroch loride 10 MG Oral Tablet oxyCODONE- Acetaminophen 10-325 MG oxyCODONE-Acetaminophen 10-325 MG 03/09/2021 12:00:00 AM EDT 1.0 {tablet_as_needed} active o xyCODONE-Acetaminophen 10-325 MG eCW1 ([facility]) Acetaminophen 325 MG / Oxycodone Hydroch loride 10 MG Oral Tablet oxyCODONE- Acetaminophen 10-325 MG oxyCODONE-Acetaminophen 10-325 MG 03/09/2021 12:00:00 AM EDT 1.0 {tablet_as_needed} active o xyCODONE-Acetaminophen 10-325 MG eCW1 ([facility]) Acetaminophen 325 MG / Oxycodone Hydroch loride 10 MG Oral Tablet oxyCODONE- Acetaminophen 10-325 MG oxyCODONE-Acetaminophen 10-325 MG 03/09/2021 12:00:00 AM EDT 1.0 {tablet_as_needed} active o xyCODONE-Acetaminophen 10-325 MG eCW1 ([facility]) Prednisone 10 MG Oral Tablet Prednisone 02/05/2021 12:00:00 AM EDT ORAL active MEDENT ([facility], ) Sucralfate 1000 MG Oral Tablet Sucralfate 01/19/2021 12:00:00 AM EDT ORAL active MEDENT ([facility], ) 200 ACTUAT Albuterol 0.09 MG/ACTUAT Metered Dose Inhaler [Pr oAir] Proair HFA 01/15/2021 12:00:00 AM EDT RESPIRATORY active [facility] ([facility] Acetaminophen 325 MG / Oxycodone Hydroch loride 10 MG Oral Tablet Oxycodone- Acetaminophen 10-325 MG Oxycodone-Acetaminophen 10-325 MG 01/08/2021 12:00:00 AM EDT 1.0 {tablet_as_needed} active Oxycodone-Acetaminophen 10-325 MG eCW1 ([facility]) Benzocaine 100 MG/ML Mucous Membrane Topical Solution [OraMagic Plus] Oramagic Plus 01/08/2021 12:00:00 AM EDT active MEDENT ([facility], ) Acetaminophen 325 MG / Oxycodone Hydroch loride 10 MG Oral Tablet Oxycodone- Acetaminophen 10-325 MG Oxycodone-Acetaminophen 10-325 MG 12/09/2020 12:00:00 AM EDT 1.0 {tablet_as_needed} active O xycodone-Acetaminophen 10-325 MG eCW1 ([facility]) Fexofenadine hydrochloride 180 MG Oral Tablet Jen Allerg y 11/30/2020 12:00:00 AM EDT ORAL active M EDFLOR ([facility] Acetaminophen 325 MG / Oxycodone Hydroch loride 10 MG Oral Tablet Oxycodone- Acetaminophen 10-325 MG Oxycodone-Acetaminophen 10-325 MG 11/09/2020 12:00:00 AM EDT 1.0 {tablet_as_needed} active O xycodone-Acetaminophen 10-325 MG eCW1 ([facility]) Acetaminophen 325 MG / Oxycodone Hydroch loride 10 MG Oral Tablet Oxycodone- Acetaminophen 10-325 MG Oxycodone-Acetaminophen 10-325 MG 11/09/2020 12:00:00 AM EDT 1.0 {tablet_as_needed} active O xycodone-Acetaminophen 10-325 MG eCW1 ([facility]) Acetaminophen 325 MG / Oxycodone Hydroch loride 10 MG Oral Tablet Oxycodone- Acetaminophen 10-325 MG Oxycodone-Acetaminophen 10-325 MG 11/09/2020 12:00:00 AM EDT 1.0 {tablet_as_needed} active O xycodone-Acetaminophen 10-325 MG eCW1 ([facility]) Acetaminophen 325 MG / Oxycodone Hydroch loride 10 MG Oral Tablet Oxycodone- Acetaminophen 10-325 MG Oxycodone-Acetaminophen 10-325 MG 10/13/2020 12:00:00 AM EST 1.0 {tablet_as_needed} active O xycodone-Acetaminophen 10-325 MG eCW1 ([facility]) methylPREDNISolone acetate (DEPO-MEDROL) injection 80 mg [id number] 10/01/2020 04:45:00 PM EST 80 mg Intra-articular completed 80 mg, Intra- articular, Once, [facility] 10/01/20 at 1645, For 1 dose
Depo-medrol genetic 2 cc - [id number]
[facility] Medication administered onsite gabapentin 800 MG Oral Tablet Gabapentin 800 MG Oral T ablet (NEURONTIN) Gabapentin 800 MG Oral Tablet (NEURONTIN) 09/22/2020 12:00:00 AM EST active TAKE ONE TABLET BY M OUTH @8AM and TAKE ONE TABLET @12PM and TAKE ONE TABLET @8PM [facility] Aspirin 81 MG Delayed Release Oral Table t Aspirin 81 MG Oral Tablet Delayed Release Aspirin 81 MG Oral Tablet Delayed Release 09/22/2020 12:00:00 AM EST aborted TAKE ONE TABLET BY MOUTH @8AM [facility] Acetaminophen 325 MG / Oxycodone Hydroch loride 10 MG Oral Tablet Oxycodone- Acetaminophen 10-325 MG Oxycodone-Acetaminophen 10-325 MG 09/14/2020 12:00:00 AM EST 1.0 {tablet_as_needed} active O xycodone-Acetaminophen 10-325 MG eCW1 ([facility]) 14 ACTUAT fluticasone furoate 0.1 MG/ACT UAT Dry Powder Inhaler [Arnuity] Arnuity Ellipta 100 MCG/ACT Inhalation Aerosol Powder Breath Activated Arnuity Ellipta 100 MCG/ACT Inhalation Aerosol Powder Breath Activated 08/23/2020 12:00:00 AM EST 1 {puff} Inhalation aborted Inhale 1 p uff into the lungs daily [facility] Acetaminophen 325 MG / Oxycodone Hydroch loride 10 MG Oral Tablet Oxycodone- Acetaminophen 10-325 MG Oxycodone-Acetaminophen 10-325 MG 08/17/2020 12:00:00 AM EST 1.0 {tablet_as_needed} active Oxycodone-Acetaminophen 10-325 MG eCW1 ([facility]) Acetaminophen 325 MG / Oxycodone Hydroch loride 10 MG Oral Tablet Oxycodone- Acetaminophen 10-325 MG Oxycodone-Acetaminophen 10-325 MG 08/17/2020 12:00:00 AM EST 1.0 {tablet_as_needed} active Oxycodone-Acetaminophen 10-325 MG eCW1 ([facility]) Sumatriptan 100 MG Oral Tablet SUMAtript an Succinate 100 MG Oral Tablet (IMITREX) SUMAtriptan Succinate 100 MG Oral Tablet (IMITREX) 02/2020 12:00:00 AM EST active TAKE ONE TABLET BY MOUTH NEEDED FOR HEADACHE, MAY REPEAT ONCE AFTER ONE HOUR NEEDED [facility] Sertraline 50 MG Oral Tablet Sertraline HCL 07/27/2020 12:00:00 AM EST ORAL active [facility] ([facility] Sertraline 25 MG Oral Tablet Sertraline HCl 25 MG Oral Tablet (ZOLOFT) Sertraline HCl 25 MG Oral Tablet (ZOLOFT) 07/21/2020 12:00:00 AM EST active TAKE ONE TABLET BY M OUTH EVERY EVENING FOR SEVEN DAYS THEN INCREASE TO 50mg tablets [facility] Omeprazole 40 MG Delayed Release Oral Ca psule Omeprazole 40 MG Oral Capsule Delayed Release (PRILOSEC) Omeprazole 40 MG Oral Capsule Delayed Re lease (PRILOSEC) 07/21/2020 12:00:00 AM EST 40 mg Oral active Take 40 mg by mouth every morning [facility] levocetirizine dihydrochloride 5 MG Oral Tablet Levocetirizine Dihydrochloride 5 MG Oral Tablet (XYZAL) Levocetirizine Dihydrochloride 5 MG Oral Tablet (XYZAL ) 07/21/2020 12:00:00 AM EST 5 mg Oral active Take 5 mg by mouth every morning [facility] levocetirizine dihydrochloride 5 MG Oral Tablet Levocetirizi ne Dihydrochloride 07/20/2020 12:00:00 AM EST ORAL completed [facility] ([facility] Sertraline 25 MG Oral Tablet Sertraline HCL 07/20/2020 12:00:00 AM EST ORAL completed [facility] ([facility] Omeprazole 40 MG Delayed Release Oral Capsule Omeprazole 07/20/2020 12:00:00 AM EST ORAL active [facility] ([facility] Acetaminophen 325 MG / Oxycodone Hydroch loride 10 MG Oral Tablet Oxycodone- Acetaminophen 10-325 MG Oxycodone-Acetaminophen 10-325 MG 07/20/2020 12:00:00 AM EST 1.0 {tablet_as_needed} active Oxycodone-Acetaminophen 10-325 MG eCW1 ([facility]) Acetaminophen 325 MG / Oxycodone Hydroch loride 10 MG Oral Tablet Oxycodone- Acetaminophen 10-325 MG Oxycodone-Acetaminophen 10-325 MG 06/22/2020 12:00:00 AM EDT 1.0 {tablet_as_needed} active Oxycodone-Acetaminophen 10-325 MG eCW1 ([facility]) Acetaminophen 325 MG / Oxycodone Hydroch loride 10 MG Oral Tablet Oxycodone- Acetaminophen 10-325 MG Oxycodone-Acetaminophen 10-325 MG 06/22/2020 12:00:00 AM EDT 1.0 {tablet_as_needed} active Oxycodone-Acetaminophen 10-325 MG eCW1 ([facility]) Sumatriptan 100 MG Oral Tablet Sumatriptan Succinate 06/05/2020 12:00:00 AM EDT ORAL active [facility] ( [facility] 24 HR Bupropion Hydrochloride 300 MG Extended Release Oral Tablet Bupropion Hydrochloride ER (XL) 06/05/2020 12:00:00 AM EDT ORAL a ctive [facility] ([facility] Ergocalciferol 53860 UNT Oral Capsule Vi tamin D (Ergocalciferol) 1.25 MG (43459 UT) Oral Capsule (ERGOCALCIFEROL) Vitamin D (Ergocalciferol) 1.25 MG (5000 0 UT) Oral Capsule (ERGOCALCIFEROL) 06/03/2020 12:00:00 AM EDT active TAKE ONE CAPSULE BY MOUTH Every Monday @[address] [place] [address] 12 HR Bupropion Hydrochloride 150 MG Ext ended Release Oral Tablet buPROPion HCl ER (SR) 150 MG Oral Tablet Extended Release 12 Hour (WELLBUTRIN SR) buPROPion HCl ER (SR) 150 MG Oral Tablet Extended Release 12 Hour (WELLBUTRIN SR) 06/03/2020 12:00:00 AM EDT aborted TAKE ONE TABLET BY MOUTH @[address] [place] [address] Polymyxin B 94261 UNT/ML / Trimethoprim 1 MG/ML Ophtha lmic Solution Polymyxin B Sulfate/Trimethoprim Sulfate 04/22/2020 12:00:00 AM EDT completed [facility] ([facility] Fluticasone Propionate 50 MCG/ACT Nasal Suspension (FLONASE) 9929-0804-16 01/29/2020 12:00:00 AM EDT aborted INSTILL ONE SPRAY IN EACH NOSTRIL ONCE DAILY [facility] Naproxen 500 MG Oral Tablet Naproxen 500 MG Oral Table t (NAPROSYN) Naproxen 500 MG Oral Tablet (NAPROSYN) 11/20/2019 12:00:00 AM EDT aborted TAKE ONE TABLET BY MOUTH EVERY 12 HOURS WITH FOOD OR MILK [facility] Sulfamethoxazole 800 MG / Trimethoprim 1 60 MG Oral Tablet sulfamethoxazole- trimethoprim (BACTRIM DS,SEPTRA DS) 800-160 MG per tablet sulfamethoxazole- trimethoprim (BACTRIM DS,SEPTRA DS) 800-160 MG per tablet 04/15/2019 12:00:00 AM EDT 1 {tbl} Oral aborted Take 1 t ablet by mouth every 12 (twelve) hours [facility] Oxycodone Hydrochloride 5 MG Oral Tablet oxyCODONE (ROXICODONE) 5 MG immediate release tablet oxyCODONE (ROXICODONE) 5 MG immediate release tablet 0 02/21/2019 12:00:00 AM EDT aborted Take 1 PO q8h prn breakthrough pain, MDD = 3 [facility] Metoprolol Tartrate 25 MG Oral Tablet me toprolol tartrate (LOPRESSOR) 25 MG tablet metoprolol tartrate (LOPRESSOR) 25 MG tablet 01/17/2019 12:0 0:00 AM EDT aborted TAKE ONE TABLET BY MOUTH @8AM and TAKE ONE TABLET @8PM [facility] cetirizine hydrochloride 10 MG Oral Tablet cetirizine (ZYRTEC) 10 MG tablet cetirizine (ZYRTEC) 10 MG tablet 11/19/2018 12:00:00 AM EDT aborted TAKE ONE TABLET BY MOUTH @8AM [facility] duloxetine 60 MG Delayed Release Oral Ca psule DULoxetine (CYMBALTA) 60 MG capsule DULoxetine (CYMBALTA) 60 MG capsule 11/19/2018 12:00:00 AM EDT aborted TAKE ONE CAPSULE BY MOUTH @8 AM [facility] gabapentin 600 MG Oral Tablet gabapentin (NEURONTIN) 6 00 MG tablet gabapentin (NEURONTIN) 600 MG tablet 11/19/2018 12:00:00 AM EDT aborted TAKE ONE TABLET BY MOUTH @8AM and TAKE ONE TABLET BY MOUTH @12PM and TAKE ONE TABLET BY MOUTH @8PM [facility] Losartan Potassium 50 MG Oral Tablet losartan (COZAAR) 50 MG tablet losartan (COZAAR) 50 MG tablet 11/19/2018 12:00:00 AM EDT aborted TAKE ONE TABLET BY MOUTH @8AM [facility] Hydrochlorothiazide 12.5 MG Oral Capsule hydrochlorothiazide (MICROZIDE) 12.5 MG capsule hydrochlorothiazide (MICROZIDE) 12.5 MG capsule 2018 12:00:00 AM EDT aborted TAKE ONE CAPSULE BY MOUTH @8AM [facility] Tamsulosin hydrochloride 0.4 MG Oral Capsule tamsulosi n (FLOMAX) 0.4 MG capsule tamsulosin (FLOMAX) 0.4 MG capsule 11/19/2018 12:00:00 AM EDT aborted TAKE ONE CAPSULE BY MOUTH @8AM [facility] Folic Acid 2.5 MG / Vitamin B 12 2 MG / Vitamin B6 25 MG Oral Tablet [Folbic] FOLBIC 2.5-25-2 MG TABS FOLBIC 2.5-25-2 MG TABS 11/08/2018 12:00:00 AM EDT 1 {tbl} Oral aborted Take 1 tablet by mouth d [facility] Ondansetron 4 MG Disintegrating Oral Tab let ondansetron (ZOFRAN ODT) 4 MG disintegrating tablet ondansetron (ZOFRAN ODT) 4 MG disintegrating tablet 01/23/2018 12:00:00 AM EDT 4 mg Oral aborted Take 1 tablet by mouth every 8 (eight) hours as needed for Nausea for up to 30 dosesPlace tablet beneath tongue and let dissolve [facility] duloxetine 30 MG Delayed Release Oral Ca psule DULoxetine (CYMBALTA) 30 MG capsule DULoxetine (CYMBALTA) 30 MG capsule 10/14/2017 12:00:00 AM EST aborted TAKE ONE CAPSULE BY MOUTH ON CE DAILY [facility] gabapentin 400 MG Oral Capsule gabapentin (NEURONTIN) 400 MG capsule gabapentin (NEURONTIN) 400 MG capsule 11/01/2016 12:00:00 AM EST 800 mg Oral aborted Take 800 mg by mouth Three times daily [facility] meloxicam 7.5 MG Oral Tablet Meloxicam 7.5 MG Oral Tab let (MOBIC) Meloxicam 7.5 MG Oral Tablet (MOBIC) 7.5 mg Oral aborted Take 7.5 mg by mouth daily [facility] Lisinopril 20 MG Oral Tablet Lisinopril 20 MG Oral Tab let (ZESTRIL) Lisinopril 20 MG Oral Tablet (ZESTRIL) 20 mg Oral aborted Take 20 mg by mouth daily [facility] Hydroxyzine Hydrochloride 25 MG Oral Tablet hydrOXYzin e (ATARAX) 25 MG tablet hydrOXYzine (ATARAX) 25 MG tablet 25 mg Oral abor bartolo Take 25 mg by mouth Three times daily as needed for Itching [facility] tizanidine 4 MG Oral Tablet tizanidine (ZANAFLEX) 4 MG tablet tizanidine (ZANAFLEX) 4 MG tablet 4 mg Oral aborted Take 4 mg by mouth every 6 (six) hours as needed [facility] Loratadine 10 MG Oral Tablet loratadine (CLARITIN) 10 MG tablet loratadine (CLARITIN) 10 MG tablet 10 mg Oral aborted Take 10 mg by mouth daily [facility] 24 HR metoprolol succinate 25 MG Extende d Release Oral Tablet metoprolol (TOPROL-XL) 25 MG 24 hr tablet metoprolol (TOPROL-XL) 25 MG 24 hr tablet 25 mg Oral aborted Take 25 mg by mouth [facility] Multiple Vitamins-Minerals (MULTIVITAMIN ADULT PO) Oral aborted Take by mouth [facility] Amlodipine 5 MG Oral Tablet amlodipine (NORVASC) 5 MG tablet amlodipine (NORVASC) 5 MG tablet 5 mg Oral aborted Ta ke 5 mg by mouth nightly [facility] Insurance Providers Payer name Policy type / Coverage type Policy ID Covered alliance party ID Covered alliance party's relationship to laboy Policy [place] Plan Information MEDICAID [id number] SP [id number] [facility] I [id number] Self [id number] MEDICAID M [id number] Self [id number] [facility] Comm Plan Medicaid F [id number] SELF [id number] [facility] Comm Plan Medicaid F [id number] SELF [id number] [id number] SP [id number] [id number] SP [id number] [facility] I [id number] Self [id number] [facility] I [id number] Self [id number] [facility] I [id number] Self [id number] [facility] I [id number] Self [id number] [employer] COMM[employer]ITY [employer]AN MCDHMO [id number] SP [id number] [employer] COMMUNITY PLAN MCDHMO [id number] SP [id number] [facility] MEDICAID [id number] Jessica [id number] [facility] Communty Plan Medicaid [id number] Self [id number] ANSI-Medicaid [id number] [facility] Communty Plan Medicaid [id number] Self [id number] ANSI-Medicaid [id number] ANSI-Medicaid [id number] [facility] MEDICAID PI PI [facility] Communty Plan Medicaid [id number] Self [id number] ANSI-Medicaid [id number] ANSI-Medicaid [id number] ANSI-Medicaid [id number] ANSI-Medicaid [id number] ANSI-Medicaid [id number] ANSI-Medicaid [id number] ANSI-Medicaid [id number] [facility] [id number] [facility] Communty Plan Medicaid [id number] [facility] [id number] ANSI-Medicaid [id number] ANSI-Medicaid [id number] ANSI-Medicaid [id number] ANSI-Medicaid [id number] ANSI-Medicaid [id number] ANSI-Medicaid [id number] [facility] Communty Plan Medicaid [id number] .[id number] .[id number] Self [id number] [facility]-Medicaid [id number] [facility] PLAN XIX -I/P [id number] 18 [id number] [facility]-Medicaid [id number] [facility] Communty Plan Medicaid [id number] .[id number] .[id number] Self [id number] [facility] Commun[facility] Plan Medicaid [id number] .[id number] .[id number] Self [id number] [facility] Plan Medicaid [id number] .[id number] .[id number] Self [id number] [facility]-Medicaid [id number] [facility] Commun[facility] Plan Medicaid [id number] .[id number] .[id number] Self [id number] [facility] Plan Medicaid [id number] .[id number] .[id number] Self [id number] [facility] Medicaid [id number] .[id number] .[id number] Self [id number] [facility] Plan Medicaid [id number] .[id number] .[id number] Self [id number] [facility] Medicaid [id number] .[id number] Self [id number] [facility] Medicaid [id number] .[id number] Self [id number] [facility] Medicaid [id number] .[id number] Self [id number] [facility] Medicaid [id number] .99.510.10563.0 Self [id number] [place] Med[place] [id number] [id number] Organization (HMO) [id number] Self [id number] [facility] Plan Medicaid [id number] .99.510.40866.0 Self [id number] [place] [id number] .[id number] .[id number] Self [id number] [facility] Health Maintenance Organization (HMO) [id number] Self [id number] [facility] Medicaid [id number] .99.510.46866.0 Self [id number] [facility] Medicaid [id number] .99.510.89580.0 Self [id number] Medicaid [place] Med[place] [id number] .[id number] .[id number] Self [id number] [facility] [id number] 18 [id number] [facility] Health Maintenance Organization (HMO) [id number] Self 1 [id number] [facility] Health Maintenance Organization (HMO) [id number] Self 1 [id number] [employer] MCDHMO [id number] SP [id number] [employer] COMMUNITY PLAN MCDHMO [id number] SP [id number] [place] Med[place] B [id number] Self [facility] Health Maintenance Organization (HMO) [id number] Self Medicaid [place] Medicaid [id number] Self MEDICAID W [id number] MEDICAID REF AMBULAT W [id number] S [id number] MEDICAID SHAYNN [id number] S [id number] [employer] COMMUNITY PLAN MCDHMO [id number] SP [id number] MEDICAID P [id number] S [id number] [employer] COMMUNITY PLAN MCDHMO [id number] SP [id number] [facility] O [id number] S [id number] [employer] COMMUNITY PLAN XIX [id number] 18 [id number] [facility] COMMUNTY PLAN [id number] 18 [id number] ANSI-Medicaid [id number] ANSI-Medicaid [id number] [facility] Commun[facility] Plan Medicaid [id number] Self [id number] ANSI-Medicaid [id number] ANSI-Medicaid [id number] ANSI-Medicaid [id number] ANSI-Medicaid [id number] ANSI-Medicaid [id number] ANSI-Medicaid [id number] Problems, Conditions, and Diagnoses Code Display Name Description Problem Type Effective Dates Data Source(s) M75.42 Impingement syndrome of left shoulder Im pingement syndrome of left shoulder Diagnosis 10/01/2020 02:25:51 PM [facility] M75.82 Other shoulder lesions, left shoulder Ot her shoulder lesions, left shoulder Diagnosis 10/01/2020 02:14:52 PM [facility] M25.512 Pain in left shoulder Pain in left shoulder Diagnosis 10/01/2020 02:14:52 PM [facility] [id number] Tremor Tremor Problem 03/09/2021 12:00:00 AM ED T [facility] ([facility] [id number] Chronic pain Chronic pain Problem 03/09/2021 12:00:00 A M EDT [facility] ([facility] G25.0 Essential tremor Essential tremor Problem 03/09/2021 12 :00:00 AM EDT [facility] ([facility] J44.9 Chronic obstructive lung disease Chronic obstructive l janie disease Problem 03/09/2021 12:00:00 AM EDT [facility] ([facility] R13.10 Dysphagia Dysphagia Problem 03/09/2021 12:00:00 AM ED T [facility] ([facility] Z59.9 Financial problem Financial problem Problem 03/09/2021 12:00:00 AM EDT [facility] ([facility] M79.674 [id number] Pain of right great toe Problem 06/22/2020 1 2:00:00 AM EDT eCW1 ([facility]) M89.49 [id number] Primary osteoarthritis involving multiple joints Problem 06/22/2020 12:00:00 AM EDT eCW1 ([facility]) G89.4 [id number] Chronic pain syndrome Problem 06/22/2020 12: 00:00 AM EDT eCW1 ([facility]) M51.36 [id number] Lumbar degenerative disc disease Problem 06/22/2020 12:00:00 AM EDT eCW1 ([facility]) Surgeries/Procedures Procedure Description Date Indications Data Source(s) ECG ROUTINE ECG W/LEAST 12 LDS W/I&R 07/01/2021 12:00: 00 AM EDT [facility] ([facility] OFFICE OUTPATIENT VISIT 25 MINUTES 07/01/2021 12:00:00 AM EDT [facility] ([facility] OFFICE OUTPATIENT VISIT 25 MINUTES 04/07/2021 12:00:00 AM EDT [facility] ([facility] OFFICE OUTPATIENT VISIT 25 MINUTES 03/09/2021 12:00:00 AM EDT [facility] ([facility] LARYNGOSCOPY FLEXIBLE FIBEROPTIC DIAGNOSTIC 02/22/2021 12:00:00 AM EDT [facility] ([facility], ) OFFICE OUTPATIENT VISIT 15 MINUTES 02/22/2021 12:00:00 AM EDT [facility] ([facility]) LARYNGOSCOPY FLEXIBLE FIBEROPTIC DIAGNOSTIC 02/03/2021 12:00:00 AM EDT [facility] ([facility]) OFFICE OUTPATIENT VISIT 15 MINUTES 02/03/2021 12:00:00 AM EDT [facility] ([facility]) OFFICE OUTPATIENT VISIT 15 MINUTES 01/19/2021 12:00:00 AM EDT [facility] ([facility]) OFFICE OUTPATIENT VISIT 40 MINUTES 01/15/2021 12:00:00 AM EDT [facility] ([facility] LARYNGOSCOPY FLEXIBLE FIBEROPTIC DIAGNOSTIC 01/08/2021 12:00:00 AM EDT [facility] ([facility]) OFFICE OUTPATIENT NEW 30 MINUTES 01/08/2021 12:00:00 A M EDT [facility] ([facility]) OFFICE OUTPATIENT VISIT 25 MINUTES 11/30/2020 12:00:00 AM EDT [facility] ([facility] Results ID Date Data Source [id number] 06/30/2021 01:53:00 PM EDT [facility] ([facility] Name Value Range Interpretation Code Description Data Marleen rce(s) Supporting Document(s) Glucose, Fasting 90 mg/dL 70-100 [facility] Blood Urea Nitrogen 16 mg/dL 7-18 [facility] ([facility] Creatinine For GFR 1.08 mg/dL 0.70-1.30 [facility] ([facility] Glomerular Filtration Rate Laboratory test result [facility] ([facility] <content>Units are mL/min/1.73 m2</content>
<content></content>
<content>Chronic Kidney Disease Staging per NK[facility]:</content>
<content></content>
<content>Stage I & II GFR >=60 Normal to Mildly Decreased</content>
<content>Stage III GFR 30- 59 Moderately Decreased</content>
<content>Stage IV GFR 15-29 Severely Decreased</content>
<content>Stage V GFR <15 Very Little GFR Left</content>
<content>ESRD GFR <15 on GRINDER SET UP OPERATOR EXTERNAL</content>
<content></content> Sodium Level 141 meq/L 136-145 [facility] Chloride Level 110 meq/L 98-107 [facility] Potassium Serum 5.0 meq/L 3.5-5.1 [facility] ([facility] Calcium Level 9.9 mg/dL 8.8-10.2 [facility] ([facility] Carbon Dioxide Level 27 meq/L 21-32 [facility] ([facility] Anion Gap 4 meq/L 8-16 [facility] Ast/Sgot 16 U/L 7-37 [facility] ([facility] Alkaline Phosphatase 129 U/L 45-117 [facility] ([facility] Alt/SGPT 33 U/L 12-78 [facility] Total Protein 7.8 GM/DL 6.4-8.2 [facility] ([facility] Albumin 4.4 GM/DL 3.2-5.2 [facility] Bilirubin,Total 0.6 mg/dL 0.2-1.0 [facility] ([facility] Albumin/Globulin Ratio 1.3 [facility] ([facility] ID Date Data Source [id number] 06/30/2021 01:53:00 PM EDT [facility] ([facility] Name Value Range Interpretation Code Description Data Marleen rce(s) Supporting Document(s) White Blood Count 6.1 10 4.0-10.0 [facility] ([facility] Red Blood Count 6.35 10 4.30-6.10 [facility] Hemoglobin 19.1 g/dL 13.5-17.5 [facility] ([facility] Mean Corpuscular Volume 93.1 fl 80.0-96.0 M [facility] ([facility] Hematocrit 59.1 % 42.0-52.0 [facility] Mean Corpuscular HGB Conc 32.3 g/dL 32.0-36.5 [facility] Mean Corpuscular Hemoglobin 30.1 pg 27.0-33.0 [facility] Platelet Count, Automated 189 10 150-450 [facility] Neutrophils % 51.7 % 36.0-66.0 [facility] Red Cell Distribution Width 14.6 % 11.5-14.5 [facility] Lymph % 39.1 % 24.0-44.0 [facility] Elbert % 6.8 % 2.0-8.0 [facility] Eos % 1.3 % 0.0-3.0 [facility] Baso % 0.8 % 0.0-1.0 [facility] Immature Granulocyte % 0.3 % 0-3.0 [facility] Neutrophils # 3.2 10 1.5-8.5 [facility] Nucleated Red Blood Cell % 0.0 % 0-0 [facility] ([facility] Lymph # 2.4 10 1.5-5.0 [facility] Elbert # 0.4 10 0.0-0.8 [facility] Eos # 0.1 10 0.0-0.5 [facility] Baso # 0.1 10 0.0-0.2 [facility] ID Date Data Source [id number] 12/15/2020 01:03:00 PM EDT [facility] ([facility] Name Value Range Interpretation Code Description Data Marleen rce(s) Supporting Document(s) Triglycerides Level 162 mg/dL [facility] ([facility] Cholesterol Level 180 mg/dL [facility] ([facility] HDL Cholesterol 50 mg/dL [facility] LDL Cholesterol 98 mg/dL [facility] Non-HDL-C 130 mg/dL [facility] Cholesterol Risk Ratio 3.600 [facility] ID Date Data Source [id number] 12/15/2020 01:03:00 PM EDT [facility] ([facility] Name Value Range Interpretation Code Description Data Marleen e(s) Supporting Document(s) White Blood Count 4.7 10 4.0-10.0 [facility] ([facility] Red Blood Count 6.04 10 4.30-6.10 [facility] Hemoglobin 18.1 g/dL 13.5-17.5 [facility] Hematocrit 55.8 % 42.0-52.0 [facility] Mean Corpuscular Volume 92.4 fl 80.0-96.0 M [facility] ([facility] Mean Corpuscular Hemoglobin 30.0 pg 27.0-33.0 [facility] Red Cell Distribution Width 16.1 % 11.5-14.5 [facility] Mean Corpuscular HGB Conc 32.4 g/dL 32.0-36.5 [facility] Platelet Count, Automated 183 10 150-450 [facility] Neutrophils % 43.9 % 36.0-66.0 [facility] Lymph % 43.2 % 24.0-44.0 [facility] Eos % 2.8 % 0.0-3.0 [facility] Elbert % 8.0 % 2.0-8.0 [facility] Baso % 1.5 % 0.0-1.0 [facility] Immature Granulocyte % 0.6 % 0-3.0 [facility] Nucleated Red Blood Cell % 0.0 % 0-0 [facility] Neutrophils # 2.0 10 1.5-8.5 [facility] Lymph # 2.0 10 1.5-5.0 [facility] Elbert # 0.4 10 0.0-0.8 [facility] Eos # 0.1 10 0.0-0.5 [facility] Baso # 0.1 10 0.0-0.2 [facility] ID Date Data Source [id number] 12/15/2020 01:03:00 PM EDT [facility] ([facility] Name Value Range Interpretation Code Description Data Marleen rce(s) Supporting Document(s) Glucose, Fasting 92 mg/dL 70-100 [facility] Blood Urea Nitrogen 10 mg/dL 7-18 [facility] ([facility] Glomerular Filtration Rate Laboratory test result [facility] ([facility] <content>Units are mL/min/1.73 m2</content>
<content></content>
<content>Chronic Kidney Disease Staging per NK[facility]:</content>
<content></content>
<content>Stage I & II GFR >=60 Normal to Mildly Decreased</content>
<content>Stage III GFR 30- 59 Moderately Decreased</content>
<content>Stage IV GFR 15-29 Severely Decreased</content>
<content>Stage V GFR <15 Very Little GFR Left</content>
<content>ESRD GFR <15 on GRINDER SET UP OPERATOR EXTERNAL</content>
<content></content> Creatinine For GFR 0.91 mg/dL 0.70-1.30 [facility] Sodium Level 142 meq/L 136-145 [facility] Potassium Serum 4.5 meq/L 3.5-5.1 [facility] Carbon Dioxide Level 29 meq/L 21-32 [facility] ([facility] Chloride Level 109 meq/L 98-107 [facility] Anion Gap 4 meq/L 8-16 [facility] Ast/Sgot 13 U/L 7-37 [facility] Calcium Level 9.0 mg/dL 8.8-10.2 [facility] Alt/SGPT 25 U/L 12-78 [facility] Alkaline Phosphatase 116 U/L 45-117 [facility] ([facility] Bilirubin,Total 0.5 mg/dL 0.2-1.0 [facility] ([facility] Total Protein 7.2 GM/DL 6.4-8.2 [facility] Albumin 4.0 GM/DL 3.2-5.2 [facility] Albumin/Globulin Ratio 1.3 [facility] ID Date Data Source [id number] 12/15/2020 01:03:00 PM EDT [facility] ([facility] Name Value Range Interpretation Code Description Data Marleen rce(s) Supporting Document(s) Thyrotropin [Units/volume] in Serum or Plasma 3.930 uIU/ML 0.358-3.74 0 [facility] ([facility] <content>note:<nlbl:demographic_changed> </content>
<content></content> Thyroxine (T4) free [Mass/volume] in Serum or Plasma 1.05 ng/dL 0.76- 1.46 [facility] ([facility] <content>note:<nlbl:demographic_changed> </content>
<content></content> ID Date Data Source [id number] 10/01/2020 04:33:17 PM [facility] XR SHOULDER COMPLETE [id number] RESULTIn terpreted by:BOZENA Pecklinical history: Left shoulder painViews: 4 views left shoulderIndication: Check for sources of pain left shoulderFindings: The visualized portion of the left clavicle appears normal however there is been resection of the distal portion of the clavicle. Still remains well aligned with the acromium. Remainder of the acromium, coracoid and glenoid appear normal. There is good preservation glenohumeral joint space which is some mild sclerosis and irregularity of the subchondral bone surfaces. Remainder of the osseous anatomy left proximal humerus appears normal.Impression: Status post distal clavicle resection of the left shoulder with some mild glenohumeral joint degenerative changes.This document has been electronically signed by Siddhartha Painter MD on 10/01/2020 4:31 PM Name Value Range Interpretation Code Description Data Marleen rce(s) Supporting Document(s) ID Date Data Source [id number] 10/01/2020 04:33:00 PM [facility] Name Value Range Interpretation Code Description Data Marleen rce(s) Supporting Document(s) Progress Note [facility] CWIGNb8jJhWQHxDh66/MGVclINVzq8GnVLirDSk6KTmdXPTwK3AmTPG6rO2eJEP6BGeFZwVuPfMoYfB8 lbm [file] +ds8p3VaTvTPKw/I3yn6e/maoq/WUzYxX3xVpb++Work Manager [file] MDAwMDAyMDgyOCAwMDAwMCBuDQowMDAwMDIyMjcyID AoKOToJE5FZyNqGWIcVbJbNIEnKNDkIMHqkk1FAYBcYHXjHwF6OaBiABSzUBElYQm1dfZkaQYwMDx0SO 5AG8NhabXsZqWYFu0Ow308ZPUaVEEvPe7DE6sdUc2uHRDlYJOCHc1XWIn3ZmKwRSY7VQYaQDOxDRH3GV BiGVZtFwH5NRB9KNTjIGG+FCavK6YbOnPpVWC1ErQ1 JLw5RGE9WkXeXwlkRQanJsNrCz6dVHONAs9+SLbxgBXtpMceKQLKMaZvDoQ0KFzjMIJLQh1C ID Date Data Source [id number] 08/16/2020 03:26:43 PM [facility] Name Value Range Interpretation Code Description Data Marleen rce(s) Supporting Document(s) Progress Note [facility] YFTKWd6kXdVXMgTa20/JWKqvSEOqn3IpEMvjZIc8YTkjAVBkY4MmBIL6lS4zYSB1UEkCKnRpTtWbLnVp lbm [file] OAtcBNR9Xv9SIUEJD1BQWh== ID Date Data Source [id number] 06/02/2020 01:46:00 PM EDT [facility] ([facility]) Name Value Range Interpretation Code Description Data Marleen rce(s) Supporting Document(s) White Blood Count 5.3 10 4.0-10.0 Normal (applies to non-numeri c results) [facility] ([facility]) Red Blood Count 5.81 10 4.30-6.10 Normal (applies to non-numeric results) [facility] ([facility]) Hematocrit 53.9 % 42.0-52.0 Above high normal [facility] ([facility]) Hemoglobin 17.7 g/dL 13.5-17.5 Above high normal [facility] Mean Corpuscular Volume 92.8 fl 80.0-96.0 Normal ( applies to non-numeric results) [facility] ([facility]) Mean Corpuscular Hemoglobin 30.5 pg 27.0-33.0 Norm al (applies to non-numeric results) [facility] ([facility] Mean Corpuscular HGB Conc 32.8 g/dL 32.0-36.5 Normal (applies to non-numeric results) [facility] ([facility] Red Cell Distribution Width 14.4 % 11.5-14.5 Norm al (applies to non-numeric results) [facility] ([facility]) Neutrophils % 53.2 % 36.0-66.0 Normal (applies to non-numeric re sults) [facility] Platelet Count, Automated 172 10 150-450 Normal (applies to non-numeric results) [facility] Lymph % 37.5 % 24.0-44.0 Normal (applies to non-numeric resul ts) [facility] ([facility]) Baso % 0.9 % 0.0-1.0 Normal (applies to non-numeric resul ts) [facility] ([facility]) Eos % 1.1 % 0.0-3.0 Normal (applies to non-numeric resul ts) [facility] ([facility]) Elbert % 6.9 % 0.0-5.0 Above high normal [facility] ([facility]) Neutrophils # 2.8 10 1.5-8.5 Normal (applies to non-numeric re sults) [facility]) Lymph # 2.0 10 1.5-5.0 Normal (applies to non-numeric resul ts) [facility] ([facility]) Nucleated Red Blood Cell % 0.0 % 0-0 Normal (applies to n on-numeric results) [facility] ([facility]) Immature Granulocyte % 0.4 % 0-3.0 Normal (applies to non-n umeric results) [facility] ([facility]) Eos # 0.1 10 0.0-0.5 Normal (applies to non-numeric resul ts) [facility] ([facility]) Elbert # 0.4 10 0.0-0.8 Normal (applies to non-numeric resul ts) [facility] ([facility]) Baso # 0.1 10 0.0-0.2 Normal (applies to non-numeric resul ts) [facility] ([facility]) ID Date Data Source [id number] 06/02/2020 10:09:00 AM EDT [facility] ([facility] Name Value Range Interpretation Code Description Data Marleen rce(s) Supporting Document(s) Glucose, Fasting 89 mg/dL 70-100 [facility] Glomerular Filtration Rate Laboratory test result [facility] ([facility] <content>Units are mL/min/1.73 m2</content>
<content></content>
<content>Chronic Kidney Disease Staging per [facility]:</content>
<content></content>
<content>Stage I & II GFR >=60 Normal to Mildly Decreased</content>
<content>Stage III GFR 30- 59 Moderately Decreased</content>
<content>Stage IV GFR 15-29 Severely Decreased</content>
<content>Stage V GFR <15 Very Little GFR Left</content>
<content>ESRD GFR <15 on GRINDER SET UP OPERATOR EXTERNAL</content>
<content></content> Blood Urea Nitrogen 11 mg/dL 7-18 [facility] ([facility] Creatinine For GFR 0.87 mg/dL 0.70-1.30 [facility] Sodium Level 140 meq/L 136-145 [facility] Potassium Serum 4.8 meq/L 3.5-5.1 [facility] Chloride Level 108 meq/L 98-107 [facility] Anion Gap 7 meq/L 8-16 [facility] Carbon Dioxide Level 25 meq/L 21-32 [facility] ([facility] Calcium Level 9.2 mg/dL 8.5-10.1 [facility] Alt/SGPT 24 U/L 12-78 [facility] Ast/Sgot 11 U/L 7-37 [facility] Bilirubin,Total 0.4 mg/dL 0.2-1.0 [facility] ([facility] Total Protein 7.2 GM/DL 6.4-8.2 [facility] Alkaline Phosphatase 136 U/L 45-117 [facility] Albumin/Globulin Ratio 1.2 [facility] Albumin 3.9 GM/DL 3.2-5.2 [facility] ID Date Data Source [id number] 06/02/2020 10:09:00 AM EDT [facility] ([facility] Name Value Range Interpretation Code Description Data Marleen rce(s) Supporting Document(s) Cholesterol Level 168 mg/dL [facility] ([facility] HDL Cholesterol 50 mg/dL [facility] Triglycerides Level 132 mg/dL [facility] ([facility] Cholesterol Risk Ratio 3.360 [facility] Non-HDL-C 118 mg/dL [facility] LDL Cholesterol 92 mg/dL [facility] ID Date Data Source [id number] 06/02/2020 10:09:00 AM EDT [facility] ([facility] Name Value Range Interpretation Code Description Data Marleen rce(s) Supporting Document(s) Urate [Mass/volume] in Serum or Plasma 2.9 mg/dL 3.5-7.2 [facility] ([facility] <content>note:<nlbl:demographic_changed> </content>
<content></content> Procedure Social History Code Duration Value Status Description Data Source(s ) Smoking 03/16/2021 12:00:00 AM EDT Current Smoker completed Curre nt Smoker eCW1 ([facility]) Smoking 03/16/2021 12:00:00 AM EDT Current Smoker completed Curre nt Smoker eCW1 ([facility]) Smoking 03/16/2021 12:00:00 AM EDT Current Smoker completed Curre nt Smoker eCW1 ([facility]) Smoking 03/16/2021 12:00:00 AM EDT Current Smoker completed Curre nt Smoker eCW1 ([facility]) Smoking 03/16/2021 12:00:00 AM EDT Current Smoker completed Curre nt Smoker eCW1 ([facility]) Smoking 03/16/2021 12:00:00 AM EDT Current Smoker completed Curre nt Smoker eCW1 ([facility]) Smoking 03/16/2021 12:00:00 AM EDT Current Smoker completed Curre nt Smoker eCW1 ([facility]) Smoking 11/30/2020 12:00:00 AM EDT Current Smoker completed Curre nt Smoker eCW1 ([facility]) Smoking 11/30/2020 12:00:00 AM EDT Current Smoker completed Curre nt Smoker eCW1 ([facility]) Smoking 11/30/2020 12:00:00 AM EDT Current Smoker completed Curre nt Smoker eCW1 ([facility]) Smoking 11/30/2020 12:00:00 AM EDT Current Smoker completed Curre nt Smoker eCW1 ([facility]) Alcohol intake 10/01/2020 12:00:00 AM EST Ex-drinker (finding) comp leted Ex- drinker (finding) [facility] Tobacco use and exposure 10/01/2020 12:00:00 AM EST Never used co mpleted Never used [facility] Cigarette pack-years 10/01/2020 12:00:00 AM EST UNK completed [facility] Cigarettes smoked current (pack per day) - Reported 10/01/19 12:00:00 AM EST UNK completed [facility] Smoking 10/01/2020 12:00:00 AM EST Current every day smoker co mpleted Current every day smoker [facility] Smoking 09/01/2020 12:00:00 AM EST Current Smoker completed Curre nt Smoker eCW1 ([facility]) Smoking 09/01/2020 12:00:00 AM EST Current Smoker completed Curre nt Smoker eCW1 ([facility]) Smoking 09/01/2020 12:00:00 AM EST Current Smoker completed Curre nt Smoker eCW1 ([facility]) Smoking 09/01/2020 12:00:00 AM EST Current Smoker completed Curre nt Smoker eCW1 ([facility]) Smoking 09/01/2020 12:00:00 AM EST Current Smoker completed Curre nt Smoker eCW1 ([facility]) Alcohol intake 07/22/2020 12:00:00 AM EST Ex-drinker (finding) comp leted Ex- drinker (finding) [facility] Smoking 06/22/2020 12:00:00 AM EDT Current Smoker completed Curre nt Smoker eCW1 ([facility]) Smoking 06/22/2020 12:00:00 AM EDT Current Smoker completed Curre nt Smoker eCW1 ([facility]) Smoking 06/22/2020 12:00:00 AM EDT Current Smoker completed Curre nt Smoker eCW1 ([facility]) Smoking 06/22/2020 12:00:00 AM EDT Current Smoker completed Curre nt Smoker eCW1 ([facility]) Vital Signs ID Date Data Source UNK Name Value Range Interpretation Code Description Data Source(s) Body temperature 97.2 [degF] 97.2 [degF] [facility] ([facility] Oxygen saturation in Arterial blood by Pulse oximetry 94 % 94 % [facility] ([facility] Webb body weight 178 [lb_av] 178 [lb_av] MEDEN T ([facility] Systolic blood pressure 129 mm[Hg] 129 mm[Hg] M EDENT ([facility] Diastolic blood pressure 83 mm[Hg] 83 mm[Hg] [facility] ([facility] Heart rate 81 /min 81 /min [facility] ([facility] Respiratory rate 17 /min 17 /min [facility] ( [facility] Body height 72 [in_i] 72 [in_i] [facility] ([facility] 6'0" Body weight 220.50 [lb_av] 220.50 [lb_av] MED[facility] T ([facility] Body mass index (BMI) [Ratio] 29.9 kg/m2 29.9 k g/m2 [facility] ([facility] Systolic blood pressure 132 mm[Hg] 132 mm[Hg] M EDENT ([facility] Diastolic blood pressure 89 mm[Hg] 89 mm[Hg] [facility] ([facility] Heart rate 78 /min 78 /min [facility] ([facility] Body temperature 98.5 [degF] 98.5 [degF] [facility] ([facility] Body weight 215.25 [lb_av] 215.25 [lb_av] MED[facility] T ([facility] Respiratory rate 16 /min 16 /min [facility] ( [facility] Body height 72 [in_i] 72 [in_i] [facility] ([facility] 6'0" Webb body weight 178 [lb_av] 178 [lb_av] MED[facility] T ([facility] Body mass index (BMI) [Ratio] 29.2 kg/m2 29.2 k g/m2 [facility] ([facility] Respiratory rate 18 /min 18 /min [facility] Body weight 219.8 [lb_av] 219.8 [lb_av] eCW1 ([facility]) Body height 74 [in_i] 74 [in_i] eCW1 ([facility]) Body mass index (BMI) [Ratio] 28.22 kg/m2 28.22 kg/m2 W1 ([facility]) Heart rate 79 /min 79 /min eCW1 ([facility]) Body temperature 98.4 [degF] 98.4 [degF] eCW1 ( [facility]) Systolic blood pressure 132 mm[Hg] 132 mm[Hg] e CW1 ([facility]) Diastolic blood pressure 81 mm[Hg] 81 mm[Hg] eCW1 ([facility]) Webb body weight 178 [lb_av] 178 [lb_av] MED[facility] T ([facility] Body temperature 98.7 [degF] 98.7 [degF] [facility] ([facility] Body height 72 [in_i] 72 [in_i] [facility] ([facility] 6'0" Body weight 217.38 [lb_av] 217.38 [lb_av] MED[facility] T ([facility] Body mass index (BMI) [Ratio] 29.5 kg/m2 29.5 k g/m2 [facility] ([facility] Oxygen saturation in Arterial blood by Pulse oximetry 96 % 96 % [facility] ([facility] Systolic blood pressure 124 mm[Hg] 124 mm[Hg] [facility] ([facility] Diastolic blood pressure 87 mm[Hg] 87 mm[Hg] [facility] ([facility] Heart rate 74 /min 74 /min [facility] ([facility] Body height 73 [in_i] 73 [in_i] [facility] ([facility]) 6'1" Body height 73 [in_i] 73 [in_i] [facility] ([facility]) 6'1" Body weight 222.00 [lb_av] 222.00 [lb_av] [facility] Body mass index (BMI) [Ratio] 29.3 kg/m2 29.3 k g/m2 [facility] ([facility]) Webb body weight 184 [lb_av] 184 [lb_av] [facility] Body weight 100.699 kg 100.699 kg [facility] ([facility]) Body surface area Derived from formula 2.25 m2 2.25 m2 [facility] ([facility]) Body weight 222.00 [lb_av] 222.00 [lb_av] [facility] ([facility]) Body mass index (BMI) [Ratio] 29.3 kg/m2 29.3 k g/m2 [facility] ([facility]) Webb body weight 184 [lb_av] 184 [lb_av] [facility] T ([facility]) Body weight 100.699 kg 100.699 kg [facility] ([facility]) Body surface area Derived from formula 2.25 m2 2.25 m2 [facility] ([facility]) Body weight 222.00 [lb_av] 222.00 [lb_av] MED[facility] T ([facility]) Body mass index (BMI) [Ratio] 29.3 kg/m2 29.3 k g/m2 [facility] ([facility]) Webb body weight 184 [lb_av] 184 [lb_av] [facility] T ([facility]) Body weight 100.699 kg 100.699 kg [facility] Body height 73 [in_i] 73 [in_i] [facility] ([facility]) 6'1" Body surface area Derived from formula 2.25 m2 2.25 m2 [facility] ([facility]) Body height 73 [in_i] 73 [in_i] [facility] ([facility]) 6'1" Body weight 222.00 [lb_av] 222.00 [lb_av] [facility] ([facility]) Body mass index (BMI) [Ratio] 29.3 kg/m2 29.3 k g/m2 [facility] Webb body weight 184 [lb_av] 184 [lb_av] MED[facility] T ([facility]) Body weight 100.699 kg 100.699 kg [facility] ([facility]) Body surface area Derived from formula 2.25 m2 2.25 m2 [facility] ([facility]) Body surface area Derived from formula 2.25 m2 2.25 m2 [facility] ([facility]) Body height 73 [in_i] 73 [in_i] [facility] ([facility]) 6'1" Body weight 222.00 [lb_av] 222.00 [lb_av] MED[facility] T ([facility]) Body mass index (BMI) [Ratio] 29.3 kg/m2 29.3 k g/m2 [facility] ([facility]) Webb body weight 184 [lb_av] 184 [lb_av] [facility] T ([facility]) Body weight 100.699 kg 100.699 kg [facility] ([facility]) Heart rate 81 /min 81 /min [facility] ([facility] Systolic blood pressure 115 mm[Hg] 115 mm[Hg] [facility] ([facility] Diastolic blood pressure 81 mm[Hg] 81 mm[Hg] [facility] ([facility] Body temperature 98.4 [degF] 98.4 [degF] [facility] ([facility] Respiratory rate 18 /min 18 /min [facility] ( [facility] Body height 72 [in_i] 72 [in_i] [facility] ([facility] 6'0" Body weight 219.25 [lb_av] 219.25 [lb_av] [facility] ([facility] Oxygen saturation in Arterial blood by Pulse oximetry 97 % 97 % [facility] ([facility] Webb body weight 178 [lb_av] 178 [lb_av] [facility] ([facility] Body mass index (BMI) [Ratio] 29.7 kg/m2 29.7 k g/m2 [facility] ([facility] Body height 73 [in_i] 73 [in_i] [facility] ([facility]) 6'1" Body mass index (BMI) [Ratio] 29.3 kg/m2 29.3 k g/m2 [facility] Webb body weight 184 [lb_av] 184 [lb_av] [facility] ([facility]) Body weight 100.699 kg 100.699 kg [facility] ([facility]) Body weight 222.00 [lb_av] 222.00 [lb_av] [facility] T ([facility]) Body surface area Derived from formula 2.25 m2 2.25 m2 [facility] ([facility]) Body surface area Derived from formula 2.25 m2 2.25 m2 [facility] ([facility]) Body weight 100.699 kg 100.699 kg [facility] ([facility]) Body height 73 [in_i] 73 [in_i] [facility] ([facility]) 6'1" Body weight 222.00 [lb_av] 222.00 [lb_av] [facility] T ([facility]) Body mass index (BMI) [Ratio] 29.3 kg/m2 29.3 k g/m2 [facility] ([facility]) Webb body weight 184 [lb_av] 184 [lb_av] [facility] T ([facility]) Body weight 223.6 [lb_av] 223.6 [lb_av] W1 ([facility]) Body height 74 [in_i] 74 [in_i] eCW1 ([facility]) Body mass index (BMI) [Ratio] 28.71 kg/m2 28.71 kg/m2 eCW1 ([facility]) Heart rate 74 /min 74 /min eCW1 ([facility]) Respiratory rate 18 /min 18 /min eCW1 [facility] Body temperature 98.6 [degF] 98.6 [degF] eCW1 ( [facility]) Body weight 220.0 [lb_av] 220.0 [lb_av] eCW1 ([facility]) Body height 74 [in_i] 74 [in_i] eCW1 ([facility]) Body mass index (BMI) [Ratio] 28.24 kg/m2 28.24 kg/m2 eCW1 ([facility]) Heart rate 85 /min 85 /min eCW1 ([facility]) Respiratory rate 18 /min 18 /min eCW1 [facility] Body temperature 99.0 [degF] 99.0 [degF] eCW1 ( [facility]) Systolic blood pressure 137 mm[Hg] 137 mm[Hg] e CW1 ([facility]) Diastolic blood pressure 93 mm[Hg] 93 mm[Hg] eCW1 ([facility]) Systolic blood pressure 112 mm[Hg] 112 mm[Hg] M [facility]ENT ([facility] Diastolic blood pressure 83 mm[Hg] 83 mm[Hg] [facility] ([facility] Heart rate 86 /min 86 /min [facility] ([facility] Body temperature 97.7 [degF] 97.7 [degF] [facility] ([facility] Respiratory rate 16 /min 16 /min [facility] ( [facility] Body height 72 [in_i] 72 [in_i] [facility] ([facility] 6'0" Body weight 220.38 [lb_av] 220.38 [lb_av] [facility] T ([facility] Webb body weight 178 [lb_av] 178 [lb_av] [facility] T ([facility] Body mass index (BMI) [Ratio] 29.9 kg/m2 29.9 k g/m2 [facility] ([facility] Webb body weight 178 [lb_av] 178 [lb_av] [facility] ([facility] Systolic blood pressure 97 mm[Hg] 97 mm[Hg] M [facility]ENT ([facility] Diastolic blood pressure 73 mm[Hg] 73 mm[Hg] [facility] ([facility] Heart rate 80 /min 80 /min [facility] ([facility] Body temperature 98.2 [degF] 98.2 [degF] [facility] ([facility] Respiratory rate 12 /min 12 /min [facility] ( [facility] Body height 72 [in_i] 72 [in_i] [facility] ([facility] 6'0" Body weight 223.38 [lb_av] 223.38 [lb_av] MED[facility] T ([facility] Oxygen saturation in Arterial blood by Pulse oximetry 98 % 98 % [facility] ([facility] Body mass index (BMI) [Ratio] 30.3 kg/m2 30.3 k g/m2 [facility] ([facility] Body weight 217.2 [lb_av] 217.2 [lb_av] eCW1 ([facility]) Body weight 98.5 kg 98.5 kg eCW1 ([facility]) Body height 74 [in_i] 74 [in_i] eCW1 ([facility]) Body mass index (BMI) [Ratio] 27.88 kg/m2 27.88 kg/m2 W1 ([facility]) Heart rate 95 /min 95 /min eCW1 ([facility]) Respiratory rate 18 /min 18 /min eCW1 [facility] Body temperature 98.5 [degF] 98.5 [degF] eCW1 ( [facility]) Systolic blood pressure 124 mm[Hg] 124 mm[Hg] e CW1 ([facility]) Diastolic blood pressure 64 mm[Hg] 64 mm[Hg] eCW1 ([facility]) Webb body weight 178 [lb_av] 178 [lb_av] [facility] T ([facility] Systolic blood pressure 106 mm[Hg] 106 mm[Hg] M EDENT ([facility] Diastolic blood pressure 87 mm[Hg] 87 mm[Hg] [facility] ([facility] Heart rate 80 /min 80 /min [facility] ([facility] Body mass index (BMI) [Ratio] 32.7 kg/m2 32.7 k g/m2 [facility] ([facility] Respiratory rate 18 /min 18 /min [facility] ( [facility] Body height 72 [in_i] 72 [in_i] [facility] ([facility] 6'0" Body weight 241.50 [lb_av] 241.50 [lb_av] [facility] T ([facility] Oxygen saturation in Arterial blood by Pulse oximetry 98 % 98 % [facility] ([facility] Body temperature 97.3 [degF] 97.3 [degF] [facility] ([facility] ID Date Data Source [id number] 10/07/2020 09:58:57 AM [facility] Name Value Range Interpretation Code Description Data Source(s) WEIGHT RECORDED 223 lb 223 lb [facility] Body height Measured 71 in 71 in [facility] ID Date Data Source [id number] 08/16/2020 03:26:43 PM [facility] Name Value Range Interpretation Code Description Data Source(s) WEIGHT RECORDED 223 lb 223 lb [facility] Body height Measured 71.5 in 71.5 in [facility] Patient Treatment Plan of Care Planned Activity Planned Date Details Description Data Source (s) Acetaminophen 325 MG / Oxycodone Hydrochloride 10 MG O ral Tablet 06/02/2021 12:00:00 AM EDT eCW1 ([facility]) Carisoprodol 350 MG Oral Tablet 06/02/2021 12:00:00 AM EDT eCW1 ([facility]) Acetaminophen 325 MG / Oxycodone Hydrochloride 10 MG O ral Tablet 04/07/2021 12:00:00 AM EDT eCW1 ([facility]) Acetaminophen 325 MG / Oxycodone Hydrochloride 10 MG O ral Tablet 04/07/2021 12:00:00 AM EDT eCW1 ([facility]) Acetaminophen 325 MG / Oxycodone Hydrochloride 10 MG O ral Tablet 04/07/2021 12:00:00 AM EDT eCW1 ([facility]) Acetaminophen 325 MG / Oxycodone Hydrochloride 10 MG O ral Tablet 04/07/2021 12:00:00 AM EDT eCW1 ([facility]) Carisoprodol 350 MG Oral Tablet 04/05/2021 12:00:00 AM EDT eCW1 ([facility]) Carisoprodol 350 MG Oral Tablet 04/05/2021 12:00:00 AM EDT eCW1 ([facility]) Carisoprodol 350 MG Oral Tablet 04/05/2021 12:00:00 AM EDT eCW1 ([facility]) Carisoprodol 350 MG Oral Tablet 04/05/2021 12:00:00 AM EDT eCW1 ([facility]) Carisoprodol 350 MG Oral Tablet 04/05/2021 12:00:00 AM EDT eCW1 ([facility]) Acetaminophen 325 MG / Oxycodone Hydrochloride 10 MG O ral Tablet 03/09/2021 12:00:00 AM EDT eCW1 ([facility]) Acetaminophen 325 MG / Oxycodone Hydrochloride 10 MG O ral Tablet 01/08/2021 12:00:00 AM EDT eCW1 ([facility]) Acetaminophen 325 MG / Oxycodone Hydrochloride 10 MG O ral Tablet 12/09/2020 12:00:00 AM EDT eCW1 ([facility]) Acetaminophen 325 MG / Oxycodone Hydrochloride 10 MG O ral Tablet 11/09/2020 12:00:00 AM EDT eCW1 ([facility]) Acetaminophen 325 MG / Oxycodone Hydrochloride 10 MG O ral Tablet 11/09/2020 12:00:00 AM EDT eCW1 ([facility]) Acetaminophen 325 MG / Oxycodone Hydrochloride 10 MG O ral Tablet 10/13/2020 12:00:00 AM EST eCW1 ([facility]) methylPREDNISolone acetate (DEPO-MEDROL) injection 80 mg 10/01/2020 04:45:00 PM [facility] gabapentin 800 MG Oral Tablet 09/22/2020 12:00:00 AM [facility] Aspirin 81 MG Delayed Release Oral Tablet 09/22/2020 12:00:00 AM [facility] Acetaminophen 325 MG / Oxycodone Hydrochloride 10 MG O ral Tablet 09/14/2020 12:00:00 AM EST eCW1 ([facility]) 14 ACTUAT fluticasone furoate 0.1 MG/ACTUAT Dry Powder Inhaler [Arnuity] 08/23/2020 12:00:00 AM [facility] Acetaminophen 325 MG / Oxycodone Hydrochloride 10 MG O ral Tablet 08/17/2020 12:00:00 AM EST eCW1 ([facility]) Sumatriptan 100 MG Oral Tablet 08/03/2020 12:00:00 AM [facility] Sertraline 25 MG Oral Tablet 07/21/2020 12:00:00 AM [facility] Omeprazole 40 MG Delayed Release Oral Capsule 07/21/2020 12:00:00 A M [facility] levocetirizine dihydrochloride 5 MG Oral Tablet 07/21/2020 12:00:00 AM [facility] Acetaminophen 325 MG / Oxycodone Hydrochloride 10 MG O ral Tablet 07/20/2020 12:00:00 AM EST eCW1 ([facility]) Acetaminophen 325 MG / Oxycodone Hydrochloride 10 MG O ral Tablet 06/22/2020 12:00:00 AM EDT eCW1 ([facility]) Acetaminophen 325 MG / Oxycodone Hydrochloride 10 MG O ral Tablet 06/22/2020 12:00:00 AM EDT eCW1 ([facility]) Ergocalciferol [id number] UNT Oral Capsule 06/03/2020 12:00:00 AM [facility] 12 HR Bupropion Hydrochloride 150 MG Extended Release Oral Tablet 06/03/2020 12:00:00 AM [facility] Fluticasone Propionate 50 MCG/ACT Nasal Suspension ([place] ONASE) 01/29/2020 12:00:00 AM [facility] Naproxen 500 MG Oral Tablet 11/20/2019 12:00:00 AM [facility] Sulfamethoxazole 800 MG / Trimethoprim 160 MG Oral Tab let 04/15/2019 12:00:00 AM [facility] Oxycodone Hydrochloride 5 MG Oral Tablet 02/21/2019 12:00:00 AM [facility] Metoprolol Tartrate 25 MG Oral Tablet 01/17/2019 12:00:00 AM [facility] Tamsulosin hydrochloride 0.4 MG Oral Capsule 11/19/2018 12:00:00 AM [facility] Losartan Potassium 50 MG Oral Tablet 11/19/2018 12:00:00 AM [facility] Hydrochlorothiazide 12.5 MG Oral Capsule 11/19/2018 12:00:00 AM [facility] gabapentin 600 MG Oral Tablet 11/19/2018 12:00:00 AM [facility] duloxetine 60 MG Delayed Release Oral Capsule 11/19/2018 12:00:00 A M [facility] cetirizine hydrochloride 10 MG Oral Tablet 11/19/2018 12:00:00 AM [facility] Folic Acid 2.5 MG / Vitamin B 12 2 MG / Vitamin B6 25 MG Oral Tablet [Folbic] 11/08/2018 12:00:00 AM [facility] Ondansetron 4 MG Disintegrating Oral Tablet 01/23/2018 12:00:00 AM [facility] duloxetine 30 MG Delayed Release Oral Capsule 10/14/2017 12:00:00 A M [facility] gabapentin 400 MG Oral Capsule 11/01/2016 12:00:00 AM [facility] meloxicam 7.5 MG Oral Tablet [facility] Lisinopril 20 MG Oral Tablet [facility] Multiple Vitamins-Minerals (MULTIVITAMIN ADULT PO) [facility] Amlodipine 5 MG Oral Tablet [facility] 24 HR metoprolol succinate 25 MG Extended Release Oral Tablet [facility] Loratadine 10 MG Oral Tablet [facility] tizanidine 4 MG Oral Tablet [facility] Hydroxyzine Hydrochloride 25 MG Oral Tablet [facility]
[2021-07-09] MEDS ORDERED: ZOLO100T PO (10:13)
[2021-07-09] MEDS ORDERED: dexameTHASONE 4 MG/ML 1ML VIAL (J1100 PER 1MG) As Ordered ONE ×2 (11:27→11:46)
[2021-07-09] MEDS ORDERED: LIDOCAINE 2% MDV 20ML VIAL As Ordered ONE (11:27)
[2021-07-09] MEDS ORDERED: GENTAMICIN SULF 80MG/2ML VIAL As Ordered ONE (11:27)
[2021-07-09] MEDS ORDERED: BUPIVACAINE HCL 0.5% 30 ML VIAL As Ordered ONE (11:28)
[2021-07-09] MEDS ORDERED: propofoL 500 MG/50 ML VIAL As Ordered ONE (11:45)
[2021-07-09] MEDS ORDERED: fentaNYL 100 MCG/2 ML INJECTION (J3010) As Ordered ONE (11:45)
[2021-07-09] MEDS ORDERED: MIDAZOLAM INJ 2MG/2ML VIAL (J2250 PER 1MG) As Ordered ONE (11:46)
[2021-07-09] MEDS ORDERED: LIDOCAINE 2% 100MG/5ML SDV (FOR ANES.) As Ordered ONE (11:46)
[2021-07-09] MEDS ORDERED: ONDANSETRON 4MG/2ML VIAL As Ordered ONE (11:46)
[2021-07-09] MEDS ORDERED: ROPIvacaine 0.5% 30ML INJECTION (J2795 PER 1MG) As Ordered ONE (12:12)
[2021-07-09] MEDS ORDERED: propofoL 200 MG/20 ML VIAL As Ordered ONE (13:02)
--- NOTE | 2021-07-09 14:18 | REP ---
INDICATION: S/P CHILECTOMY. COMPARISON: 06/02/2020. TECHNIQUE: Three views of the right foot were obtained. FINDINGS: Partial resection of the medial head of the 1st metatarsal is noted as well as resection of a large osteophyte from the lateral aspect of the head of 1st metatarsal. Air is seen within the soft tissues along the 1st metatarsal and proximal phalanx of the 1st metatarsal, presumed postoperative in nature as there is no significant soft tissue swelling. No other acute abnormality is noted. Calcification is noted at the attachment of the Achilles tendon and a minimal plantar spur is also present. IMPRESSION: Postop changes as above with air in the soft tissues presumed from recent surgery. <Electronically signed by Jose E Hannon > 07/09/21 [id number]
[2021-07-09 14:40] VITALS: BP 115/57
--- NOTE | 2021-07-09 14:50 | RO ---
OPERATIVE NOTE DATE OF OPERATION: 07/09/2021 PREOPERATIVE DIAGNOSIS: Hallux limitus deformity, right foot. POSTOPERATIVE DIAGNOSIS: Hallux limitus deformity, right foot. PROCEDURE: Cheilectomy, first metatarsophalangeal joint, right foot. SURGEON: CHINO Anthony ASSISTANT: None. ANESTHESIA: Local MAC. IRRIGATION: Dilute gentamicin solution. IMPLANTABLES: An On-Q PainBuster infusion pump at 2 mL an hour with 90 mL of 0.5 ropivacaine. HEMOSTASIS: Ankle pneumatic tourniquet at 200 mmHg for 41 minutes, right ankle. DESCRIPTION OF PROCEDURE: On 07/09/21, this 60-year-old male was taken from his hospital room to the operating room and placed on the operating table in supine position. Following the induction of IV sedation and local and regional anesthesia, the right lower extremity was prepped and draped in the usual aseptic manner. A pneumatic ankle tourniquet was then placed over a well-padded site over the proximal ankle. Sterile draping was completed and tourniquet was rapidly inflated to 200 mmHg and the following procedure was performed. Cheilectomy, first metatarsophalangeal joint, right foot: Attention was directed to the patient's right foot where a 6 cm incision was placed over the first metatarsophalangeal joint and incision was deepened through subcutaneous tissues and all crossing venous tributaries were identified, underscored, clamped, cut, ligated or electrocoagulated as necessary A linear capsulotomy was performed in the same plane as the original skin incision. The capsule and periosteal structures were then dissected free in one continuous layer, dorsally, medially and laterally, thus creating a capsular periosteal type envelope. There was noted to be spurring over the dorsal aspect of the first metatarsal and proximal phalanx. Utilizing a metatarsal elevator, the plantar sesamoids were released. Utilizing a power saw, an osteotomy was performed through the medial eminence of the first metatarsal medial to the sesamoidal groove and distal to proximal [id number]. Lateral spurring was noted along the first metatarsal head. This was excised. The dorsal 30% of the articular cartilage was noted to be eroded and this was excised with a sagittal saw from distal to proximal [id number]. The dorsal 20% of the proximal phalanx was excised dorsal to plantar [id number]. Utilizing a rongeur, the remaining bone was remodeled. A small area of loss of articular cartilage was drilled for microfracture technique utilizing a 0.045 Aguila wire to promote fibrocartilaginous ingrowth. The wound was flushed with copious amounts of dilute bacitracin, neomycin, polymyxin B solution. The joint was brought through a range of motion. Excellent dorsal range of motion was noted at the first metatarsophalangeal joint. The capsule was closed with 3-0 Monocryl in simple interrupted type fashion. Attention was then directed utilizing a hemostat. A tunnel was created distal to the ankle and utilizing the industrial engineering intern, the catheter was inserted and the catheter was then delivered adjacent to the operative site extra-articular. Subcutaneous tissues were then coapted and maintained with 4-0 Monocryl in simple interrupted type fashion. The catheter was sutured to the skin temporarily with 3-0 silk. The skin incision was coapted and maintained with 5-0 Monocryl in continuous subcuticular type fashion. This was reinforced with Steri-Strips. The On-Q infusion pump appeared to be operating satisfactorily. Sterile dressing was applied consisting of Adaptic, 4x4s, 4x4 splints, Megan, Kerlix and Coban. The ankle pneumatic tourniquet was rapidly deflated and instantaneous capillary filling time was noted to digits 1-5 of the patient's right foot. The patient apparently tolerated the surgical procedure well and was taken from the OR to the recovery room for further monitoring by the anesthesia department. Postoperative instructions were given upon discharge.
== END 2021-07-09 14:55 | disposition home or self-care (01) ==
LOC: M SDC 08:53
PROVIDERS: ATTEND Podiatrist
DX: M20.21 Hallux rigidus, right foot (principal); I10 Essential (primary) hypertension; G25.81 Restless legs syndrome; J44.9 Chronic obstructive pulmonary disease, unspecified; G47.33 Obstructive sleep apnea (adult) (pediatric); F41.9 Anxiety disorder, unspecified; F32.9 Major depressive disorder, single episode, unspecified; F17.218 Nicotine dependence, cigarettes, with other nicotine-induced disorders; Z88.8 Allergy status to other drugs, medicaments and biological substances; Z79.82 Long term (current) use of aspirin; Z79.899 Other long term (current) drug therapy
CPT/HCPCS: 28289; 73630; 76000; 88300; J0690; J1100; J1580; J2250; J2405; J2795; J3010

== ENCOUNTER → 2021-09-01 | Outpatient (CLI) | payer OTHER ==
[~2021-09-01] MED LIST changes: -LIDOCAINE 1% MDV 20ML VIAL SQ PRN; -LR 1,000 ML IV ONE; +ZOLO100T PO; -ceFAZolin SOD 2 GM in IV 1 EA IV ONE
[2021-09-01 14:52] LABS: ALBUMIN 4.1 GM/DL (3.2-5.2); ALT/SGPT 28 U/L (12-78); AMYLASE 44 U/L (25-115); BILIRUBIN,TOTAL 0.4 MG/DL (0.2-1.0); BLOOD UREA NITROGEN 17 MG/DL (7-18); CALCIUM LEVEL 9.2 MG/DL (8.8-10.2); CARBON DIOXIDE LEVEL 25 MEQ/L (21-32); CHLORIDE LEVEL 111 MEQ/L (98-107); CREATININE FOR GFR 1.03 MG/DL (0.70-1.30); FREE T4 0.98 NG/DL (0.76-1.46); GLOMERULAR FILTRATION RATE > 60.0 (>49); GLUCOSE, FASTING 108 MG/DL (70-100); LIPASE 95 U/L (73-393); POTASSIUM SERUM 4.8 MEQ/L (3.5-5.1); SODIUM LEVEL 143 MEQ/L (136-145); TOTAL PROTEIN 6.8 GM/DL (6.4-8.2)
== END ==
LOC: M PLALAB 09:43
PROVIDERS: ATTEND Family Medicine
DX: R10.12 Left upper quadrant pain (principal); R94.6 Abnormal results of thyroid function studies

== ENCOUNTER 2021-12-12 12:55 | Emergency (ER) | payer OTHER ==
[~2021-12-12] VITALS: Ht 185.4 cm; Wt 100.9 kg
[~2021-12-12 12:55] MED LIST changes: +BUPR-71 PO; -BUPR150T5 PO; +LOSA50TA28 PO; -LOSA50TA88 PO; +TIZA10TA PO; -TIZA4TAB4 PO
[2021-12-12] MEDS ORDERED: LIDOCAINE 1% MDV 20ML VIAL SC ONE (13:15)
[2021-12-12] MEDS ORDERED: AMOX875T2 PO (13:56)
[2021-12-12] MEDS ORDERED: AUGMENTIN 875 MG TAB PO ONE ×2 (14:00)
[2021-12-12] MEDS ORDERED: BOOSTRIX/ADACEL VACCINE (DIPHTH/PERTUSS/ACELL/TETANUS) 0.5ML SYR IM ONE (14:10)
[2021-12-12 14:27] VITALS: BP 205/106
== END 2021-12-12 14:41 | disposition left against medical advice (07) ==
LOC: M ED 12:55
DX: S60.456A Superficial foreign body of right little finger, initial encounter (principal); W45.8XXA Other foreign body or object entering through skin, initial encounter; I10 Essential (primary) hypertension; E78.5 Hyperlipidemia, unspecified; J44.9 Chronic obstructive pulmonary disease, unspecified; R51.9 Headache, unspecified; F17.200 Nicotine dependence, unspecified, uncomplicated; Y92.009 Unspecified place in unspecified non-institutional (private) residence as the place of occurrence of the external cause; Y93.9 Activity, unspecified; Y99.9 Unspecified external cause status; Z88.6 Allergy status to analgesic agent; Z88.8 Allergy status to other drugs, medicaments and biological substances

== ENCOUNTER → 2021-12-23 | Outpatient (CLI) | payer OTHER ==
[~2021-12-23] MED LIST changes: +AMOX875T2 PO
== END ==
LOC: M RAD 13:24
PROVIDERS: ATTEND Internal Medicine Hematology & Oncology
DX: Z12.2 Encounter for screening for malignant neoplasm of respiratory organs (principal); F17.200 Nicotine dependence, unspecified, uncomplicated

== ENCOUNTER → 2022-03-03 | Outpatient (CLI) | payer OTHER | LOC: M PAIN 14:15 | PROVIDERS: ATTEND Nurse Practitioner Family | DX: M12.88 Other specific arthropathies, not elsewhere classified, other specified site (principal); G89.29 Other chronic pain; G25.81 Restless legs syndrome; J44.9 Chronic obstructive pulmonary disease, unspecified; F17.210 Nicotine dependence, cigarettes, uncomplicated; Z86.14 Personal history of Methicillin resistant Staphylococcus aureus infection; Z88.6 Allergy status to analgesic agent; Z88.8 Allergy status to other drugs, medicaments and biological substances; Z79.51 Long term (current) use of inhaled steroids; Z79.82 Long term (current) use of aspirin; Z79.899 Other long term (current) drug therapy ==

== ENCOUNTER → 2022-06-03 | Outpatient (CLI) | payer OTHER | LOC: M PAIN 14:30 | PROVIDERS: ATTEND Nurse Practitioner Family | DX: M12.88 Other specific arthropathies, not elsewhere classified, other specified site (principal); G89.29 Other chronic pain; G25.81 Restless legs syndrome; I10 Essential (primary) hypertension; E55.9 Vitamin D deficiency, unspecified; J44.9 Chronic obstructive pulmonary disease, unspecified; F17.210 Nicotine dependence, cigarettes, uncomplicated; Z86.14 Personal history of Methicillin resistant Staphylococcus aureus infection; Z88.6 Allergy status to analgesic agent; Z88.8 Allergy status to other drugs, medicaments and biological substances; Z79.51 Long term (current) use of inhaled steroids; Z79.82 Long term (current) use of aspirin; Z79.899 Other long term (current) drug therapy ==

== ENCOUNTER → 2022-09-01 | Outpatient (CLI) | payer OTHER ==
[~2022-09-01] MED LIST changes: +PROP10TA56
== END ==
LOC: M RAD 14:49
PROVIDERS: ATTEND Nurse Practitioner
DX: D75.1 Secondary polycythemia (principal); R16.1 Splenomegaly, not elsewhere classified

== ENCOUNTER → 2022-09-14 | Outpatient (CLI) | payer OTHER | LOC: M RAD 07:13 | PROVIDERS: ATTEND Nurse Practitioner | DX: D75.1 Secondary polycythemia (principal); R16.1 Splenomegaly, not elsewhere classified ==

== ENCOUNTER → 2022-09-30 | Outpatient (CLI) | payer OTHER | LOC: M PAIN 14:30 | PROVIDERS: ATTEND Nurse Practitioner Family | DX: M12.88 Other specific arthropathies, not elsewhere classified, other specified site (principal); G89.29 Other chronic pain; G25.81 Restless legs syndrome; I10 Essential (primary) hypertension; E55.9 Vitamin D deficiency, unspecified; J44.9 Chronic obstructive pulmonary disease, unspecified; F17.210 Nicotine dependence, cigarettes, uncomplicated; Z88.6 Allergy status to analgesic agent; Z88.8 Allergy status to other drugs, medicaments and biological substances; Z79.51 Long term (current) use of inhaled steroids; Z79.82 Long term (current) use of aspirin; Z79.899 Other long term (current) drug therapy ==

== ENCOUNTER → 2022-10-07 | Outpatient (CLI) | payer OTHER | LOC: M PAIN 13:00 | PROVIDERS: ATTEND Anesthesiology | DX: M12.88 Other specific arthropathies, not elsewhere classified, other specified site (principal); M96.1 Postlaminectomy syndrome, not elsewhere classified; M47.816 Spondylosis without myelopathy or radiculopathy, lumbar region; G89.29 Other chronic pain; G25.81 Restless legs syndrome; I10 Essential (primary) hypertension; E55.9 Vitamin D deficiency, unspecified; J44.9 Chronic obstructive pulmonary disease, unspecified; F17.210 Nicotine dependence, cigarettes, uncomplicated; Z86.14 Personal history of Methicillin resistant Staphylococcus aureus infection; Z88.6 Allergy status to analgesic agent; Z88.8 Allergy status to other drugs, medicaments and biological substances; Z79.51 Long term (current) use of inhaled steroids; Z79.82 Long term (current) use of aspirin; Z79.899 Other long term (current) drug therapy ==

== ENCOUNTER → 2022-10-26 | Outpatient (CLI) | payer OTHER ==
[~2022-10-26] MED LIST changes: +GASTROGRAFIN SOLUTION 30ML As Ordered ONE; +ISOVUE-370 76% 100ML VIAL As Ordered ONE
== END ==
LOC: M RAD 14:05
PROVIDERS: ATTEND Nurse Practitioner Family
DX: R10.32 Left lower quadrant pain (principal); K76.0 Fatty (change of) liver, not elsewhere classified

== ENCOUNTER → 2022-12-05 | Outpatient (CLI) | payer OTHER ==
[~2022-12-05] MED LIST changes: -GASTROGRAFIN SOLUTION 30ML As Ordered ONE; -ISOVUE-370 76% 100ML VIAL As Ordered ONE
== END ==
LOC: M PAIN 14:00
PROVIDERS: ATTEND Nurse Practitioner Family
DX: M12.88 Other specific arthropathies, not elsewhere classified, other specified site (principal); G89.29 Other chronic pain; G25.81 Restless legs syndrome; I10 Essential (primary) hypertension; E55.9 Vitamin D deficiency, unspecified; J44.9 Chronic obstructive pulmonary disease, unspecified; F17.210 Nicotine dependence, cigarettes, uncomplicated; Z86.14 Personal history of Methicillin resistant Staphylococcus aureus infection; Z88.6 Allergy status to analgesic agent; Z88.8 Allergy status to other drugs, medicaments and biological substances; Z79.51 Long term (current) use of inhaled steroids; Z79.82 Long term (current) use of aspirin; Z79.899 Other long term (current) drug therapy

== ENCOUNTER → 2022-12-28 | Outpatient (REF) | payer OTHER | LOC: M LAB REF 17:00 | PROVIDERS: ATTEND Registered Nurse | DX: M54.50 Low back pain, unspecified (principal) ==

== ENCOUNTER → 2023-01-24 | Outpatient (CLI) | payer OTHER | LOC: M RAD 13:28 | PROVIDERS: ATTEND Nurse Practitioner | DX: Z12.2 Encounter for screening for malignant neoplasm of respiratory organs (principal) ==

== ENCOUNTER → 2023-03-14 | Day surgery (SDC) | payer OTHER ==
[~2023-03-14] VITALS: Ht 190.5 cm; Wt 95.1 kg
[~2023-03-14] MED LIST changes: +LIDOCAINE 2% 100MG/5ML SDV (FOR ANES.) As Ordered ONE; +NS 1,000 ML IV ONE; +PROP80CA PO; +ROPI3TAB18 PO; -ROPI3TAB3 PO; +ROSU40TA4 PO; +SOMA350T PO; +propofoL 200 MG/20 ML VIAL As Ordered ONE
[2023-03-14 13:47] VITALS: BP 126/79; O2SAT 97
== END | disposition home or self-care (01) ==
LOC: M OPP 10:53
PROVIDERS: ATTEND Internal Medicine Gastroenterology
DX: Z12.11 Encounter for screening for malignant neoplasm of colon (principal); Z86.010 Personal history of colon polyps; D12.6 Benign neoplasm of colon, unspecified; K64.4 Residual hemorrhoidal skin tags; K64.8 Other hemorrhoids; F17.200 Nicotine dependence, unspecified, uncomplicated; Z79.02 Long term (current) use of antithrombotics/antiplatelets; Z79.51 Long term (current) use of inhaled steroids; Z79.82 Long term (current) use of aspirin; Z79.891 Long term (current) use of opiate analgesic; Z79.899 Other long term (current) drug therapy; Z88.6 Allergy status to analgesic agent

== ENCOUNTER → 2023-05-22 | Outpatient (CLI) | payer OTHER ==
[~2023-05-22] MED LIST changes: -LIDOCAINE 2% 100MG/5ML SDV (FOR ANES.) As Ordered ONE; -NS 1,000 ML IV ONE; -propofoL 200 MG/20 ML VIAL As Ordered ONE
== END ==
LOC: M PAIN 14:00
PROVIDERS: ATTEND Nurse Practitioner Family
DX: M12.88 Other specific arthropathies, not elsewhere classified, other specified site (principal); G89.29 Other chronic pain; F17.210 Nicotine dependence, cigarettes, uncomplicated; Z86.14 Personal history of Methicillin resistant Staphylococcus aureus infection; Z86.16 Personal history of COVID-19; Z88.6 Allergy status to analgesic agent; Z88.8 Allergy status to other drugs, medicaments and biological substances; Z79.82 Long term (current) use of aspirin; Z79.899 Other long term (current) drug therapy

== ENCOUNTER → 2023-11-14 | Outpatient (CLI) | payer OTHER ==
[~2023-11-14] MED LIST changes: -EFFE150C2 PO; +EFFE150C3 PO
[2023-11-14 14:11] LABS: BASO # 0.1 10^3/uL (0.0-0.2); BASO % 1.3 % (0.0-1.0); EOS # 0.1 10^3/uL (0.0-0.5); EOS % 0.9 % (0.0-3.0); HEMATOCRIT 57.4 % (42.0-52.0); HEMOGLOBIN 18.9 g/dl (13.5-17.5); LYMPH # 2.6 10^3/uL (1.5-5.0); LYMPH % 37.9 % (24.0-44.0); MEAN CORPUSCULAR HGB CONC 32.9 g/dl (32.0-36.5); MEAN CORPUSCULAR VOLUME 94.1 fl (80.0-96.0); MONO # 0.4 10^3/uL (0.0-0.8); NEUTROPHILS # 3.6 10^3/uL (1.5-8.5); PLATELET COUNT, AUTOMATED 155 10^3/uL (150-450); WHITE BLOOD COUNT 6.9 10^3/uL (4.0-10.0)
[2023-11-14 14:32] LABS: ALBUMIN 4.2 G/DL (3.2-5.2); ALKALINE PHOSPHATASE 94 U/L (46-116); ALT/SGPT 30 U/L (7.0-40); AST/SGOT 15 U/L (<34); BILIRUBIN,TOTAL 0.8 MG/DL (0.3-1.2); BLOOD UREA NITROGEN 17 MG/DL (9-23); CALCIUM LEVEL 9.4 MG/DL (8.3-10.6); CARBON DIOXIDE LEVEL 28 MMOL/L (20-31); CHLORIDE LEVEL 107 MMOL/L (98-107); CHOLESTEROL LEVEL 169 MG/DL (<200); CREATININE FOR GFR 1.06 MG/DL (0.70-1.30); GLOMERULAR FILTRATION RATE > 60.0 (>49); GLUCOSE, FASTING 111 MG/DL (74-106); HDL CHOLESTEROL 52.7 MG/DL (>40); LDL CHOLESTEROL 68.9 MG/DL (<100); NON-HDL-C 116.3 MG/DL; POTASSIUM SERUM 4.4 MMOL/L (3.5-5.1); SODIUM LEVEL 141 MMOL/L (136-145); TRIGLYCERIDES LEVEL 237 MG/DL (<150)
[2023-11-14 14:33] LABS: FREE T4 1.28 NG/DL (0.89-1.76); THYROID STIMULATING HORMONE 3.219 uIU/ML (0.55-4.78)
== END ==
LOC: M LAB 13:08
PROVIDERS: ATTEND Physician Assistant
DX: E78.2 Mixed hyperlipidemia (principal); G25.0 Essential tremor

== ENCOUNTER → 2023-11-23 | Outpatient (CLI) | payer OTHER | LOC: M PLARAD 09:55 | PROVIDERS: ATTEND Registered Nurse | DX: M54.50 Low back pain, unspecified (principal) ==

== ENCOUNTER → 2023-12-21 | Outpatient (CLI) | payer OTHER ==
[~2023-12-21] MED LIST changes: -ROSU10TA6 PO; +ROSU10TA61 PO; -ROSU40TA4 PO; +ROSU40TA63 PO
== END ==
LOC: M PAIN 10:15
PROVIDERS: ATTEND Nurse Practitioner Family
DX: M12.88 Other specific arthropathies, not elsewhere classified, other specified site (principal); Z79.891 Long term (current) use of opiate analgesic; M54.12 Radiculopathy, cervical region; G25.81 Restless legs syndrome; M54.50 Low back pain, unspecified; G89.29 Other chronic pain; E78.2 Mixed hyperlipidemia; J32.9 Chronic sinusitis, unspecified; I10 Essential (primary) hypertension; E55.9 Vitamin D deficiency, unspecified; J44.9 Chronic obstructive pulmonary disease, unspecified; F17.210 Nicotine dependence, cigarettes, uncomplicated; Z79.82 Long term (current) use of aspirin; Z79.899 Other long term (current) drug therapy; Z88.6 Allergy status to analgesic agent; Z88.8 Allergy status to other drugs, medicaments and biological substances

== ENCOUNTER → 2024-03-07 | Outpatient (CLI) | payer OTHER ==
[~2024-03-07] MED LIST changes: +ONDA-282 PO; -ONDA4TAB6 PO
== END ==
LOC: M RAD 14:47
PROVIDERS: ATTEND Internal Medicine Medical Oncology
DX: Z12.2 Encounter for screening for malignant neoplasm of respiratory organs (principal); F17.210 Nicotine dependence, cigarettes, uncomplicated

== ENCOUNTER → 2024-03-08 | Outpatient (CLI) | payer OTHER | LOC: M PAIN 15:00 | PROVIDERS: ATTEND Nurse Practitioner Family | DX: M12.88 Other specific arthropathies, not elsewhere classified, other specified site (principal); Z79.891 Long term (current) use of opiate analgesic; G89.29 Other chronic pain; M54.12 Radiculopathy, cervical region; G25.81 Restless legs syndrome; E78.2 Mixed hyperlipidemia; I10 Essential (primary) hypertension; E55.9 Vitamin D deficiency, unspecified; M47.816 Spondylosis without myelopathy or radiculopathy, lumbar region; J44.9 Chronic obstructive pulmonary disease, unspecified; F17.210 Nicotine dependence, cigarettes, uncomplicated; Z79.82 Long term (current) use of aspirin; Z79.899 Other long term (current) drug therapy; Z88.6 Allergy status to analgesic agent; Z88.8 Allergy status to other drugs, medicaments and biological substances ==

== ENCOUNTER → 2024-05-09 | Outpatient (CLI) | payer OTHER ==
[~2024-05-09] MED LIST changes: +GABA-1490 PO; +GABA-1635 PO; -GABA600T4 PO; -GABA800T4 PO; -ROSU40TA63 PO; +ROSU40TA81 PO
== END ==
LOC: M PAIN 15:00
PROVIDERS: ATTEND Nurse Practitioner Family
DX: M12.88 Other specific arthropathies, not elsewhere classified, other specified site (principal); Z79.891 Long term (current) use of opiate analgesic; G89.29 Other chronic pain; M54.12 Radiculopathy, cervical region; G25.81 Restless legs syndrome; E78.2 Mixed hyperlipidemia; I10 Essential (primary) hypertension; M47.816 Spondylosis without myelopathy or radiculopathy, lumbar region; E55.9 Vitamin D deficiency, unspecified; J44.9 Chronic obstructive pulmonary disease, unspecified; F17.210 Nicotine dependence, cigarettes, uncomplicated; Z79.82 Long term (current) use of aspirin; Z79.899 Other long term (current) drug therapy; Z88.6 Allergy status to analgesic agent; Z88.8 Allergy status to other drugs, medicaments and biological substances

== ENCOUNTER → 2024-05-22 | Outpatient (CLI) | payer OTHER ==
[2024-05-22 11:37] LABS: BASO # 0.1 10^3/uL (0.0-0.2); BASO % 0.8 % (0.0-1.0); EOS # 0.1 10^3/uL (0.0-0.5); EOS % 1.9 % (0.0-3.0); HEMATOCRIT 53.5 % (42.0-52.0); LYMPH # 2.1 10^3/uL (1.5-5.0); LYMPH % 33.1 % (24.0-44.0); MEAN CORPUSCULAR HEMOGLOBIN 31.7 pg (27.0-33.0); MEAN CORPUSCULAR HGB CONC 33.6 g/dl (32.0-36.5); MEAN CORPUSCULAR VOLUME 94.2 fl (80.0-96.0); MONO # 0.5 10^3/uL (0.0-0.8); MONO % 7.8 % (2.0-8.0); NEUTROPHILS # 3.6 10^3/uL (1.5-8.5); NEUTROPHILS % 55.9 % (36.0-66.0); PLATELET COUNT, AUTOMATED 135 10^3/uL (150-450); RED BLOOD COUNT 5.68 10^6/uL (4.30-6.10); WHITE BLOOD COUNT 6.4 10^3/uL (4.0-10.0)
[2024-05-22 11:52] LABS: ALBUMIN 3.8 G/DL (3.2-5.2); ALKALINE PHOSPHATASE 96 U/L (46-116); ALT/SGPT 28 U/L (7.0-40); AST/SGOT 10 U/L (<34); BILIRUBIN,TOTAL 0.6 MG/DL (0.3-1.2); BLOOD UREA NITROGEN 12 MG/DL (9-23); CARBON DIOXIDE LEVEL 27 MMOL/L (20-31); CHLORIDE LEVEL 110 MMOL/L (98-107); CHOLESTEROL LEVEL 181 MG/DL (<200); CHOLESTEROL RISK RATIO 4.04 (<5); CREATININE FOR GFR 1.04 MG/DL (0.70-1.30); GLOMERULAR FILTRATION RATE > 60.0 (>49); GLUCOSE, FASTING 129 MG/DL (74-106); HDL CHOLESTEROL 44.8 MG/DL (>40); LDL CHOLESTEROL 98.4 MG/DL (<100); NON-HDL-C 136.2 MG/DL; POTASSIUM SERUM 4.2 MMOL/L (3.5-5.1); SODIUM LEVEL 141 MMOL/L (136-145); TOTAL PROTEIN 6.7 G/DL (5.7-8.2); TRIGLYCERIDES LEVEL 189 MG/DL (<150)
[2024-05-22 11:55] LABS: THYROID STIMULATING HORMONE 1.898 uIU/ML (0.55-4.78)
== END ==
LOC: M LAB 10:54
PROVIDERS: ATTEND Registered Nurse
DX: E78.2 Mixed hyperlipidemia (principal); F43.23 Adjustment disorder with mixed anxiety and depressed mood

== ENCOUNTER → 2024-10-08 | Outpatient (CLI) | payer OTHER ==
[~2024-10-08] MED LIST changes: +CARI-555 PO; -CARI1TAB7 PO; +GABA-1172 PO; -GABA-282 PO
== END ==
LOC: M PAIN 14:00
PROVIDERS: ATTEND Anesthesiology
DX: M12.88 Other specific arthropathies, not elsewhere classified, other specified site (principal); G89.29 Other chronic pain; E78.2 Mixed hyperlipidemia; I10 Essential (primary) hypertension; J44.9 Chronic obstructive pulmonary disease, unspecified; F17.210 Nicotine dependence, cigarettes, uncomplicated; Z79.82 Long term (current) use of aspirin; Z79.891 Long term (current) use of opiate analgesic; Z79.899 Other long term (current) drug therapy; Z88.8 Allergy status to other drugs, medicaments and biological substances

== ENCOUNTER → 2024-10-23 | Outpatient (CLI) | payer OTHER | LOC: M PAIN 14:00 | PROVIDERS: ATTEND Anesthesiology | DX: M12.88 Other specific arthropathies, not elsewhere classified, other specified site (principal); M54.50 Low back pain, unspecified; G89.29 Other chronic pain; F17.210 Nicotine dependence, cigarettes, uncomplicated; Z79.51 Long term (current) use of inhaled steroids; Z79.82 Long term (current) use of aspirin; Z79.899 Other long term (current) drug therapy; Z86.16 Personal history of COVID-19; Z80.42 Family history of malignant neoplasm of prostate; Z88.6 Allergy status to analgesic agent; Z88.8 Allergy status to other drugs, medicaments and biological substances ==

== ENCOUNTER → 2024-11-25 | Outpatient (CLI) | payer OTHER ==
[2024-11-25 15:15] LABS: APPEARANCE, URINE CLEAR (CLEAR); BACTERIA, URINE AUTO NEGATIVE (NEGATIVE); BILIRUBIN, URINE AUTO NEGATIVE (NEGATIVE); BLOOD, URINE BLOOD NEGATIVE (NEGATIVE); COLOR, URINE YELLOW (YELLOW); GLUCOSE, URINE (UA) AUTO NEGATIVE (NEGATIVE); KETONE, URINE AUTO NEGATIVE (NEGATIVE); LEUKOCYTE ESTERASE, URINE AUTO NEGATIVE (NEGATIVE); MUCUS, URINE SMALL (NEGATIVE); NITRITE, URINE AUTO NEGATIVE (NEGATIVE); PROTEIN, URINE AUTO 2+ mg/dL (NEGATIVE); RBC, URINE AUTO 0 /HPF (0-3); SPECIFIC GRAVITY URINE AUTO 1.019 (1.002-1.035); SQUAMOUS EPITHELIAL CELL UR AU 0 /HPF (0-6); UROBILINOGEN, URINE AUTO 0.2 mg/dL (0.0-2.0); WBC, URINE AUTO 2 /HPF (0-3)
[2024-11-27 12:22] LABS: PSA FREE 0.2 ng/mL; PSA TOTAL 0.3 ng/mL (< OR = 4.0)
== END ==
LOC: M LAB 14:10
PROVIDERS: ATTEND Registered Nurse
DX: R35.0 Frequency of micturition (principal)

== ENCOUNTER → 2025-01-14 | Outpatient (REF) | payer OTHER ==
[~2025-01-14] MED LIST changes: -AMBI10TA PO; +TAMS-18 PO; +ZOLP-533 PO
[2025-01-14 13:34] LABS: APPEARANCE, URINE CLEAR (CLEAR); BACTERIA, URINE AUTO NEGATIVE (NEGATIVE); BILIRUBIN, URINE AUTO NEGATIVE (NEGATIVE); BLOOD, URINE BLOOD NEGATIVE (NEGATIVE); COLOR, URINE YELLOW (YELLOW); GLUCOSE, URINE (UA) AUTO 3+ mg/dL (NEGATIVE); KETONE, URINE AUTO NEGATIVE (NEGATIVE); LEUKOCYTE ESTERASE, URINE AUTO NEGATIVE (NEGATIVE); NITRITE, URINE AUTO NEGATIVE (NEGATIVE); PROTEIN, URINE AUTO 1+ mg/dL (NEGATIVE); RBC, URINE AUTO 0 /HPF (0-3); SPECIFIC GRAVITY URINE AUTO 1.025 (1.002-1.035); SQUAMOUS EPITHELIAL CELL UR AU 0 /HPF (0-6); UROBILINOGEN, URINE AUTO 0.2 mg/dL (0.0-2.0); WBC, URINE AUTO 1 /HPF (0-3)
== END ==
LOC: M SMT 12:54
PROVIDERS: ATTEND Nurse Practitioner Family
DX: R30.0 Dysuria (principal)

== ENCOUNTER → 2025-04-21 | Outpatient (CLI) | payer OTHER ==
[2025-04-21 13:26] LABS: ESTIMATED AVERAGE GLUCOSE 134.0 MG/DL (60-110)
== END ==
LOC: M RAD 12:18
PROVIDERS: ATTEND Internal Medicine Critical Care Medicine
DX: Z12.2 Encounter for screening for malignant neoplasm of respiratory organs (principal); F17.218 Nicotine dependence, cigarettes, with other nicotine-induced disorders; R81 Glycosuria

== ENCOUNTER → 2025-06-05 | Outpatient (CLI) | payer OTHER ==
[2025-06-05 13:52] LABS: BASO # 0.1 10^3/uL (0.0-0.2); BASO % 1.0 % (0.0-1.0); EOS # 0.1 10^3/uL (0.0-0.5); EOS % 1.9 % (0.0-3.0); LYMPH # 1.9 10^3/uL (1.5-5.0); LYMPH % 38.4 % (24.0-44.0); MONO # 0.3 10^3/uL (0.0-0.8); MONO % 6.4 % (2.0-8.0); NEUTROPHILS # 2.5 10^3/uL (1.5-8.5); NEUTROPHILS % 51.7 % (36.0-66.0); PLATELET COUNT, AUTOMATED 143 10^3/uL (150-450)
[2025-06-05 14:09] LABS: ALT/SGPT 34 U/L (7.0-40); AST/SGOT 22 U/L (<34); CALCIUM LEVEL 8.9 MG/DL (8.3-10.6); CARBON DIOXIDE LEVEL 25 MMOL/L (20-31); CHLORIDE LEVEL 109 MMOL/L (98-107); CHOLESTEROL LEVEL 143 MG/DL (<200); CHOLESTEROL RISK RATIO 3.36 (<5); CREATININE FOR GFR 0.91 MG/DL (0.70-1.30); GLOMERULAR FILTRATION RATE > 90.0 (>49); LDL CHOLESTEROL 65.5 MG/DL (<100); NON-HDL-C 100.5 MG/DL; POTASSIUM SERUM 4.0 MMOL/L (3.5-5.1); SODIUM LEVEL 145 MMOL/L (136-145); TRIGLYCERIDES LEVEL 175 MG/DL (<150)
[2025-06-05 14:20] LABS: ESTIMATED AVERAGE GLUCOSE 134.0 MG/DL (60-110)
== END ==
LOC: M LAB 13:03
PROVIDERS: ATTEND Registered Nurse
DX: E11.9 Type 2 diabetes mellitus without complications (principal); E78.2 Mixed hyperlipidemia

== ENCOUNTER → 2025-06-12 | Outpatient (CLI) | payer OTHER | LOC: M RAD 15:41 | PROVIDERS: ATTEND Nurse Practitioner Family | DX: N50.811 Right testicular pain (principal) ==